=== PATIENT | female | born 1970 | race Caucasian/White ===

== ENCOUNTER → 2023-09-12 | Outpatient (CLI) | payer SELFPAY ==
--- NOTE | 2023-09-12 | BRBX_PTH ---
PATIENT: CASSIDY CAPUTO LOC: [facility] U#:[id number] AGE/SX: 53/F ROOM: RE09/12/[address]: Dr. Griffin Sage MD : 1970 BED: DIS: 09/12/2023 SPEC #: [id number] RECD: 09/12/23 15:57 STATUS: LEANN MEDEIROS #: [id number] VENANCIO: 09/12/23 00:[address]: Griffin Sage DEPT: SURGICAL PATHOLOGY RECD BY: Christin Murguia ENTERED: 09/13/23 07:25 SP TYPE: BREAST BX OTHR DR: Dr. Michael Ernst, DO Tissues: Left breast, NOS Procedures: Surgery Specimen Level IV HEADER OPERATION: Left breast biopsy PRE-OP DIAGNOSIS: Left breast TISSUE SUBMITTED: Left breast tissue Ischemic Time: 1 minute Fixation Time: 7 hours MICROSCOPIC DIAGNOSIS Left breast, core biopsy: Invasive ductal carcinoma. See cancer summary in the comment section. SJ/mr 09/14/2023 COMMENT Immunohistochemistry ([id number]) supports the above diagnosis. INVASIVE BREAST CANCER SUMMARY: Procedure: Needle core biopsy Specimen Laterality: Left Tumor site: Not specified Histologic type: Invasive ductal carcinoma, no special type Provisional histologic grade (Beaumont histologic score): Glandular/Tubule Differentiation Score:3 Nuclear Pleomorphism Score: 3 Mitotic Rate Score: 2 Overall grade: Grade 3 (score of 8) Tumor Size (greatest dimension): 0.6cm in greatest length Ductal Carcinoma Insitu: not present Lymphatic/vascular invasion: Not identified Microcalcifications: Not identified Additional Findings: None Breast Marker Study: [id number] ER: negative (0%) MT: negative (0%) Her2: positive (3+) Ki67: positive, 25% Pel1PebtdWJ: not performed The above summary is in compliance with [employer] of [employer] (CAP) Cancer Protocols Checklist and [place] Joint Committee on Cancer (AJCC), Staging Manual, 8th Ed. MICROSCOPIC DESCRIPTION Slides are reviewed. GROSS DESCRIPTION Received in fixative is one container labeled with the patient's name and designated Left breast tissue. The specimen consists of multiple irregular fragments of kelley-yellow fibroadipose tissue mixed with blood clot that in aggregate measure 2.5 x 1.5 x 0.1 cm. The specimen is totally submitted in one cassette. EMANUEL/ 09/13/2023 TC:0 CPT:15870
--- NOTE | 2023-09-12 | IMM_PTH ---
PATIENT: CASSIDY CAPUTO LOC: [facility] U#:[id number] AGE/SX: 53/F ROOM: RE09/12/[address]: Dr. Griffin Sage MD : 1970 BED: DIS: 09/12/2023 SPEC #: [id number] RECD: 09/14/23 10:21 STATUS: LEANN REQ #: [id number] VENANCIO: 09/12/23 00:[address]: Griffin Sage DEPT: IMMUNOHISTOCHEMISTRY RECD BY: Reg Meyers ENTERED: 09/14/23 10:21 SP TYPE: IMMUNO OTHR DR: Dr. Michael Ernst DO Tissues: Left breast, NOS Procedures: CALPONIN-1 (add) CK5-6 (add) CK8 (add) E-CAD (add) HER2 VALENTE (add) KI-67 (add) P53 (add) ID (add) P40 (add) ER (initial) PHYSICIAN & INSTITUTION [place] [id number] SPECIMEN INFORMATION: Tissue Source: Left breast tissue Clinical Info: Left breast Specimen Number: [id number] CPT code: 73922,51390b3,21218l6 METHODOLOGY: Deparaffinized sections of prefer/formalin-fixed tissue or PAP/DQ stained slides are incubated with monoclonal/polyclonal antibodies/oligonucleotide probes. Localization is made via biotin free immunoperoxidase method. Appropriate controls are performed and reacted as expected. Results on target cell population are indicated in the following table: RESULTS: ANTIBODY / CLONE RESULT E-Cad (ECH-6) positive CK8 (91jhkuI39) positive Calponin-1 (UB489A) negative CK5-6 (D5 & 1684) negative P40 (BC28) negative P53 (DO-7) negative, (null pattern) Ki-67 (30-9) positive, 25% MORPHOMETRIC ANALYSIS ER (clone 6F11) 0% ID (clone 16/1E2) 0% Her-2Neu (clone CB11) 3+ The prognostic test for HER2 is performed on formalin-fixed paraffin embedded tissue. A 3+ (positive) staining pattern is defined as intense, homogeneous, complete, circumferential membranous staining in >10% of contiguous tumor cells. A similar weak (2+) staining pattern is interpreted as equivocal. HARJEET follow-up testing is recommended for all equivocal cases. Positivity/negativity for ER/ID is reported if > or < 1% of the tumor cells are immuno- reactive, respectively. The ASCO/CAP criteria is used for scoring. Reference: Journal of Clinical Oncology, 2013; 31:8728-6484 & 2010; 16:7683-3329. Ischemic time: Less than one hour. Duration of fixation: 7 Hrs; Sample Adequate: Yes. These assays have not been validated on decalcified tissues. Results should be interpreted with caution given the likelihood of false negativity on decalcified specimens or fixation greater than 72 hours. Alternative testing methods (FISH/dualISH for Her2; gene expression for ER) are recommended, if applicable. Please notify the laboratory if additional testing is required. These tests were developed and their performance characteristics determined by [facility]. They may not have been cleared or approved by the U.S. Food and Drug Administration. The FDA has determined that such clearance or approval is not necessary. The above immunohistochemical/dualISH markers are ordered and reviewed by the Pathologist. The test for HER 2 is performed on formalin-fixed paraffin embedded tissue using the CB11 mouse monoclonal antibody ([employer]). A 3+ staining pattern is interpreted as positive and is defined as a strong membranous staining involving the entire cell membrane in over 30% of invasive tumor cells. A similar weak staining pattern (2+) involving 10% of the tumor cells is interpreted as equivocal. HER 2 follow-up testing by FISH is recommended for all equivocal results. Reference: [place] Society of Clinical Oncology and the College of [place] Path[employer] (J. Clin. Oncol. 23: 118-145, 2007). Fixative INTERPRETATION: Left breast, biopsy: Invasive ductal carcinoma, provisional grade 3. Negative for estrogen receptors (unfavorable prognostic indicator). Negative for progesterone receptors (unfavorable prognostic indicator). Positive for overexpression of SZL4kcv. EMANUEL/ 09/17/2023
== END | disposition home or self-care (01) ==
PROVIDERS: PCP Family Medicine; Referring Provider Surgery; Visit Provider Surgery
DX: C50.912 Malignant neoplasm of unspecified site of left female breast (principal)
CPT/HCPCS: 88305; 88341; 88342

== ENCOUNTER → 2023-09-21 | Outpatient (CLI) | payer SELFPAY ==
--- NOTE | 2023-09-21 08:02 | MRI_ITS ---
STUDY: BILATERAL BREAST MR WITHOUT AND WITH CONTRAST REASON FOR EXAM: Female, 53 years old. Suspicious axillary lymph nodes. Left breast cancer with bloody nipple discharge. TECHNIQUE: Multi-sequence multi-echo imaging of both breasts was performed with a dedicated breast coil. T1-weighted and T2-weighted images were performed before the administration of contrast. T1-weighted images were also performed after the intravenous administration of 17 cc of Clariscan contrast. COMPARISON: Left breast ultrasound-guided biopsy images dated September 12, 2023, bilateral diagnostic mammogram dated September 11, 2023 and unilateral left diagnostic mammogram dated September 11, 2019 FINDINGS: RIGHT BREAST: Scattered fibroglandular density with minimal background enhancement. No abnormal enhancing masses or areas of non-mass enhancement in the right breast. LEFT BREAST: Scattered fibroglandular density with minimal background enhancement. Large area of clumped non-mass enhancement in the upper central portion of the left breast measuring approximately 6.5 cm x 5.4 cm x 5.3 cm and extending from the upper inner quadrant to the upper outer quadrant and on the sagittal images slight extension into the inferior aspect of the breast. Area of enhancement corresponds generally to the multiple pleomorphic calcifications noted on the diagnostic mammogram from September 11, 2023 Morphologically normal lymph nodes are noted in both axillary, actually larger on the right side. No abnormality in the visualized regions of the chest or liver. MRI/Breast Bilateral W/O and W IMPRESSION: MRI imaging characteristics of multicentric breast cancer on the left as described. Lymph nodes in both axillary, right actually slightly greater than left, with normal morphology at MR. CATEGORY: BIRADS Category 6: Known Biopsy-Proven Malignancy - Appropriate Action Should Be Taken. A letter regarding these results will be sent to the patient by the facility within 30 days. Electronically Signed: Leighton Kunz MD at 10:37 EDT ,
[2023-09-21 08:36] LABS: CREATININE FINGERSTICK < 1.0 mg/dL (0.55-1.02); EGFR FINGERSTICK > 60.0000 mL/min (>60)
== END | disposition home or self-care (01) ==
PROVIDERS: PCP Family Medicine; Referring Provider Surgery; Visit Provider Surgery
DX: R92.8 Other abnormal and inconclusive findings on diagnostic imaging of breast (principal); I10 Essential (primary) hypertension; N63.20 Unspecified lump in the left breast, unspecified quadrant; R93.89 Abnormal findings on diagnostic imaging of other specified body structures
CPT/HCPCS: 77049; A9575; A4216; C8908

== ENCOUNTER → 2023-10-03 | Outpatient (CLI) | payer SELFPAY ==
--- NOTE | 2023-10-03 | IMM_PTH ---
PATIENT: CASSIDY CAPUTO LOC: [facility]#:[id number] AGE/SX: 53/F ROOM: RE10/03/[address]: Dr. Griffin Sage MD : 1970 BED: DIS: 10/03/2023 SPEC #: [id number] RECD: 10/05/23 11:32 STATUS: LEANN REQ #: [id number] VENANCIO: 10/03/23 00:[address]: Griffin Sage DEPT: IMMUNOHISTOCHEMISTRY RECD BY: Reg Meyers ENTERED: 10/05/23 11:34 SP TYPE: IMMUNO OTHR DR: Dr. Michael Ernst DO Tissues: A - Lymph node, NOS B - Lymph node, NOS Procedures: BCL-2 (add) CD20 (add) CD45 (add) CD5 (add) CD79A (add) CK7 (add) CK8 (add) HER2 VALENTE (add) KI-67 (add) MAMM (add) MA (add) Pankeratin (add) GATA3 (add) ER (initial) CD3 (initial) PHYSICIAN & [address] [address] SPECIMEN INFORMATION: Tissue Source: A- Lymph node #1, B- Lymph node #2 Clinical Info: Left axilla Specimen Number: [id number] A, B CPT code: 77430i1,48811a46,[id number] METHODOLOGY: Deparaffinized sections of prefer/formalin-fixed tissue or PAP/DQ stained slides are incubated with monoclonal/polyclonal antibodies/oligonucleotide probes. Localization is made via biotin free immunoperoxidase method. Appropriate controls are performed and reacted as expected. Results on target cell population are indicated in the following table: RESULTS: ANTIBODY / CLONE RESULT Block A GATA3 (L50-823) positive Mammaglobin (31A5) negative AE1-3 (AE1/AE3/PCK26) positive CK8 (95nigcB64) positive CK7 (OV-TL12/30) positive ER (clone 6F11) negative MA (clone 16/1E2) negative Her-2Neu (clone CB11) positive Block B CD3 (PS1) positive CD5 (SP10) positive CD20 (L26) positive CD79a (11E3) positive CD45 (RP2/18) positive BCL-2 (bcl-2/100/D5) positive Ki-67 (30-9) positive, low The prognostic test for HER2 is performed on formalin-fixed paraffin embedded tissue. A 3+ (positive) staining pattern is defined as intense, homogeneous, complete, circumferential membranous staining in >10% of contiguous tumor cells. A similar weak (2+) staining pattern is interpreted as equivocal. HARJEET follow-up testing is recommended for all equivocal cases. Positivity/negativity for ER/MA is reported if > or < 1% of the tumor cells are immuno- reactive, respectively. The ASCO/CAP criteria is used for scoring. Reference: Journal of Clinical Oncology, 2013; 31:3942-8974 & 2010; 16:3593-7384. Ischemic time: Less than one hour. Duration of fixation: __ Hrs; Sample Adequate: Yes. These assays have not been validated on decalcified tissues. Results should be interpreted with caution given the likelihood of false negativity on decalcified specimens or fixation greater than 72 hours. Alternative testing methods (FISH/dualISH for Her2; gene expression for ER) are recommended, if applicable. Please notify the laboratory if additional testing is required. These tests were developed and their performance characteristics determined by [facility]. They may not have been cleared or approved by the U.S. Food and Drug Administration. The FDA has determined that such clearance or approval is not necessary. The above immunohistochemical/dualISH markers are ordered and reviewed by the Pathologist. The test for HER 2 is performed on formalin-fixed paraffin embedded tissue using the CB11 mouse monoclonal antibody ([employer]). A 3+ staining pattern is interpreted as positive and is defined as a strong membranous staining involving the entire cell membrane in over 30% of invasive tumor cells. A similar weak staining pattern (2+) involving 10% of the tumor cells is interpreted as equivocal. HER 2 follow-up testing by FISH is recommended for all equivocal results. Reference: [place] Society of Clinical Oncology and the College of [place] Path[employer] (J. Clin. Oncol. 23: 118-145, 2007). Fixative Used: Formalin; Duration of Fixation: __ Hrs; Sample Adequate: Yes INTERPRETATION: A. Lymph node #1, biopsy: Consistent with metastatic breast carcinoma. B. Lymph node #2, biopsy: Polytypic lymphoid tissue No evidence of lymphoproliferative disorder. ZENAIDA/ 10/08/2023
--- NOTE | 2023-10-03 | AXNB_PTH ---
PATIENT: CASSIDY CAPUTO LOC: [facility]#:[id number] AGE/SX: 53/F ROOM: RE10/03/[address]: Dr. Griffin Sage MD : 1970 BED: DIS: 10/03/2023 SPEC #: [id number] RECD: 10/03/23 16:25 STATUS: LEANN WALDEMAR #: [id number] VENANCIO: 10/03/23 00:[address]: Griffin Sage DEPT: SURGICAL PATHOLOGY RECD BY: Christin Murguia ENTERED: 10/04/23 07:07 SP TYPE: AX NODE BX OT DR: Dr. Michael Ernst DO Tissues: A - Axillary lymph node, NOS B - Axillary lymph node, NOS Procedures: Surgery Specimen Level IV HEADER OPERATION: Lymph node biopsy left axilla PRE-OP DIAGNOSIS: Left axilla TISSUE SUBMITTED: A- Lymph node #1, B- Lymph node #2 MICROSCOPIC DIAGNOSIS A. Left axillary lymph node #1, core biopsy: Minute focus of metastatic non-small cell carcinoma with tumor necrosis. See comment. B. Left axillary lymph node #2, core biopsy: Benign lymphoid tissue. No evidence of malignancy. See comment. ZENAIDA/ 10/05/2023 COMMENT A Immunohistochemistry ([id number]) supports the above diagnosis and is consistent with a breast primary. Reference is made to the patient's left breast core biopsy ([id number]) in which invasive ductal carcinoma, provisional grade 3 was identified. Case has been reviewed in consultation with Dr. Cook who concurs with the above diagnosis. IDC:SJ MICROSCOPIC DESCRIPTION Slides are reviewed. GROSS DESCRIPTION A. Received in fixative is one container labeled with the patient's name and designated Left axilla #1. The specimen consists of two elongated pieces of kelley light-yellow fibroadipose tissue measuring in aggregate 1.5 x 0.2 x 0.1cm. B. Received in fixative is one container labeled with the patient's name and designated Left axilla #2. The specimen consists of multiple elongated fragments of kelley-yellow adipose tissue measuring in aggregate 1.0 x 0.3 x 0.1cm. EMANUEL/ 10/04/2023 TC:0 CPT:39566h8
--- NOTE | 2023-10-03 13:54 | US_ITS ---
STUDY: ULTRASOUND BREAST - LEFT REASON FOR EXAM: Female, 53 years old. Ultrasound-guided left axillary lymph node. TECHNIQUE: Axial and longitudinal images of the LEFT breast were performed with a high resolution ultrasound transducer. # OF IMAGES: 24 COMPARISON: None. FINDINGS: LEFT Breast: Ultrasound guided biopsy of a left axillary lymph node. US/US Breast Biopsy 1st Lesion IMPRESSION: Ultrasound-guided biopsy of the left axillary lymph node. ASSESSMENT CATEGORY: BIRADS Category 2: Benign. A letter regarding these results will be sent to the patient by the facility within 30 days. Electronically Signed: James Pederson MD at 11:03 EDT ,
--- NOTE | 2023-10-03 16:18 | PCM.OP.PRO ---
Procedure Report Date of Procedure: 10/03/23 Procedure: Core needle biopsy of left axillary lymph node Description: After a detailed review of the biopsy procedure, the patient was positioned supine in the exam chair. Formal, written consents were obtained prior to positioning and ultrasonography had previously identified the lymph nodes of interest. Ultrasound was used to localize these lymph nodes which were in close proximity to 1 another but the morning elongated of the 2 lymph nodes resided medially and inferior to the lymph node with a greater cortical thickness. Locally 1% lidocaine was infiltrated about the mass using ultrasound guidance. Once the area was sufficiently anesthetized, a small stab incision was made in the skin and the Crestock core needle device was introduced percutaneously. Ultrasound was used to guide the tip of the device to the border of the more superior lateral lesion. Then the mass was serially sampled with 2 cores which were placed in solution for pathologic processing. After infiltrating some additional local anesthetic and confirming anesthesia be more inferior medial lesion was sampled with 2 cores of its own. Pressure was applied over the area to facilitate hemostasis. A marking clip was then placed under ultrasound guidance lateral to the superior lateral node. Again, pressure was applied until hemostasis was obtained. The skin was cleaned and Steri-Strips were applied over the stab incision for the biopsy procedure. Patient tolerated the procedure with no complications EBL: 3 mL Procedures Cardiovascular CF Procedures 33xxx-39xxx: [id number] Biopsy Lymph Node/gland/etc
== END | disposition home or self-care (01) ==
PROVIDERS: PCP Family Medicine; Referring Provider Surgery; Visit Provider Surgery
DX: C50.919 Malignant neoplasm of unspecified site of unspecified female breast (principal); C77.9 Secondary and unspecified malignant neoplasm of lymph node, unspecified; N64.1 Fat necrosis of breast
CPT/HCPCS: 19083; 19084; 88305; 88341; 88342

== ENCOUNTER → 2023-10-16 | Outpatient (CLI) | payer SELFPAY ==
--- NOTE | 2023-10-16 14:09 | BI_ITS ---
MAMMOGRAPHY - UNILATERAL DIAGNOSTIC: LEFT BREAST REASON FOR EXAM: Female, 53 years old. Postbiopsy clip placement. PERTINENT HISTORY: Status post right axillary lymph node biopsy. TECHNIQUE: Mediolateral oblique and craniocaudad views of the left breast were obtained. CAD: Full Field Digital Mammography with Computer Added Detection was performed. COMPARISON: Comparison is made with prior MRI dated September 21, 2023 FINDINGS: Breast Composition: The breasts are heterogeneously dense, which may obscure small masses. Microcalcifications are seen in the upper lateral quadrant of the left breast. A tissue clip marker is seen within the fat-containing left axillary lymph node. No other significant abnormalities are identified. BI/DIAG MAMM W/CAD, UNILAT IMPRESSION: Indication: Increasing within the fat-containing left axillary lymph node. ASSESSMENT CATEGORY: Approximately 10% of breast cancers are not detected by mammography. A normal mammogram should not delay biopsy of a clinically suspicious abnormality. Electronically Signed: James Pederson MD at 14:54 EDT ,
== END | disposition home or self-care (01) ==
PROVIDERS: PCP Family Medicine; Referring Provider Surgery; Visit Provider Surgery
DX: N63.20 Unspecified lump in the left breast, unspecified quadrant (principal); C79.81 Secondary malignant neoplasm of breast; R93.89 Abnormal findings on diagnostic imaging of other specified body structures
CPT/HCPCS: 77065

== ENCOUNTER → 2023-10-22 | Outpatient (CLI) | payer SELFPAY ==
--- NOTE | 2023-10-22 09:50 | ECHODONC_ITS ---
Reason For Study: ANTINEOPLASTIC CHEMOTHERAPY Procedure This was a 2D Doppler, Color Flow transthoracic echocardiogram. Myocardial strain analysis was performed in this exam to aid in the assessment of cardiac function. Exam performed in department. Left Ventricle Normal LV size. The global longitudinal strain is mildly abnormal. The global longitudinal strain = -16.6% (abnormal). The estimated ejection fraction is 60 %. No evidence for diastolic dysfunction. No regional wall motion abnormalities noted. Right Ventricle Normal RV size. Normal systolic function. Atria The left and right atria are normal. No doppler evidence for ASD. Mitral Valve There is no mitral valve stenosis. No mitral valve insufficiency. Tricuspid Valve There is no tricuspid stenosis. Trivial tricuspid valve insufficiency. Pulmonary artery systolic pressure is 25 mmHg. Aortic Valve Trisinus/trileaflet aortic valve. There is no aortic stenosis. No aortic valve insufficiency. Pulmonic Valve There is no pulmonic valvular stenosis. No pulmonic valve insufficiency. Great Vessels Normal aortic root. Pericardium/Pleural No pericardial effusion. MMode/2D Measurements & Calculations LVIDd: 4.3 cm IVSd: 1.2 cm LVOT diam: 1.9 cm LVIDs: 2.4 cm LVPWd: 0.75 cm LVOT area: 2.8 cm2 RVDd: 3.3 cm FS: 43.5 % Ao root diam: 3.1 cm LAV(MOD-bp): 42.6 ml LVAd ap4: 19.9 cm2 LAV(MOD-bp) Indexed: 23.2 ml/m2 LVLd ap4: 6.7 cm LAV(MOD-sp2): 55.4 ml EDV(MOD-sp4): 47.5 ml LAV(MOD-sp4): 28.8 ml EDV(sp4-el): 50.3 ml LVAs ap4: 10.4 cm2 LVLs ap4: 5.0 cm ESV(MOD-sp4): 17.7 ml ESV(sp4-el): 18.4 ml EF(MOD-sp4): 62.7 % EF(sp4-el): 63.5 % LVAd ap2: 18.1 cm2 SV(MOD-sp4): 29.8 ml SV(MOD-sp2): 29.1 ml LVLd ap2: 6.4 cm EDV(MOD-sp2): 44.2 ml EDV(sp2-el): 43.9 ml LVAs ap2: 9.5 cm2 LVLs ap2: 5.1 cm ESV(MOD-sp2): 15.2 ml ESV(sp2-el): 14.8 ml EF(MOD-sp2): 65.7 % SV(sp4-el): 31.9 ml LA dimension(2D): 3.6 cm LA A4 area: 12.7 cm2 RA A4 area: 7.8 cm2 TAPSE: 1.8 cm Time Measurements MV dec time: 0.21 sec Doppler Measurements & Calculations MV E max omar: 76.6 cm/sec Lat Peak E' Omar: 12.8 cm/sec Med Peak E' Omar: 8.9 cm/sec MV A max omar: 85.9 cm/sec E/E' lat: 6.0 E/E' med: 8.7 MV E/A: 0.89 Ao V2 max: 124.7 cm/sec LV V1 max: 111.0 cm/sec MV dec slope: 371.6 cm/sec2 Ao max P.2 mmHg LV V1 max P.9 mmHg Ao V2 mean: 86.8 cm/sec LV V1 mean P.6 mmHg Ao mean P.4 mmHg LV V1 mean: 76.0 cm/sec Ao V2 VTI: 28.5 cm LV V1 VTI: 24.7 cm AV (velocity ratio): 0.87 JL(I,D): 2.5 cm2 JL(V,D): 2.5 cm2 SV(LVOT): 70.2 ml PA V2 max: 76.0 cm/sec PI end-d omar: 98.6 cm/sec PA max PG (full): 1.1 mmHg TR max omar: 254.1 cm/sec TR max P.8 mmHg ECHO/ONC Echo Complete Interpretation Summary The estimated ejection fraction is 60 %. No evidence for diastolic dysfunction. Ordering Physician: Jairon Rothman Referring Physician: Jairon Rothman Performed By: Rosa Franco RDCS
== END | disposition home or self-care (01) ==
PROVIDERS: PCP Family Medicine; Referring Provider Internal Medicine Medical Oncology; Visit Provider Internal Medicine Medical Oncology
DX: Z01.818 Encounter for other preprocedural examination (principal); C77.3 Secondary and unspecified malignant neoplasm of axilla and upper limb lymph nodes; C50.919 Malignant neoplasm of unspecified site of unspecified female breast
CPT/HCPCS: 93306; 93356

== ENCOUNTER 2023-10-25 07:59 | Day surgery (SDC) | payer SELFPAY ==
[2023-10-25] VITALS (8 sets, daily range): BP systolic 113–130; BP diastolic 66–85; PULSE 76–87; RESP 16; TEMP 36.3–36.6; O2SAT 98–100; BMI 37.4
--- NOTE | 2023-10-25 08:18 | PCM.PRE.AN2 ---
ASA Classification* ASA Classification ASA Classification: 3 Assessment & Plan Anesthesia* Anesthesia Assessment Anesthesia Assessment: Discussed sedation and/or anesthesia options, risks, benefits, and alternatives with patient/parents/legal guardian/POA. Questions invited. The patient/parents/legal guardian/POA seems to understand and agrees to proceed with anesthesia plan. Reviewed the physical assessment, medical history, allergy history and patient home medications list prior to surgery/procedure/anesthetic and documented any changes. Performed airway and anesthesia risk assessments. Anesthesia Type Anesthesia Type: MAC (see written pre anesthesia record for full assessment) Anesthesia Focused Assessment* Airway Assessment Mouth opens: >3 cm Mallampati Score: II Focused Labs Anesthesia Preop lab: CBC WBC 6.6 K/mm3 (4.4-11.0) 10/18/23 10:05 RBC 4.60 M/mm3 (4.2-5.4) 10/18/23 10:05 Hgb 13.2 g/dL (12.0-15.0) 10/18/23 10:05 Hct 39.3 % (37-47) 10/18/23 10:05 Plt Count 260 K/mm3 (150-450) 10/18/23 10:05 CHEMISTRY Potassium 3.9 mmol/L (3.5-5.1) 10/18/23 10:05 Sodium 143 mmol/L (136-145) 10/18/23 10:05 BUN 14 mg/dL (7-18) 10/18/23 10:05 Creatinine 0.93 mg/dL (0.55-1.02) 10/18/23 10:05 Glucose 100 mg/dL (74-106) 10/18/23 10:05 COAG Pre-Assessment Diagnosis/Proposed Procedure Planned Operative Procedure(s): (R) Right possible left Insertion, Vascular Port Anesthesia History 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 When Was Last Pacemaker Check QUESTION #4 FULL TEXT: You/Your Family Experience fever (hyperthermia) with Anesthesia Last Oral Intake Last Oral intake: Last Oral Intake NPO since Meds taken in AM with sips of water? 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 Female Yes 10/19/23 08:24 HX of Motion Sickness Yes 10/19/23 08:24 HX of N/V After Surgery No 10/19/23 08:24 Non-Smoker Yes 10/19/23 08:24 Duration of Surgery greater No 10/19/23 08:24 than 60 minutes Number of Risk Factors 3 10/19/23 08:24 PONV Score Moderate Risk 10/19/23 08:24 Height & Weight Height & Weight: Anesthesia: Height & Weight Height 5 ft 10/18/23 09:10 Respiratory Assessment Respiratory Assessment - assistant professor of physics: Respiratory Tract Infection Hx - assistant professor of physics Hx Respiratory Tract Infection No 10/19/23 08:24 STOP Sleep Apnea STOP Sleep Apnea - assistant professor of physics: STOP Sleep Apnea - assistant professor of physics Hx Hypertension Yes: controlled with med 10/19/23 08:24 Hx Sleep Apnea No 10/19/23 08:24 CPAP BIPAP Do you snore loudly (louder Yes 10/19/23 08:24 than talking or can be heard Do you often feel tired/ No 10/19/23 08:24 fatigued/ sleepy during daytime? Has anyone observed you stop No 10/19/23 08:24 breathing during sleep? STOP Results Positive 10/19/23 08:24 QUESTION #5 FULL TEXT : Do you snore loudly (louder than talking or can be heard through closed doors)? 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 Specify any problems Hx of Preganancy in last 3 N/A 10/19/23 08:24 Months Nurse Filling Out Transfusion NBUCHER 10/19/23 08:24 & Questions: Date: 10/19/23 10/19/23 08:24 Time: 08:26 10/19/23 08:24 Patient unable to answer at this time (ie. 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: /Reproductive Hx- assistant professor of physics Hx Now No 10/19/23 08:24 Gestational Age (in weeks): EDC: Hx Hx Para Hx Section SAB No 10/19/23 08:24 Active Medications Active Medications: Current Medications Generic Name Dose Route Start Last Admin Trade Name Freq PRN Reason Stop Dose Admin Cefazolin Sodium 2 gm/ Sodium 110 mls @ 150 mls/hr 10/25/23 11:30 Chloride IV 10/25/23 12:13 PREOP ONE Lactated Ringer's 1,000 mls @ 15 mls/hr 10/25/23 08:15 IV .Q48H MAXIMILIAN PFSH Medical History Wears contact lenses Wears glasses Cancer Migraine headache Shortness of breath on exertion Non-smoker Hypertension History of hypertension History of frequent headaches History of seasonal allergies Home Medications ?Medication ?Instructions ?Recorded ?Last Taken ?Type hydrochlorothiazide 12.5 mg capsule 12.5 mg PO DAILY 09/12/23 Unknown History lisinopril 2.5 mg tablet 2.5 mg PO DAILY 09/12/23 Unknown History amlodipine 5 mg tablet 5 mg PO DAILY 10/18/23 Unknown History loratadine 10 mg tablet (Allergy 10 mg PO DAILY 10/18/23 Unknown History Relief (loratadine)) Allergy/AdvReac Type Severity Reaction Status Date / Time No Known Allergies Allergy Verified 10/19/23 08:23 Family History Aunt Breast cancer, Onset Age: 60 Father Cancer Asthma Heart disease Hypertension Diabetes Aunt Lymphoma Surgical History History of delivery History of wisdom tooth extraction Social History Smoking Status: Never smoker alcohol intake: never substance use type: does not use additional social history: pt denies vaping, denies marijuana use denies edibles, uses ibuprofen as needed. used to take aspirin daily has stopped Review of Systems (Anesthesia) ROS Narrative System reviewed and no additional complaints, except as documented.
[2023-10-25 08:26] LABS: Internal QC Validated? YES +Cl - CLEAR BKGD; Pregnancy, Urine Negative Negative
[2023-10-25] MEDS: Lactated Ringers 1,000 ML 15 ML IV (08:32)
--- NOTE | 2023-10-25 09:17 | HP.PCM_ITS ---
History and Physical Date of Admission: 10/25/23 Date of Service: 10/16/23 MR#: [id number] Acct: [id number] Name: CASSIDY HEAD Rep #: [id number] : 1970 Provider: Dr. Griffin Sage MD Age/Sex: 53/F Location: [facility] Status: Signed Intake Vital Signs 09/12/2411:11 10/15/2408:07 Height 5 ft 5 ft BP 132/80 H Blood Pressure Location Rt brachial Position Sitting Respiration 18 Pulse 80 Pulse Source Monitor Temp 97.2 F L Temp Source Temporal Pulse Oximetry (%) 99 Oxygen Delivery Method room air Intake Visit Reasons: PORT CONSULT Chief Complaint: Port consult Accompanied by: Is patient in pain?: No Allergies No Known Allergies Allergy (Verified 10/16/23 10:39) Medications ?Medication ?Instructions ?Recorded ?Confirmed ?Type hydrochlorothiazide 12.5 mg capsule 12.5 mg PO DAILY 09/12/23 10/16/23 History lisinopril 2.5 mg tablet 2.5 mg PO DAILY 09/12/23 10/16/23 History losartan 25 mg tablet 25 mg PO DAILY 09/12/23 10/16/23 History Have you fallen in the past year?: No PFSH Medical History (Updated 10/16/23 @ 16:[address] Griffin Sage MD) History of hypertension History of frequent headaches History of seasonal allergies Surgical History (Updated 10/16/23 @ 10:39 by Little Burrell) History of delivery History of wisdom tooth extraction Family History (Updated 10/16/23 @ 10:44 by Little Burrell) Aunt Breast cancer, Onset Age: 60Father Cancer Asthma Heart disease Hypertension Diabetes Social History (Updated 10/16/23 @ 10:43 by Little Burrell) Smoking Status: Never smoker alcohol intake: never substance use type: does not use additional social history: pt denies vaping, denies marijuana use denies edibles, uses ibuprofen as needed. used to take aspirin daily has stopped HPI HPI HPI: Patient is a 53-year-old female who is known to me for a diagnosis now of left breast cancer. Most recently we completed ultrasound-guided biopsy of 2 axillary lymph nodes on 10/03/2023 and one of the 2 of these lymph nodes showed evidence of metastatic spread. This result was shared with patient as well as discussed with oncology. We have jointly decided that she would make a reasonable candidate for neoadjuvant therapy and thus patient presents today with her for consideration of port placement. Patient has no prior history of central line placement. Patient has no pacemaker or intracardiac defibrillator. Patient has no renal dysfunction and are not on hemodialysis. Mrs. Head is not currently prescribed blood thinners. Below is recapitulated from patient's consultation visit for ease of review: Patient is a 53-year-old female who presents for sonographic finding of the left breast. They are referred from Dr. Ernst. Based on sonographic imaging criteria this was given a BI-RADS 5. The mass was first found after patient describes identifying a small pimple approximately half an inch to the right of her nipple (roughly the 9 o'clock position as she gestures) and then experienced 2 occasions of minimal bloody nipple discharge. She denies any previous history of nipple discharge?including any milky discharge. She confesses that the subsequent mammography and ultrasonography were her first breast imaging studies ever obtained. Thus, patient has no prior history of breast pathology nor has a history of prior breast biopsy. She underwent menarche at the age of 13. She has had 8 pregnancies and 8 live births beginning at age 24. Breast-feeding was used with each of her children for approximately 1 year duration. Patient has no first-degree relatives with breast cancer but recalls that her great aunt on her maternal side was diagnosed with breast cancer later in life. There is no tenderness with the present finding. The patient has no history of hormone replacement therapy. There is no history of trauma/infection to the affected breast. Patient's only significant past medical history is that of hypertension. ROS General General: Yes fatigue; No weight change, appetite, colon cancer, breast cancer or weakness HEENT HEENT: No difficulty swallowing, eye injury, eye surgery, swollen glands or hoarseness Endo Endocrine: No thyroid disease, diabetes mellitus, thyroid cancer, Hair loss, heat intolerance or cold intolerance Skin Skin: No rash or changing moles Breast Breast: Yes abnormal mammogram and abnormal US; No left breast lump, right breast lump, nipple discharge, breast pain or breast enlargement Additional Details: sore on left breast Musc Musculoskeletal: No back problems, arthritis, rheumatoid arthritis, gout or joint pain Cardio Cardiovascular: Yes high blood pressure; No murmur, pacemaker, heart disease, atrial fibrillation, heart attack, heart stent, palpitations, shortness of breat with exertion or chest pain Psych Psychiatric: No depression, anxiety or hearing voices Resp Respiratory: No shortness of breath, No sleep apnea, No cough, No COPD, No asthma, No emphysema and No wheezing Gastro Gastrointestinal: No abdominal pain, No nausea or vomiting, No diarrhea, No constipation, No blood in stool, No acid reflux, No hemorrhoids, No ulcers, No gallbladder problem and No black,tarry stools Efren Hematologic: No blood thinners, No blood disorders, No bleeding, No anemia and No blood clots Neuro Neurologic: No numbness, No tingling and No weakness Exam Const General: cooperative and comfortable Orientation: alert, awake and oriented x3 Chest Other: No scars, rashes, or inflammatory changes consistent with infection Skin Other: Well-healing biopsy sites of both the left breast and left axilla with mild irritation of the epidermis consistent with adhesive reaction Assessment and Plan Assessment and Plan (1) Breast cancer metastasized to axillary lymph node: Status: Acute Comment: Patient is a 53-year-old female with now?known left infiltrating ductal carcinoma who is recently diagnosed with axillary lymph node metastasis via core needle biopsy. Receptor status is ER, [place] negative HER2/sailaja positive. After discussing patient's case with oncology and with patient and her , we have jointly decided to pursue neoadjuvant therapy followed by probable mastectomy and restaging of the axilla?provided that patient has a favorable response to neoadjuvant therapy. I held a lengthy conversation today with patient and her discussing these treatment options?specifically mastectomy with axillary lymph node dissection versus mastectomy with sentinel lymph node biopsy and described the risk of lymphedema associated with axillary lymph node dissection as a risk that we were trying to minimize with pursuing neoadjuvant therapy. Questions were taken at various time points and patient and her expressed not only understanding but agreement with the rec ommendations. I also proceeded with a discussion on the rationale for Port-A-Cath placement and the High Level details of the procedure itself. At the inclusion of today's visit patient was escorted to the oncology unit for a fast pass tour. She was also referred to plastic surgery for consultation related to possible reconstruction. Plan: ? Plan for right, possible left Port-A-Cath placement at first mutually available date ? Referral to oncology ? Referral to plastic surgery Orders: Orders DIAG MAMM W/CAD, UNILAT Today C79.81 - Secondary malignant neoplasm of breast, N63.20 - Unspecified lump in the left breast, unspecified quadrant, R93.89 - Abnormal findings on diagnostic imaging of other specified body structures Referrals Fast Pass: Oncology Referral [facility] C79.81 - Secondary malignant neoplasm of breast Plastic surgery C79.81 - Secondary malignant neoplasm of breast Coding Level of Care Code Off vis,est,level 4 Diagnoses Breast cancer metastasized to axillary lymph node C50.919; C77.3 I have examined the patient and the H&P has been reviewed. There are no clinical changes since date of exam.Patient is still pending a date with oncology but has begun the rest of her staging workup. We reviewed the plans for today as well as precautions to monitor the port for signs of infection. Patient and her confirm understanding. Will now proceed to the operating room for right, possible left Port-A-Cath placement.
[2023-10-25] MEDS: Cefazolin 2 GM in 0.9% Normal Saline (100mL Bag) 100 ML IV (09:24)
[2023-10-25] MEDS: Bupiv/Epi 0.25% 30 ML Vial (10:29)
--- NOTE | 2023-10-25 10:38 | DCINST_ITS ---
Discharge Instructions Diet Discharge Diet: No restrictions Activity Discharge Activity: May Shower Dressing / Incision Call your doctor if your incision/area has: Continuous Slow Oozing, Sudden Increased Bleeding, Increased Pain/ Swelling, Increased Redness, Foul Smelling Discharge and Swelling at the incision site Call your doctor if you observe: Fever of 101 or Higher and Uncontrolled pain Cleanse incision/area with: Soap & Water Follow Up Care Test Results: Test results from this visit will be discussed in further detail at your follow- up appointment, if applicable. Discharge Plan Admission Primary Reason for Your Visit: Right Port-A-Cath placement Attending Provider: Griffin Sage Primary Care Provider: Michael Ernst Instructions Print Language: Anguillan Discharge Orders/Prescriptions Prescriptions: No Action lisinopril 2.5 mg tablet 2.5 mg PO DAILY hydrochlorothiazide 12.5 mg capsule 12.5 mg PO DAILY amlodipine 5 mg tablet 5 mg PO DAILY loratadine [Allergy Relief (loratadine)] 10 mg tablet 10 mg PO DAILY Referrals / Follow Up: Michael Ernst DO [Primary Care Provider] - Disposition Disposition (needs filled in before D/C Order can be placed): Home, Self Care
--- NOTE | 2023-10-25 10:39 | PCM.OPRPT ---
Report of Operation Date of Procedure: 10/25/23 Pre-Operative Diagnosis: Left breast cancer with axillary node metastasis requiring neoadjuvant therapy and thus need for durable venous access Post-Operative Diagnosis: Same Surgery/Procedure Performed:: Ultrasound and fluoroscopic guided placement of tunneled 8 Marshallese Port-A-Cath to right internal jugular vein Description of Surgical Findings:: ? Normal vascular anatomy Surgeon: Griffin Sage program rep: None Type of Anesthesia: MAC/Supplemental Anesthesiologist: Davis Muñoz Specimen's removed: None Estimated Blood Loss (mL): 10 Description of Procedure: After appropriate identification in the preoperative holding area the patient was brought to the operating room. There she was administered preoperative antibiotics and positioned supine on the operating room table. Once sedation was begun, the upper chest and lower cervical region were prepped and draped in usual sterile fashion. A formal timeout was then conducted to confirm both the patient and procedure. Ultrasound was used to localize the right internal jugular vein. Then a wheal of quarter percent with epinephrine was raised superficially in this location and the vein was accessed with 3 attempts (initial 2 attempts show the wire extravasating posteriorly into the soft tissues deep to the vein). Under direct ultrasound guidance, using a Seldinger technique, the kit standard 035 guidewire was placed. The position of the guidewire was confirmed with fluoroscopy. Next the position of the port pocket was determined and again local anesthetic was used to anesthetize the area of both the pocket and the tunneling cephalad. A transverse incision 3 cm in width was made down through the subcutaneous tissue. Selective electrocautery was used to obtain hemostasis. Then with blunt dissection the port pocket was developed. The catheter was connected to the tunneler and was tunneled up to the position of the guidewire. Here the dilator and peel-away sheath were placed over the guidewire and the guidewire was removed. Position was again confirmed with fluoroscopy. The catheter length was estimated based on the external placement of a hemostat to approximate the level of the nilesh and the cavoatrial junction. The catheter was then fed into the sheath and slowly the sheath was peeled away as the catheter was inserted fully into the neck. Back in the chest the excess catheter was trimmed and the port was connected to the catheter. The port was tied into the pocket using 3-0 Vicryl. Function was then tested using sterile saline on a Jain needle. It was locked with 3 mL of heparinized saline (concentration 50U/5mL). The port pocket was closed with a deep dermal stitch using a running 3-0 Vicryl followed by 4-0 Monocryl subcuticular stitch. The 1 cm incision in the neck was closed with a single interrupted subcuticular stitch using 4-0 Monocryl. Dermabond was applied as a dressing. Patient was then aroused from the sedation and taken to PACU for ongoing recovery were a portable chest x-ray was obtained to confirm port positioning and exclude any pneumothorax. Grafts/Implants Used: PowerPort reference [id number], Lot [id number] Complications None Admit VTE Documentation VTE Mechan Device Prophylaxis: SCD's Procedures Cardiovascular CF Procedures [id number]: [id number] Insert tunneled cv cath
--- NOTE | 2023-10-25 10:45 | PCM.POST.ANE ---
Anesthesia: Postop Eval I Current Vital Signs Temperature: 97.8 F Pulse Rate: 84 Blood Pressure: 115/76 Respiratory Rate: 16 Pulse Ox: 100 Oxygen Delivery Method: Room Air Assessment Airway patent: Yes Spontaneous unlabored respirations: Yes Mental status: Awake and Calm nausea: No Vomiting: No Anesthesia Complication: No Fluid Hydration Crystalloid volume administer (ml): 600 Total IV fluid infused: 600 Progress Note Anesthesia document: Postop Eval 1 completed: Yes
--- NOTE | 2023-10-25 10:50 | RAD_ITS ---
STUDY: X-RAY CHEST REASON FOR EXAM: Female, 53 years old. Status post line placement TECHNIQUE: Single AP portable view of the chest. COMPARISON: None. FINDINGS: A right-sided portacatheter has been placed. The tip is at the junction of the superior vena cava and right atrium. The lungs are clear and expanded. There is no demonstrated pleural abnormality. Normal size heart. Normal mediastinum and bridger. Normal visualized pulmonary arteries. Normal visualized aortic arch and descending thoracic aorta. Normal visualized thoracic spine. Normal visualized ribs, clavicles, and shoulders. There is no demonstrated abnormality of the visualized soft tissue structures of the upper abdomen. RAD/CXR for Line Placement IMPRESSION: The tip of the right arnulfo catheter is at the junction of the superior vena cava and right atrium. Electronically Signed: James Pederson MD at 11:00 EDT ,
--- NOTE | 2023-10-25 11:11 | POSTOPAN2_ITS ---
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.[email or web address] Spontaneous unlabored Yes 10/25/23 10:46 LOCK TENDER CHIEF OPERATORMYA respirations Mental status Awake,Calm 10/25/23 10:46 LOCK TENDER CHIEF OPERATOR.JAMIL nausea No 10/25/23 10:46 LOCK TENDER CHIEF OPERATOR.JAMIL Vomiting No 10/25/23 10:46 LOCK TENDER CHIEF OPERATORMYA Anesthesia Postop Eval I: Fluid Summary Crystalloid volume administer 600 10/25/23 10:46 [email or web address].JAMIL (ml) Colloids volume administered ( ml) Blood Product volume administered (ml) Total IV fluid infused 600 10/25/23 10:46 LESTER Anesthesia Postop Eval I: Summary Notes Anesthesia Complication No 10/25/23 10:46 LESTER Anesthesia Complication Comment: Post-operative progress note Anesthesia: Postop Eval II Evaluation Mental status: Awake Pain Level: 0 nausea: No Vomiting: No
--- NOTE | 2023-10-25 11:11 | PCM.POSTANE2 ---
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.[email or web address] Spontaneous unlabored Yes 10/25/23 10:46 TOY PARTS FORMER SUPERVISORMYA respirations Mental status Awake,Calm 10/25/23 10:46 TOY PARTS FORMER SUPERVISOR.JAMIL nausea No 10/25/23 10:46 TOY PARTS FORMER SUPERVISOR.JAMIL Vomiting No 10/25/23 10:46 TOY PARTS FORMER SUPERVISORMYA Anesthesia Postop Eval I: Fluid Summary Crystalloid volume administer 600 10/25/23 10:46 JAIRON.JAMIL (ml) Colloids volume administered ( ml) Blood Product volume administered (ml) Total IV fluid infused 600 10/25/23 10:46 LESTER Anesthesia Postop Eval I: Summary Notes Anesthesia Complication No 10/25/23 10:46 LESTER Anesthesia Complication Comment: Post-operative progress note Anesthesia: Postop Eval II Evaluation Mental status: Awake Pain Level: 0 nausea: No Vomiting: No
== END 2023-10-25 12:09 | disposition home or self-care (01) ==
LOC: SDC 08:03 → AC 08:05
PROVIDERS: Anesthesiology; PCP Family Medicine; Referring Provider Surgery; Visit Provider Surgery
PROC: (CPT 36561; principal; 2023-10-25 09:15)
DX: Z45.2 Encounter for adjustment and management of vascular access device (principal); C77.3 Secondary and unspecified malignant neoplasm of axilla and upper limb lymph nodes; C50.912 Malignant neoplasm of unspecified site of left female breast; I10 Essential (primary) hypertension; Z79.899 Other long term (current) drug therapy
CPT/HCPCS: 36561; 71045; 77001; 81025; C1894; J7120; C1788; J2405

== ENCOUNTER → 2023-10-26 | Outpatient (CLI) | payer SELFPAY ==
--- NOTE | 2023-10-26 09:40 | NM_ITS ---
CLINICAL: Female, 53 years old. STAGING-BREAST CA WHOLE BODY NUCLEAR BONE SCAN TECHNIQUE: Following the IV administration of 26.8 mCi of Tc MDP, whole body bone imaging was performed with a gamma camera following a three hour delay. COMPARISON STUDIES : PET- whole body PET/CT fusion scan 10/23/2023. CR - Not available for review at this time. CT - Not available for review at this time. MR - Not available for review at this time. US - Not available for review at this time. FINDINGS: Mild increased radiotracer uptake in the carpometacarpal articulation of the left thumb when compared to the right and right lateral MTP joint. They are most likely on a degenerative basis. Minimal asymmetric increased radiotracer uptake at the costovertebral articulation of the mid thoracic spine, the right L4-L5 facet joint and right L3-L4 facet joint. They are on a degenerative basis. No abnormal areas of increased radiotracer uptake to suspect bony metastatic disease. NM/Bone Scan Whole Body IMPRESSION: 1. No suspicious bone metastatic disease. 2. Degenerative osteoarthrosis at the carpometacarpal articulation of the left thumb, costovertebral articulation of the mid thoracic spine, the right L5-S1 facet joint, right L3-L4 facet joint and the lateral MTP joint of the right foot. Electronically Signed: Mk Johnson MD at 10:13 EDT ,
== END | disposition home or self-care (01) ==
LOC: NM 09:40
PROVIDERS: PCP Family Medicine; Referring Provider Internal Medicine Medical Oncology; Visit Provider Internal Medicine Medical Oncology
DX: C50.919 Malignant neoplasm of unspecified site of unspecified female breast (principal); C77.3 Secondary and unspecified malignant neoplasm of axilla and upper limb lymph nodes
CPT/HCPCS: 78306; A9503

== ENCOUNTER → 2024-01-29 | Outpatient (CLI) | payer SELFPAY ==
--- NOTE | 2024-01-29 07:53 | ECHOLONC_ITS ---
Reason For Study: CARDIO TOXIC DRUG THERAPY Procedure This was a limited 2D transthoracic echocardiogram. Myocardial strain analysis was performed in this exam to aid in the assessment of cardiac function. Exam performed in department. Left Ventricle Normal LV size. The global longitudinal strain = -16.2% (abnormal). The estimated ejection fraction is 60 %. Normal diastololic function. The prior global longitudinal strain was -16.6 % . No regional wall motion abnormalities noted. Right Ventricle Normal RV size. Normal systolic function. Atria The left and right atria are normal. Mitral Valve The mitral valve is structurally normal. No prolapse or stenosis seen. Tricuspid Valve Normal tricuspid valve. Mild (1+) tricuspid valve insufficiency. Aortic Valve Trisinus/trileaflet aortic valve. Pulmonic Valve Normal pulmonic valve. Great Vessels Normal aortic root. Pericardium/Pleural No pericardial effusion. MMode/2D Measurements & Calculations LVIDd: 4.3 cm IVSd: 1.1 cm LVOT diam: 2.0 cm LVIDs: 2.3 cm LVPWd: 1.00 cm LVOT area: 3.0 cm2 FS: 45.2 % LAV(MOD-bp): 32.2 ml LVAd ap4: 17.6 cm2 LVAd ap2: 16.2 cm2 LAV(MOD-bp) Indexed: 17.6 ml/m2 LVLd ap4: 6.4 cm LVLd ap2: 6.1 cm LAV(MOD-sp2): 36.6 ml EDV(MOD-sp4): 40.5 ml EDV(MOD-sp2): 36.1 ml LAV(MOD-sp4): 26.8 ml EDV(sp4-el): 41.2 ml EDV(sp2-el): 36.6 ml LVAs ap4: 9.1 cm2 LVAs ap2: 7.3 cm2 LVLs ap4: 5.1 cm LVLs ap2: 4.7 cm ESV(MOD-sp4): 13.5 ml ESV(MOD-sp2): 10.1 ml ESV(sp4-el): 13.8 ml ESV(sp2-el): 9.6 ml EF(MOD-sp4): 66.6 % EF(MOD-sp2): 72.0 % EF(sp4-el): 66.4 % SV(MOD-sp4): 27.0 ml SV(MOD-sp2): 26.0 ml SV(sp4-el): 27.3 ml SI(MOD-sp4): 14.8 ml/m2 SI(MOD-sp2): 14.2 ml/m2 Ao sinus diam: 3.[address] Junction: 2.5 cm LA A4 area: 12.3 cm2 LA dimension(2D): 3.3 cm TAPSE: 2.0 cm RA A4 area: 10.0 cm2 Time Measurements MV dec time: 0.19 sec Doppler Measurements & Calculations MV E max omar: 64.1 cm/sec Lat Peak E' Omar: 11.3 cm/sec Med Peak E' Omar: 8.2 cm/sec MV A max omar: 67.4 cm/sec E/E' lat: 5.7 E/E' med: 7.8 MV E/A: 0.95 MV dec slope: 338.7 cm/sec2 TR max omar: 228.8 cm/sec TR max P.9 mmHg ECHO/ONC Echo, Limited Study Interpretation Summary The estimated ejection fraction is 60 %. The global longitudinal strain = -16.2% (abnormal). Structually normal valves. Ordering Physician: Jairon Rothman Referring Physician: Jairon Rothman Performed By: Rosa Franco RDCS
== END | disposition home or self-care (01) ==
LOC: CVS 07:48
PROVIDERS: PCP Family Medicine; Referring Provider Internal Medicine Medical Oncology; Visit Provider Internal Medicine Medical Oncology
DX: C50.912 Malignant neoplasm of unspecified site of left female breast (principal); C77.3 Secondary and unspecified malignant neoplasm of axilla and upper limb lymph nodes; Z79.899 Other long term (current) drug therapy
CPT/HCPCS: 93308; 93356

== ENCOUNTER 2024-03-25 13:04 | Emergency (ER) | payer SELFPAY ==
[2024-03-25 13:05] VITALS: BP 143/79; PULSE 98; RESP 15; TEMP 36.4; O2SAT 100; BMI 38.0
--- NOTE | 2024-03-25 13:23 | EX.ED.DYSGE1 ---
HPI History of Present Illness Chief Complaint: Allergic Reaction Narrative Narrative: 54-year-old female past medical history of left breast carcinoma without metastasis, currently undergoing chemotherapy presents from outpatient MRI with probable allergic reaction to MRI contrast. She states that prior to chemotherapy she had an MRI with contrast and did not have any problems. After her chemotherapy, she was getting another MRI of her left breast, and developed a feeling of flushness mainly in her bilateral upper extremities and face. She denies any throat closing or shortness of breath, no difficulty swallowing. The radiology transporter felt that she had hives, and sent her to the emergency department for evaluation. No exacerbating or alleviating factors. No noted other allergies. [facility] Medical History Neuropathy Anemia Vaginal dryness Encounter for chemotherapy management Diarrhea due to drug Hypokalemia Encounter for education Wears contact lenses Wears glasses Cancer Migraine headache Shortness of breath on exertion Non-smoker Hypertension History of hypertension History of frequent headaches History of seasonal allergies Home Medications ?Medication ?Instructions ?Recorded ?Last Taken ?Type hydrochlorothiazide 12.5 mg capsule 12.5 mg PO DAILY 09/12/23 Unknown History lisinopril 2.5 mg tablet 2.5 mg PO DAILY 09/12/23 10/25/23 07:00 History amlodipine 5 mg tablet 5 mg PO DAILY 10/18/23 10/25/23 07:00 History loratadine 10 mg tablet (Allergy 10 mg PO DAILY 10/18/23 10/25/23 History Relief (loratadine)) lidocaine-prilocaine 2.5 %-2.5 % 1 applic topical ONCE PRN port 11/08/23 Unknown Rx topical cream access 30 days #30 grams ondansetron 8 mg disintegrating 8 mg PO Q8H PRN nausea and 11/08/23 Unknown Rx tablet vomiting #30 tabs prochlorperazine maleate 10 mg 10 mg PO Q6H PRN nausea and 11/08/23 Unknown Rx tablet vomiting #30 tabs potassium chloride 20 mEq 20 meq PO DAILY #3 tabs 03/11/24 Unknown Rx tablet,extended release(part/cryst) Allergy/AdvReac Type Severity Reaction Status Date / Time Iodinated Contrast Media Allergy Mild Hives Verified 03/25/24 13:07 (contrast dye - iodinated) Family History Aunt Breast cancer, Onset Age: 60 Father Cancer Asthma Heart disease Hypertension Diabetes Aunt Lymphoma Surgical History History of delivery History of wisdom tooth extraction Social History Smoking Status: Never smoker alcohol intake: never substance use type: does not use additional social history: pt denies vaping, denies marijuana use denies edibles, uses ibuprofen as needed. used to take aspirin daily has stopped ROS ROS ED ROS Narrative Review of systems positive for feeling flushed versus questionable pruritus of face and bilateral upper extremities. No difficulty swallowing, no difficulty breathing, no sensation of throat closing. No chest pain, no other symptoms. EXAM Physical Exam Narrative Exam Narrative: Afebrile. Vital signs noted. Nontoxic-appearing. There is mild erythema to the face and minimal to the bilateral upper extremities but no discrete hives. Airway patent. No drooling or trismus. Neck soft and supple without stridor. Cardiovascular examination regular rate and rhythm. Lungs clear to auscultation bilaterally. Abdomen soft nontender with positive bowel sounds. Neurological examination nonfocal, nonlateralizing. Const Vital Signs: 03/25/24 13:05 Temperature 97.6 F L Temperature Source Temporal Pulse Rate 98 Respiratory Rate 15 Blood Pressure 143/79 H Blood Pressure Mean 100 Pulse Ox 100 Oxygen Delivery Method Room Air MDM MDM MDM Narrative Medical decision making narrative: Suspicion is high for allergic reaction to contrast of MRI versus anaphylaxis versus anxiety with more feeling of feeling flushed rather than pruritus. I do not feel any laboratory work is indicated. Her pulse ox is 100% on room air without evidence of hypoxia and she is not hypotensive. She was administered Benadryl and also administered Solu-Medrol through her Mediport. She was placed on a night monitor as well. Upon repeat examination, she feels improved, and her is inquiring about discharge. She is motivated for discharge. She was told that she can continue Benadryl [id number] every 4-6 hours as needed. She is less erythematous and flushed. I do not feel that she needs steroids. She was told she may need to be pretreated if she requires MRI with contrast in the future. Return instructions to the emergency department were reviewed. Disposition is discharged home in stable condition. Discharge Plan Triage Chief Complaint: Allergic Reaction ED Provider: Mk Jones Dx/Rx/DC Orders Clinical Impression: Breast cancer, left, Allergic reaction Instructions: ED ADVERSE DRUG REACTION Allergic, ED General Allergic Reactions Prescriptions: No Action lisinopril 2.5 mg tablet 2.5 mg PO DAILY hydrochlorothiazide 12.5 mg capsule 12.5 mg PO DAILY amlodipine 5 mg tablet 5 mg PO DAILY loratadine [Allergy Relief (loratadine)] 10 mg tablet 10 mg PO DAILY lidocaine-prilocaine 2.5-2.5 % cream 1 applic topical ONCE PRN (Reason: port access) 30 Days Qty: 30 2RF ondansetron 8 mg tablet,disintegrating 8 mg PO Q8H PRN (Reason: nausea and vomiting) Qty: 30 2RF prochlorperazine maleate 10 mg tablet 10 mg PO Q6H PRN (Reason: nausea and vomiting) Qty: 30 2RF potassium chloride 20 mEq tablet,ER particles/crystals 20 meq PO DAILY Qty: 3 0RF Primary Care Provider: Michael Ernst Referrals: Michael Ernst DO [Primary Care Provider] - 3-5 Days Activity Restrictions/Additional Instructions: Continue Benadryl 25 to 50 mg orally every 4-6 hours as needed. Return to the emergency department with throat closing, difficulty swallowing, shortness of breath, new or worsening symptoms. Avoid use of MRI dye in the future. You may need to be pretreated for future studies. Print Language: Romansh Disposition Disposition: Home, Self Care
[2024-03-25] MEDS: DiphenhydrAMINE 50 MG/ML Syringe IV (13:49)
[2024-03-25] MEDS: MethylPREDNISolone 125 MG/2 ML Vial IV (13:49)
== END 2024-03-25 16:00 | disposition home or self-care (01) ==
PROVIDERS: Emergency Provider Emergency Medicine; PCP Family Medicine; Visit Provider Emergency Medicine
DX: C50.912 Malignant neoplasm of unspecified site of left female breast (principal); Z95.828 Presence of other vascular implants and grafts; I10 Essential (primary) hypertension; L27.1 Localized skin eruption due to drugs and medicaments taken internally; L50.0 Allergic urticaria; T50.8X5A Adverse effect of diagnostic agents, initial encounter
CPT/HCPCS: 96374; 96375; 99283; A4216

== ENCOUNTER → 2024-03-25 | Outpatient (CLI) | payer SELFPAY ==
--- NOTE | 2024-03-25 10:58 | MRI_ITS ---
STUDY: BILATERAL BREAST MR WITHOUT AND WITH CONTRAST REASON FOR EXAM: Female, 54 years old. Assess response to therapy. TECHNIQUE: Multi-sequence multi-echo imaging of both breasts was performed with a dedicated breast coil. T1-weighted and T2-weighted images were performed before the administration of contrast. T1-weighted images were also performed after the intravenous administration of Clariscan contrast. COMPARISON: Unilateral diagnostic mammogram dated October 16, 2023 and left breast ultrasound dated October 03, 2023 FINDINGS: RIGHT BREAST: Scattered fibroglandular densities with minimal background enhancement. No abnormal enhancing masses or areas of non-mass enhancement in the right breast. LEFT BREAST: Scattered fibroglandular densities with minimal background enhancement. No abnormal enhancing masses or areas of non-mass enhancement in the left breast. Bilateral axillary lymph nodes with fatty bridger. No abnormality in the visualized regions of the chest or liver. MRI/Breast Bilateral W/O and W IMPRESSION: No abnormality on the bilateral breast MRI with contrast. Yearly screening mammogram with BE appropriate. CATEGORY: BIRADS Category 2: Benign. A letter regarding these results will be sent to the patient by the facility within 30 days. Electronically Signed: Leighton Kunz MD at 10:58 EST ,
[2024-03-25 12:50] VITALS: BP 146/73; PULSE 85; RESP 18; O2SAT 94
[2024-03-25] MEDS: 0.9% Saline Lock 10 ML Syringe IV (12:59)
== END | disposition home or self-care (01) ==
PROVIDERS: PCP Family Medicine; Referring Provider Nurse Practitioner Family; Visit Provider Nurse Practitioner Family
DX: C50.812 Malignant neoplasm of overlapping sites of left female breast (principal); C77.3 Secondary and unspecified malignant neoplasm of axilla and upper limb lymph nodes; Z17.1 Estrogen receptor negative status [ER-]
CPT/HCPCS: 77049; A9575; A4216; C8908

== ENCOUNTER → 2024-04-07 | Outpatient (CLI) | payer SELFPAY ==
--- NOTE | 2024-04-07 09:34 | BI_ITS ---
PROCEDURE: DIAG MAMM W/CAD, BILAT REASON FOR EXAM: F, Age 54 y/o, personal history of breast cancer. Follow-up for prior left sided clip placement. TECHNIQUE: Bilateral screening digital breast tomosynthesis with 2D and 3D images. Computer aided detection. COMPARISON: Prior exam(s) dating back to October 16, 2023.. FINDINGS: The breasts are heterogeneously dense which may obscure small masses. Once again, calcifications are seen in the upper-outer quadrant of the left breast. A tissue clip marker is seen within the lymph node in the left axilla. BI/DIAG MAMM W/CAD, BILAT IMPRESSION: A tissue clip marker seen within the fat containing left axillary lymph node. BI-RADS 2: BENIGN. RECOMMEND ANNUAL MAMMOGRAPHIC SCREENING. Follow-up code: Routine Follow-up The patient will be notified of the results by letter. Reading Location: [place] [address]
== END | disposition home or self-care (01) ==
PROVIDERS: PCP Family Medicine; Referring Provider Surgery; Visit Provider Surgery
DX: C50.812 Malignant neoplasm of overlapping sites of left female breast (principal); C77.3 Secondary and unspecified malignant neoplasm of axilla and upper limb lymph nodes; Z17.1 Estrogen receptor negative status [ER-]
CPT/HCPCS: 77062; 77066; G0279

== ENCOUNTER 2024-04-15 07:11 | Day surgery (SDC) | payer SELFPAY ==
[2024-04-07 11:35] LABS: Absolute Lymphocyte Count 1.42 X10^3/uL (0.83-4.51); Basophil# 0.03 X10^3/uL; Basophil% 0.6 % (0-1); Eosinophil# 0.08 X10^3/uL; Eosinophils% 1.6 % (0-5); Hematocrit 34.2 % (37-47); Hemoglobin 10.9 g/dL (12.0-15.0); Lymphocyte # 1.42 X10^3/ul (0.83-4.51); Lymphocyte % 28.7 % (19-41); Mean Corp Hgb Conc 31.9 g/dL (32-36); Mean Corpuscular Hgb 30.8 pg (27.0-32.0); Mean Corpuscular Volume 96.6 fL (81-99); Mean Platelet Vol. 9.7 fl (6.2-12.0); Monocyte# 0.41 X10^3/uL; Monocyte% 8.3 % (0-10); NRBC Flagged by Analyzer 0 % (0-5); Neutrophil # 2.99 X10^3/uL (2.7-7.7); Neutrophil % 60.6 % (47-70); Platelet Count 225 K/mm3 (150-450); RBC Distribution Width CV 13.1 % (11.6-14.6); Red Blood Count 3.54 M/mm3 (4.2-5.4); White Blood Count 4.9 K/mm3 (4.4-11.0)
[2024-04-07 11:41] LABS: Prothrombin Time (Protime)PT. 13.7 SECONDS (11.7-14.9)
[2024-04-07 11:42] LABS: Partial Thromboplast Time 26.9 Seconds (24.1-36.2)
[2024-04-07 12:07] LABS: ALB/GLOB Ratio 1.2 RATIO (0.9-2.4); AST(SGOT) 15 U/L (15-37); Alanine Aminotransfer ALT/SGPT 28 U/L (13-56); Albumin, Serum 3.7 g/dL (3.2-5.0); Alkaline Phosphatase 76 U/L (45-117); Anion Gap 5 (5-15); BUN 13 mg/dL (7-18); BUN/Creat Ratio 19.2 RATIO (10-20); Calcium,Total 9.2 mg/dL (8.5-10.1); Chloride 110 mmol/L (98-107); Creatinine, Serum 0.68 mg/dL (0.55-1.02); EST Glomerular Filtration Rate 96 mL/min (>60); Est Glom Filt Rate - Afr Amer 117 mL/min (>60); Globulin 3.1 g/dL (2.2-4.2); Glucose 103 mg/dL (74-106); Magnesium 1.8 mg/dL (1.6-2.6); Potassium 3.6 mmol/L (3.5-5.1); Protein, Total 6.8 g/dL (6.4-8.2); Sodium Level 143 mmol/L (136-145)
--- NOTE | 2024-04-08 09:33 | EKG12_ITS ---
Test Reason : PRE OP Blood Pressure : */* mmHG Vent. Rate : 87 BPM Atrial Rate : 87 BPM P-R Int : 140 ms QRS Dur : 70 ms QT Int : 358 ms P-R-T Axes : 51 -13 -52 degrees QTcB Int : 430 ms Normal sinus rhythm Low voltage QRS Nonspecific ST and T wave abnormality Abnormal ECG Confirmed by TAMAR DOWNS, JAVI ([id number]), communications editor BELLA REBOLLAR ([id number]) on 04/09/2024 7:38:11 AM Referred By: Griffin Sage Confirmed By: JAVI BOYLE MD
--- NOTE | 2024-04-08 17:28 | PAT.ANESEVAL ---
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 When Was Last Pacemaker Check QUESTION #4 FULL TEXT: You/Your Family Experience fever (hyperthermia) with Anesthesia Last Oral Intake Last Oral intake: Last Oral Intake NPO since Meds taken in AM with sips of water? Meds patient instructed to take am of surgery PONV PONV - round cutter operator: PONV - round cutter operator Female Yes 04/04/24 16:54 HX of Motion Sickness Yes 04/04/24 16:54 HX of N/V After Surgery No 04/04/24 16:54 Non-Smoker Yes 04/04/24 16:54 Duration of Surgery greater Yes 04/04/24 16:54 than 60 minutes Number of Risk Factors 4 04/04/24 16:54 PONV Score Severe Risk 04/04/24 16:54 Height & Weight Height & Weight: Anesthesia: Height & Weight Height 5 ft 03/25/24 13:05 Respiratory Assessment Respiratory Assessment - round cutter operator: Respiratory Tract Infection Hx - round cutter operator Hx Respiratory Tract Infection No 04/04/24 16:54 STOP Sleep Apnea STOP Sleep Apnea - round cutter operator: STOP Sleep Apnea - round cutter operator Hx Hypertension Yes: PER PT, CONTROLLED ON 04/04/24 16:54 MEDS Hx Sleep Apnea No 04/04/24 16:54 CPAP BIPAP Do you snore loudly (louder Yes 04/04/24 16:54 than talking or can be heard Do you often feel tired/ No 04/04/24 16:54 fatigued/ sleepy during daytime? Has anyone observed you stop No 04/04/24 16:54 breathing during sleep? STOP Results Positive 04/04/24 16:54 QUESTION #5 FULL TEXT : Do you snore loudly (louder than talking or can be heard through closed doors)? 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 Specify any problems Hx of Preganancy in last 3 No 04/04/24 16:54 Months Nurse Filling Out Transfusion MGRIFFITH 04/04/24 16:54 & Questions: Date: 04/04/24 04/04/24 16:54 Time: 16:58 04/04/24 16:54 Patient unable to answer at this time (ie. confused, unrespo /Reproduction History /Reproductive History - round cutter operator: /Reproductive Hx- round cutter operator Hx Now Gestational Age (in weeks): EDC: Hx Hx Para Hx Section SAB No 10/19/23 08:24 [facility] Medical History (Updated 04/04/24 @ 17:05 by Apoorva Jones) Asthma History of echocardiogram Neuropathy Anemia Vaginal dryness Encounter for chemotherapy management Diarrhea due to drug Hypokalemia Encounter for education Wears contact lenses Wears glasses Cancer Migraine headache Shortness of breath on exertion Non-smoker Hypertension History of hypertension History of frequent headaches History of seasonal allergies Home Medications ?Medication ?Instructions ?Recorded ?Last Taken ?Type hydrochlorothiazide 12.5 mg capsule 12.5 mg PO DAILY 09/12/23 Unknown History lisinopril 2.5 mg tablet 2.5 mg PO DAILY 09/12/23 10/25/23 07:00 History amlodipine 5 mg tablet 5 mg PO DAILY 10/18/23 10/25/23 07:00 History loratadine 10 mg tablet (Allergy 10 mg PO DAILY 10/18/23 10/25/23 History Relief (loratadine)) lidocaine-prilocaine 2.5 %-2.5 % 1 applic topical ONCE PRN port 11/08/23 Unknown Rx topical cream access 30 days #30 grams ondansetron 8 mg disintegrating 8 mg PO Q8H PRN nausea and 11/08/23 Unknown Rx tablet vomiting #30 tabs prochlorperazine maleate 10 mg 10 mg PO Q6H PRN nausea and 11/08/23 Unknown Rx tablet vomiting #30 tabs Allergy/AdvReac Type Severity Reaction Status Date / Time Gadolinium-MRI Contrast Allergy Intermediate Rash Verified 04/04/24 16:49 Medium Family History Aunt Breast cancer, Onset Age: 60 Father Cancer Asthma Heart disease Hypertension Diabetes Aunt Lymphoma Surgical History (Updated 04/04/24 @ 16:53 by Apoorva Jones) History of surgery History of delivery History of wisdom tooth extraction Social History Smoking Status: Never smoker alcohol intake: never substance use type: does not use additional social history: pt denies vaping, denies marijuana use denies edibles, uses ibuprofen as needed. used to take aspirin daily has stopped Audit: Pertinent Findings Pertinent Findings EKG Perinent findings: April 08, 2024. Normal sinus rhythm. Nonspecific ST and T wave abnormality. Echo (EF%) pertinent findings: January 29, 2024. Ejection fraction is 60%. No aortic stenosis is noted. Recommendation Anesthesia Recommendation Anesthesia recommendation: OPTIMIZED for anesthesia
[2024-04-15] VITALS (11 sets, daily range): BP systolic 124–151; BP diastolic 73–87; PULSE 93–107; RESP 16–18; TEMP 36.3–37; O2SAT 92–98; BMI 37.4
--- NOTE | 2024-04-15 | IMM_PTH ---
PATIENT: CASSIDY CAPUTO LOC: [facility] – [place], [place] U#:[id number] AGE/SX: 54/F ROOM: RE04/15/[address]: Dr. Griffin Sage MD : 1970 BED: DIS: 04/15/2024 SPEC #: [id number] RECD: 04/18/24 13:03 STATUS: LEANN REReji #: [id number] VENANCIO: 04/15/24 00:[address]: Griffin Sage DEPT: IMMUNOHISTOCHEMISTRY RECD BY: Reg Meyers ENTERED: 04/18/24 13:04 SP TYPE: IMMUNO OTHR DR: DO Dr. Jairon Landis MD Dr. Robert Siska, MD Tissues: A - Lymph node, NOS C - Lymph node, NOS D - Lymph node, NOS Procedures: CK7 (add) Pankeratin (initial) Pankeratin (add) CK7 (initial) PHYSICIAN & INSTITUTION [place] [id number] SPECIMEN INFORMATION: Tissue Source: A- Left wire localized sentinel lymph node, C- Left sentinel lymph node #2, D- Left sentinel lymph node #3 Clinical Info: Breast cancer metastasized to axillary lymph node Specimen Number: [id number] A, C, D CPT code: [id number] METHODOLOGY: Deparaffinized sections of prefer/formalin-fixed tissue or PAP/DQ stained slides are incubated with monoclonal/polyclonal antibodies/oligonucleotide probes. Localization is made via biotin free immunoperoxidase method. Appropriate controls are performed and reacted as expected. Results on target cell population are indicated in the following table: RESULTS: ANTIBODY / CLONE RESULT Block A 1 AE1-3 (AE1/AE3/PCK26) positive CK7 (OV-TL12/30) positive Block A 2 AE1-3 (AE1/AE3/PCK26) positive CK7 (OV-TL12/30) positive Block C1 AE1-3 (AE1/AE3/PCK26) negative CK7 (OV-TL12/30) negative Block C2 AE1-3 (AE1/AE3/PCK26) negative CK7 (OV-TL12/30) negative Block C 3 AE1-3 (AE1/AE3/PCK26) negative CK7 (OV-TL12/30) negative Block D 1 AE1-3 (AE1/AE3/PCK26) negative CK7 (OV-TL12/30) negative Block D2 AE1-3 (AE1/AE3/PCK26) negative CK7 (OV-TL12/30) negative These tests were developed and their performance characteristics determined by [facility]. They may not have been cleared or approved by the U.S. Food and Drug Administration. The FDA has determined that such clearance or approval is not necessary. The above immunohistochemical/dualISH markers are ordered and reviewed by the Pathologist. INTERPRETATION: A. Left wire localized sentinel lymph node, biopsy: One lymph node, positive for macrometastatic carcinoma. C- Left sentinel lymph node #2, biopsy: One lymph node, negative for metastatic carcinoma. D- Left sentinel lymph node #3, biopsy: One lymph node, negative for metastatic carcinoma. SJ.mr 04/21/2024
--- NOTE | 2024-04-15 07:04 | NM_ITS ---
EXAM: LYMPH NODE INJECTION ONLY CLINICAL HISTORY: History of left breast cancer. COMPARISON: None. TECHNIQUE: 567 uCi of technetium labeled Lymphoseek was injected in the sub continuous region for sentinel node imaging. FINDINGS: Successful subcutaneous injection of the Lymphoseek. NM/Lymph Node Injection Only IMPRESSION: Successful subcutaneous injection of the Lymphoseek 4 sentinel node imaging. Reading Location: [id number]
--- NOTE | 2024-04-15 07:34 | HP.PCM.SX_ITS ---
HPI - General HPI Narrative Oriana Head is a 53 year-old female with history of hypertension that presents today for breast reconstruction evaluation. She is recently had a consult with Dr. Sage from general surgery across the [place], and the final surgical and oncologic plan has not yet been clarified, however she will likely need neoadjuvant chemotherapy for a left-sided breast cancer, followed by skin sparing mastectomy. She reports that she found a skin lesion on the left upper lateral quadrant of her breast that she thought was just a pimple. She had some bloody drainage from her nipple as well. She went to the doctor and got imaging (MRI) followed by biopsy of a suspicious BI-RADS 5 lesion in the left upper quadrant that was determined to be invasive ductal carcinoma, HER2 positive. One of the lymph nodes from the left axilla was sampled was positive for cancer as well. Side of Diagnosis: Left-sided breast cancer, left upper outer quadrant (seen on MRI and biopsied). It is invasive ductal carcinoma, HER2 positive and ER/MS negative. Side of Reconstruction: Unsure if bilateral or unilateral Prior Breast Surgery: No Prior Abdominal Surgery: Yes, 1 section Hx Radiation Therapy: Possible Hx Chemotherapy: Yes neoadjuvant is being planned to shrink the tumor size before surgery Bra Size: C Desired Bra Size: Same OB HISTORY: Para: 8 : Yes Plan for future pregnancies: No HISTORY OF BREAST DISEASE: No FAMILY HISTORY OF BREAST CANCER: Great aunt with breast cancer Tobacco Use: No USE OF VITAMIN E, HERBS, ASA, NSAIDS: No She is and is a [id number] mom CURRENT ENCOUNTER, 21 Feb 2024: Patient has been on chemotherapy (neoadjuvant) and is finishing this regimen soon. She is getting a bilateral mastectomy soon with Dr. Sage now that she is finishing the chemotherapy. He may or may not need to do a full axillary dissection. She is here to discuss the lymphedema management as this is what she is most concerned about and she is not interested in breast reconstruction. Current Encounter (DATE OF SURGERY H&P UPDATE): I saw and examined the patient this morning in pre-operative holding. We discussed risks and benefits of today's surgery and they would like to proceed. NO CHANGE in health history since last seen and evaluated. Ready to proceed with surgery. [facility] Medical History (Updated 04/04/24 @ 17:05 by Apoorva Jones) Asthma History of echocardiogram Neuropathy Anemia Vaginal dryness Encounter for chemotherapy management Diarrhea due to drug Hypokalemia Encounter for education Wears contact lenses Wears glasses Cancer Migraine headache Shortness of breath on exertion Non-smoker Hypertension History of hypertension History of frequent headaches History of seasonal allergies Home Medications ?Medication ?Instructions ?Recorded ?Last Taken ?Type hydrochlorothiazide 12.5 mg capsule 12.5 mg PO DAILY 0 09/12/23 04/14/24 History lisinopril 2.5 mg tablet 2.5 mg PO DAILY 09/12/2312/27 History amlodipine 5 mg tablet 5 mg PO DAILY 10/18/2304/14 History loratadine 10 mg tablet (Allergy 10 mg PO DAILY 10/25/23 History Relief (loratadine)) lidocaine-prilocaine 2.5 %-2.5 % 1 applic topical ONCE PRN port 11/08/23 Unknown Rx topical cream access 30 days #30 grams ondansetron 8 mg disintegrating 8 mg PO Q8H PRN nausea and 11/08/23 Unknown Rx tablet vomiting #30 tabs prochlorperazine maleate 10 mg 10 mg PO Q6H PRN nausea and 11/08/23 Unknown Rx tablet vomiting #30 tabs Allergy/AdvReac Type Severity Reaction Status Date / Time Gadolinium-MRI Contrast Allergy Intermediate Rash Verified 04/15/24 07:33 Medium Family History Aunt Breast cancer, Onset Age: 60 Father Cancer Asthma Heart disease Hypertension Diabetes Aunt Lymphoma Surgical History (Updated 04/04/24 @ 16:53 by Apoorva Jones) History of surgery History of delivery History of wisdom tooth extraction Social History Smoking Status: Never smoker alcohol intake: never substance use type: does not use additional social history: pt denies vaping, denies marijuana use denies edibles, uses ibuprofen as needed. used to take aspirin daily has stopped Physical Exam Narrative Initial examination from 16 October 2023: EXAM: A&O x3, NAD Female strategic marketing manager was present in the room with me during my exam, as was the patient's . Back Exam: No scar; latissimus dorsi muscle function appears to be intact Abdominal Exam: soft, non-tender, obese, non-distended, scar, the abdomen would be a good potential donor site for deep inferior epigastric enamel finisher flap Gluteal Exam: Deferred Extremity Exam: No lymphedema. Medial thigh was not examined as a potential donor site today. Breast Exam: Asymmetry: Minimal Masses: Left upper quadrant mass on the left side between 1 and 2:00 with overlying skin changes with small (approximately 1 x 1 mm) scab Axillary Lymphadenopathy: Palpable lymph nodes in the left axilla Scars: Just from biopsies Ptosis: R: Grade 2? ? L: Grade 2 Medially displaced nipple: None Note: measurements are in centimeters SN to NIPPLE:? L: 27cm? ?R: 25cm IMF to NIPPLE: ? ? ? L: 8 cm ? ? R: 7cm WIDTH: ? L: 15 cm? ? R: 15 Const General: cooperative Eyes EOM: EOM intact bilaterally Resp Effort & Inspection: normal respiratory effort Cardio Rate: regular rate Psych Appearance: grossly normal Results Lab / Micro Data 04/07/24 10:42 04/07/24 10:42 Assessment & Plan Assessment/Plan (1) Breast cancer metastasized to axillary lymph node: QUALIFIERS: Laterality: left Qualified Code(s): C50.912 - Malignant neoplasm of unspecified site of left female breast; C77.3 - Secondary and unspecified malignant neoplasm of axilla and upper limb lymph nodes PLAN: Plan PLAN FROM 21 FEB 2024: We had an extensive discussion about the risks of developing lymphedema in the months following the lymph node sampling portion of her future surgery.? We discussed the varying rates of lymphedema after sentinel node biopsy and after axillary lymph node dissection, which are about 6-13 % and 13-65%, respectively.? We discussed that studies have shown patients who had immediate lymphatic reconstruction following axillary dissection (known as LYMPHA) have subsequent lymphedema rates as low as 4% (with lymphedema rates around 30% lymphedema in control groups).? We discussed conflicting data about immediate lymphatic reconstruction and how more studies need to be performed; however, I also offered her my opinion that I believe it is oncologically safe and effective.? Immediate lymphatic reconstruction appears to be oncologically safe, with studies demonstrating metastatic disease at 2 years to be similar between reconstructed and non-reconstructed cohorts (about 12% rate of metastatic disease in both). (Kem Contreras 2021 oncologic safety). This was discussed with her and her and she is interested in lymphatic reconstruction. Mrs. Head has considered the options, and would like to defer breast reconstruction, but is interested in immediate lymphatic reconstruction with lymphovenous anastomoses if a full axillary dissection is performed and if this can be accomplished. I told her there is no guarantees that I can technically accomplish this task, there are multiple variables including anatomic variables that could limit the possibility of this procedure being performed. She also understands that there are procedures to do subsequently if she develops lymphedema including lymphovenous anastomoses in the forearm. She understands the risk of increased operative time and the risks of clotting (Caprini score of 6). INTERVAL H&P PLAN, DATE OF SURGERY: We will proceed with surgery today. She was informed about the risks of surgery, including bleeding, infection, damage to surrounding structures, surgical site dehiscence and wound formation, need for wound care, need for repeat operations, failure to obtain the desired result, DVT/PE, and the risks of anesthesia including , including stroke (from low blood pressure/ischemia or clot in the setting of prolonged operative time). The benefits and alternatives of this surgery were also discussed. All of their questions were answered, and they agreed to proceed with surgery. I will plan to be available for lymphovenous anastomoses attempt if an axillary dissection is indicated.
[2024-04-15 07:40] LABS: Internal QC Validated? YES +Cl - CLEAR BKGD; Pregnancy, Urine Negative Negative
--- NOTE | 2024-04-15 07:59 | PRE.ANES_ITS ---
ASA Classification* ASA Classification ASA Classification: 2 Assessment & Plan Anesthesia* Anesthesia Assessment Anesthesia Assessment: Discussed sedation and/or anesthesia options, risks, benefits, and alternatives with patient/parents/legal guardian/POA. Questions invited. The patient/parents/legal guardian/POA seems to understand and agrees to proceed with anesthesia plan. Reviewed the physical assessment, medical history, allergy history and patient home medications list prior to surgery/procedure/anesthetic and documented any changes. Performed airway and anesthesia risk assessments. Anesthesia Type Anesthesia Type: General History Source History Obtained from:: Patient and Chart Anesthesia Focused Assessment* Temperature: 97.6 F Pulse Rate: 94 Blood Pressure: 151/80 Respiratory Rate: 18 Pulse Ox: 98 Oxygen Delivery Method: Room Air Airway Assessment Mouth opens: >3 cm Mallampati Score: IV Teeth Condition: Intact Neck Range of motion (ROM): Full ROM Focused Labs Anesthesia Preop lab: CBC WBC 4.9 K/mm3 (4.4-11.0) 04/07/24 10:04/07/24 RBC 3.54 M/mm3 (4.2-5.4) L 04/07/24 10:04/07/24 Hgb 10.9 g/dL (12.0-15.0) L 04/07/24 10: 5 Hct 34.2 % (37-47) L 04/07/24 10:42 04/07/24 Plt Count 225 K/mm3 (150-450) 04/07/24 10:42 04/07/24 CHEMISTRY Potassium 3.6 mmol/L (3.5-5.1) 04/07/24 10:04/07/24 Sodium 143 mmol/L (136-145) 04/07/24 10:04/07/24 Magnesium 1.8 mg/dL (1.6-2.6) 04/07/24 10:04/07/24 Phosphorus 2.6 mg/dL (2.5-4.9) 01/29/24 08:53 01/29/24 BUN 13 mg/dL (7-18) 04/07/24 10:04/07/24 Creatinine 0.68 mg/dL (0.55-1.02) 04/07/24 10:42 04/07/24 Glucose 103 mg/dL (74-106) 04/07/24 10:42 04/07/24 COAG PT 13.7 SECONDS (11.7-14.9) 04/07/24 10:42 Urine Test Negative Negative 04/15/24 07:30 04/15/24 Pre-Assessment Diagnosis/Proposed Procedure Planned Operative Procedure(s): (L) Stereo wire loc left breast excision, SLN bx w/frozen section, axillary lymph node excisionSiska combo (L) Lymphovenous Anastomosis Anesthesia History Anesthesia History - cardiology physician assistant: Anesthesia History - cardiology physician assistant Hx Hospitalization No 04/04/24 16:54 Any Problems With Anesthesia No 04/04/24 16:54 Cholinesterase deficiency No 04/04/24 16:54 You/Your Family Experience No 04/04/24 16:54 fever (hyperthermia) with Relationship Recent Exposure to Contagious No 04/15/24 07:35 Disease Does patient have nerve No 04/04/24 16:54 stimulator Patient instructed to have device shut off --Does patient have Pacemaker No 04/15/24 07:40 or ICD? When Was Last Pacemaker Check QUESTION #4 FULL TEXT: You/Your Family Experience fever (hyperthermia) with Anesthesia Last Oral Intake Last Oral intake: Last Oral Intake NPO since 02:40 04/15/24 07:40 Meds taken in AM with sips of No 04/15/24 07:40 water? Meds patient instructed to take am of surgery PONV PONV - cardiology physician assistant: PONV - cardiology physician assistant Female Yes 04/04/24 16:54 HX of Motion Sickness Yes 04/04/24 16:54 HX of N/V After Surgery No 04/04/24 16:54 Non-Smoker Yes 04/04/24 16:54 Duration of Surgery greater Yes 04/04/24 16:54 than 60 minutes Number of Risk Factors 4 04/04/24 16:54 PONV Score Severe Risk 04/04/24 16:54 Height & Weight Height & Weight: Anesthesia: Height & Weight Height 5 ft 04/15/24 07:40 Weight: 87 kg 04/15/24 07:40 Body Mass Index (BMI) 37.4 04/15/24 07:40 Respiratory Assessment Respiratory Assessment - cardiology physician assistant: Respiratory Tract Infection Hx - cardiology physician assistant Hx Respiratory Tract Infection No 04/04/24 16:54 STOP Sleep Apnea STOP Sleep Apnea - cardiology physician assistant: STOP Sleep Apnea - cardiology physician assistant Hx Hypertension Yes: PER PT, CONTROLLED ON 04/04/24 16:54 MEDS Hx Sleep Apnea No 04/04/24 16:54 CPAP BIPAP Do you snore loudly (louder Yes 04/04/24 16:54 than talking or can be heard Do you often feel tired/ No 04/04/24 16:54 fatigued/ sleepy during daytime? Has anyone observed you stop No 04/04/24 16:54 breathing during sleep? STOP Results Positive 04/04/24 16:54 QUESTION #5 FULL TEXT : Do you snore loudly (louder than talking or can be heard through closed doors)? Tobacco Use History Tobacco Use History - cardiology physician assistant: Tobacco Use History - cardiology physician assistant Tobacco Use Smoking Status Never smoker 04/04/24 16:54 Hx Tobacco Use No 04/04/24 16:54 Years Smoking Packs Smoked per Day Smoking Cessation Date was within the last 15 years Hx Smoking Cessation Date Hx Smoking Cessation Counseling Hematologic Medial History Hematologic Hx - cardiology physician assistant: Hematologic Medical Hx - applications systems analyst Hx of Blood Transfusion No 04/04/24 16:54 Hx of Transfusion in last 3 No 04/04/24 16:54 Months Date of Last Transfusion (if within last 3 months) Ever experience any problems No 04/04/24 16:54 with transfusion(s)? Specify any problems Hx of Preganancy in last 3 No 04/04/24 16:54 Months Nurse Filling Out Transfusion MGRIFFITH 04/04/24 16:54 & Questions: Date: 04/04/24 04/04/24 16:54 Time: 16:58 04/04/24 16:54 Patient unable to answer at this time (ie. confused, unrespo /Reproduction History /Reproductive History - cardiology physician assistant: /Reproductive Hx- cardiology physician assistant Hx Now Gestational Age (in weeks): EDC: Hx Hx Para Hx Section SAB No 10/19/23 08:24 Active Medications Active Medications: Current Medications Generic Name Dose Route Start Last Admin Trade Name Freq PRN Reason Stop Dose Admin Cefazolin Sodium 2 gm/ N/A 20 mls @ 400 mls/hr 04/15/24 08:30 IV 04/15/24 08:32 PREOP ONE Sodium Chloride 10 - 40 ml 04/15/24 07:47 0.9% Saline Lock 10 Ml Syringe IV UD PRN Port-a-Cath (VAD)/R Port Flush Sodium Chloride 10 - 40 ml 04/15/24 07:47 0.9 % Nacl (Sterile) Posiflush 10 Ml IV UD PRN Port access or dressing change [facility] Medical History Asthma History of echocardiogram Neuropathy Anemia Vaginal dryness Encounter for chemotherapy management Diarrhea due to drug Hypokalemia Encounter for education Wears contact lenses Wears glasses Cancer Migraine headache Shortness of breath on exertion Non-smoker Hypertension History of hypertension History of frequent headaches History of seasonal allergies Home Medications ?Medication ?Instructions ?Recorded ?Last Taken ?Type hydrochlorothiazide 12.5 mg capsule 12.5 mg PO DAILY 0 09/12/23 04/14/24 History lisinopril 2.5 mg tablet 2.5 mg PO DAILY 09/12/2312/27 History amlodipine 5 mg tablet 5 mg PO DAILY 10/18/2304/14 History loratadine 10 mg tablet (Allergy 10 mg PO DAILY 10/25/23 History Relief (loratadine)) lidocaine-prilocaine 2.5 %-2.5 % 1 applic topical ONCE PRN port 11/08/23 Unknown Rx topical cream access 30 days #30 grams ondansetron 8 mg disintegrating 8 mg PO Q8H PRN nausea and 11/08/23 Unknown Rx tablet vomiting #30 tabs prochlorperazine maleate 10 mg 10 mg PO Q6H PRN nausea and 11/08/23 Unknown Rx tablet vomiting #30 tabs Allergy/AdvReac Type Severity Reaction Status Date / Time Gadolinium-MRI Contrast Allergy Intermediate Rash Verified 04/15/24 07:33 Medium Family History Aunt Breast cancer, Onset Age: 60 Father Cancer Asthma Heart disease Hypertension Diabetes Aunt Lymphoma Surgical History History of surgery History of delivery History of wisdom tooth extraction Social History Smoking Status: Never smoker alcohol intake: never substance use type: does not use additional social history: pt denies vaping, denies marijuana use denies edibles, uses ibuprofen as needed. used to take aspirin daily has stopped Review of Systems (Anesthesia) ROS Narrative System reviewed and no additional complaints, except as documented.
--- NOTE | 2024-04-15 08:00 | BI_ITS ---
PROCEDURE: BREAST BIOPSY SPECIMEN REASON FOR EXAM: Breast specimen. FINDINGS: Calcifications and hookwire identified on the surgical specimen image. BI/Breast Biopsy Specimen IMPRESSION: Calcifications are seen within the specimen. Reading Location: [id number]
--- NOTE | 2024-04-15 08:30 | LYMN_PTH ---
PATIENT: CASSIDY CAPUTO [place] [facility] [id number] AGE/SX: 54/F ROOM: RE04/15/[address]: Dr. Griffin Sage MD : 1970 BED: DIS: 04/15/2024 SPEC #: [id number] RECD: 04/15/24 11:54 STATUS: LEANN REQ #: [id number] VENANCIO: 04/15/24 08:[address]: Griffin Sage DEPT: SURGICAL PATHOLOGY RECD BY: Reg Meyers ENTERED: 04/15/24 11:55 SP TYPE: LYMPH NODE OTHR DR: DO Dr. Jairon Landis MD Dr. 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 Left axillary sentinel lymph node, biopsy: One lymph node with at least micrometastatic carcinoma. C. Left sentinel lymph node #2, biopsy: One lymph node, negative for metastatic carcinoma. D. Left sentinel lymph node #3, biopsy: One lymph node, negative for metastatic carcinoma. Case has been reviewed in consultation with Dr. Kuo who concurs with the above diagnosis. IDC:ALETHEA CASTELLANOS. 04/15/2024 MICROSCOPIC DIAGNOSIS A. Left sentinel lymph node with wire localization, excision: One lymph node, positive for macrometastatic carcinoma. See comment. B. Left axillary sentinel lymph node, biopsy: A piece of fibroadipose tissue. No lymph node tissue is identified. Negative for carcinoma. C. Left sentinel lymph node #2, excision: One lymph node, negative for metastatic carcinoma. See comment. D. Left sentinel lymph node #3, excision: One lymph node, negative for metastatic carcinoma. See comment. E. Left breast tissue, lumpectomy with needle localization: Negative for residual invasive carcinoma. Focal ductal carcinoma in situ. See cancer summary in the comment section. F. Left axillary contents: A piece of adipose tissue. Lymph node tissue is not identified. Negative for carcinoma. SJ. 04/18/2024 COMMENT A. Changes consistent with previous biopsy site are also noted. Immunohistochemistry ([id number]) supports the above diagnosis. Metastatic focus measures up to 0.3cm in greatest dimension. Extranodal extension is not seen. C, D. The lymph nodes are negative for metastatic carcinoma on multiple H & E levels and immunohisto-chemical stains for cytokeratins ([id number]). E. BREAST CANCER SUMMARY Procedure - lumpectomy with wire-guided localization Specimen laterality - Left Invasive tumor: Tumor site - Not specified Histologic type - No residual invasive carcinoma Histologic grade (Orly grade): Not applicable Tumor focality - Not applicable Ductal carcinoma in situ - Present Negative for extensive intraductal component (EIC): Size (extent) of DCIS - 0.2 x 0.1cm Number of blocks with DCIS - 1 Number of blocks examined - 12 Architectural pattern - Cribriform Nuclear grade - grade 2 intermediate Necrosis - Not identified Tumor extension: Skin - Not present Nipple - Not applicable Skeletal muscle - Not present Margins: Invasive carcinoma margin - Not applicable Ductal carcinoma in situ margin - 0.2cm away from the closest superior margin. Regional lymph nodes: Number of lymph nodes examined (sentinel and non-sentinel) - 3 Number of sentinel lymph nodes examined - 3 Number of lymph nodes with macrometastases - 1 Focus of macrometastastes measures up to 0.3cm in greatest dimension Extranodal extension - Not seen Distal metastases - Not applicable Treatment effect in the BREAST - No residual invasive carcinoma is present in the breast after presurgical therapy. Treatment effects in the LYMPH NODE- No definite response to the presurgical therapy in metastatic carcinoma. Lymphvascular invasion - Not identified Dermal lymphvascular invasion - Not applicable Additional Pathologic Findings - - Intraductal hyperplasia with focal atypia. - Changes consistent with previous biopsy site. Ancillary Studies: Previously performed on same tumor ([id number] / [id number]) ER: negative (0%) MN: negative (0%) Yrl1zbf: positive (3+) Ki67: 25% Her2 dual HARJEET: Not performed Microcalcifications - Present in non-neoplastic tissue and at the previous biopsy site PATHOLOGIC STAGE: pTis (y) pN1(y) pMx The above summary is in compliance with [employer] [employer] (CAP) Cancer Protocols Checklist and [place] [employer] Committee on Cancer (AJCC), Staging Manual, 8th Ed. Please make reference to previous specimen [id number] left breast, core biopsy with diagnosis of invasive ductal carcinoma and [id number] left axillary lymph node #1, core biopsy with diagnosis of a minute focus of metastatic non-small cell carcinoma with tumor necrosis and left axillary lymph node #2, core biopsy with diagnosis of benign lymphoid tissue, no evidence of malignancy. This case has been reviewed in consultation with Dr. Cason who concurs with the above diagnosis. IDC:PW MICROSCOPIC DESCRIPTION Slides are reviewed. GROSS DESCRIPTION A. Received fresh for frozen section diagnosis labeled with the patient's name is a specimen designated Left sentinel lymph node. The specimen consists of an ovoid piece of kelley nodule measuring 2 x 1.8 x 0.8cm. The specimen is bisected and reveal fatty cut surfaces and submitted entirely for frozen section diagnosis in two cassettes.[email or web address] 04/15/2024 B. Received fresh for frozen section diagnosis labeled with the patient's name is a specimen designated Left axillary sentinel lymph node. The specimen consists of a piece of adipose tissue measuring 1 x 0.5 x 0.2cm. No obvious lymph node tissue is identified. This information conveys to the surgeon intraoperatively. The frozen section is cancelled. The entire specimen is submitted in one cassette. EMANUEL. 04/15/2024 C. Received fresh for frozen section diagnosis labeled with the patient's name is a specimen designated Left sentinel lymph node #2. The specimen consists of an ovoid piece of kelley nodule measuring 3 x 1.5 x 2cm. The specimen is serially sectioned and submitted entirely for frozen section diagnosis in three cassettes. 04/15/2024 D. Received fresh for frozen section diagnosis labeled with the patient's name is a specimen designated Left sentinel lymph node #3. The specimen consists of an ovoid piece of kelley nodule measuring 2 x 2 x 1cm. The specimen is bisected and submitted for frozen section diagnosis in two cassettes. 04/15/2024 E. Received fresh and postfixed in fixative is one container labeled with the patient's name and designated Left breast tissue. The specimen consists of a piece of fibroadipose tissue with needle localization measuring 8 x 5 x 2.5cm. The specimen is oriented as follows: short tag- superior, long tag- lateral. The specimen is partly disrupted in the middle. The specimen is inked as follows: anterior - yellow, posterior - black, superior - blue, inferior - green, medial - red and lateral - orange. Sections do not reveal any mass lesion and reveal kelley, yellow adipose cut surfaces with focal fibrous areas. A metallic clip within fibrous area is noted. [facility] sections are submitted in twelve cassettes as follows: 1-perpendicular medial, lateral, superior, inferior margins, 2- fibrous area with clip with anterior and posterior margins, 3-12- tissue adjacent to and away from the clipped area. 04/16/2024 F. Received in fixative is one container labeled with the patient's name and designated Left axillary contents. The specimen consists of two pieces of yellow adipose tissue measuring 2.5 x 1.5 x 0.3cm and 1.5 x 0.4 x 0.2cm. No obvious lymph node tissue is identified. The entire specimen is submitted in one cassette. 04/16/2024 TC:0 CPT:41011l5, 35073a4,04066a4,94493g8
--- NOTE | 2024-04-15 09:41 | HP.PCM_ITS ---
History and Physical [facility] [address] [place] [address] OFFICE VISIT Date of Service: 04/01/24 MR#: [id number] Acct: [id number] Name: CASSIDY CAPUTO Rep #: [id number] : 1970 Provider: Dr. Griffin Sage MD Age/Sex: 54/F Location: [facility] Status: Signed Intake Vital Signs 02/24/2407:54 03/25/2512:05 Height 5 ft 5 ft Intake Visit Reasons: REVIEW BREAST MRI Chief Complaint: review breast mri Is patient in pain?: No Allergies Gadolinium-MRI Contrast Medium Allergy (Intermediate, Verified 04/01/24 08:48) Rash Medications ?Medication ?Instructions ?Recorded ?Confirmed ?Type hydrochlorothiazide 12.5 mg capsule 12.5 mg PO DAILY 09/12/23 04/01/24 History lisinopril 2.5 mg tablet 2.5 mg PO DAILY 09/12/23 04/01/24 History amlodipine 5 mg tablet 5 mg PO DAILY 10/18/23 04/01/24 History loratadine 10 mg tablet (Allergy 10 mg PO DAILY 10/18/23 04/01/24 History Relief (loratadine)) lidocaine-prilocaine 2.5 %-2.5 % 1 applic topical ONCE PRN port 11/08/23 04/01/24 Rx topical cream access 30 days #30 grams ondansetron 8 mg disintegrating 8 mg PO Q8H PRN nausea and 11/08/23 04/01/24 Rx tablet vomiting #30 tabs prochlorperazine maleate 10 mg 10 mg PO Q6H PRN nausea and 11/08/23 04/01/24 Rx tablet vomiting #30 tabs potassium chloride 20 mEq 20 meq PO DAILY #3 tabs 03/11/24 04/01/24 Rx tablet,extended release(part/cryst) PFSH Medical History Neuropathy Anemia Vaginal dryness Encounter for chemotherapy management Diarrhea due to drug Hypokalemia Encounter for education Wears contact lenses Wears glasses Cancer Migraine headache Shortness of breath on exertion Non-smoker Hypertension History of hypertension History of frequent headaches History of seasonal allergies Surgical History History of delivery History of wisdom tooth extraction Family History Aunt Breast cancer, Onset Age: 60Father Cancer Asthma Heart disease Hypertension DiabetesAunt Lymphoma Social History Smoking Status: Never smoker alcohol intake: never substance use type: does not use additional social history: pt denies vaping, denies marijuana use denies edibles, uses ibuprofen as needed. used to take aspirin daily has stopped HPI HPI HPI: Patient is a 54-year-old female who reestablishes with general surgery after under going neoadjuvant therapy with T CHP with oncology for a HER2 positive (ER/IN negative) left breast cancer and associated positive left axillary lymph node. She began neoadjuvant therapy in November of this year and unsure if she completed her last cycle on 02/25/2024. She confesses that it took longer after each successive cycle to recover her energy level. She notes some associated weakness of her legs, some general shakiness, and fast heartbeat which was attributed to some associated anemia. She presents to today's visit with her after a follow-up MR study of the bilateral breast on 03/25/2024. Below is recapitulated from patient's initial consultation visit in September 2023: Patient is a 53-year-old female who presents for sonographic finding of the left breast. They are referred from Dr. Ernst. Based on sonographic imaging criteria this was given a BI-RADS 5. The mass was first found after patient describes identifying a small pimple approximately half an inch to the right of her nipple (roughly the 9 o'clock position as she gestures) and then experienced 2 occasions of minimal bloody nipple discharge. She denies any previous history of nipple discharge?including any milky discharge. She confesses that the subsequent mammography and ultrasonography were her first breast imaging studies ever obtained. Thus, patient has no prior history of breast pathology nor has a history of prior breast biopsy. She underwent menarche at the age of 13. She has had 8 pregnancies and 8 live births beginning at age 24. Breast-feeding was used with each of her children for approximately 1 year duration. Patient has no first-degree relatives with breast cancer but recalls that her great aunt on her maternal side was diagnosed with breast cancer later in life. There is no tenderness with the present finding. The patient has no history of hormone replacement therapy. There is no history of trauma/infection to the affected breast. Patient's only significant past medical history is that of hypertension. ROS General General: Yes fatigue; No weight change, appetite, colon cancer, breast cancer or weakness HEENT HEENT: No difficulty swallowing, eye injury, eye surgery, swollen glands or hoarseness Endo Endocrine: No thyroid disease, diabetes mellitus, thyroid cancer, Hair loss, heat intolerance or cold intolerance Skin Skin: No rash or changing moles Breast Breast: Yes abnormal mammogram and abnormal US; No left breast lump, right breast lump, nipple discharge, breast pain or breast enlargement Additional Details: sore on left breast Musc Musculoskeletal: No back problems, arthritis, rheumatoid arthritis, gout or joint pain Cardio Cardiovascular: Yes high blood pressure; No murmur, pacemaker, heart disease, atrial fibrillation, heart attack, heart stent, palpitations, shortness of breat with exertion or chest pain Psych Psychiatric: No depression, anxiety or hearing voices Resp Respiratory: No shortness of breath, No sleep apnea, No cough, No COPD, No asthma, No emphysema and No wheezing Gastro Gastrointestinal: No abdominal pain, No nausea or vomiting, No diarrhea, No constipation, No blood in stool, No acid reflux, No hemorrhoids, No ulcers, No gallbladder problem and No black,tarry stools Efren Hematologic: No blood thinners, No blood disorders, No bleeding, No anemia and No blood clots Neuro Neurologic: No numbness, No tingling and No weakness Exam Const General: cooperative Other: Patient appears mildly fatigued Chest Other: Slight scar in upper outer quadrant of left breast otherwise no discrete masses. I scan the breast with ultrasound to try to identify our biopsy clip but there is some hyperdense stromal tissue at the same depth where the biopsy clip had been noted and I did not see it definitively. Assessment and Plan Assessment and Plan (1) Breast cancer metastasized to axillary lymph node: Status: Acute Qualifiers: Laterality: left Qualified Code(s): C50.912 - Malignant neoplasm of unspecified site of left female breast; C77.3 - Secondary and unspecified malignant neoplasm of axilla and upper limb lymph nodes Comment: Left breast cancer with metastasis to left axillary lymph node, upper inner and outer quadrant with axillary node positive disease, ER negative, IN negative, HER2 3+. treatment with neoadjuvant chemotherapy and monoclonal antibody against HER2 followed by surgery Patient with apparent complete clinical response to neoadjuvant therapy as per MRI completed 03/25/2024. Additionally, I do not identify any areas of concern with clinical breast exam. With this excellent response I shared with patient and her that I would like to plan to proceed with breast conserving therapy via lumpectomy and sentinel lymph node biopsy. I discussed the use of wire localization and mammography to identify the previously placed biopsy clips in the breast lesion and axillary lymph node, respectively. Will plan to confirm this treatment plan with oncology and patient was advised that there may be need to pivot to a larger resection with formal mastectomy and/or axillary lymph node dissection depending on the results. However, if we are able to confirm with lumpectomy and sentinel lymph node biopsy the patient has indeed experienced a complete pathologic response and I find no cause to expose her to the added morbidity of the more extensive operative interventions. Further, patient's case was discussed briefly with Dr. Loredo of plastic surgery as patient is interested in the lympha procedure if we need to go through with the axillary lymph node dissection. Thus, he will have to be on a standby availability the day of surgery if frozen section shows significant lymph node involvement. Plan: Plan for outpatient wire localized lumpectomy and axillary lymph node excision as well as sentinel lymph node biopsy with frozen section. I have examined the patient the following changes are noted: Patient reports feeling much better than at her last clinic visit. The procedure was reviewed with her and her and their few questions were answered. Consents were confirmed. Patient was just now taken to the mammography suite where we perform stereotactic wire localization of both biopsy clips. Will now plan to proceed with wire localized lumpectomy and wire localized lymphadenectomy alongside of sentinel lymph node biopsy. Patient has been consented for possible axillary lymph node dissection if frozen section shows her axillary lymph nodes to remain positive after neoadjuvant therapy. Additionally, plastic surgery is on standby for possible lympha procedure if we proceed with axillary lymph node dissection.
[2024-04-15] MEDS: Cefazolin 2 GM in Syringe IV (09:55)
[2024-04-15] MEDS: 0.9% Normal Saline (Pres. free 10 ML Vial (10:00)
[2024-04-15] MEDS: Isosulfan Blue 1% 5 ML Vial (10:00)
--- NOTE | 2024-04-15 10:03 | BI_ITS ---
EXAM: BREAST BIOPSY SPECIMEN CLINICAL HISTORY: Surgical excision. COMPARISON: none TECHNIQUE: History of tissue clip marker the patient presented for wire localized surgical excisional biopsy. FINDINGS: Specimen radiograph confirms the target mass and clip. The wire is fully- visualized in the specimen. The findings were called to the operating room. BI/Breast Biopsy Specimen IMPRESSION: Target lesion on specimen radiograph. Reading Location: [id number]
--- NOTE | 2024-04-15 14:27 | PCM.OPRPT ---
Operative Report (Standard) Operative Information Date of Procedure: 04/15/24 Pre-Operative Diagnosis: Possible need for lymphovenous anastamosis (LVA) Post-Operative Diagnosis: No need for LVA Surgery/Procedure Performed: No reconstructive surgery required Physician on standby for possible LVA from (11:30 am to 2:15 pm, CPT 55177 x 5 Units (Five 30 minute increments)) sterile process tech: No Type of Anesthesia: General RN Documented Start/Stop Times: Operation Date: 04/15/24 08:30 Case Time Into Pre-Op 04/15/24 07:19 Out of Pre-Op 04/15/24 09:44 Anesthesia Start 04/15/24 09:48 Into Room 04/15/24 09:48 Procedure Start 04/15/24 10:27 Procedure Start Time: 11:30 Procedure Stop Time: 14:15 Select all DRAINS/GRAFTS/IMPLANTS that apply: None Estimated Blood Loss: none Specimen collected: No Description of surgery: I was on standby from 11:30 am to 2:15 pm for possible lymphovenous bypass to reconstruct the left axillary lymphatics. Nodes on the frozen section were examined, no indication for axillary dissection, therefore I did not preform my portion of the surgery. I was not doing any direct patient care during 11:30 am to 2:15 pm in anticipation for potentially needing to do this bypass (was on standby). Surgical Findings: No axillary dissection required Complications Complications: No
[2024-04-15] MEDS: Bupiv/Epi 0.25% 30 ML Vial (14:40)
--- NOTE | 2024-04-15 14:48 | OP.PCM_ITS ---
Operative Report (Standard) Operative Information Date of Procedure: 04/15/24 Pre-Operative Diagnosis: Left breast cancer with lymph node metastasis status post neoadjuvant therapy Post-Operative Diagnosis: Same Surgery/Procedure Performed: 1. Wire localized left breast lumpectomy 2. Wire localized excision of axillary lymph node 3. [place] lymph node biopsy with dual tracer technique gunite mixer: Yes Merchandise Processor: Marce Winslow Tasks completed by neurology physician assistant: Opening & closing and Retracting Additional employment assistant?: Yes Additional Speech/Language Therapist #2: Nikolay Banegas Tasks completed by employment assistant #2: Removing tissue and Retracting Type of Anesthesia: MAC/Supplemental RN Documented Start/Stop Times: Operation Date: 04/15/24 08:30 Case Time Into Pre-Op 04/15/24 07:19 Out of Pre-Op 04/15/24 09:44 Anesthesia Start 04/15/24 09:48 Into Room 04/15/24 09:48 Procedure Start 04/15/24 10:27 Procedure End 04/15/24 14:46 Anesthesia End 04/15/24 14:50 Out of Room 04/15/24 14:50 Into Recovery 04/15/24 14:53 Into Phase II Recovery 04/15/24 15:47 Out of Recovery 04/15/24 15:47 Out of Phase II 04/15/24 17:37 Procedure Start Time: 10:27 Procedure Stop Time: 14:46 Select all DRAINS/GRAFTS/IMPLANTS that apply: None Estimated Blood Loss: 25 Specimen collected: Yes Description of specimen(s) removed: 1. Wire localized left axillary lymph node
--- NOTE | 2024-04-15 14:48 | PCM.OPRPT ---
Operative Report (Standard) Operative Information Date of Procedure: 04/15/24 Pre-Operative Diagnosis: Left breast cancer with lymph node metastasis status post neoadjuvant therapy Post-Operative Diagnosis: Same Surgery/Procedure Performed: 1. Wire localized left breast lumpectomy 2. Wire localized excision of axillary lymph node 3. Roseau lymph node biopsy with dual tracer technique brand activation manager: Yes It Instructor: Marce Winslow Tasks completed by press operator assistant: Opening & closing and Retracting Additional assistant superintendent?: Yes Additional Development Trainer #2: Nikolay Banegas Tasks completed by assistant superintendent #2: Removing tissue and Retracting Type of Anesthesia: MAC/Supplemental RN Documented Start/Stop Times: Operation Date: 04/15/24 08:30 Case Time Into Pre-Op 04/15/24 07:19 Out of Pre-Op 04/15/24 09:44 Anesthesia Start 04/15/24 09:48 Into Room 04/15/24 09:48 Procedure Start 04/15/24 10:27 Procedure End 04/15/24 14:46 Anesthesia End 04/15/24 14:50 Out of Room 04/15/24 14:50 Into Recovery 04/15/24 14:53 Into Phase II Recovery 04/15/24 15:47 Out of Recovery 04/15/24 15:47 Out of Phase II 04/15/24 17:37 Procedure Start Time: 10:27 Procedure Stop Time: 14:46 Select all DRAINS/GRAFTS/IMPLANTS that apply: None Estimated Blood Loss: 25 Specimen collected: Yes Description of specimen(s) removed: 1. Wire localized left axillary lymph node 2. Roseau lymph node #1 3. [place] lymph node #2 4. Left breast tissue (lumpectomy specimen) Description of surgery: Element Response Options Operation performed with curative intent. Yes Tracer(s) used to identify sentinel nodes in the upfront surgery (non-neoadjuvant) setting (select all that apply).N/A Tracer(s) used to identify sentinel nodes in the neoadjuvant setting (select all that apply). Lymphoseek and isosulfan blue 1% All nodes (colored or non-colored) present at the end of a dye-filled lymphatic channel were removed. Yes All significantly radioactive nodes were removed. Yes All palpably suspicious nodes were removed. Yes Biopsy-proven positive nodes marked with clips prior to chemotherapy were identified and removed. Yes After appropriate identification the patient was positioned on the mammography table and the biopsy clip in the left breast was targeted. Stereo images were then obtained of the clip and the wire was placed just lateral and inferior to the biopsy clip. Post procedure x-rays and mammography were obtained to confirm this position. Wire was then clipped and the patient was positioned supine on the mammography table while ultrasound was brought in the room. Extensive ultrasound inspection of the patient's left axilla followed, however, we were unable to definitively localize the biopsy clip designating the previously?biopsied axillary lymph node. Therefore, we reverted back to a stereotactic approach and patient was again positioned prone on the mammography table. Once again stereo images were obtained once the clip was localized. A second Kopans wire was placed adjacent this clip and the patient was returned to a neutral position. Completion mammography films were taken for incision planning. Patient was then brought to the operating room where her preoperative antibiotics were completed. She was positioned supine on the operating room table with her arms out and underwent induction with anesthesia. An LMA airway was placed. A Mock catheter was placed as there was some variability to the operative time based on pathology responses to the submitted specimens. Patient's left breast was exposed and the isosulfan blue was injected in the 4 quadrants of the areola with 1.5 mL in the upper outer quadrant and 1 mL in the remaining 3 quadrants. These aliquots of isosulfan blue were followed by subcutaneous injection of sterile saline with 2 mL volumes in each quadrant. The areolar complex was then massaged for a period of 5 minutes. The patient's right breast and axilla were then prepped and draped in usual sterile fashion. Formal timeout was conducted to confirm both patient and procedure. Local anesthetic was instilled in the appointed location for the wire localization of the axillary lymph node and conveniently in the same area for our sentinel lymph node biopsyn (along the inferior border of the axilla in the hairbearing area of skin) and an approximately 5 cm transverse incision was made sharply. Our wire was followed closely within a narrow margin of tissue given that I was only targeting the lymph node at its terminus. Upon reaching the end of the wire I did identify an enlarged lymph node with some radioactivity. This was circumferentially dissected free and lymphatics were clipped for later identification/to mitigate risk for lymphatic leak. The neoprobe device was used to obtain an ex vivo count of 384 and the whole specimen was first submitted to mammography and then forwarded onto frozen section. Mammography called to confirm that the biopsy clip was included within the specimen. Later pathology called to share that they had identified micrometastasis within the lymph node but no solid tumor deposits. Thus returned to the axilla and completed the sentinel lymph node biopsy. The neoprobe device was used to guide the trajectory of further blunt dissection. Initially I identified a blue lymphatic channel was identified, however, on trying to follow this lymphatic deeply I did not find a lymph node and despite having some radioactivity when the removed tissue was submitted to pathology for frozen section no lymph node was identified under microscopy. It was at this point I requested the help of my partner, Dr. Banegas for assistance in dealing with the seeming inconsistencies with the neoprobe device. Through his help we were able to identify a large soft-textured lymph node that was radial actively hot and once it was circumferentially dissected and its lymphatics clipped the 10-second neoprobe ex vivo counts registered 1389. I then reexamined the axilla with the neoprobe and there was additional radioactivity appreciated. Initially all I saw was a engorged axillary vein but in palpating the area I became convinced for an enlarged lymph node that was wrapped anteriorly by this vein. Very carefully the vein was displaced from the top of the lymph node and preserved. The lymphatic channel leading to the lymph node was clipped. Ex vivo 10-second count on this lymph node was 4909. The neoprobe was then reinserted once more into the axilla, but no further radioactivity was detected. I also did not palpate any additional suspicious lymphadenopathy, nor see any additional blue lymphatic tissue. The lymph nodes were sent to pathology for frozen section and the biopsy cavity was irrigated with sterile water and inspected for hemostasis. Frozen section results eventually returned that both lymph nodes were negative for any signs of metastasis. A roughly 4 cm transverse incision was made in the upper outer quadrant of the left breast to encompass the location of the patient's wire localized biopsy clip. This was deepened through the dermal layer with electrocautery around the patient's localization wire. Identifying the wire, the tissue within which the wire was embedded was grasped with an Allis clamp and elevated. The wire was then followed to its anchored position in the breast tissue taking care to obtain margins. Once I had achieved the appropriate circumferential excision and confirmed our depth the breast tissue was amputated from the cavity. It was oriented such that the short stitch marked the superior margin and the long stitch murcia the lateral margin. It was then passed off the field for mammography and pathology. Mammography confirmed that the images were in our PACS system and I identified both the biopsy clip in the entirety of the wire within the specimen. I had previously discussed with pathology that given patient's negative MRI results we were unlikely to see much in the way of margins with frozen sections so we resolved to await the results of patient's final pathology. I returned to the axillary incision which was closed in layers using 3-0 Vicryl and 4-0 Monocryl. The same followed for patient's breast incision except I also closed some of the deeper space with a running 2-0 Vicryl. With these incisions close Steri-Strips and dressings were applied. Patient's Mock catheter was removed and case was turned over to anesthesia before patient was taken to PACU for ongoing recovery. Surgical Findings: ? Large lymph node at the terminal end of our axillary wire - Solid tracing of isosulfan blue to axilla with numerous blue lymphatic channels visualized ? Rose[place] lymph node #1 large but soft lymph node with 10-second ex vivo neoprobe count 1389 ? [place] lymph node #2 slightly smaller but soft lymph node with 10-second ex vivo neoprobe count 4909 Complications Complications: No Admit VTE Documentation VTE Mechan Device Prophylaxis: SCD's
--- NOTE | 2024-04-15 14:48 | EX.PCM.DISCH ---
Discharge Instructions Diet Discharge Diet: No restrictions Activity Discharge Activity: May Drive (No driving while using narcotic pain medication) May shower in (days): 2 Lifting Restrictions: Limit lifting with left upper extremity to no more than 5 pounds Dressing / Incision Call your doctor if your incision/area has: Continuous Slow Oozing, Sudden Increased Bleeding, Increased Pain/ Swelling, Increased Redness, Foul Smelling Discharge and Swelling at the incision site Call your doctor if you observe: Fever of 101 or Higher Suture Line Care: Avoid Pulling/Pushing Remove Dressing in: 2 days Cleanse incision/area with: Soap & Water Additional Dressing/Incision Instructions:: Please leave Steri-Strips intact until they fall off spontaneously or are taken off at your follow-up visit Follow Up Care Please Follow Up With: Griffin Sage MD When: 10-14 days postop Test Results: Test results from this visit will be discussed in further detail at your follow-up appointment, if applicable. Discharge Plan Admission Primary Reason for Your Visit: Left breast cancer Attending Provider: Griffin Sage Primary Care Provider: Michael Ernst Consulting Providers: Jairon Rothman; Alexys Loredo Instructions Print Language: Mongolian Discharge Orders/Prescriptions Prescriptions: New oxycodone 5 mg tablet 5 mg PO Q6H PRN (Reason: pain) 3 Days Qty: 14 0RF Continued lisinopril 2.5 mg tablet 2.5 mg PO DAILY hydrochlorothiazide 12.5 mg capsule 12.5 mg PO DAILY amlodipine 5 mg tablet 5 mg PO DAILY loratadine [Allergy Relief (loratadine)] 10 mg tablet 10 mg PO DAILY lidocaine-prilocaine 2.5-2.5 % cream 1 applic topical ONCE PRN (Reason: port access) 30 Days Qty: 30 2RF ondansetron 8 mg tablet,disintegrating 8 mg PO Q8H PRN (Reason: nausea and vomiting) Qty: 30 2RF prochlorperazine maleate 10 mg tablet 10 mg PO Q6H PRN (Reason: nausea and vomiting) Qty: 30 2RF Other Ambulatory Orders: 12 Lead EKG (Routine) Timeframe: [id number] Location: None Selected Ordered By: Dr. Hakan Goodman Referrals / Follow Up: Michael Ernst DO [Primary Care Provider] - Disposition Disposition (needs filled in before D/C Order can be placed): Home, Self Care
--- NOTE | 2024-04-15 14:57 | PCM.POST.ANE ---
Anesthesia: Postop Eval I Current Vital Signs Temperature: 97.7 F Pulse Rate: 94 Blood Pressure: 128/76 Respiratory Rate: 18 Pulse Ox: 96 Oxygen Delivery Method: Room Air Assessment Airway patent: Yes Spontaneous unlabored respirations: Yes Mental status: Asleep nausea: No Vomiting: No Anesthesia Complication: No Fluid Hydration Crystalloid volume administer (ml): 1,500 Total IV fluid infused: 1,500 Progress Note Anesthesia document: Postop Eval 1 completed: Yes
[2024-04-15] MEDS: 0.9 % NaCl (Sterile) Posiflush 10 mL IV (17:24)
--- NOTE | 2024-04-15 17:37 | SUR.PHASEII ---
ok to d/c per dr hernandez
--- NOTE | 2024-04-15 18:51 | POSTOPAN2_ITS ---
Anesthesia Postop Eval I Sum Postop Eval Completion status Anesthesia document: Postop Eval 1 completed: Yes Anesthesia Postop Eval I Summary Anesthesia Postop Eval I Summary: Anesthesia Postop Eval I: Assessment Summary Airway patent Yes 04/15/24 14:57 [email or web address] [email or web address] Spontaneous unlabored Yes 04/15/24 14:57 [email or web address] [email or web address] respirations Mental status Asleep 04/15/24 14:57 [email or web address] nausea No 04/15/24 14:57 [email or web address] [email or web address] Vomiting No 04/15/24 14:57 [email or web address] Anesthesia Postop Eval I: Fluid Summary Crystalloid volume administer 1,500 04/15/24 14:57 [email or web address] [email or web address] (ml) Colloids volume administered ( ml) Blood Product volume administered (ml) Total IV fluid infused 1,500 04/15/24 14:57 [email or web address] Anesthesia Postop Eval I: Summary Notes Anesthesia Complication No 04/15/24 14:57 [email or web address] Anesthesia Complication Comment: Post-operative progress note Anesthesia: Postop Eval II Evaluation Mental status: Awake and Calm Pain Level: 1 nausea: No Vomiting: No Complications Anesthesia Complication: No
--- NOTE | 2024-04-15 18:51 | PCM.POSTANE2 ---
Anesthesia Postop Eval I Sum Postop Eval Completion status Anesthesia document: Postop Eval 1 completed: Yes Anesthesia Postop Eval I Summary Anesthesia Postop Eval I Summary: Anesthesia Postop Eval I: Assessment Summary Airway patent Yes 04/15/24 14:57 [email or web address] Spontaneous unlabored Yes 04/15/24 14:57 [email or web address] respirations Mental status Asleep 04/15/24 14:57 [email or web address] nausea No 04/15/24 14:57 [email or web address] Vomiting No 04/15/24 14:57 [email or web address] Anesthesia Postop Eval I: Fluid Summary Crystalloid volume administer 1,500 04/15/24 14:57 [email or web address] (ml) Colloids volume administered ( ml) Blood Product volume administered (ml) Total IV fluid infused 1,500 04/15/24 14:57 [email or web address] Anesthesia Postop Eval I: Summary Notes Anesthesia Complication No 04/15/24 14:57 [email or web address] Anesthesia Complication Comment: Post-operative progress note Anesthesia: Postop Eval II Evaluation Mental status: Awake and Calm Pain Level: 1 nausea: No Vomiting: No Complications Anesthesia Complication: No
== END 2024-04-15 17:37 | disposition home or self-care (01) ==
LOC: SDC 07:15 → AC 07:17
PROVIDERS: Anesthesiology; Nurse Practitioner Family; PCP Family Medicine; Referring Provider Surgery; Visit Provider Surgery
PROC: (CPT 19301; principal; 2024-04-15 08:00)
DX: C50.412 Malignant neoplasm of upper-outer quadrant of left female breast (principal); C77.3 Secondary and unspecified malignant neoplasm of axilla and upper limb lymph nodes; D64.9 Anemia, unspecified; I10 Essential (primary) hypertension; Z79.899 Other long term (current) drug therapy; Z17.31 Human epidermal growth factor receptor 2 positive status; N60.92 Unspecified benign mammary dysplasia of left breast
CPT/HCPCS: 19302; 19283; 10035; 00400; 19281; 19282; 36415; 38792; 76098; 80053; 81025; 83735; 85025; 85610; 85730; 88305; 88307; 88331; 88332; 88341; 88342; 93005; A4648; A9520; A4216; J2405; Q9968

== ENCOUNTER → 2024-05-12 | Outpatient (CLI) | payer SELFPAY ==
--- NOTE | 2024-05-12 08:51 | ECHOLONC_ITS ---
Reason For Study Reason For Study: High risk meds Procedure This was a limited 2D transthoracic echocardiogram. Myocardial strain analysis was performed in this exam to aid in the assessment of cardiac function. Exam performed in department. Left Ventricle Normal LV size. The global longitudinal strain = -18.7 % (normal). The prior global longitudinal strain was -16.2 % . The estimated ejection fraction is 65-70 %. Unable to assess diastolic dysfunction. No regional wall motion abnormalities noted. Atria The left and right atria are normal. Mitral Valve There is no mitral valve stenosis. Tricuspid Valve There is no tricuspid stenosis. Aortic Valve Trisinus/trileaflet aortic valve. There is no aortic stenosis. Pericardium/Pleural No pericardial effusion. MMode/2D Measurements & Calculations LVIDd: 4.8 cm IVSd: 0.97 cm Ao root diam: 2.9 cm LVIDs: 2.3 cm LVPWd: 0.85 cm RVDd: 3.2 cm FS: 53.0 % LAV(MOD-bp): 42.5 ml LVAd ap4: 24.3 cm2 LVAd ap2: 19.5 cm2 LAV(MOD-bp) Indexed: 23.3 ml/m2 LVLd ap4: 7.4 cm LVLd ap2: 7.1 cm LAV(MOD-sp2): 40.2 ml EDV(MOD-sp4): 69.0 ml EDV(MOD-sp2): 48.5 ml LAV(MOD-sp4): 43.3 ml EDV(sp4-el): 68.2 ml EDV(sp2-el): 45.6 ml LVAs ap4: 13.7 cm2 LVAs ap2: 10.4 cm2 LVLs ap4: 6.1 cm LVLs ap2: 6.1 cm ESV(MOD-sp4): 27.2 ml ESV(MOD-sp2): 15.9 ml ESV(sp4-el): 26.1 ml ESV(sp2-el): 14.8 ml EF(MOD-sp4): 60.5 % EF(MOD-sp2): 67.3 % EF(sp4-el): 61.7 % SV(MOD-sp4): 41.7 ml SV(MOD-sp2): 32.6 ml SV(sp4-el): 42.1 ml SI(MOD-sp4): 22.9 ml/m2 SI(MOD-sp2): 17.9 ml/m2 LA dimension(2D): 3.9 cm LA A4 area: 16.4 cm2 RA A4 area: 9.6 cm2 ECHO/ONC Echo, Limited Study Interpretation Summary The estimated ejection fraction is 65-70 %. Ordering Physician: Jairon Rothman Referring Physician: Jairon Rothman Performed By: Eileen Russell RDCS
== END | disposition home or self-care (01) ==
PROVIDERS: PCP Family Medicine; Referring Provider Internal Medicine Medical Oncology; Visit Provider Internal Medicine Medical Oncology
DX: Z79.899 Other long term (current) drug therapy (principal)
CPT/HCPCS: 93308; 93356

== ENCOUNTER 2024-05-22 11:02 | Outpatient (RCR) | payer SELFPAY ==
--- NOTE | 2024-05-22 14:16 | HP.OTEVAL_ITS ---
Patient's Visit Information Visit Information Visit Information: CASSIDY CAPUTO is a 54 year old F, referred to Occupational Therapy by RUSS Valenzuela, with a diagnosis of Breast Cancer. Date of Evaluation: 05/22/24 Occupational Therapist: REGIS Nagel/Gian, CHT Subjective Subjective: This 54 year-old female was seen for OT eval with dx with breast cancer. Dx taken from oncology note: clinical stage IIIA (cT3 cN1a M0, ypTis ypN1a (sn)) status post left breast core biopsy (09/12/2023), bilateral breast MRI (09/21/2023), left axillary biopsy (10/03/2023), PET scan (10/23/2023), bone scan (10/26/2023), completion of 6 cycles TCHP (11/13/2023 ? 02/25/2024), bilateral breast MRI (03/25/2024) and completion of left breast lumpectomy and sentinel lymph node biopsy (04/15/2024). pt states she will start her radiation June 02. and have 30 rounds of radiation. pt is hear for information on signs and symptoms of lymphedema and ed. on mtg. pt states she is self pay and at this time would like information and handouts and information. Lymphedema (Circumferential Measure) MCP: right 19cm left 19cm Wrist: right 17cm left 17cm Lower forearm: right 21cm left 20.5cm Largest forearm: right 26cm left 25cm Elbow: right 26cm left 26cm Largest humerus: right 31cm left 31.5cm Axcillary: right 34cm left 34cm Quick DASH-Disab of Arm,Shoulder& Hand Quick DASH Score: 2.5000 Goals Goal: Patient will demonstrate adequate knowledge of self-massage by the end of the second week.: Yes Goal: Patient will demonstrate adequate knowledge of skin care and precautions by the end of the first week.: Yes Goal: Patient will demonstrate adequate knowledge of therapeutic exercises by discharge.: Yes Goal: Patient will select an appropriate compression garment and demonstrate adequate knowledge of correct donning technique, care and wearing schedule by discharge.: Yes Goal: Patient will voice understanding of need to replace compression garment every four to six months by discharge.: Yes Rehabilitation General Assessment: pt demo with full ROM and is here for ed.on signs symptoms and mtg of lymphedema. Todays therapist ed. pt on life long mtg of lymphedema, compression sleeve and glove. pt was given information on compression with flying 20-30mmHg for precautions- Pt demo understanding and agree to POC. Rehabilitation Potential: Excellent Anticipated Interventions Anticipated Interventions: Education re assistive Equipment, Education re Diagnosis, Education re Life-long lymphedema Management, Education re Skin Care and Precautions, Education re Self Massage Techniques, Education re Correct Donning Tech,Care&Wearing Sched Comp Garments and Home Program Visit Plan TEXT: Thank you for the opportunity to evaluate your patient. For Medicare and Medicare HMO plans, please review the plan of care and approve it. It will need to be FAXED BACK to us at [phone] for Medicare purposes. Please let me know if there are questions or concerns regarding this plan of care. Physician Signature: Date:
--- NOTE | 2024-10-01 15:00 | HP.OT.NRP ---
Patient Information Patient Information: CASSIDY CAPUTO was seen in my office for initial evaluation on 05/22/24. The following Plan of Care was established for this patient: Anticipated Interventions Anticipated Interventions: Education re assistive Equipment, Education re Diagnosis, Education re Life-long lymphedema Management, Education re Skin Care and Precautions, Education re Self Massage Techniques, Education re Correct Donning Tech,Care&Wearing Sched Comp Garments and Home Program Last Seen Last Seen: This patient was last seen in our office 05/22/24. Pertinent comments regarding their Occupational therapy will appear below: no further apts have been scheduled and due to time lapse in services pt is d/c. At this point I will be discontinuing this patient from occupational therapy. I would be happy to see this patient again in the future if found appropriate by the physician. Thank you! Eliza Noel, OTR/L, CHT
== END 2024-05-22 19:00 | disposition home or self-care (01) ==
LOC: OT 11:02
PROVIDERS: PCP Family Medicine; Referring Provider Nurse Practitioner Family; Visit Provider Nurse Practitioner Family
DX: C50.812 Malignant neoplasm of overlapping sites of left female breast (principal); Z17.1 Estrogen receptor negative status [ER-]; Z98.890 Other specified postprocedural states
CPT/HCPCS: 97166; 97530

== ENCOUNTER → 2024-06-25 | Outpatient (CLI) | payer SELFPAY ==
--- NOTE | 2024-06-25 14:10 | RAD_ITS ---
PROCEDURE: SHOULDER MIN 2 VIEWS 06/25/2024 REASON FOR EXAM: S/P FALL/PAIN TECHNIQUE: Five views of the left shoulder. COMPARISON: No comparison FINDINGS: Bones: No fracture or dislocation. Joints: No fracture or dislocation. Soft tissues: Left calcific tendinitis. Other: Right-sided port a catheter is seen. RAD/Shoulder min 2 Views IMPRESSION: Left shoulder calcific tendinitis. Reading Location: [place] [id number]
== END | disposition home or self-care (01) ==
PROVIDERS: PCP Family Medicine; Referring Provider Family Medicine; Visit Provider Family Medicine
DX: M25.512 Pain in left shoulder (principal); R29.6 Repeated falls; Z91.81 History of falling
CPT/HCPCS: 73030

== ENCOUNTER → 2024-08-21 | Outpatient (CLI) | payer SELFPAY ==
--- NOTE | 2024-08-21 10:52 | ECHODONC_ITS ---
Reason For Study Reason For Study: OTHER S[employer] Procedure This was a 2D Doppler, Color Flow transthoracic echocardiogram. Exam performed in department. Left Ventricle Normal LV size. Left ventricular systolic function is normal. The left ventricular ejection fraction is 60 %. No regional wall motion abnormalities noted. Right Ventricle Normal RV size. Normal systolic function. Atria Normal left atrium. Normal right atrium. probable right atrial catheter. Mitral Valve Normal mitral valve. Tricuspid Valve Normal tricuspid valve. Mild (1+) tricuspid valve insufficiency. Pulmonary artery systolic pressure is 30 mmHg. Aortic Valve Trisinus/trileaflet aortic valve. Pulmonic Valve Normal pulmonic valve. Great Vessels Normal aortic root. The pulmonary artery is normal size. Inferior vena cava collapse with respiration. Pericardium/Pleural No pericardial effusion. MMode/2D Measurements & Calculations LVIDd: 3.7 cm IVSd: 1.1 cm LVOT diam: 2.0 cm LVIDs: 2.3 cm LVPWd: 1.2 cm LVOT area: 3.1 cm2 RVDd: 2.3 cm FS: 38.3 % Ao root diam: 3.3 cm LAV(MOD-bp): 48.1 ml LVAd ap4: 23.7 cm2 LAV(MOD-bp) Indexed: 26.6 ml/m2 LVLd ap4: 7.3 cm LAV(MOD-sp2): 52.1 ml EDV(MOD-sp4): 65.2 ml LAV(MOD-sp4): 40.8 ml EDV(sp4-el): 65.6 ml LVAs ap4: 13.4 cm2 LVLs ap4: 5.8 cm ESV(MOD-sp4): 26.8 ml ESV(sp4-el): 26.3 ml EF(MOD-sp4): 58.9 % EF(sp4-el): 59.9 % SV(MOD-sp4): 38.4 ml SV(sp4-el): 39.3 ml LA A4 area: 16.4 cm2 SI(MOD-sp4): 21.3 ml/m2 LA dimension(2D): 3.2 cm RA A4 area: 12.2 cm2 Time Measurements MV dec time: 0.18 sec Doppler Measurements & Calculations MV E max omar: 75.2 cm/sec Med Peak E' Omar: 8.4 cm/sec MV V2 max: 96.7 cm/sec MV A max omar: 64.0 cm/sec E/E' med: 9.0 MV max P.7 mmHg MV E/A: 1.2 MV V2 mean: 52.9 cm/sec MV mean P.3 mmHg MV V2 VTI: 27.0 cm MVA(VTI): 2.8 cm2 MV dec slope: 429.3 cm/sec2 Ao V2 max: 103.5 cm/sec LV V1 max: 88.2 cm/sec Ao max P.3 mmHg LV V1 max P.9 mmHg Ao V2 mean: 75.6 cm/sec LV V1 mean P.0 mmHg Ao mean P.6 mmHg LV V1 mean: 81.5 cm/sec Ao V2 VTI: 24.7 cm LV V1 VTI: 24.3 cm AV (velocity ratio): 0.98 JL(I,D): 3.1 cm2 JL(V,D): 2.7 cm2 SV(LVOT): 76.0 ml TR max omar: 255.5 cm/sec TR max P.1 mmHg ECHO/ONC Echo Complete Interpretation Summary Normal LV size. Left ventricular systolic function is normal. The left ventricular ejection fraction is 60 %. probable right atrial catheter Ordering Physician: Winifred Woodall Referring Physician: Winifred Woodall Performed By: Guera Sandoval RCS
== END | disposition home or self-care (01) ==
LOC: CVS 10:51
PROVIDERS: PCP Family Medicine; Referring Provider Nurse Practitioner Family; Visit Provider Nurse Practitioner Family
DX: C50.812 Malignant neoplasm of overlapping sites of left female breast (principal); Z17.1 Estrogen receptor negative status [ER-]; Z51.81 Encounter for therapeutic drug level monitoring; Z79.899 Other long term (current) drug therapy
CPT/HCPCS: 93306; 93356

== ENCOUNTER 2024-11-25 12:43 | Outpatient (RCR) | payer SELFPAY ==
--- NOTE | 2024-11-25 13:31 | HP.PTEVAL_ITS ---
Patient's Visit Information Visit Information Visit Information: CASSIDY CAPUTO is a 54 year old F referred to Physical Therapy by RUSS Valenzuela with a diagnosis of s/p l lumpectomy , stiffness in shoulder. Date of Evaluation: 11/25/24 Physical Therapist: Daivs Johnston, DPT, OCS, CSCS Visit Plan Frequency: 1-2x /Week Duration: 4-6 Weeks Plan: up to 2x/week as needed for 2-4 weeks for... IE HEP: supine stick flexion and er 15x 3x/day to end range. f/u two weeks to progress to chest stretch adn diagonal ROM and strength if desired. if not improving then consider increasee frequency for DTR, STM, manual therapy. Subjective Subjective: L breast Ca and lumpectomy. Now feels tight lifting up and hurts wheen reaching up. Saw leatha in past for L hand OA and compression. [place] and immunotherapy and one more left. That was Feebruary of this year. Sitting is comfortable, only to stretch tissue anterior L shoulder. 5/10 with reaching adn gone immediately. Sleep is OK as far as L shoulder goes. 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 Activities mostly nomral but reaching into [facility] cupboard or hanging was can hurt temporarily. Reading is hobbyz, typing and can do these. No ex for shoulder Pain L shouldeer: Pain Intensity (Out of 10): 0 Pain Intensity Range: 0 and 5 Objective Objective: Walks and trasnfers easily adn without pain. Posture is slight Fw head and protracted scap but not bad, painfree at rest. AROM L shoulder flexion 125 adn R 150, abd same, tightness en L eleevation, er tight anteriory at end range, funcitonal. Otherwise scapula, elbow, wrist and hand AROM WFL and without pain. PROM is 134 flexion l and 80 er with discomfort. sensation UE WNL to gross light touch B. strength is 4-/5 rotations and flexion B shoulders without pain in L shoulder. elbow and wrist are 4+/5 B without pain. Tender slightly in pec tissue anterior to R shoulder and hurts to stretech this. Balance/Special Test Scores Quick DASH Score: 29.5450 Goals Goal 1:: 150 AROM L shoulder flexion and full symmetircal er without pain L. Goal Time Frame: 4-6 Weeks Goal 2:: Pt feel 95% back to normal L shoulder Goal Time Frame: 4-6 Weeks Goal 3:: reach into top cupboard without pain Goal Time Frame: 4-6 Weeks Rehabilitation Potential Physical Therapy Diagnosis: stiff L shoulder effefcting comfortable function Rehabilitation Potential: Good Anticipated Interventions Patient/Client Instruction: Educate patient on: Condition For the Purpose of:: To decrease pain, To increase ROM, To improve nutrient delivery to tissue, To improve muscle performance and motor function and To increase tolerance to activity/condition/position Therapeutic Exercise to Include: Strength training, Flexibilty training, Passive ROM and Active ROM For the Purpose of:: To decrease pain, To increase ROM and To improve nutrient delivery to tissue Manual Therapy Techniques to Include: Mobilization, Passive ROM and Soft tissue mobilization For the Purpose of:: To increase ROM Text: Thank you for the opportunity to evaluate your patient. For Medicare and Medicare HMO plans, please review the plan of care and approve it. It will need to be FAXED BACK to us at [phone] for Medicare purposes. For Medicare only, by signing this I certify the plan of care. Please let me know if there are questions or concerns regarding this plan of care. Physician Signature: Date:
--- NOTE | 2025-01-09 12:35 | HP.PT.NRP ---
Patient Information Patient Information: CASSIDY CAPUTO was seen in my office for initial evaluation on 11/25/24. The following Plan of Care was established for this patient: POC Established Initial Frequency: 1-2x /Week Initial Duration: 4-6 Weeks Anticipated Interventions Patient/Client Instruction: Educate patient on: Condition For the Purpose of:: To decrease pain, To increase ROM, To improve nutrient delivery to tissue, To improve muscle performance and motor function and To increase tolerance to activity/condition/position Therapeutic Exercise to Include: Strength training, Flexibilty training, Passive ROM and Active ROM For the Purpose of:: To decrease pain, To increase ROM and To improve nutrient delivery to tissue Manual Therapy Techniques to Include: Mobilization, Passive ROM and Soft tissue mobilization For the Purpose of:: To increase ROM Last Seen Last Seen: This patient was last seen in our office 11/25/24. Pertinent comments regarding their Physical therapy will appear below: Pt seen one visit of IE an POC established. Pt did not return for any further visits and i will disocntinue her from my care at this time. At this point I will be discontinuing this patient from physical therapy. I would be happy to see this patient again in the future if found appropriate by the physician. Thank you! Davis Johnston, DPT, OCS, CSCS Balance/Gait/Functional tests Balance/Special Test Scores Quick DASH Score: 29.5484
== END 2024-11-25 19:00 | disposition home or self-care (01) ==
LOC: PT 12:43
PROVIDERS: PCP Family Medicine; Referring Provider Nurse Practitioner Family; Visit Provider Nurse Practitioner Family
DX: M25.60 Stiffness of unspecified joint, not elsewhere classified (principal); Z98.890 Other specified postprocedural states
CPT/HCPCS: 97161

== ENCOUNTER → 2024-11-25 | Outpatient (CLI) | payer SELFPAY ==
--- NOTE | 2024-11-25 07:10 | ECHODONC_ITS ---
Reason For Study Reason For Study: OTHER [facility] DRUG USE Procedure This was a 2D Doppler, Color Flow transthoracic echocardiogram. Myocardial strain analysis was performed in this exam to aid in the assessment of cardiac function. Exam performed in department. Left Ventricle Normal LV size. Left ventricular systolic function is normal. The left ventricular ejection fraction is 65 %. No regional wall motion abnormalities noted. Right Ventricle Normal RV size. Normal systolic function. Atria Normal left atrium. Normal right atrium. Mitral Valve Normal mitral valve. Tricuspid Valve The tricuspid valve is not well visualized. Mild (1+) tricuspid valve insufficiency. Pulmonary artery systolic pressure is 26 mmHg. Aortic Valve Normal aortic valve. Pulmonic Valve Normal pulmonic valve. Great Vessels Normal aortic root. The pulmonary artery is normal size. Inferior vena cava collapse with respiration. Pericardium/Pleural No pericardial effusion. MMode/2D Measurements & Calculations LVIDd: 4.3 cm IVSd: 1.1 cm LAV(MOD- bp): 49.7 ml LVIDs: 2.9 cm LVPWd: 0.88 cm LAV(MOD- bp) Indexed: 27.5 ml/m2 RVDd: 3.0 cm FS: 33.3 % LAV(MOD- sp2): 48.4 ml LAV(MOD- sp4): 48.5 ml SV(MOD- sp4): 44.5 ml LVAd ap4: 24.7 cm2 LVAd ap2: 20.5 cm2 LVLd ap4: 6.8 cm LVLd ap2: 7.3 cm SI(MOD- sp4): 24.6 ml/m2 EDV(MOD-sp4): 74.2 ml EDV(MOD-sp2): 52.6 ml EDV(sp4-el): 76.5 ml EDV(sp2-el): 48.9 ml LVAs ap4: 14.0 cm2 LVAs ap2: 10.7 cm2 LVLs ap4: 5.7 cm LVLs ap2: 5.9 cm ESV(MOD-sp4): 29.7 ml ESV(MOD-sp2): 17.9 ml ESV(sp4-el): 29.3 ml ESV(sp2-el): 16.6 ml EF(MOD-sp4): 60.0 % EF(MOD-sp2): 66.0 % EF(sp4-el): 61.7 % SV(MOD-sp2): 34.7 ml SV(sp4-el): 47.2 ml LA A4 area: 17.2 cm2 SI(MOD-sp2): 19.2 ml/m2 LA dimension(2D): 4.0 cm TAPSE: 2.1 cm RA A4 area: 13.8 cm2 Time Measurements MV dec time: 0.17 sec Doppler Measurements & Calculations MV E max omar: 85.4 cm/sec Lat Peak E' Omar: 13.3 cm/sec Med Peak E' Omar: 8.9 cm/sec MV A max omar: 75.7 cm/sec E/E' lat: 6.4 E/E' med: 9.6 MV E/A: 1.1 MV V2 max: 97.3 cm/sec MV P1/2t max omar: 91.3 cm/sec Ao V2 max: 134.4 cm/sec MV max P.8 mmHg MV P1/2t: 51.7 msec Ao max P.2 mmHg MV V2 mean: 60.7 cm/sec MV dec slope: 517.2 cm/sec2 Ao V2 mean: 96.9 cm/sec MV mean P.7 mmHg Ao mean P.1 mmHg MV V2 VTI: 23.4 cm MVA(P1/2t): 4.3 cm2 Ao V2 VTI: 26.6 cm AV (velocity ratio): 0.83 LV V1 max: 119.2 cm/sec PA V2 max: 96.5 cm/sec TR max omar: 239.0 cm/sec LV V1 max P.7 mmHg TR max P.0 mmHg LV V1 mean P.6 mmHg LV V1 mean: 75.7 cm/sec LV V1 VTI: 22.0 cm ECHO/ONC Echo Complete Interpretation Summary Normal LV size. Left ventricular systolic function is normal. The left ventricular ejection fraction is 65 %. Pulmonary artery systolic pressure is 26 mmHg. The global longitudinal strain is normal. The global longitudinal strain = -18. 5 % (normal). Ordering Physician: Winifred Woodall Referring Physician: Michael Ernst Performed By: Monie Garcia, NATHAN, RVT
--- OUTSIDE RECORDS SUMMARY | 2024-11-25 07:13 | XMS RPT_ITS | CCD ---
Author Organization [facility] Care Team Providers Care Propeller Mechanic Name Role Phone MICHAEL ERNST MD Attending Unavailable MICHAEL ERNST MD Primary Care Unavailable MICHAEL ERNST MD Admitting Unavailable Dr. Michael Ernst DO Primary Care Provider Dr. Jairon Rothman MD Attending Provider Dr. Jairon Rothman MD Referring Provider Dr. Kendall Bob MD Attending Provider Dr. Michael Ernst DO Referring Provider Jose C DIRECTOR OF NEUROLOGY-C, Winifred Attending Provider Dr. Alexys Loredo MD Attending Provider Jose C DIRECTOR OF NEUROLOGY-C, Winifred Referring Provider Mk Jones MD Attending Provider Mk Jones MD Emergency Provider Dr. Griffin Sage MD Attending Provider Dr. Griffin Sage MD Referring Provider Dr. Erik Orr MD Attending Provider Dr. Jairon Rothman MD Other Provider Dr. Alexys Loredo MD Other Provider Dr. Griffin Sage MD Other Provider Дмитрий DOWNS, Dr. Ross Attending Provider Dr. Polo Morgan DO Attending Provider Dr. Michael Ernst DO Primary Care Provider Jose C DIRECTOR OF NEUROLOGY-C, Winifred Attending Provider Sujata ALDRICH, Dr. Rodriguez Referring Provider Gerrtude DOWNS, Dr. Reardon Attending Provider Lorna DOWNS, Dr. De La O Attending Provider Lorna DOWNS, Dr. De La O Referring Provider Cathy ALDRICH, Dr. Cuellar Referring Provider Sujata ALDRICH, Dr. Rodriguez Attending Provider Sujata DO, Dr. Rodriguez Primary Care Provider Chu DOWNS, Dr. Moya Attending Provider Sujata ALDRICH, Dr. Rodriguez Referring Provider Jose C DIRECTOR OF NEUROLOGY-C, Winifred Attending Provider Jose C DIRECTOR OF NEUROLOGY-C, Winifred Referring Provider Sujata ALDRICH, Dr. Rodriguez Primary Care Provider Chu DOWNS, Dr. Moya Attending Provider Dominga DOWNS, Dr. Valencia Attending Provider Sujata ALDRICH, Dr. Rodriguez Primary Care Provider Sujata ALDRICH, Dr. Rodriguez Referring Provider Sujata DO, Dr. Rodriguez Primary Care Provider Cathy ALDRICH, Dr. Cuellar Attending Provider Jose C DIRECTOR OF NEUROLOGY-C, Winifred Attending Provider Sujata ALDRICH, Dr. Rodriguez Referring Provider Lorna DOWNS, Dr. De La O Attending Provider Lorna DOWNS, Dr. De La O Referring Provider Sujata ALDRICH, Dr. Rodriguez Primary Care Provider Cathy ALDRICH, Dr. Cuellar Attending Provider Cathy ALDRICH, Dr. Cuellar Referring Provider Sujata ALDRICH, Dr. Rodriguez Referring Provider Lorna DOWNS, Dr. De La O Attending Provider Jose C DIRECTOR OF NEUROLOGY-C, Winifred Attending Provider Jose C DIRECTOR OF NEUROLOGY-C, Winifred Referring Provider Lorna DOWNS, Dr. De La O Referring Provider Sujata ALDRICH, Dr. Rodriguez Primary Care Provider Cathy ALDRICH, Dr. Cuellar Attending Provider Cathy ALDRICH, Dr. Cuellar Referring Provider Sujata ALDRICH, Dr. Rodriguez Referring Provider Lorna DOWNS, Dr. De La O Attending Provider Lorna DOWNS, Dr. De La O Referring Provider Sujata ALDRICH, Dr. Rodriguez Primary Care Provider Sujata ALDRICH, Dr. Rodriguez Referring Provider Jose C DIRECTOR OF NEUROLOGY-C, Winifred Attending Provider Cathy ALDRICH, Dr. Cuellar Attending Provider Lorna DOWNS, Dr. De La O Referring Provider Sujata, Michael Primary Care Unavailable Griffin Sage Attending Unavailable Griffin Sage Referring Unavailable Jairon Rothman Consulting Unavailable Siska, Alexys Consulting Unavailable Sujata, Michael Referring Unavailable oPlo Morgan Attending Unavailable Sujata, Michael Primary Care Unavailable Sujata, Michael Referring Unavailable Jose C DIRECTOR OF NEUROLOGY, Winifred Attending Unavailable Sujata, Michael Primary Care Unavailable Sujata, Michael Primary Care Unavailable Griffin Sage Referring Unavailable Erik Orr Attending Unavailable Polo Morgan Referring Unavailable Polo Morgan Attending Unavailable Sujata, Michael Primary Care Unavailable Sujata, Michael Primary Care Unavailable Sujata, Michael Referring Unavailable Jose C DIRECTOR OF NEUROLOGY, Winifred Attending Unavailable Jose C DIRECTOR OF NEUROLOGY, Winifred Referring Unavailable Sujata, Michael Primary Care Unavailable Jose C DIRECTOR OF NEUROLOGY, Winifred Attending Unavailable Sujata, Michael Primary Care Unavailable Jose C DIRECTOR OF NEUROLOGY, Winifred Attending Unavailable Sujata, Michael Primary Care Unavailable Sujata, Michael Referring Unavailable Jose C DIRECTOR OF NEUROLOGY, Winifred Attending Unavailable Sujata, Michael Primary Care Unavailable Kendall Bob Attending Unavailable Sujata, Michael Primary Care Unavailable Jose C DIRECTOR OF NEUROLOGY, Winifred Attending Unavailable Sujata, Michael Referring Unavailable Sujata, Michael Primary Care Unavailable Jairon Rothman Attending Unavailable Sujata, Michael Referring Unavailable Sujata, Michael Primary Care Unavailable Sujata, Michael Referring Unavailable PraJairon anderson Attending Unavailable Sujata, Michael Primary Care Unavailable Jose C DIRECTOR OF NEUROLOGY, Winifred Attending Unavailable Sujata, Michael Referring Unavailable Sujata, Michael Primary Care Unavailable Griffin Sage Attending Unavailable Griffin Sage Referring Unavailable Sujata, Michael Primary Care Unavailable Jairon Rothman Attending Unavailable Jairon Rothman Referring Unavailable Sujata, Michael Primary Care Unavailable Sujata, Michael Referring Unavailable Jairon Rothman Attending Unavailable Sujata, Michael Primary Care Unavailable Jairon Rothamn Attending Unavailable Sujata, Michael Referring Unavailable Sujata, Michael Primary Care Unavailable Jose C DIRECTOR OF NEUROLOGY, Winifred Attending Unavailable Jose C DIRECTOR OF NEUROLOGY, Winifred Referring Unavailable Sujata, Michael Primary Care Unavailable Mk Jones Attending Unavailable Polo Morgan Attending Unavailable Sujata, Michael Primary Care Unavailable Sujata, Michael Referring Unavailable Polo Morgan Referring Unavailable Polo Morgan Attending Unavailable Sujata, Michael Primary Care Unavailable Sujata, Michael Referring Unavailable Jairon Rothman Attending Unavailable Sujata, Michael Primary Care Unavailable Sujata, Michael Referring Unavailable Polo Morgan Attending Unavailable Sujata, Michael Primary Care Unavailable Polo Morgan Referring Unavailable Polo Morgan Attending Unavailable Sujata, Michael Primary Care Unavailable Sujata, Michael Referring Unavailable Sujata, Michael Primary Care Unavailable Jairon Rothman Attending Unavailable Polo Morgan Referring Unavailable Polo Morgan Attending Unavailable Sujata, Michael Primary Care Unavailable Sujata, Michael Primary Care Unavailable Sujata, Michael Referring Unavailable Griffin Sage Attending Unavailable Sujata, Michael Primary Care Unavailable PraJairon anderson Attending Unavailable Sujata, Michael Referring Unavailable Sujata, Michael Primary Care Unavailable Jairon Rothman Attending Unavailable Sujata, Michael Referring Unavailable Sujata, Michael Primary Care Unavailable PraJairon anderson Attending Unavailable Sujata, Michael Referring Unavailable Sujata, Michael Primary Care Unavailable PraJairon anderson Attending Unavailable Sujata, Michael Referring Unavailable Sujata, Michael Primary Care Unavailable Sujata, Michael Referring Unavailable Jose C DIRECTOR OF NEUROLOGY, Winifred Attending Unavailable Polo Morgan Referring Unavailable Polo Morgan Attending Unavailable Sujata, Michael Primary Care Unavailable Sujata, Michael Referring Unavailable Sujata, Michael Primary Care Unavailable Griffin Sage Attending Unavailable Sujata, Michael Primary Care Unavailable Jose C DIRECTOR OF NEUROLOGY, Winifred Attending Unavailable Sujata, Michael Referring Unavailable Polo Morgan Referring Unavailable Polo Morgan Attending Unavailable Sujata, Michael Primary Care Unavailable Sujata, Michael Primary Care Unavailable Vandana Choe Attending Unavailabl e Sujata, Michael Primary Care Unavailable Griffin Sage Attending Unavailable Griffin Sage Referring Unavailable Jairon Rothman Consulting Unavailable Alexys Loredo Consulting Unavailable Griffin Sage Consulting Unavailable Sujata, Michael Primary Care Unavailable Alexys Loredo Attending Unavailable Griffin Sage Referring Unavailable Jairon Rothman Consulting Unavailable Alexys Loredo Consulting Unavailable Griffin Sage Consulting Unavailable Sujata, Michael Primary Care Unavailable Sujata, Michael Referring Unavailable Jairon Rothman Attending Unavailable Polo Morgan Attending Unavailable Sujata, Michael Primary Care Unavailable Sujata, Michael Primary Care Unavailable Erik Orr Attending Unavailable Polo Morgan Referring Unavailable Polo Morgan Attending Unavailable Sujata, Michael Primary Care Unavailable Polo Morgan Referring Unavailable Polo Morgan Attending Unavailable Sujata, Michael Primary Care Unavailable Polo Morgan Referring Unavailable Polo Morgan Attending Unavailable Sujata, Michael Primary Care Unavailable Sujata, Michael Primary Care Unavailable Jose C DIRECTOR OF NEUROLOGY, Winifred Attending Unavailable Sujata, Michael Referring Unavailable Sujata, Michael Primary Care Unavailable Sujata, Michael Referring Unavailable Jose C DIRECTOR OF NEUROLOGY, Winifred Attending Unavailable Sujata, Michael Primary Care Unavailable Sujata, Michael Referring Unavailable Jose C DIRECTOR OF NEUROLOGY, Winifred Attending Unavailable Sujata, Michael Primary Care Unavailable Sujata, Michael Referring Unavailable Jose C DIRECTOR OF NEUROLOGY, Winifred Attending Unavailable Sujata, Michael Primary Care Unavailable Sujata, Michael Referring Unavailable Alexys Loredo Attending Unavailable Polo Morgan Referring Unavailable Sujata, Michael Primary Care Unavailable Polo Morgan Attending Unavailable Sujata, Michael Attending Unavailable Sujata, Michael Primary Care Unavailable Sujata, Michael Referring Unavailable Jose C DIRECTOR OF NEUROLOGY, Winifred Referring Unavailable Jose C DIRECTOR OF NEUROLOGY, Winiferd Attending Unavailable Sujata, Michael Primary Care Unavailable Sujata, Michael Primary Care Unavailable Jairon Rothman Referring Unavailable Jairon Rothman Attending Unavailable Sujata, Michael Primary Care Unavailable Griffin Sage Attending Unavailable Griffin Sage Referring Unavailable Sujata, Michael Primary Care Unavailable Jairon Rtohman Referring Unavailable Jairon Rothman Attending Unavailable Allergies Allergy Classification Reported Allergen(s) Allergy Type Date of Onset Reaction(s) Facility (11 sources) Gadolinium-MRI Contrast Medium Allergy to substance 05-15-2024 Rash [facility] Comment on above: red rash to chest, n yumiko (1 source) Gadolinium-MRI Contrast Medium Drug allergy (disorder) 11-18-2024 [facility] Repository Medications Current Medications Medication Drug Class(es) Dates Sig (Normalized) Sig (Original) amLODIPine 5 mg oral tablet (11 sources) Dihydropyridine Calcium Channel Tanner Start: 10-18-19 24 take 1 tablet by mouth once daily Amlodipine 5 mg tablet Active 5 mg PO DAILY October 18, 2023 12:00am hydroCHLOROthiazide 12.5 mg oral capsule (11 sources) Thiazide Diuretic Start: 09-12-19 24 take 1 capsule by mouth once daily Hydrochlorothiazide 12.5 mg capsule Active 12.5 mg PO DAILY September 12, 2023 12:00am lidocaine 25 mg/ml / prilocaine 25 mg/ml topical cream (11 sources) Antiarrhythmic, Amide Local Anesthetic Start: 11-08-19 24 Lidocaine-Prilocaine 2.5-2.5 % cream Active 1 NMA TOPICAL ONCE as needed for port access 30 November 08, 2023 12:00am Malignant neoplasm of left breast 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 Malignant neoplasm of overlapping sites of left female breast Estrogen receptor negative status [ER-] Malignant neoplasm of unspecified site of left female breast lisinopril 2.5 mg oral tablet (11 sources) Angiotensin Converting Enzyme Inhibitor Start: 09-12-19 24 take 1 tablet by mouth once daily Lisinopril 2.5 mg tablet Active 2.5 mg PO DAILY September 12, 2023 12:00am loratadine 10 mg oral tablet (11 sources) Start: 10-18-19 take 1 tablet by mouth once daily Loratadine (Allergy Relief (Loratadine)) 10 mg tablet Active 10 mg PO DAILY October 18, 2023 12:00am ondansetron 8 mg disintegrating oral tablet (11 sources) Serotonin-3 Receptor Antagonist Start: 11-08-19 take 1 tablet by mouth every eight hours as needed for nausea and vomiting Ondansetron 8 mg tablet,disintegrating Active 8 mg PO Q8H as needed for nausea and vomiting 30 November 08, 2023 12:00am Malignant neoplasm of left breast 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 Malignant neoplasm of overlapping sites of left female breast Estrogen receptor negative status [ER-] Malignant neoplasm of unspecified site of left female breast prochlorperazine 10 mg oral tablet (11 sources) Phenothiazine Start: 11-08-19 take 1 tablet by mouth every six hours as needed for nausea and vomiting Prochlorperazine Maleate 10 mg tablet Active 10 mg PO EVERY 6 HOURS as needed for nausea and vomiting November 08, 2023 12:00am Chemotherapy-induced nausea and vomiting Nausea with vomiting, unspecified Adverse effect of antineoplastic and immunosuppressive drugs, initial encounter silver sulfADIAZINE 10 mg/ml topical cream (10 sources) Sulfonamide Antibacterial Start: 07-11-19 Silver Sulfadiazine (Silvadene) 1 % cream Active 1 NMA TOPICAL TWICE A DAY 85 July 10, 2024 12:00am Acute radiodermatitis Acute radiodermatitis apply a 1.5 mm thickness Completed/Discontinued Medications Medication Drug Class(es) Dates Sig (Normalized) Sig (Original) dexamethasone 4 mg oral tablet (11 sources) Corticosteroid Start: 11-08-2023 End: 03-11-2024 take 2 tablets by mouth twice daily Dexamethasone 4 mg tablet Discontinued 8 mg PO .COMPLEX 12 November 08, 2023 12:00am March 11, 2024 10:57am 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 Malignant neoplasm of left breast Malignant neoplasm of unspecified site of left female breast Malignant neoplasm of overlapping sites of left female breast Estrogen receptor negative status [ER-] 8 mg orally; twice daily only the day before, the day of and the day after chemotherapy losartan potassium 25 mg oral tablet (11 sources) Angiotensin 2 Receptor Tanner Start: 09-12-2023 End: 10-18-2023 take 1 tablet by mouth once daily Losartan 25 mg tablet Discontinued 25 mg PO DAILY September 12, 2023 12:00am October 18, 2023 9:13am oxyCODONE hydrochloride 5 mg oral tablet (11 sources) Opioid Agonist Start: 04-15-2024 End: 04-29-2024 take 1 tablet by mouth every six hours as needed for pain Oxycodone 5 mg tablet Discontinued 5 mg PO EVERY 6 HOURS as needed for pain 14 3 April 15, 2024 April 29, 2024 4:03pm Malignant neoplasm of left breast Malignant neoplasm of overlapping sites of left female breast Estrogen receptor negative status [ER-] microencapsulated potassium chloride 20 meq extended release oral tablet (20 sources) Start: 03-11-2024 End: 04-04-2024 take 1 tablet by mouth once daily Potassium Chloride 20 mEq tablet,ER particles/crystal s Discontinued 20 meq PO DAILY 3 0 March 11, 2024 11:36am April 04, 2024 5:50pm Hypokalemia Hypokalemia Start: 02-19-2024 End: 03-11-2024 take 2 tablets by mouth once daily Potassium Chloride 20 mEq tablet,ER particles/crystals Discontinued 40 meq PO DAILY 6 0 February 19, 2024 11:48am March 11, 2024 11:36am Hypokalemia Hypokalemia Start: 11-27-2023 End: 02-19-2024 take 1 tablet by mouth once daily Potassium Chloride 20 mEq tablet,ER particles/crystals Discontinued 20 meq PO DAILY 7 0 January 29, 2024 1:43pm February 19, 2024 11:49am Hypokalemia Hypokalemia Problems Active Problems Problem Classification Problem Date Documented Da te Episodic/Chronic Administrative/social admission (11 sources) Patient encounter status; Translations: [Counseling, unspecified] 11-08-2023 Episodic Cancer of breast (20 sources) Malignant tumor of breast ; Translations: [Malignant neoplasm of unspecified site of left female breast] Onset: 05-19-2024 05-15-2024 Chronic Comment on above: Left breast cancer w ith metastasis to left axillary lymph node, upper inner and outer quadrant with axillary node positive disease, ER negative, CT negative, HER2 3+.Started treatment with neoadjuvant chemotherapy and monoclonal antibody against HER2 began 11/13/23. Finished 6 cycles on 02/25/2024.Had surgery-left lumpectomy and axillary dissection on 04/15/2024. Pathology showed ypT0 ypN1. Left breast cancer w ith metastasis to left axillary lymph node, upper inner and outer quadrant with axillary node positive disease, ER negative, CT negative, HER2 3+.Status post treatment with neoadjuvant chemotherapy carboplatin and Taxotere and monoclonal antibody against HER2-Perjeta and Herceptin analogue x 6.Status post left breast lumpectomy and left axillary sentinel node biopsy. Pathology showed no residual left breast lesion, plus macrometastasis in 1 lymph node. Pathologic stage ypT0 ypN1.Disease status, adjuvant therapy with monoclonal antibodies against HER2 for additional 6 months. Also discussed adjuvant radiation therapy, patient agrees to proceed. Left breast cancer w ith metastasis to left axillary lymph node, upper inner and outer quadrant with axillary node positive disease, ER negative, CT negative, HER2 3+.Started treatment with neoadjuvant chemotherapy and monoclonal antibody against HER2 began 11/13/23. Finished 6 cycles on 02/25/2024.Had surgery-left lumpectomy and axillary dissection on 04/15/2024. Pathology showed ypT0 ypN1.Started adjuvant Perjeta and Herceptin analogue on 05/15/2024. Left breast cancer w ith metastasis to left axillary lymph node, upper inner and outer quadrant with axillary node positive disease, ER negative, CT negative, HER2 3+.Status post treatment with neoadjuvant chemotherapy carboplatin and Taxotere and monoclonal antibody against HER2-Perjeta and Herceptin analogue x 6.Status post left breast lumpectomy and left axillary sentinel node biopsy. Pathology showed no residual left breast lesion, plus macrometastasis in 1 lymph node. Pathologic stage ypT0 ypN1.On adjuvant therapy with monoclonal antibodies against HER2 for additional 6 months. Left breast cancer w ith metastasis to left axillary lymph node, upper inner and outer quadrant with axillary node positive disease, ER negative, CT negative, HER2 3+.Started treatment with neoadjuvant chemotherapy and monoclonal antibody against HER2 began 11/13/23. Finished 6 cycles on 02/25/2024.Had surgery-left lumpectomy and axillary dissection on 04/15/2024. Pathology showed ypT0 ypN1.Started adjuvant Perjeta and Herceptin analogue on 05/15/2024.Comes for C12. Echocardiogram on 08/21/2024 reviewed EF60%.Counts and chemistry reviewed, oK for therapy. Left breast cancer w ith metastasis to left axillary lymph node, upper inner and outer quadrant with axillary node positive disease, ER negative, CT negative, HER2 3+.Started treatment with neoadjuvant chemotherapy and monoclonal antibody against HER2 began 11/13/23. Finished 6 cycles on 02/25/2024.Had surgery-left lumpectomy and axillary dissection on 04/15/2024. Pathology showed ypT0 ypN1.Started adjuvant Perjeta and Herceptin analogue on 05/15/2024.Comes for C13. Echocardiogram on 08/21/2024 reviewed EF60%.Counts and chemistry reviewed, oK for therapy. Left breast cancer w ith metastasis to left axillary lymph node, upper inner and outer quadrant with axillary node positive disease, ER negative, CT negative, HER2 3+.Started treatment with neoadjuvant chemotherapy and monoclonal antibody against HER2 began 11/13/23. Finished 6 cycles on 02/25/2024.Had surgery-left lumpectomy and axillary dissection on 04/15/2024. Pathology showed ypT0 ypN1.Started adjuvant Perjeta and Herceptin analogue on 05/15/2024. Echocardiogram on 08/21/2024 reviewed EF60%.Comes for C14.Counts reviewed, oK for therapy. Left breast cancer w ith metastasis to left axillary lymph node, upper inner and outer quadrant with axillary node positive disease, ER negative, CT negative, HER2 3+.Started treatment with neoadjuvant chemotherapy and monoclonal antibody against HER2 began 11/13/23. Finished 6 cycles on 02/25/2024.Had surgery-left lumpectomy and axillary dissection on 04/15/2024. Pathology showed ypT0 ypN1.Started adjuvant Perjeta and Herceptin analogue on 05/15/2024. Echocardiogram on 08/21/2024 reviewed EF60%.Comes for C15.Counts reviewed, oK for therapy. Deficiency and other anemia (13 sources) Anemia; Translations: [Anemia, unspecified] 01-08-2024 Episodic Deficiency and other anemia (2 sources) Anemia, unspecified; Translations: [Anemia, unspecified] Onset: 03-11-2024 Episodic Maintenance chemotherapy; radiotherapy (20 sources) H/O: malignant neoplasm; Translations: [Encounter for antineoplastic immunotherapy] Onset: 02-25-2024 01-15-2024 Chronic Comment on above: Counts and chemistry reviewed, OK for therapy. Nonmalignant breast conditions (12 sources) Breast lump; Translations: [Unspecified lump in the left breast, unspecified quadrant] 10-16-2023 Episodic Other aftercare (12 sources) Follow-up status; Translations: [Encounter for follow-up examination after completed treatment for conditions other than malignant neoplasm] 01-29-2024 Episodic Comment on above: Khari counts are OK for next cycle. Other aftercare (1 source) Other mcc (current) drug therapy; Translations: [Other mcc (current) drug therapy] Onset: 09-16-2024 Episodic Other female genital disorders (11 sources) Vaginal dryness; Translations: [Other specified noninflammatory disorders of vagina] 12-04-2023 Episodic Other gastrointestinal disorders (11 sources) Abdominal bloating; Translations: [Abdominal distension (gaseous)] 12-25-2023 Episodic Other gastrointestinal disorders (14 sources) Diarrhea due to drug; Translations: [Toxic gastroenteritis and colitis] 11-27-2023 Episodic Other nervous system disorders (14 sources) Neuropathy; Translations: [Polyneuropathy, unspecified] 02-19-2024 Chronic Other nervous system disorders (1 source) Polyneuropathy, unspecified; Translations: [Polyneuropathy, unspecified] Onset: 03-11-2024 Chronic Other non-traumatic joint disorders (1 source) Limitation of joint movement; Translations: [Stiffness of unspecified joint, not elsewhere classified] 11-18-2024 Episodic Other non-traumatic joint disorders (2 sources) Stiffness of unspecified joint, not elsewhere classified; Translations: [Stiffness of unspecified joint, not elsewhere classified] Onset: 11-18-2024 Episodic Other screening for suspected conditions (not mental disorders or infectious disease) (12 sources) Ultrasound scan abnormal; Translations: [Abnormal findings on diagnostic imaging of other specified body structures] 10-16-2023 Chronic Residual codes; unclassified (20 sources) Other specified postprocedural states; Translations: [History of lumpectomy of left breast] Onset: 11-18-2024 05-15-2024 Episodic Residual codes; unclassified (2 sources) Estrogen receptor negative status [ER-]; Translations: [Estrogen receptor negative status [ER-]] Onset: 11-18-2024 Episodic Secondary malignancies (14 sources) Secondary malignant neoplasm of breast; Translations: [Carcinoma metastatic to breast] Onset: 03-11-2024 10-16-2023 Chronic Secondary malignancies (2 sources) Secondary and unspecified malignant neoplasm of axilla and upper limb lymph nodes; Translations: [Secondary and unspecified malignant neoplasm of axilla and upper limb lymph nodes] Onset: 10-28-2024 Chronic Unclassified (6 sources) C50.912 - Malignant neoplasm of unspecified site of left female breast,C77.3 - Secondary and unspecified malignant neoplasm of axilla and upper limb lymph nodes Unclassified (6 sources) C50.812 - Malignant neoplasm of overlapping sites of left female breast,Z17.1 - Estrogen receptor negative status [ER-],C50.912 - Malignant neoplasm of unspecified site of left female breast,C77.3 - Secondary and unspecified malignant neoplasm of axilla and upper limb lymph nodes Unclassified (6 sources) Z98.890 - Other specified postprocedural states,C50.812 - Malignant neoplasm of overlapping sites of left female breast,Z17.1 - Estrogen receptor negative status [ER-] Unclassified (1 source) History of lumpectomy of left breast Unclassified (3 sources) Malignant neoplasm of left breast Unclassified (1 source) 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 Unclassified (1 source) Limited joint range of motion Unclassified (1 source) Status post left breast lumpectomy Unclassified (1 source) C50.812 - Malignant neoplasm of overlapping sites of left female breast,Z17.1 - Estrogen receptor negative status [ER-] Unclassified (1 source) M25.60 - Stiffness of unspecified joint, not elsewhere classified,Z98.890 - Other specified postprocedural states Past or Other Problems Problem Classification Problem Date Documented Da te Episodic/Chronic Allergic reactions (20 sources) Allergic reaction; Translations: [Allergy, unspecified, initial encounter] Onset: 04-14-2024 04-02-2024 Episodic Fluid and electrolyte disorders (15 sources) Hypokalemia; Translations: [Hypokalemia] Onset: 03-11-2024 4 Episodic Lymphadenitis (13 sources) Lymphadenopathy; Translations: [Enlarged lymph nodes, unspecified] Onset: 05-19-2024 10-01-2023 Episodic Other female genital disorders (1 source) Other specified noninflammatory disorders of vagina; Translations: [Other specified noninflammatory disorders of vagina] Onset: 12-04-2023 Episodic Other gastrointestinal disorders (1 source) Toxic gastroenteritis and colitis; Translations: [Toxic gastroenteritis and colitis] Onset: 03-11-2024 Episodic Other gastrointestinal disorders (1 source) Abdominal distension (gaseous); Translations: [Abdominal distension (gaseous)] Onset: 12-25-2023 Episodic Other non-traumatic joint disorders (1 source) Pain in left shoulder; Translations: [Pain in left shoulder] Onset: 07-02-2024 Episodic Other screening for suspected conditions (not mental disorders or infectious disease) (13 sources) Mammography abnormal; Translations: [Other abnormal and inconclusive findings on diagnostic imaging of breast] Onset: 05-19-2024 09-12-2023 Episodic Results Test Name Value Interpretation Reference Range Facility CA 15-3on 11-19-2024 CA 15-3 11.6 U/mL Normal 0.0-25.0 [facility] Comment on above: Result Comment: [employer] Electrochemiluminescence Immunoassay(ECLIA)Values obtained with different assay methods or kits cannotbe used interchangeably. Results cannot be interpreted asabsolute evidence of the presence or absence of malignantdisease.Performed at: [place] [id number] Director: Aleks Morel PhD, Phone: [phone] Performed By: #### L 100.0100, L3100.2300, L500.4050, L3100.5030, L3100.5000, L3100.5040, L504.2610 ####[facility] [address] [place], [address] CA 27.29on 11-19-2024 CA 27.29 14.5 U/mL Normal 0.0-38.6 [facility] Comment on above: Result Comment: [facility] [employer] Immunochemiluminometric Methodology (ICMA)Values obtained with different assay methods or kits cannotbe used interchangeably. Results cannot be interpreted asabsolute evidence of the presence or absence of malignantdisease. Performed By: #### L 100.0100, L3100.2300, L500.4050, L3100.5030, L3100.5000, L3100.5040, L504.2610 ####[facility] [address] [place], [address] Cancer Antigen 125on 025 CA 125 9.6 U/mL Normal 0.0-38.1 [facility] Comment on above: Result Comment: [employer] Electrochemiluminescence Immunoassay(ECLIA)Values obtained with different assay methods or kits cannotbe used interchangeably. Results cannot be interpreted asabsolute evidence of the presence or absence of malignantdisease. Performed By: #### L 100.0100, L3100.2300, L500.4050, L3100.5030, L3100.5000, L3100.5040, L504.2610 ####[facility] [address] [place], [address] Carcinoembryonic Antigenon 0 11-19-2024 CEA 1.6 ng/mL Normal 0.0-4.7 [facility] Comment on above: Result Comment: Nons mokers <3.9 Smokers <5.6[employer] Electrochemiluminescence Immunoassay(ECLIA)Values obtained with different assay methods or kitscannot be used interchangeably. Results cannot beinterpreted as absolute evidence of the presence orabsence of malignant disease. Performed By: #### L 100.0100, L3100.2300, L500.4050, L3100.5030, L3100.5000, L3100.5040, L504.2610 ####[facility] [address] [place], [address] Absolute lymphocyte countOrd ered By: Jairon Rothman on 11-18-2024 Lymphocytes Auto (Unsp spec) [#/Vol] 1.07 10*3/uL 0.83-4.51 [facility] Absolute neutrophil countOrd ered By: Jairon Rothman on 11-18-2024 Neutrophils (Bld) [#/Vol] 2.7 10*3/uL 2.0-7.7 [facility] Anion gap in Serum or Plasma Ordered By: Jairon Childsmonica on 11-18-2024 Anion gap [Moles/Vol] 9 mmol/L 5-15 [facility] Automated lymphocyte count a s percentage of total leukocytesOrdered By: Jairon Childsmonica on 11-18-2024 Lymphocytes/100 WBC Auto (Unsp spec) 24.7 % - [facility] BUN/creatinine ratioOrdered By: [facility] on 11-18-2024 Urea nitrogen/Creatinine [Mass ratio] 18.0 mg/mg 10- [facility] Basophil percentageOrdered B y: Jairon Childsmonica on 11-18-2024 Basophils/100 WBC (Bld) 0.5 % 0-1 [facility] Bilirubin, totalOrdered By: Jairon Childsmonica on 11-18-2024 Bilirubin [Mass/Vol] 0.38 mg/dL 0.00-1.30 [facility] CBC W/Diff, Automatedon 11-03 Absolute Lymph 1.07 X10 3/uL Normal 0.83-4.51 [facility] Comment on above: Performed By: #### L 100.0100, L3100.2300, L500.4050, L3100.5030, L3100.5000, L3100.5040, L504.2610 ####[facility] [address] [place], [address] Absolute Neut 2.7 X10 3/uL Normal 2.0-7.7 [facility] Comment on above: Performed By: #### L 100.0100, L3100.2300, L500.4050, L3100.5030, L3100.5000, L3100.5040, L504.2610 ####[facility] [address] [place], [address] Basophils/100 WBC (Bld) 0.5 % Normal 0-1 [facility] Comment on above: Performed By: #### L 100.0100, L3100.2300, L500.4050, L3100.5030, L3100.5000, L3100.5040, L504.2610 ####[facility] [address] [place], [address] Eosinophils/100 WBC (Bld) 3.5 % Normal 0-5 [facility] Comment on above: Performed By: #### L 100.0100, L3100.2300, L500.4050, L3100.5030, L3100.5000, L3100.5040, L504.2610 ####[facility] [address] [place], [address] Erythrocyte distribution width (RBC) [Ratio] 12.1 % Normal 11.6-14.6 [facility] Comment on above: Performed By: #### L 100.0100, L3100.2300, L500.4050, L3100.5030, L3100.5000, L3100.5040, L504.2610 ####[facility] [address] [place], [address] Hematocrit (Bld) [Volume fraction] 33.8 % Low 37-47 [facility] Comment on above: Performed By: #### L 100.0100, L3100.2300, L500.4050, L3100.5030, L3100.5000, L3100.5040, L504.2610 ####[facility] [address] [place], [address] Hemoglobin (Bld) [Mass/Vol] 11.9 g/dL Low 12.0-15.0 [facility] Comment on above: Performed By: #### L 100.0100, L3100.2300, L500.4050, L3100.5030, L3100.5000, L3100.5040, L504.2610 ####[facility] [address] [place], [address] IG% 0.500 Normal 0.0-0.9 [facility] Comment on above: Result Comment: IG% - Immature Granulocytes (promyelocytes, myelocytes andmetamyelocytes) > 1% indicates that a LEFT SHIFT is Present. Performed By: #### L 100.0100, L3100.2300, L500.4050, L3100.5030, L3100.5000, L3100.5040, L504.2610 ####[facility] [address] [place], [address] Lymphocytes/100 WBC (Bld) 24.7 % Normal 19-41 [facility] Comment on above: Performed By: #### L 100.0100, L3100.2300, L500.4050, L3100.5030, L3100.5000, L3100.5040, L504.2610 ####[facility] [address] [place], [address] MCH (RBC) [Entitic mass] 29.8 pg Normal 27.0-32.0 [facility] Comment on above: Performed By: #### L 100.0100, L3100.2300, L500.4050, L3100.5030, L3100.5000, L3100.5040, L504.2610 ####[facility] [address] [place], [address] MCHC (RBC) [Mass/Vol] 35.2 g/dL Normal 32-36 [facility] Comment on above: Performed By: #### L 100.0100, L3100.2300, L500.4050, L3100.5030, L3100.5000, L3100.5040, L504.2610 ####[facility] [address] [place], [address] MCV (RBC) [Entitic vol] 84.7 fL Normal 81-99 [facility] Comment on above: Performed By: #### L 100.0100, L3100.2300, L500.4050, L3100.5030, L3100.5000, L3100.5040, L504.2610 ####[facility] [address] [place], [address] Monocytes/100 WBC (Bld) 7.6 % Normal 0-10 [facility] Comment on above: Performed By: #### L 100.0100, L3100.2300, L500.4050, L3100.5030, L3100.5000, L3100.5040, L504.2610 ####[facility] [address] [place], [address] Neutrophils/100 WBC (Bld) 63.2 % Normal 47-70 [facility] Comment on above: Performed By: #### L 100.0100, L3100.2300, L500.4050, L3100.5030, L3100.5000, L3100.5040, L504.2610 ####[facility] [address] [place], [address] Nucleated RBC (Bld) [#/Vol] 0 10*3/uL Normal 0-5 [facility] Comment on above: Performed By: #### L 100.0100, L3100.2300, L500.4050, L3100.5030, L3100.5000, L3100.5040, L504.2610 ####[facility] [address] [place], [address] Platelet mean volume (Bld) [Entitic vol] 9.8 fL Normal 6.2-12.0 [facility] Comment on above: Performed By: #### L 100.0100, L3100.2300, L500.4050, L3100.5030, L3100.5000, L3100.5040, L504.2610 ####[facility] [address] [place], [address] Platelets (Bld) [#/Vol] 202 10*3/uL Normal 150-450 [facility] Comment on above: Performed By: #### L 100.0100, L3100.2300, L500.4050, L3100.5030, L3100.5000, L3100.5040, L504.2610 ####[facility] [address] [place], [address] RBC (Bld) [#/Vol] 3.99 10*6/uL Low 4.2-5.4 [facility] Comment on above: Performed By: #### L 100.0100, L3100.2300, L500.4050, L3100.5030, L3100.5000, L3100.5040, L504.2610 ####[facility] [address] [place], [address] RDW SD 37.1 fl Normal 35.1-43.9 [facility] Comment on above: Performed By: #### L 100.0100, L3100.2300, L500.4050, L3100.5030, L3100.5000, L3100.5040, L504.2610 ####[facility] [address] [place], [address] WBC (Bld) [#/Vol] 4.3 10*3/uL Low 4.4-11.0 [facility] Comment on above: Performed By: #### L 100.0100, L3100.2300, L500.4050, L3100.5030, L3100.5000, L3100.5040, L504.2610 ####[facility] [address] [place], [address] Carbon dioxide, total [Moles /volume] in Central venous bloodOrdered By: Jairon Rothman on 11-18-2024 CO2 [Moles/Vol] 25.4 mmol/L 21.0-32.0 [facility] Chloride assayOrdered By: Janee Rothman on 11-18-2024 Chloride [Moles/Vol] 107 mmol/L 98-108 [facility] Comprehensive Metabolic Prof ilon 11-18-2024 Albumin [Mass/Vol] 4.2 g/dL Normal 3.5-5.0 [facility] Comment on above: Performed By: #### L 100.0100, L3100.2300, L500.4050, L3100.5030, L3100.5000, L3100.5040, L504.2610 ####[facility] [address] [place], [address] Albumin/Globulin [Mass ratio] 1.7 {ratio} Normal 0.9-2.4 [facility] Comment on above: Performed By: #### L 100.0100, L3100.2300, L500.4050, L3100.5030, L3100.5000, L3100.5040, L504.2610 ####[facility] [address] [place], [address] ALK PHOS 87 U/L Normal 35-104 [facility] Comment on above: Performed By: #### L 100.0100, L3100.2300, L500.4050, L3100.5030, L3100.5000, L3100.5040, L504.2610 ####[facility] [address] [place], [address] ALT [Catalytic activity/Vol] 15 U/L Normal <=34 [facility] Comment on above: Performed By: #### L 100.0100, L3100.2300, L500.4050, L3100.5030, L3100.5000, L3100.5040, L504.2610 ####[facility] [address] [place], [address] AST [Catalytic activity/Vol] 17 U/L Normal <=31 [facility] Comment on above: Performed By: #### L 100.0100, L3100.2300, L500.4050, L3100.5030, L3100.5000, L3100.5040, L504.2610 ####[facility] [address] [place], [address] Bilirubin [Mass/Vol] 0.38 mg/dL Normal 0.00-1.30 [facility] Comment on above: Performed By: #### L 100.0100, L3100.2300, L500.4050, L3100.5030, L3100.5000, L3100.5040, L504.2610 ####[facility] [address] [place], [address] BUN/CRE 18.0 RATIO Normal 10-20 [facility] Comment on above: Performed By: #### L 100.0100, L3100.2300, L500.4050, L3100.5030, L3100.5000, L3100.5040, L504.2610 ####[facility] [address] [place], [address] Calcium [Mass/Vol] 9.5 mg/dL Normal 7.6-11.0 [facility] Comment on above: Performed By: #### L 100.0100, L3100.2300, L500.4050, L3100.5030, L3100.5000, L3100.5040, L504.2610 ####[facility] [address] [place], [address] Chloride [Moles/Vol] 107 mmol/L Normal 98-108 [facility] Comment on above: Performed By: #### L 100.0100, L3100.2300, L500.4050, L3100.5030, L3100.5000, L3100.5040, L504.2610 ####[facility] [address] [place], [address] CO2 [Moles/Vol] 25.4 mmol/L Normal 21.0-32.0 [facility] Comment on above: Performed By: #### L 100.0100, L3100.2300, L500.4050, L3100.5030, L3100.5000, L3100.5040, L504.2610 ####[facility] [address] [place], [address] Creatinine [Mass/Vol] 0.75 mg/dL Normal 0.70-1.20 [facility] Comment on above: Performed By: #### L 100.0100, L3100.2300, L500.4050, L3100.5030, L3100.5000, L3100.5040, L504.2610 ####[facility] [address] [place], [address] ECRCL 82.68 ml/min Normal 50-250 [facility] Comment on above: Performed By: #### L 100.0100, L3100.2300, L500.4050, L3100.5030, L3100.5000, L3100.5040, L504.2610 ####[facility] [address] [place], [place], [phone]([phone] GAP 9 Normal 5-15 [facility] Comment on above: Performed By: #### L 100.0100, L3100.2300, L500.4050, L3100.5030, L3100.5000, L3100.5040, L504.2610 ####[facility] [address] [place], [address] GFR/1.73 sq M.predicted among non-blacks MDRD (S/P/Bld) [Vol rate/Area] 95 mL/min/{1.73_m2} Normal >60 [facility] Comment on above: Result Comment: mL/m in/1.73m2 CKD-EPI Creatinine Equation (2020) Performed By: #### L 100.0100, L3100.2300, L500.4050, L3100.5030, L3100.5000, L3100.5040, L504.2610 ####[facility] [address] [place], [address] Globulin (S) [Mass/Vol] 2.5 g/dL Normal 2.2-4.2 [facility] Comment on above: Performed By: #### L 100.0100, L3100.2300, L500.4050, L3100.5030, L3100.5000, L3100.5040, L504.2610 ####[facility] [address] [place], [address] Glucose [Mass/Vol] 96 mg/dL Normal 70-99 [facility] Comment on above: Performed By: #### L 100.0100, L3100.2300, L500.4050, L3100.5030, L3100.5000, L3100.5040, L504.2610 ####[facility] [address] [place], [address] Potassium [Moles/Vol] 3.5 mmol/L Normal 3.3-5.1 [facility] Comment on above: Performed By: #### L 100.0100, L3100.2300, L500.4050, L3100.5030, L3100.5000, L3100.5040, L504.2610 ####[facility] [address] [place], [address] Sodium [Moles/Vol] 142 mmol/L Normal 133-145 [facility] Comment on above: Performed By: #### L 100.0100, L3100.2300, L500.4050, L3100.5030, L3100.5000, L3100.5040, L504.2610 ####[facility] [address] [place], [address] T PROT 6.7 g/dL Normal 5.9-8.4 [facility] Comment on above: Performed By: #### L 100.0100, L3100.2300, L500.4050, L3100.5030, L3100.5000, L3100.5040, L504.2610 ####[facility] [address] [place], [address] Urea nitrogen [Mass/Vol] 14 mg/dL Normal 4-19 [facility] Comment on above: Performed By: #### L 100.0100, L3100.2300, L500.4050, L3100.5030, L3100.5000, L3100.5040, L504.2610 ####[facility] [address] [place], [address] Eosinophil percentageOrdered By: Jairon Lorna on 11-18-2024 Eosinophils/100 WBC (Bld) 3.5 % 0-5 [facility] Erythrocyte distribution wid th ratioOrdered By: [facility] on 11-18-2024 Erythrocyte distribution width (RBC) [Ratio] 12.1 % 11.6-14.6 [facility] Erythrocyte distribution wid th standard deviationOrdered By: [facility] on 11-18-2024 Erythrocyte distribution width (RBC) [Ratio] 37.1 fl 35.1-43.9 [facility] Glomerular filtration rate ( GFR) estimation/1.73 sq m using serum, plasma, or whole bOrdered By: [facility] GFR/1.73 sq M.predicted among non-blacks MDRD (S/P/Bld) [Vol rate/Area] 95 mL/min/{1.73_m2} >60 [facility] Comment on above: mL/min/1.73m2 CKD-EP I Creatinine Equation (2020) Hematocrit Auto (Bld) [Volum e fraction]Ordered By: [facility] on 11-18-2024 Hematocrit (Bld) [Volume fraction] 33.8 % Low 37-47 [facility] Hemoglobin measurementOrdere d By: Jairon Rothman on 11-18-2024 Hemoglobin (Bld) [Mass/Vol] 11.9 g/dL Low 12.0-15.0 [facility] Immature granulocytes/100 WB C Auto (Bld)Ordered By: Jairon Childs on 11-18-2024 Immature granulocytes/100 WBC (Bld) 0.500 % 0.0-0.9 [facility] Comment on above: IG% - Immature Granu locytes (promyelocytes, myelocytes and metamyelocytes) > 1% indicates that a LEFT SHIFT is Present. LDHon 11-18-2024 LDH 150 U/L Normal 84-246 [facility] Comment on above: Order Comment: 1 Performed By: #### L 100.0100, L3100.2300, L500.4050, L3100.5030, L3100.5000, L3100.5040, L504.2610 ####[facility] [address] [place], [address] Laboratory - Chemistry and C hemistry - challengeOrdered By: Jairon Rothman on 11-18-2024 AST [Catalytic activity/Vol] 17 U/L <32 [facility] Lactate dehydrogenase (LDH) measurementOrdered By: [facility] on 11-18-2024 LDH [Catalytic activity/Vol] 150 U/L 84-246 [facility] MCV (mean corpuscular volume ) determinationOrdered By: [facility] on 11-18-2024 MCV (RBC) [Entitic vol] 84.7 fL 81-99 [facility] Mean corpuscular hemoglobin (MCH) determinationOrdered By: [facility] on 11-18-2024 MCH (RBC) [Entitic mass] 29.8 pg 27.0-32.0 [facility] Mean corpuscular hemoglobin concentration (MCHC) determinationOrdered By: [facility] on 11-18-2024 MCHC (RBC) [Mass/Vol] 35.2 g/dL 32-36 [facility] Mean platelet volume determi nationOrdered By: [facility] on 11-18-2024 Platelet mean volume (Bld) [Entitic vol] 9.8 fL 6.2-12.0 [facility] Monocyte percentageOrdered B y: [facility] on 11-18-2024 Monocytes/100 WBC (Bld) 7.6 % 0-10 [facility] NATERAon 11-18-2024 NATURA SEE SCANNED REPORT Normal [facility] Comment on above: Performed By: #### L 900.0098 ####[facility] [address] [place], [place], [id number] Neutrophil percentageOrdered By: Jairon Lorna on 11-18-2024 Neutrophils/100 WBC (Bld) 63.2 % 47-70 [facility] Nucleated red blood cell per centageOrdered By: Jairon Rothman on 11-18-2024 Nucleated RBC/100 WBC (Bld) [Ratio] 0 % 0-5 [facility] Platelet countOrdered By: Janee Rothman on 11-18-2024 Platelets (Bld) [#/Vol] 202 10*3/uL 150-450 [facility] Potassium measurement (mass/ volume)Ordered By: Jairon Rothman on 11-18-2024 Potassium (Unsp spec) [Mass/Vol] 3.5 mmol/L 3.3-5.1 [facility] RBC Auto (Bld) [#/Vol]Ordere d By: Jairon Rothman on 11-18-2024 RBC (Bld) [#/Vol] 3.99 10*6/uL Low 4.2-5.4 [facility] Serum creatinine measurement (mass/volume)Ordered By: Jairon Rothman on 11-18-2024 Creatinine [Mass/Vol] 0.75 mg/dL 0.70-1.20 [facility] Serum globulin measurementOr dered By: Jairon Rothman on 11-18-2024 Globulin (S) [Mass/Vol] 2.5 g/dL 2.2-4.2 [facility] Serum glucose measurement (m ass/volume)Ordered By: Jairon Rothman on 11-18-2024 Glucose [Mass/Vol] 96 mg/dL 70-99 [facility] Serum or plasma alanine hudson otransferase (ALT) measurementOrdered By: Jairon Rothman on 11-18-2024 ALT [Catalytic activity/Vol] 15 U/L <35 [facility] Serum or plasma albumin phil urement (mass/volume)Ordered By: Jairon Rothman on 11-18-2024 Albumin [Mass/Vol] 4.2 g/dL 3.5-5.0 [facility] Serum or plasma albumin/glob ulin mass ratioOrdered By: Jairon Rothman on 11-18-2024 Albumin/Globulin [Mass ratio] 1.7 {ratio} 0.9-2.4 [facility] Serum or plasma alkaline mayra sphatase measurementOrdered By: Jairon Rothman on 11-18-2024 ALP [Catalytic activity/Vol] 87 U/L 35-104 [facility] Serum or plasma calcium phil urement (mass/volume)Ordered By: Jairon Rothman on 11-18-2024 Calcium [Mass/Vol] 9.5 mg/dL 7.6-11.0 [facility] Serum or plasma urea nitroge n measurement (mass/volume)Ordered By: Jairon Rothman on 11-18-2024 Urea nitrogen [Mass/Vol] 14 mg/dL 4-19 [facility] Sodium levelOrdered By: Stefan Rothman on 11-18-2024 Sodium [Moles/Vol] 142 mmol/L 133-145 [facility] Total proteinOrdered By: Joey Rothman on 11-18-2024 Protein [Mass/Vol] 6.7 g/dL 5.9-8.4 [facility] White blood cell (WBC) count Ordered By: Jairon Rothman on 11-18-2024 WBC (Bld) [#/Vol] 4.3 10*3/uL Low 4.4-11.0 [facility] Absolute lymphocyte countOrd ered By: Jairon Rothman on 10-28-2024 Lymphocytes Auto (Unsp spec) [#/Vol] 0.94 10*3/uL 0.83-4.51 [facility] Absolute neutrophil countOrd ered By: Jairon Rothman on 10-28-2024 Neutrophils (Bld) [#/Vol] 2.3 10*3/uL 2.0-7.7 [facility] Anion gap in Serum or Plasma Ordered By: Jairon Rothman on 10-28-2024 Anion gap [Moles/Vol] 9 mmol/L 5-15 [facility] Automated lymphocyte count a s percentage of total leukocytesOrdered By: Jairon Rothman on 10-28-2024 Lymphocytes/100 WBC Auto (Unsp spec) 24.7 % 19-41 [facility] BUN/creatinine ratioOrdered By: Jairon Rothman on 10-28-2024 Urea nitrogen/Creatinine [Mass ratio] 20.7 mg/mg High 10-20 [facility] Basophil percentageOrdered B y: Jairon Rothman on 10-28-2024 Basophils/100 WBC (Bld) 0.8 % 0-1 [facility] Bilirubin, totalOrdered By: Jairon Rothman on 10-28-2024 Bilirubin [Mass/Vol] 0.42 mg/dL 0.00-1.30 [facility] CBC W/Diff, Automatedon 08 Absolute Lymph 0.94 X10 3/uL Normal 0.83-4.51 [facility] Comment on above: Performed By: #### L 504.2610, L500.4050, L100.0100 ####[facility] [address] [place], [address] Absolute Neut 2.3 X10 3/uL Normal 2.0-7.7 [facility] Comment on above: Performed By: #### L 504.2610, L500.4050, L100.0100 ####[facility] [address] [place], [address] Basophils/100 WBC (Bld) 0.8 % Normal 0-1 [facility] Comment on above: Performed By: #### L 504.2610, L500.4050, L100.0100 ####[facility] [address] [place], [address] Eosinophils/100 WBC (Bld) 3.7 % Normal 0-5 [facility] Comment on above: Performed By: #### L 504.2610, L500.4050, L100.0100 ####[facility] [address] [place], [address] Erythrocyte distribution width (RBC) [Ratio] 12.1 % Normal 11.6-14.6 [facility] Comment on above: Performed By: #### L 504.2610, L500.4050, L100.0100 ####[facility] [address] [place], [address] Hematocrit (Bld) [Volume fraction] 33.8 % Low 37-47 [facility] Comment on above: Performed By: #### L 504.2610, L500.4050, L100.0100 ####[facility] [address] [place], [address] Hemoglobin (Bld) [Mass/Vol] 11.9 g/dL Low 12.0-15.0 [facility] Comment on above: Performed By: #### L 504.2610, L500.4050, L100.0100 ####[facility] [address] [place], [address] IG% 0.300 Normal 0.0-0.9 [facility] Comment on above: Result Comment: IG% - Immature Granulocytes (promyelocytes, myelocytes andmetamyelocytes) > 1% indicates that a LEFT SHIFT is Present. Performed By: #### L 504.2610, L500.4050, L100.0100 ####[facility] [address] [place], [address] Lymphocytes/100 WBC (Bld) 24.7 % Normal 19-41 [facility] Comment on above: Performed By: #### L 504.2610, L500.4050, L100.0100 ####[facility] [address] [place], [address] MCH (RBC) [Entitic mass] 29.7 pg Normal 27.0-32.0 [facility] Comment on above: Performed By: #### L 504.2610, L500.4050, L100.0100 ####[facility] [address] [place], [address] MCHC (RBC) [Mass/Vol] 35.2 g/dL Normal 32-36 [facility] Comment on above: Performed By: #### L 504.2610, L500.4050, L100.0100 ####[facility] [address] [place], [address] MCV (RBC) [Entitic vol] 84.3 fL Normal 81-99 [facility] Comment on above: Performed By: #### L 504.2610, L500.4050, L100.0100 ####[facility] [address] [place], [address] Monocytes/100 WBC (Bld) 8.9 % Normal 0-10 [facility] Comment on above: Performed By: #### L 504.2610, L500.4050, L100.0100 ####[facility] [address] [place], [address] Neutrophils/100 WBC (Bld) 61.6 % Normal 47-70 [facility] Comment on above: Performed By: #### L 504.2610, L500.4050, L100.0100 ####[facility] [address] [place], [address] Nucleated RBC (Bld) [#/Vol] 0 10*3/uL Normal 0-5 [facility] Comment on above: Performed By: #### L 504.2610, L500.4050, L100.0100 ####[facility] [address] [place], [address] Platelet mean volume (Bld) [Entitic vol] 9.6 fL Normal 6.2-12.0 [facility] Comment on above: Performed By: #### L 504.2610, L500.4050, L100.0100 ####[facility] [address] [place], [address] Platelets (Bld) [#/Vol] 180 10*3/uL Normal 150-450 [facility] Comment on above: Performed By: #### L 504.2610, L500.4050, L100.0100 ####[facility] [address] [place], [address] RBC (Bld) [#/Vol] 4.01 10*6/uL Low 4.2-5.4 [facility] Comment on above: Performed By: #### L 504.2610, L500.4050, L100.0100 ####[facility] [address] [place], [address] RDW SD 37.2 fl Normal 35.1-43.9 [facility] Comment on above: Performed By: #### L 504.2610, L500.4050, L100.0100 ####[facility] [address] [place], [address] WBC (Bld) [#/Vol] 3.8 10*3/uL Low 4.4-11.0 [facility] Comment on above: Performed By: #### L 504.2610, L500.4050, L100.0100 ####[facility] [address] [place], [address] Carbon dioxide, total [Moles /volume] in Central venous bloodOrdered By: Jairon Rothman on 10-28-2024 CO2 [Moles/Vol] 24.5 mmol/L 21.0-32.0 [facility] Chloride assayOrdered By: Janee Rothman on 10-28-2024 Chloride [Moles/Vol] 108 mmol/L 98-108 [facility] Comprehensive Metabolic Prof ilon 10-28-2024 Albumin [Mass/Vol] 4.2 g/dL Normal 3.5-5.0 [facility] Comment on above: Performed By: #### L 504.2610, L500.4050, L100.0100 ####[facility] [address] [place], [address] Albumin/Globulin [Mass ratio] 2.0 {ratio} Normal 0.9-2.4 [facility] Comment on above: Performed By: #### L 504.2610, L500.4050, L100.0100 ####[facility] [address] [place], [address] ALK PHOS 85 U/L Normal 35-104 [facility] Comment on above: Performed By: #### L 504.2610, L500.4050, L100.0100 ####[facility] [address] [place], [address] ALT [Catalytic activity/Vol] 18 U/L Normal <=34 [facility] Comment on above: Performed By: #### L 504.2610, L500.4050, L100.0100 ####[facility] [address] [place], [address] AST [Catalytic activity/Vol] 19 U/L Normal <=31 [facility] Comment on above: Performed By: #### L 504.2610, L500.4050, L100.0100 ####[facility] [address] [place], [address] Bilirubin [Mass/Vol] 0.42 mg/dL Normal 0.00-1.30 [facility] Comment on above: Performed By: #### L 504.2610, L500.4050, L100.0100 ####[facility] [address] [place], [address] BUN/CRE 20.7 RATIO High 10-20 [facility] Comment on above: Performed By: #### L 504.2610, L500.4050, L100.0100 ####[facility] [address] [place], [address] Calcium [Mass/Vol] 9.5 mg/dL Normal 7.6-11.0 [facility] Comment on above: Performed By: #### L 504.2610, L500.4050, L100.0100 ####[facility] [address] [place], [address] Chloride [Moles/Vol] 108 mmol/L Normal 98-108 [facility] Comment on above: Performed By: #### L 504.2610, L500.4050, L100.0100 ####[facility] [address] [place], [address] CO2 [Moles/Vol] 24.5 mmol/L Normal 21.0-32.0 [facility] Comment on above: Performed By: #### L 504.2610, L500.4050, L100.0100 ####[facility] [address] [place], [address] Creatinine [Mass/Vol] 0.77 mg/dL Normal 0.70-1.20 [facility] Comment on above: Performed By: #### L 504.2610, L500.4050, L100.0100 ####[facility] [address] [place], [address] ECRCL 81.94 ml/min Normal 50-250 [facility] Comment on above: Performed By: #### L 504.2610, L500.4050, L100.0100 ####[facility] [address] [place], [address] GAP 9 Normal 5-15 [facility] Comment on above: Performed By: #### L 504.2610, L500.4050, L100.0100 ####[facility] [address] [place], [address] GFR/1.73 sq M.predicted among non-blacks MDRD (S/P/Bld) [Vol rate/Area] 93 mL/min/{1.73_m2} Normal >60 [facility] Comment on above: Result Comment: mL/m in/1.73m2 CKD-EPI Creatinine Equation (2020) Performed By: #### L 504.2610, L500.4050, L100.0100 ####[facility] [address] [place], [address] Globulin (S) [Mass/Vol] 2.2 g/dL Normal 2.2-4.2 [facility] Comment on above: Performed By: #### L 504.2610, L500.4050, L100.0100 ####[facility] [address] [place], [address] Glucose [Mass/Vol] 89 mg/dL Normal 70-99 [facility] Comment on above: Performed By: #### L 504.2610, L500.4050, L100.0100 ####[facility] [address] [place], [address] Potassium [Moles/Vol] 3.9 mmol/L Normal 3.3-5.1 [facility] Comment on above: Performed By: #### L 504.2610, L500.4050, L100.0100 ####[facility] [address] [place], [address] Sodium [Moles/Vol] 142 mmol/L Normal 133-145 [facility] Comment on above: Performed By: #### L 504.2610, L500.4050, L100.0100 ####[facility] [address] [place], [address] T PROT 6.4 g/dL Normal 5.9-8.4 [facility] Comment on above: Performed By: #### L 504.2610, L500.4050, L100.0100 ####[facility] [address] [place], [address] Urea nitrogen [Mass/Vol] 16 mg/dL Normal 4-19 [facility] Comment on above: Performed By: #### L 504.2610, L500.4050, L100.0100 ####[facility] [address] [place], [address] Eosinophil percentageOrdered By: Jairon Rothman on 10-28-2024 Eosinophils/100 WBC (Bld) 3.7 % 0-5 [facility] Erythrocyte distribution wid th ratioOrdered By: Jairon Rothman on 10-28-2024 Erythrocyte distribution width (RBC) [Ratio] 12.1 % 11.6-14.6 [facility] Erythrocyte distribution wid th standard deviationOrdered By: Jairon Rothman on 10-28-2024 Erythrocyte distribution width (RBC) [Ratio] 37.2 fl 35.1-43.9 [facility] Glomerular filtration rate ( GFR) estimation/1.73 sq m using serum, plasma, or whole bOrdered By: Jairon Rothman on 10-28-2024 GFR/1.73 sq M.predicted among non-blacks MDRD (S/P/Bld) [Vol rate/Area] 93 mL/min/{1.73_m2} >60 [facility] Comment on above: mL/min/1.73m2 CKD-EP I Creatinine Equation (2020) Hematocrit Auto (Bld) [Volum e fraction]Ordered By: Jairon Rothman on 10-28-2024 Hematocrit (Bld) [Volume fraction] 33.8 % Low 37-47 [facility] Hemoglobin measurementOrdere d By: Jairon Rothman on 10-28-2024 Hemoglobin (Bld) [Mass/Vol] 11.9 g/dL Low 12.0-15.0 [facility] Immature granulocytes/100 WB C Auto (Bld)Ordered By: Jairon Rothman on 10-28-2024 Immature granulocytes/100 WBC (Bld) 0.300 % 0.0-0.9 [facility] Comment on above: IG% - Immature Granu locytes (promyelocytes, myelocytes and metamyelocytes) > 1% indicates that a LEFT SHIFT is Present. LDHon 10-28-2024 LDH 150 U/L Normal 84-246 [facility] Comment on above: Order Comment: 1 Performed By: #### L 504.2610, L500.4050, L100.0100 ####[facility] [address] [place], [place], [id number] Laboratory - Chemistry and C hemistry - challengeOrdered By: Jairon Rothman on 10-28-2024 AST [Catalytic activity/Vol] 19 U/L <32 [facility] Lactate dehydrogenase (LDH) measurementOrdered By: Jairon Rothman on 10-28-2024 LDH [Catalytic activity/Vol] 150 U/L 84-246 [facility] MCV (mean corpuscular volume ) determinationOrdered By: Jairon Rothman on 10-28-2024 MCV (RBC) [Entitic vol] 84.3 fL 81-99 [facility] Mean corpuscular hemoglobin (MCH) determinationOrdered By: Jairon Rothman on 10-28-2024 MCH (RBC) [Entitic mass] 29.7 pg 27.0-32.0 [facility] Mean corpuscular hemoglobin concentration (MCHC) determinationOrdered By: Jairon Rothman on 10-28-2024 MCHC (RBC) [Mass/Vol] 35.2 g/dL 32-36 [facility] Mean platelet volume determi nationOrdered By: Jairon Rothman on 10-28-2024 Platelet mean volume (Bld) [Entitic vol] 9.6 fL 6.2-12.0 [facility] Monocyte percentageOrdered B y: Jairon Rothman on 10-28-2024 Monocytes/100 WBC (Bld) 8.9 % 0-10 [facility] Neutrophil percentageOrdered By: Jairon Rothman on 10-28-2024 Neutrophils/100 WBC (Bld) 61.6 % 47-70 [facility] Nucleated red blood cell per centageOrdered By: Jairon Rothman on 10-28-2024 Nucleated RBC/100 WBC (Bld) [Ratio] 0 % 0-5 [facility] Oncology Visit Reporton 10-04 Oncology Visit Report Normal [facility] Platelet countOrdered By: Janee Rothman on 10-28-2024 Platelets (Bld) [#/Vol] 180 10*3/uL 150-450 [facility] Potassium measurement (mass/ volume)Ordered By: Jairon Rothman on 10-28-2024 Potassium (Unsp spec) [Mass/Vol] 3.9 mmol/L 3.3-5.1 [facility] RBC Auto (Bld) [#/Vol]Ordere d By: Jairon Rothman on 10-28-2024 RBC (Bld) [#/Vol] 4.01 10*6/uL Low 4.2-5.4 [facility] Serum creatinine measurement (mass/volume)Ordered By: Jairon Rothman on 10-28-2024 Creatinine [Mass/Vol] 0.77 mg/dL 0.70-1.20 [facility] Serum globulin measurementOr dered By: Jairon Rothman on 10-28-2024 Globulin (S) [Mass/Vol] 2.2 g/dL 2.2-4.2 [facility] Serum glucose measurement (m ass/volume)Ordered By: Jairon Rothman on 10-28-2024 Glucose [Mass/Vol] 89 mg/dL 70-99 [facility] Serum or plasma alanine hudson otransferase (ALT) measurementOrdered By: Jairon Rothman on 10-28-2024 ALT [Catalytic activity/Vol] 18 U/L <35 [facility] Serum or plasma albumin phil urement (mass/volume)Ordered By: Jairon Rothman on 10-28-2024 Albumin [Mass/Vol] 4.2 g/dL 3.5-5.0 [facility] Serum or plasma albumin/glob ulin mass ratioOrdered By: Jairon Rothman on 10-28-2024 Albumin/Globulin [Mass ratio] 2.0 {ratio} 0.9-2.4 [facility] Serum or plasma alkaline mayra sphatase measurementOrdered By: Jairon Rothman on 10-28-2024 ALP [Catalytic activity/Vol] 85 U/L 35-104 [facility] Serum or plasma calcium phil urement (mass/volume)Ordered By: Jairon Rothman on 10-28-2024 Calcium [Mass/Vol] 9.5 mg/dL 7.6-11.0 [facility] Serum or plasma urea nitroge n measurement (mass/volume)Ordered By: Jairon Rothman on 10-28-2024 Urea nitrogen [Mass/Vol] 16 mg/dL 4-19 [facility] Sodium levelOrdered By: Stefan Rothman on 10-28-2024 Sodium [Moles/Vol] 142 mmol/L 133-145 [facility] Total proteinOrdered By: Joey Rothman on 10-28-2024 Protein [Mass/Vol] 6.4 g/dL 5.9-8.4 [facility] White blood cell (WBC) count Ordered By: Jairon Rothman on 10-28-2024 WBC (Bld) [#/Vol] 3.8 10*3/uL Low 4.4-11.0 [facility] CA 15-3on 10-08-2024 CA 15-3 11.9 U/mL Normal 0.0-25.0 [facility] Comment on above: Result Comment: [employer] Electrochemiluminescence Immunoassay(ECLIA)Values obtained with different assay methods or kits cannotbe used interchangeably. Results cannot be interpreted asabsolute evidence of the presence or absence of malignantdisease.Performed at: [address] [id number] Director: Aleks Morel PhD, Phone: [phone] Performed By: #### L 100.0100, L504.2610, L3100.2300, L500.4050, L3100.5040, L3100.5000, L3100.5030 ####[facility] [address] [place], [place], [id number] CA 27.29on 10-08-2024 CA 27.29 17.5 U/mL Normal 0.0-38.6 [facility] Comment on above: Result Comment: [employer] Immunochemiluminometric Methodology (ICMA)Values obtained with different assay methods or kits cannotbe used interchangeably. Results cannot be interpreted asabsolute evidence of the presence or absence of malignantdisease. Performed By: #### L 100.0100, L504.2610, L3100.2300, L500.4050, L3100.5040, L3100.5000, L3100.5030 ####[facility] [address] [place], [place], [id number] Cancer Antigen 125on 025 CA 125 9.2 U/mL Normal 0.0-38.1 [facility] Comment on above: Result Comment: [employer] Electrochemiluminescence Immunoassay(ECLIA)Values obtained with different assay methods or kits cannotbe used interchangeably. Results cannot be interpreted asabsolute evidence of the presence or absence of malignantdisease. Performed By: #### L 100.0100, L504.2610, L3100.2300, L500.4050, L3100.5040, L3100.5000, L3100.5030 ####[facility] [address] [place], [place], [id number] Carcinoembryonic Antigenon 0 - CEA 1.7 ng/mL Normal 0.0-4.7 [facility] Comment on above: Result Comment: Nons mokers <3.9 Smokers <5.6[employer] Electrochemiluminescence Immunoassay(ECLIA)Values obtained with different assay methods or kitscannot be used interchangeably. Results cannot beinterpreted as absolute evidence of the presence orabsence of malignant disease. Performed By: #### L 100.0100, L504.2610, L3100.2300, L500.4050, L3100.5040, L3100.5000, L3100.5030 ####[facility] [address] [place], [address] Absolute lymphocyte countOrd ered By: Jairon Rothman on 10-07-2024 Lymphocytes Auto (Unsp spec) [#/Vol] 0.92 10*3/uL 0.83-4.51 [facility] Absolute neutrophil countOrd ered By: Jairon Rothman on 10-07-2024 Neutrophils (Bld) [#/Vol] 2.7 10*3/uL 2.0-7.7 [facility] Anion gap in Serum or Plasma Ordered By: Jairon Rothman on 10-07-2024 Anion gap [Moles/Vol] 12 mmol/L 5-15 [facility] Automated lymphocyte count a s percentage of total leukocytesOrdered By: Jairon Rothman on 10-07-2024 Lymphocytes/100 WBC Auto (Unsp spec) 22.7 % 19-41 [facility] BUN/creatinine ratioOrdered By: Jairon Rothman on 10-07-2024 Urea nitrogen/Creatinine [Mass ratio] 21.3 mg/mg High 10-20 [facility] Basophil percentageOrdered B y: Jairon Rothman on 10-07-2024 Basophils/100 WBC (Bld) 0.7 % 0-1 [facility] Bilirubin, totalOrdered By: Jairon Rothman on 10-07-2024 Bilirubin [Mass/Vol] 0.31 mg/dL 0.00-1.30 [facility] CA 15-3Ordered By: Jairon chew on 10-07-2024 CA 15-3 11.9 U/mL 0.0-25.0 [facility] Comment on above: [employer] El ectrochemiluminescence Immunoassay(ECLIA)Values obtained with different assay methods or kits cannotbe used interchangeably. Results cannot be interpreted asabsolute evidence of the presence or absence of malignantdisease.Performed at: [facility] [id number] Director: Aleks Morel PhD, Phone: [phone] CA 27.29Ordered By: Jairon roy on 10-07-2024 CA 27.29 17.5 U/mL 0.0-38.6 [facility] Comment on above: [employer] Immu nochemiluminometric Methodology (ICMA)Values obtained with different assay methods or kits cannotbe used interchangeably. Results cannot be interpreted asabsolute evidence of the presence or absence of malignantdisease. CBC W/Diff, Automatedon Absolute Lymph 0.92 X10 3/uL Normal 0.83-4.51 [facility] Comment on above: Performed By: #### L 100.0100, L504.2610, L3100.2300, L500.4050, L3100.5040, L3100.5000, L3100.5030 ####[facility] [address] [place], [address] Absolute Neut 2.7 X10 3/uL Normal 2.0-7.7 [facility] Comment on above: Performed By: #### L 100.0100, L504.2610, L3100.2300, L500.4050, L3100.5040, L3100.5000, L3100.5030 ####[facility] [address] [place], [address] Basophils/100 WBC (Bld) 0.7 % Normal 0-1 [facility] Comment on above: Performed By: #### L 100.0100, L504.2610, L3100.2300, L500.4050, L3100.5040, L3100.5000, L3100.5030 ####[facility] [address] [place], [address] Eosinophils/100 WBC (Bld) 3.7 % Normal 0-5 [facility] Comment on above: Performed By: #### L 100.0100, L504.2610, L3100.2300, L500.4050, L3100.5040, L3100.5000, L3100.5030 ####[facility] [address] [place], [address] Erythrocyte distribution width (RBC) [Ratio] 12.3 % Normal 11.6-14.6 [facility] Comment on above: Performed By: #### L 100.0100, L504.2610, L3100.2300, L500.4050, L3100.5040, L3100.5000, L3100.5030 ####[facility] [address] [place], [address] Hematocrit (Bld) [Volume fraction] 33.7 % Low 37-47 [facility] Comment on above: Performed By: #### L 100.0100, L504.2610, L3100.2300, L500.4050, L3100.5040, L3100.5000, L3100.5030 ####[facility] [address] [place], [address] Hemoglobin (Bld) [Mass/Vol] 11.7 g/dL Low 12.0-15.0 [facility] Comment on above: Performed By: #### L 100.0100, L504.2610, L3100.2300, L500.4050, L3100.5040, L3100.5000, L3100.5030 ####[facility] [address] [place], [address] IG% 0.200 Normal 0.0-0.9 [facility] Comment on above: Result Comment: IG% - Immature Granulocytes (promyelocytes, myelocytes andmetamyelocytes) > 1% indicates that a LEFT SHIFT is Present. Performed By: #### L 100.0100, L504.2610, L3100.2300, L500.4050, L3100.5040, L3100.5000, L3100.5030 ####[facility] [address] [place], [address] Lymphocytes/100 WBC (Bld) 22.7 % Normal 19-41 [facility] Comment on above: Performed By: #### L 100.0100, L504.2610, L3100.2300, L500.4050, L3100.5040, L3100.5000, L3100.5030 ####[facility] [address] [place], [address] MCH (RBC) [Entitic mass] 29.8 pg Normal 27.0-32.0 [facility] Comment on above: Performed By: #### L 100.0100, L504.2610, L3100.2300, L500.4050, L3100.5040, L3100.5000, L3100.5030 ####[facility] [address] [place], [address] MCHC (RBC) [Mass/Vol] 34.7 g/dL Normal 32-36 [facility] Comment on above: Performed By: #### L 100.0100, L504.2610, L3100.2300, L500.4050, L3100.5040, L3100.5000, L3100.5030 ####[facility] [address] [place], [address] MCV (RBC) [Entitic vol] 85.8 fL Normal 81-99 [facility] Comment on above: Performed By: #### L 100.0100, L504.2610, L3100.2300, L500.4050, L3100.5040, L3100.5000, L3100.5030 ####[facility] [address] [place], [address] Monocytes/100 WBC (Bld) 7.1 % Normal 0-10 [facility] Comment on above: Performed By: #### L 100.0100, L504.2610, L3100.2300, L500.4050, L3100.5040, L3100.5000, L3100.5030 ####[facility] [address] [place], [address] Neutrophils/100 WBC (Bld) 65.6 % Normal 47-70 [facility] Comment on above: Performed By: #### L 100.0100, L504.2610, L3100.2300, L500.4050, L3100.5040, L3100.5000, L3100.5030 ####[facility] [address] [place], [address] Nucleated RBC (Bld) [#/Vol] 0 10*3/uL Normal 0-5 [facility] Comment on above: Performed By: #### L 100.0100, L504.2610, L3100.2300, L500.4050, L3100.5040, L3100.5000, L3100.5030 ####[facility] [address] [place], [address] Platelet mean volume (Bld) [Entitic vol] 9.9 fL Normal 6.2-12.0 [facility] Comment on above: Performed By: #### L 100.0100, L504.2610, L3100.2300, L500.4050, L3100.5040, L3100.5000, L3100.5030 ####[facility] [address] [place], [address] Platelets (Bld) [#/Vol] 187 10*3/uL Normal 150-450 [facility] Comment on above: Performed By: #### L 100.0100, L504.2610, L3100.2300, L500.4050, L3100.5040, L3100.5000, L3100.5030 ####[facility] [address] [place], [address] RBC (Bld) [#/Vol] 3.93 10*6/uL Low 4.2-5.4 [facility] Comment on above: Performed By: #### L 100.0100, L504.2610, L3100.2300, L500.4050, L3100.5040, L3100.5000, L3100.5030 ####[facility] [address] [place], [address] RDW SD 38.1 fl Normal 35.1-43.9 [facility] Comment on above: Performed By: #### L 100.0100, L504.2610, L3100.2300, L500.4050, L3100.5040, L3100.5000, L3100.5030 ####[facility] [address] [place], [address] WBC (Bld) [#/Vol] 4.1 10*3/uL Low 4.4-11.0 [facility] Comment on above: Performed By: #### L 100.0100, L504.2610, L3100.2300, L500.4050, L3100.5040, L3100.5000, L3100.5030 ####[facility] [address] [place], [address] Cancer antigen 125 (CA-125) measurementOrdered By: Jairon Rothman on 10-07-2024 Cancer antigen 125 (CA-125) measurement 9.2 U/mL 0.0-38.1 [facility] Comment on above: [employer] El ectrochemiluminescence Immunoassay(ECLIA)Values obtained with different assay methods or kits cannotbe used interchangeably. Results cannot be interpreted asabsolute evidence of the presence or absence of malignantdisease. Carbon dioxide, total [Moles /volume] in Central venous bloodOrdered By: Jairon Rothman on 10-07-2024 CO2 [Moles/Vol] 23.0 mmol/L 21.0-32.0 [facility] Chloride assayOrdered By: Janee Rothman on 10-07-2024 Chloride [Moles/Vol] 107 mmol/L 98-108 [facility] Comprehensive Metabolic Prof ilon 10-07-2024 Albumin [Mass/Vol] 4.1 g/dL Normal 3.5-5.0 [facility] Comment on above: Performed By: #### L 100.0100, L504.2610, L3100.2300, L500.4050, L3100.5040, L3100.5000, L3100.5030 ####[facility] [address] [place], [place], [phone] Albumin/Globulin [Mass ratio] 1.9 {ratio} Normal 0.9-2.4 [facility] Comment on above: Performed By: #### L 100.0100, L504.2610, L3100.2300, L500.4050, L3100.5040, L3100.5000, L3100.5030 ####[facility] [address] [place], [place], [id number] ALK PHOS 88 U/L Normal 35-104 [facility] Comment on above: Performed By: #### L 100.0100, L504.2610, L3100.2300, L500.4050, L3100.5040, L3100.5000, L3100.5030 ####[facility] [address] [place], [place], [phone] ALT [Catalytic activity/Vol] 16 U/L Normal <=34 [facility] Comment on above: Performed By: #### L 100.0100, L504.2610, L3100.2300, L500.4050, L3100.5040, L3100.5000, L3100.5030 ####[facility] [address] [place], [place], [phone] AST [Catalytic activity/Vol] 19 U/L Normal <=31 [facility] Comment on above: Performed By: #### L 100.0100, L504.2610, L3100.2300, L500.4050, L3100.5040, L3100.5000, L3100.5030 ####[facility] [address] [place], [address] Bilirubin [Mass/Vol] 0.31 mg/dL Normal 0.00-1.30 [facility] Comment on above: Performed By: #### L 100.0100, L504.2610, L3100.2300, L500.4050, L3100.5040, L3100.5000, L3100.5030 ####[facility] [address] [place], [address] BUN/CRE 21.3 RATIO High 10-20 [facility] Comment on above: Performed By: #### L 100.0100, L504.2610, L3100.2300, L500.4050, L3100.5040, L3100.5000, L3100.5030 ####[facility] [address] [place], [address] Calcium [Mass/Vol] 9.3 mg/dL Normal 7.6-11.0 [facility] Comment on above: Performed By: #### L 100.0100, L504.2610, L3100.2300, L500.4050, L3100.5040, L3100.5000, L3100.5030 ####[facility] [address] [place], [address] Chloride [Moles/Vol] 107 mmol/L Normal 98-108 [facility] Comment on above: Performed By: #### L 100.0100, L504.2610, L3100.2300, L500.4050, L3100.5040, L3100.5000, L3100.5030 ####[facility] [address] [place], [address] CO2 [Moles/Vol] 23.0 mmol/L Normal 21.0-32.0 [facility] Comment on above: Performed By: #### L 100.0100, L504.2610, L3100.2300, L500.4050, L3100.5040, L3100.5000, L3100.5030 ####[facility] [address] [place], [address] Creatinine [Mass/Vol] 0.82 mg/dL Normal 0.70-1.20 [facility] Comment on above: Performed By: #### L 100.0100, L504.2610, L3100.2300, L500.4050, L3100.5040, L3100.5000, L3100.5030 ####[facility] [address] [place], [address] ECRCL 76.95 ml/min Normal 50-250 [facility] Comment on above: Performed By: #### L 100.0100, L504.2610, L3100.2300, L500.4050, L3100.5040, L3100.5000, L3100.5030 ####[facility] [address] [place], [address] GAP 12 Normal 5-15 [facility] Comment on above: Performed By: #### L 100.0100, L504.2610, L3100.2300, L500.4050, L3100.5040, L3100.5000, L3100.5030 ####[facility] [address] [place], [address] GFR/1.73 sq M.predicted among non-blacks MDRD (S/P/Bld) [Vol rate/Area] 85 mL/min/{1.73_m2} Normal >60 [facility] Comment on above: Result Comment: mL/m in/1.73m2 CKD-EPI Creatinine Equation (2020) Performed By: #### L 100.0100, L504.2610, L3100.2300, L500.4050, L3100.5040, L3100.5000, L3100.5030 ####[facility] [address] [place], [address] Globulin (S) [Mass/Vol] 2.2 g/dL Normal 2.2-4.2 [facility] Comment on above: Performed By: #### L 100.0100, L504.2610, L3100.2300, L500.4050, L3100.5040, L3100.5000, L3100.5030 ####[facility] [address] [place], [address] Glucose [Mass/Vol] 117 mg/dL High 70-99 [facility] Comment on above: Performed By: #### L 100.0100, L504.2610, L3100.2300, L500.4050, L3100.5040, L3100.5000, L3100.5030 ####[facility] [address] [place], [address] Potassium [Moles/Vol] 3.6 mmol/L Normal 3.3-5.1 [facility] Comment on above: Performed By: #### L 100.0100, L504.2610, L3100.2300, L500.4050, L3100.5040, L3100.5000, L3100.5030 ####[facility] [address] [place], [address] Sodium [Moles/Vol] 142 mmol/L Normal 133-145 [facility] Comment on above: Performed By: #### L 100.0100, L504.2610, L3100.2300, L500.4050, L3100.5040, L3100.5000, L3100.5030 ####[facility] [address] [place], [address] T PROT 6.3 g/dL Normal 5.9-8.4 [facility] Comment on above: Performed By: #### L 100.0100, L504.2610, L3100.2300, L500.4050, L3100.5040, L3100.5000, L3100.5030 ####[facility] [address] [place], [place], [id number] Urea nitrogen [Mass/Vol] 18 mg/dL Normal 4-19 [facility] Comment on above: Performed By: #### L 100.0100, L504.2610, L3100.2300, L500.4050, L3100.5040, L3100.5000, L3100.5030 ####[facility] [address] [place], [place], [id number] Eosinophil percentageOrdered By: Jairon Rothman on 10-07-2024 Eosinophils/100 WBC (Bld) 3.7 % 0-5 [facility] Erythrocyte distribution wid th ratioOrdered By: Jairon Rothman on 10-07-2024 Erythrocyte distribution width (RBC) [Ratio] 12.3 % 11.6-14.6 [facility] Erythrocyte distribution wid th standard deviationOrdered By: Jairon Rothman on 10-07-2024 Erythrocyte distribution width (RBC) [Ratio] 38.1 fl 35.1-43.9 [facility] Glomerular filtration rate ( GFR) estimation/1.73 sq m using serum, plasma, or whole bOrdered By: Jairon Rothman on 10-07-2024 GFR/1.73 sq M.predicted among non-blacks MDRD (S/P/Bld) [Vol rate/Area] 85 mL/min/{1.73_m2} >60 [facility] Comment on above: mL/min/1.73m2 CKD-EP I Creatinine Equation (2020) Hematocrit Auto (Bld) [Volum e fraction]Ordered By: Jairon Rothman on 10-07-2024 Hematocrit (Bld) [Volume fraction] 33.7 % Low 37-47 [facility] Hemoglobin measurementOrdere d By: Jairon Rothman on 10-07-2024 Hemoglobin (Bld) [Mass/Vol] 11.7 g/dL Low 12.0-15.0 [facility] Immature granulocytes/100 WB C Auto (Bld)Ordered By: Jairon Rothman on 10-07-2024 Immature granulocytes/100 WBC (Bld) 0.200 % 0.0-0.9 [facility] Comment on above: IG% - Immature Granu locytes (promyelocytes, myelocytes and metamyelocytes) > 1% indicates that a LEFT SHIFT is Present. LDHon 10-07-2024 LDH 155 U/L Normal 84-246 [facility] Comment on above: Order Comment: 1 Performed By: #### L 100.0100, L504.2610, L3100.2300, L500.4050, L3100.5040, L3100.5000, L3100.5030 ####[facility] [address] [place], [address] Laboratory - Chemistry and C hemistry - challengeOrdered By: Jairon Rothman on 10-07-2024 AST [Catalytic activity/Vol] 19 U/L <32 [facility] Lactate dehydrogenase (LDH) measurementOrdered By: Jairon Rothman on 10-07-2024 LDH [Catalytic activity/Vol] 155 U/L 84-246 [facility] MCV (mean corpuscular volume ) determinationOrdered By: Jairon Rothman on 10-07-2024 MCV (RBC) [Entitic vol] 85.8 fL 81-99 [facility] Mean corpuscular hemoglobin (MCH) determinationOrdered By: Jairon Rothman on 10-07-2024 MCH (RBC) [Entitic mass] 29.8 pg 27.0-32.0 [facility] Mean corpuscular hemoglobin concentration (MCHC) determinationOrdered By: Jairon Rothman on 10-07-2024 MCHC (RBC) [Mass/Vol] 34.7 g/dL 32-36 [facility] Mean platelet volume determi nationOrdered By: Jairon Rothman on 10-07-2024 Platelet mean volume (Bld) [Entitic vol] 9.9 fL 6.2-12.0 [facility] Monocyte percentageOrdered B y: Jairon Rothman on 10-07-2024 Monocytes/100 WBC (Bld) 7.1 % 0-10 [facility] Neutrophil percentageOrdered By: Jairon Rothman on 10-07-2024 Neutrophils/100 WBC (Bld) 65.6 % 47-70 [facility] Nucleated red blood cell per centageOrdered By: Jairon Rothman on 10-07-2024 Nucleated RBC/100 WBC (Bld) [Ratio] 0 % 0-5 [facility] Oncology Visit Reporton 08-0 Oncology Visit Report Normal [facility] Platelet countOrdered By: Janee Rothman on 10-07-2024 Platelets (Bld) [#/Vol] 187 10*3/uL 150-450 [facility] Potassium measurement (mass/ volume)Ordered By: Jairon Rothman on 10-07-2024 Potassium (Unsp spec) [Mass/Vol] 3.6 mmol/L 3.3-5.1 [facility] RBC Auto (Bld) [#/Vol]Ordere d By: Jairon Rothman on 10-07-2024 RBC (Bld) [#/Vol] 3.93 10*6/uL Low 4.2-5.4 [facility] Serum creatinine measurement (mass/volume)Ordered By: Jairon Rothman on 10-07-2024 Creatinine [Mass/Vol] 0.82 mg/dL 0.70-1.20 [facility] Serum globulin measurementOr dered By: Jairon Rothman on 10-07-2024 Globulin (S) [Mass/Vol] 2.2 g/dL 2.2-4.2 [facility] Serum glucose measurement (m ass/volume)Ordered By: Jairon Rothman on 10-07-2024 Glucose [Mass/Vol] 117 mg/dL High 70-99 [facility] Serum or plasma alanine hudson otransferase (ALT) measurementOrdered By: Jairon Rothman on 10-07-2024 ALT [Catalytic activity/Vol] 16 U/L <35 [facility] Serum or plasma albumin phil urement (mass/volume)Ordered By: Jairon Rothman on 10-07-2024 Albumin [Mass/Vol] 4.1 g/dL 3.5-5.0 [facility] Serum or plasma albumin/glob ulin mass ratioOrdered By: Jairon Rothman on 10-07-2024 Albumin/Globulin [Mass ratio] 1.9 {ratio} 0.9-2.4 [facility] Serum or plasma alkaline mayra sphatase measurementOrdered By: Jairon Rothman on 10-07-2024 ALP [Catalytic activity/Vol] 88 U/L 35-104 [facility] Serum or plasma calcium phil urement (mass/volume)Ordered By: Jairon Rothman on 10-07-2024 Calcium [Mass/Vol] 9.3 mg/dL 7.6-11.0 [facility] Serum or plasma carcinoembry onic antigen measurement (mass/volume)Ordered By: Jairon Rothman on 10-07-2024 Carcinoembryonic Ag [Mass/Vol] 1.7 ng/mL 0.0-4.7 [facility] Comment on above: Nonsmokers <3.9 Smok ers <5.6[employer] Electrochemiluminescence Immunoassay(ECLIA)Values obtained with different assay methods or kitscannot be used interchangeably. Results cannot beinterpreted as absolute evidence of the presence orabsence of malignant disease. Serum or plasma urea nitroge n measurement (mass/volume)Ordered By: Jairon Rothman on 10-07-2024 Urea nitrogen [Mass/Vol] 18 mg/dL 4-19 [facility] Sodium levelOrdered By: Stefan Rothman on 10-07-2024 Sodium [Moles/Vol] 142 mmol/L 133-145 [facility] Total proteinOrdered By: Joey Rothman on 10-07-2024 Protein [Mass/Vol] 6.3 g/dL 5.9-8.4 [facility] White blood cell (WBC) count Ordered By: Jairon Rothman on 10-07-2024 WBC (Bld) [#/Vol] 4.1 10*3/uL Low 4.4-11.0 [facility] OT D/C of Non Returning Pton 10-01-2024 OT D/C of Non Returning Pt Normal [facility] Absolute lymphocyte countOrd ered By: Jairon Rothman on 09-16-2024 Lymphocytes Auto (Unsp spec) [#/Vol] 1.01 10*3/uL 0.83-4.51 [facility] Absolute neutrophil countOrd ered By: Jairon Rothman on 09-16-2024 Neutrophils (Bld) [#/Vol] 2.5 10*3/uL 2.0-7.7 [facility] Anion gap in Serum or Plasma Ordered By: Jairon Childsmonica on 09-16-2024 Anion gap [Moles/Vol] 11 mmol/L 07-17 [facility] Automated lymphocyte count a s percentage of total leukocytesOrdered By: Jairon Childsmonica on 09-16-2024 Lymphocytes/100 WBC Auto (Unsp spec) 24.4 % - [facility] BUN/creatinine ratioOrdered By: Jairon Amadeo on 09-16-2024 Urea nitrogen/Creatinine [Mass ratio] 23.5 mg/mg High 10- [facility] Basophil percentageOrdered B y: Jairon Childs on 09-16-2024 Basophils/100 WBC (Bld) 0.5 % 0- [facility] Bilirubin, totalOrdered By: Jairon Childsmonica on 09-16-2024 Bilirubin [Mass/Vol] 0.37 mg/dL 0.00-1.30 [facility] CBC W/Diff, Automatedon 09-02 Absolute Lymph 1.01 X10 3/uL Normal 0.83-4.51 [facility] Comment on above: Performed By: #### L 504.2610, L500.4050, L100.0100 ####[facility] [address] [place], [address] Absolute Neut 2.5 X10 3/uL Normal 2.0-7.7 [facility] Comment on above: Performed By: #### L 504.2610, L500.4050, L100.0100 ####[facility] [address] [place], [address] Basophils/100 WBC (Bld) 0.5 % Normal 0-1 [facility] Comment on above: Performed By: #### L 504.2610, L500.4050, L100.0100 ####[facility] [address] [place], [address] Eosinophils/100 WBC (Bld) 5.1 % High 0-5 [facility] Comment on above: Performed By: #### L 504.2610, L500.4050, L100.0100 ####[facility] [address] [place], [address] Erythrocyte distribution width (RBC) [Ratio] 12.8 % Normal 11.6-14.6 [facility] Comment on above: Performed By: #### L 504.2610, L500.4050, L100.0100 ####[facility] [address] [place], [address] Hematocrit (Bld) [Volume fraction] 33.7 % Low 37-47 [facility] Comment on above: Performed By: #### L 504.2610, L500.4050, L100.0100 ####[facility] [address] [place], [address] Hemoglobin (Bld) [Mass/Vol] 11.6 g/dL Low 12.0-15.0 [facility] Comment on above: Performed By: #### L 504.2610, L500.4050, L100.0100 ####[facility] [address] [place], [address] IG% 0.200 Normal 0.0-0.9 [facility] Comment on above: Result Comment: IG% - Immature Granulocytes (promyelocytes, myelocytes andmetamyelocytes) > 1% indicates that a LEFT SHIFT is Present. Performed By: #### L 504.2610, L500.4050, L100.0100 ####[facility] [address] [place], [address] Lymphocytes/100 WBC (Bld) 24.4 % Normal 19-41 [facility] Comment on above: Performed By: #### L 504.2610, L500.4050, L100.0100 ####[facility] [address] [place], [address] MCH (RBC) [Entitic mass] 29.4 pg Normal 27.0-32.0 [facility] Comment on above: Performed By: #### L 504.2610, L500.4050, L100.0100 ####[facility] [address] [place], [address] MCHC (RBC) [Mass/Vol] 34.4 g/dL Normal 32-36 [facility] Comment on above: Performed By: #### L 504.2610, L500.4050, L100.0100 ####[facility] [address] [place], [address] MCV (RBC) [Entitic vol] 85.3 fL Normal 81-99 [facility] Comment on above: Performed By: #### L 504.2610, L500.4050, L100.0100 ####[facility] [address] [place], [address] Monocytes/100 WBC (Bld) 9.2 % Normal 0-10 [facility] Comment on above: Performed By: #### L 504.2610, L500.4050, L100.0100 ####[facility] [address] [place], [address] Neutrophils/100 WBC (Bld) 60.6 % Normal 47-70 [facility] Comment on above: Performed By: #### L 504.2610, L500.4050, L100.0100 ####[facility] [address] [place], [address] Nucleated RBC (Bld) [#/Vol] 0 10*3/uL Normal 0-5 [facility] Comment on above: Performed By: #### L 504.2610, L500.4050, L100.0100 ####[facility] [address] [place], [address] Platelet mean volume (Bld) [Entitic vol] 9.7 fL Normal 6.2-12.0 [facility] Comment on above: Performed By: #### L 504.2610, L500.4050, L100.0100 ####[facility] [address] [place], [address] Platelets (Bld) [#/Vol] 190 10*3/uL Normal 150-450 [facility] Comment on above: Performed By: #### L 504.2610, L500.4050, L100.0100 ####[facility] [address] [place], [address] RBC (Bld) [#/Vol] 3.95 10*6/uL Low 4.2-5.4 [facility] Comment on above: Performed By: #### L 504.2610, L500.4050, L100.0100 ####[facility] [address] [place], [address] RDW SD 39.3 fl Normal 35.1-43.9 [facility] Comment on above: Performed By: #### L 504.2610, L500.4050, L100.0100 ####[facility] [address] [place], [address] WBC (Bld) [#/Vol] 4.1 10*3/uL Low 4.4-11.0 [facility] Comment on above: Performed By: #### L 504.2610, L500.4050, L100.0100 ####[facility] [address] [place], [address] Carbon dioxide, total [Moles /volume] in Central venous bloodOrdered By: Jairon Rothman on 09-16-2024 CO2 [Moles/Vol] 22.8 mmol/L 21.0-32.0 [facility] Chloride assayOrdered By: Janee Rothman on 09-16-2024 Chloride [Moles/Vol] 108 mmol/L 98-108 [facility] Comprehensive Metabolic Prof ilon 09-16-2024 Albumin [Mass/Vol] 4.1 g/dL Normal 3.5-5.0 [facility] Comment on above: Performed By: #### L 504.2610, L500.4050, L100.0100 ####[facility] [address] [place], [address] Albumin/Globulin [Mass ratio] 1.7 {ratio} Normal 0.9-2.4 [facility] Comment on above: Performed By: #### L 504.2610, L500.4050, L100.0100 ####[facility] [address] [place], [address] ALK PHOS 101 U/L Normal 35-104 [facility] Comment on above: Performed By: #### L 504.2610, L500.4050, L100.0100 ####[facility] [address] [place], [address] ALT [Catalytic activity/Vol] 18 U/L Normal <=34 [facility] Comment on above: Performed By: #### L 504.2610, L500.4050, L100.0100 ####[facility] [address] [place], [address] AST [Catalytic activity/Vol] 20 U/L Normal <=31 [facility] Comment on above: Performed By: #### L 504.2610, L500.4050, L100.0100 ####[facility] [address] [place], [address] Bilirubin [Mass/Vol] 0.37 mg/dL Normal 0.00-1.30 [facility] Comment on above: Performed By: #### L 504.2610, L500.4050, L100.0100 ####[facility] [address] [place], [address] BUN/CRE 23.5 RATIO High 10-20 [facility] Comment on above: Performed By: #### L 504.2610, L500.4050, L100.0100 ####[facility] [address] [place], [address] Calcium [Mass/Vol] 9.4 mg/dL Normal 7.6-11.0 [facility] Comment on above: Performed By: #### L 504.2610, L500.4050, L100.0100 ####[facility] [address] [place], [address] Chloride [Moles/Vol] 108 mmol/L Normal 98-108 [facility] Comment on above: Performed By: #### L 504.2610, L500.4050, L100.0100 ####[facility] [address] [place], [address] CO2 [Moles/Vol] 22.8 mmol/L Normal 21.0-32.0 [facility] Comment on above: Performed By: #### L 504.2610, L500.4050, L100.0100 ####[facility] [address] [place], [address] Creatinine [Mass/Vol] 0.80 mg/dL Normal 0.70-1.20 [facility] Comment on above: Performed By: #### L 504.2610, L500.4050, L100.0100 ####[facility] [address] [place], [address] ECRCL 78.91 ml/min Normal 50-250 [facility] Comment on above: Performed By: #### L 504.2610, L500.4050, L100.0100 ####[facility] [address] [place], [address] GAP 11 Normal 5-15 [facility] Comment on above: Performed By: #### L 504.2610, L500.4050, L100.0100 ####[facility] [address] [place], [address] GFR/1.73 sq M.predicted among non-blacks MDRD (S/P/Bld) [Vol rate/Area] 88 mL/min/{1.73_m2} Normal >60 [facility] Comment on above: Result Comment: mL/m in/1.73m2 CKD-EPI Creatinine Equation (2020) Performed By: #### L 504.2610, L500.4050, L100.0100 ####[facility] [address] [place], [address] Globulin (S) [Mass/Vol] 2.4 g/dL Normal 2.2-4.2 [facility] Comment on above: Performed By: #### L 504.2610, L500.4050, L100.0100 ####[facility] [address] [place], [address] Glucose [Mass/Vol] 98 mg/dL Normal 70-99 [facility] Comment on above: Performed By: #### L 504.2610, L500.4050, L100.0100 ####[facility] [address] [place], [address] Potassium [Moles/Vol] 3.6 mmol/L Normal 3.3-5.1 [facility] Comment on above: Performed By: #### L 504.2610, L500.4050, L100.0100 ####[facility] [address] [place], [address] Sodium [Moles/Vol] 142 mmol/L Normal 133-145 [facility] Comment on above: Performed By: #### L 504.2610, L500.4050, L100.0100 ####[facility] [address] [place], [address] T PROT 6.5 g/dL Normal 5.9-8.4 [facility] Comment on above: Performed By: #### L 504.2610, L500.4050, L100.0100 ####[facility] [address] [place], [address] Urea nitrogen [Mass/Vol] 19 mg/dL Normal 4-19 [facility] Comment on above: Performed By: #### L 504.2610, L500.4050, L100.0100 ####[facility] [address] [place], [address] Eosinophil percentageOrdered By: Jairon Rothman on 09-16-2024 Eosinophils/100 WBC (Bld) 5.1 % High 0-5 [facility] Erythrocyte distribution wid th ratioOrdered By: Jairon Rothman on 09-16-2024 Erythrocyte distribution width (RBC) [Ratio] 12.8 % 11.6-14.6 [facility] Erythrocyte distribution wid th standard deviationOrdered By: Jairon Rothman on 09-16-2024 Erythrocyte distribution width (RBC) [Ratio] 39.3 fl 35.1-43.9 [facility] Glomerular filtration rate ( GFR) estimation/1.73 sq m using serum, plasma, or whole bOrdered By: Jairon Rothman on 09-16-2024 GFR/1.73 sq M.predicted among non-blacks MDRD (S/P/Bld) [Vol rate/Area] 88 mL/min/{1.73_m2} >60 [facility] Comment on above: mL/min/1.73m2 CKD-EP I Creatinine Equation (2020) Hematocrit Auto (Bld) [Volum e fraction]Ordered By: Jairon Rothman on 09-16-2024 Hematocrit (Bld) [Volume fraction] 33.7 % Low 37-47 [facility] Hemoglobin measurementOrdere d By: Jairon Rothman on 09-16-2024 Hemoglobin (Bld) [Mass/Vol] 11.6 g/dL Low 12.0-15.0 [facility] Immature granulocytes/100 WB C Auto (Bld)Ordered By: Jairon Rothman on 09-16-2024 Immature granulocytes/100 WBC (Bld) 0.200 % 0.0-0.9 [facility] Comment on above: IG% - Immature Granu locytes (promyelocytes, myelocytes and metamyelocytes) > 1% indicates that a LEFT SHIFT is Present. LDHon 09-16-2024 LDH 158 U/L Normal 84-246 [facility] Comment on above: Order Comment: 1 Performed By: #### L 504.2610, L500.4050, L100.0100 ####[facility] [address] [place], [address] Laboratory - Chemistry and C hemistry - challengeOrdered By: Columbia Lorna on 09-16-2024 AST [Catalytic activity/Vol] 20 U/L <32 [facility] Lactate dehydrogenase (LDH) measurementOrdered By: Columbia Lorna on 09-16-2024 LDH [Catalytic activity/Vol] 158 U/L 84-246 [facility] MCV (mean corpuscular volume ) determinationOrdered By: Jairon Rothman on 09-16-2024 MCV (RBC) [Entitic vol] 85.3 fL 81-99 [facility] Mean corpuscular hemoglobin (MCH) determinationOrdered By: [facility] on 09-16-2024 MCH (RBC) [Entitic mass] 29.4 pg 27.0-32.0 [facility] Mean corpuscular hemoglobin concentration (MCHC) determinationOrdered By: Jairon Rothman on 09-16-2024 MCHC (RBC) [Mass/Vol] 34.4 g/dL 32-36 [facility] Mean platelet volume determi nationOrdered By: Jairon Rothman on 09-16-2024 Platelet mean volume (Bld) [Entitic vol] 9.7 fL 6.2-12.0 [facility] Monocyte percentageOrdered B y: Jairon Rothman on 09-16-2024 Monocytes/100 WBC (Bld) 9.2 % 0-10 [facility] Neutrophil percentageOrdered By: [facility] Neutrophils/100 WBC (Bld) 60.6 % 47-70 [facility] Nucleated red blood cell per centageOrdered By: Jairon Rothman on 09-16-2024 Nucleated RBC/100 WBC (Bld) [Ratio] 0 % 0-5 [facility] Oncology Visit Reporton 09-02 Oncology Visit Report Normal [facility] Platelet countOrdered By: Janee Rothman on 09-16-2024 Platelets (Bld) [#/Vol] 190 10*3/uL 150-450 [facility] Potassium measurement (mass/ volume)Ordered By: Jairon Rothman on 09-16-2024 Potassium (Unsp spec) [Mass/Vol] 3.6 mmol/L 3.3-5.1 [facility] RBC Auto (Bld) [#/Vol]Ordere d By: Jairon Rothman on 09-16-2024 RBC (Bld) [#/Vol] 3.95 10*6/uL Low 4.2-5.4 [facility] Serum creatinine measurement (mass/volume)Ordered By: Jairon Rothman on 09-16-2024 Creatinine [Mass/Vol] 0.80 mg/dL 0.70-1.20 [facility] Serum globulin measurementOr dered By: Jairon Rothman on 09-16-2024 Globulin (S) [Mass/Vol] 2.4 g/dL 2.2-4.2 [facility] Serum glucose measurement (m ass/volume)Ordered By: Jairon Rothman on 09-16-2024 Glucose [Mass/Vol] 98 mg/dL 70-99 [facility] Serum or plasma alanine hudson otransferase (ALT) measurementOrdered By: Jairon Rothman on 09-16-2024 ALT [Catalytic activity/Vol] 18 U/L <35 [facility] Serum or plasma albumin phil urement (mass/volume)Ordered By: Jairon Rothman on 09-16-2024 Albumin [Mass/Vol] 4.1 g/dL 3.5-5.0 [facility] Serum or plasma albumin/glob ulin mass ratioOrdered By: Jairon Rothman on 09-16-2024 Albumin/Globulin [Mass ratio] 1.7 {ratio} 0.9-2.4 [facility] Serum or plasma alkaline mayra sphatase measurementOrdered By: Jairon Rothman on 09-16-2024 ALP [Catalytic activity/Vol] 101 U/L 35-104 [facility] Serum or plasma calcium phil urement (mass/volume)Ordered By: Jairon Rothman on 09-16-2024 Calcium [Mass/Vol] 9.4 mg/dL 7.6-11.0 [facility] Serum or plasma urea nitroge n measurement (mass/volume)Ordered By: Jairon Rothman on 09-16-2024 Urea nitrogen [Mass/Vol] 19 mg/dL 4-19 [facility] Sodium levelOrdered By: Stefan Rothman on 09-16-2024 Sodium [Moles/Vol] 142 mmol/L 133-145 [facility] Total proteinOrdered By: Joey Rothman on 09-16-2024 Protein [Mass/Vol] 6.5 g/dL 5.9-8.4 [facility] White blood cell (WBC) count Ordered By: Jairon Rothman on 09-16-2024 WBC (Bld) [#/Vol] 4.1 10*3/uL Low 4.4-11.0 [facility] Absolute lymphocyte countOrd ered By: Winifred Woodall on 08-26-2024 Lymphocytes Auto (Unsp spec) [#/Vol] 0.76 10*3/uL Low 0.83-4.51 [facility] Absolute neutrophil countOrd ered By: Winifred Woodall on 08-26-2024 Neutrophils (Bld) [#/Vol] 2.5 10*3/uL 2.0-7.7 [facility] Anion gap in Serum or Plasma Ordered By: Winifred Woodall on 08-26-2024 Anion gap [Moles/Vol] 12 mmol/L 5-15 [facility] Automated lymphocyte count a s percentage of total leukocytesOrdered By: Winifred Woodall on 08-26-2024 Lymphocytes/100 WBC Auto (Unsp spec) 20.3 % 19-41 [facility] BUN/creatinine ratioOrdered By: Winifred JonJose C on 08-26-2024 Urea nitrogen/Creatinine [Mass ratio] 15.5 mg/mg 10-20 [facility] Basophil percentageOrdered B y: Winifred Woodall on 08-26-2024 Basophils/100 WBC (Bld) 0.3 % 0-1 [facility] Bilirubin, totalOrdered By: Winifred Woodall on 08-26-2024 Bilirubin [Mass/Vol] 0.43 mg/dL 0.00-1.30 [facility] CBC W/Diff, Automatedon 06-2 -2024 Absolute Lymph 0.76 X10 3/uL Low 0.83-4.51 [facility] Comment on above: Performed By: #### L 500.4050, L100.0100 ####[facility] [address] [place], [address] Absolute Neut 2.5 X10 3/uL Normal 2.0-7.7 [facility] Comment on above: Performed By: #### L 500.4050, L100.0100 ####[facility] [address] [place], [address] Basophils/100 WBC (Bld) 0.3 % Normal 0-1 [facility] Comment on above: Performed By: #### L 500.4050, L100.0100 ####[facility] [address] [place], [address] Eosinophils/100 WBC (Bld) 3.2 % Normal 0-5 [facility] Comment on above: Performed By: #### L 500.4050, L100.0100 ####[facility] [address] [place], [address] Erythrocyte distribution width (RBC) [Ratio] 13.2 % Normal 11.6-14.6 [facility] Comment on above: Performed By: #### L 500.4050, L100.0100 ####[facility] [address] [place], [address] Hematocrit (Bld) [Volume fraction] 32.5 % Low 37-47 [facility] Comment on above: Performed By: #### L 500.4050, L100.0100 ####[facility] [address] [place], [address] Hemoglobin (Bld) [Mass/Vol] 11.4 g/dL Low 12.0-15.0 [facility] Comment on above: Performed By: #### L 500.4050, L100.0100 ####[facility] [address] [place], [address] IG% 0.300 Normal 0.0-0.9 [facility] Comment on above: Result Comment: IG% - Immature Granulocytes (promyelocytes, myelocytes andmetamyelocytes) > 1% indicates that a LEFT SHIFT is Present. Performed By: #### L 500.4050, L100.0100 ####[facility] [address] [place], [address] Lymphocytes/100 WBC (Bld) 20.3 % Normal 19-41 [facility] Comment on above: Performed By: #### L 500.4050, L100.0100 ####[facility] [address] [place], [address] MCH (RBC) [Entitic mass] 29.8 pg Normal 27.0-32.0 [facility] Comment on above: Performed By: #### L 500.4050, L100.0100 ####[facility] [address] [place], [address] MCHC (RBC) [Mass/Vol] 35.1 g/dL Normal 32-36 [facility] Comment on above: Performed By: #### L 500.4050, L100.0100 ####[facility] [address] [place], [address] MCV (RBC) [Entitic vol] 84.9 fL Normal 81-99 [facility] Comment on above: Performed By: #### L 500.4050, L100.0100 ####[facility] [address] [place], [address] Monocytes/100 WBC (Bld) 8.3 % Normal 0-10 [facility] Comment on above: Performed By: #### L 500.4050, L100.0100 ####[facility] [address] [place], [address] Neutrophils/100 WBC (Bld) 67.6 % Normal 47-70 [facility] Comment on above: Performed By: #### L 500.4050, L100.0100 ####[facility] [address] [place], [address] Nucleated RBC (Bld) [#/Vol] 0 10*3/uL Normal 0-5 [facility] Comment on above: Performed By: #### L 500.4050, L100.0100 ####[facility] [address] [place], [address] Platelet mean volume (Bld) [Entitic vol] 9.7 fL Normal 6.2-12.0 [facility] Comment on above: Performed By: #### L 500.4050, L100.0100 ####[facility] [address] [place], [address] Platelets (Bld) [#/Vol] 200 10*3/uL Normal 150-450 [facility] Comment on above: Performed By: #### L 500.4050, L100.0100 ####[facility] [address] [place], [address] RBC (Bld) [#/Vol] 3.83 10*6/uL Low 4.2-5.4 [facility] Comment on above: Performed By: #### L 500.4050, L100.0100 ####[facility] [address] [place], [address] RDW SD 40.7 fl Normal 35.1-43.9 [facility] Comment on above: Performed By: #### L 500.4050, L100.0100 ####[facility] [address] [place], [address] WBC (Bld) [#/Vol] 3.7 10*3/uL Low 4.4-11.0 [facility] Comment on above: Performed By: #### L 500.4050, L100.0100 ####[facility] [address] [place], [address] Carbon dioxide, total [Moles /volume] in Central venous bloodOrdered By: Winifred Jose C on 08-26-2024 CO2 [Moles/Vol] 23.8 mmol/L 21.0-32.0 [facility] Chloride assayOrdered By: Ty ra Woodall on 08-26-2024 Chloride [Moles/Vol] 107 mmol/L 98-108 [facility] Comprehensive Metabolic Prof ilon 08-26-2024 Albumin [Mass/Vol] 4.1 g/dL Normal 3.5-5.0 [facility] Comment on above: Performed By: #### L 500.4050, L100.0100 ####[facility] [address] [place], [address] Albumin/Globulin [Mass ratio] 1.6 {ratio} Normal 0.9-2.4 [facility] Comment on above: Performed By: #### L 500.4050, L100.0100 ####[facility] [address] [place], [address] ALK PHOS 98 U/L Normal 35-104 [facility] Comment on above: Performed By: #### L 500.4050, L100.0100 ####[facility] [address] [place], [address] ALT [Catalytic activity/Vol] 18 U/L Normal <=34 [facility] Comment on above: Performed By: #### L 500.4050, L100.0100 ####[facility] [address] [place], [address] AST [Catalytic activity/Vol] 19 U/L Normal <=31 [facility] Comment on above: Performed By: #### L 500.4050, L100.0100 ####[facility] [address] [place], [address] Bilirubin [Mass/Vol] 0.43 mg/dL Normal 0.00-1.30 [facility] Comment on above: Performed By: #### L 500.4050, L100.0100 ####[facility] [address] [place], [address] BUN/CRE 15.5 RATIO Normal 10-20 [facility] Comment on above: Performed By: #### L 500.4050, L100.0100 ####[facility] [address] [place], [address] Calcium [Mass/Vol] 9.5 mg/dL Normal 7.6-11.0 [facility] Comment on above: Performed By: #### L 500.4050, L100.0100 ####[facility] [address] [place], [address] Chloride [Moles/Vol] 107 mmol/L Normal 98-108 [facility] Comment on above: Performed By: #### L 500.4050, L100.0100 ####[facility] [address] [place], [address] CO2 [Moles/Vol] 23.8 mmol/L Normal 21.0-32.0 [facility] Comment on above: Performed By: #### L 500.4050, L100.0100 ####[facility] [address] [place], [address] Creatinine [Mass/Vol] 0.88 mg/dL Normal 0.70-1.20 [facility] Comment on above: Performed By: #### L 500.4050, L100.0100 ####[facility] [address] [place], [address] ECRCL 71.52 ml/min Normal 50-250 [facility] Comment on above: Performed By: #### L 500.4050, L100.0100 ####[facility] [address] [place], [address] GAP 12 Normal 5-15 [facility] Comment on above: Performed By: #### L 500.4050, L100.0100 ####[facility] [address] [place], [address] GFR/1.73 sq M.predicted among non-blacks MDRD (S/P/Bld) [Vol rate/Area] 79 mL/min/{1.73_m2} Normal >60 [facility] Comment on above: Result Comment: mL/m in/1.73m2 CKD-EPI Creatinine Equation (2020) Performed By: #### L 500.4050, L100.0100 ####[facility] [address] [place], [address] Globulin (S) [Mass/Vol] 2.5 g/dL Normal 2.2-4.2 [facility] Comment on above: Performed By: #### L 500.4050, L100.0100 ####[facility] [address] [place], [address] Glucose [Mass/Vol] 106 mg/dL High 70-99 [facility] Comment on above: Performed By: #### L 500.4050, L100.0100 ####[facility] [address] [place], [address] Potassium [Moles/Vol] 3.7 mmol/L Normal 3.3-5.1 [facility] Comment on above: Performed By: #### L 500.4050, L100.0100 ####[facility] [address] [place], [address] Sodium [Moles/Vol] 142 mmol/L Normal 133-145 [facility] Comment on above: Performed By: #### L 500.4050, L100.0100 ####[facility] [address] [place], [place], [id number] T PROT 6.6 g/dL Normal 5.9-8.4 [facility] Comment on above: Performed By: #### L 500.4050, L100.0100 ####[facility] [address] [place], [address] Urea nitrogen [Mass/Vol] 14 mg/dL Normal 4-19 [facility] Comment on above: Performed By: #### L 500.4050, L100.0100 ####[facility] [address] [place], [address] Eosinophil percentageOrdered By: Winifred Woodall on 08-26-2024 Eosinophils/100 WBC (Bld) 3.2 % 0-5 [facility] Erythrocyte distribution wid th ratioOrdered By: Winifredcasandra Woodall on 08-26-2024 Erythrocyte distribution width (RBC) [Ratio] 13.2 % 11.6-14.6 [facility] Erythrocyte distribution wid th standard deviationOrdered By: Winifred Woodall on 08-26-2024 Erythrocyte distribution width (RBC) [Ratio] 40.7 fl 35.1-43.9 [facility] Glomerular filtration rate ( GFR) estimation/1.73 sq m using serum, plasma, or whole bOrdered By: Winifred Woodall on 08-26-2024 GFR/1.73 sq M.predicted among non-blacks MDRD (S/P/Bld) [Vol rate/Area] 79 mL/min/{1.73_m2} >60 [facility] Comment on above: mL/min/1.73m2 CKD-EP I Creatinine Equation (2020) Hematocrit Auto (Bld) [Volum e fraction]Ordered By: Winifred Woodall on 08-26-2024 Hematocrit (Bld) [Volume fraction] 32.5 % Low 37-47 [facility] Hemoglobin measurementOrdere d By: Winifred Woodall on 08-26-2024 Hemoglobin (Bld) [Mass/Vol] 11.4 g/dL Low 12.0-15.0 [facility] Immature granulocytes/100 WB C Auto (Bld)Ordered By: Winifred Woodall on 08-26-2024 Immature granulocytes/100 WBC (Bld) 0.300 % 0.0-0.9 [facility] Comment on above: IG% - Immature Granu locytes (promyelocytes, myelocytes and metamyelocytes) > 1% indicates that a LEFT SHIFT is Present. Laboratory - Chemistry and C hemistry - challengeOrdered By: Winifred Woodall on 08-26-2024 AST [Catalytic activity/Vol] 19 U/L <32 [facility] MCV (mean corpuscular volume ) determinationOrdered By: Winifred Woodall on 08-26-2024 MCV (RBC) [Entitic vol] 84.9 fL 81-99 [facility] Mean corpuscular hemoglobin (MCH) determinationOrdered By: Winifred Woodall on 08-26-2024 MCH (RBC) [Entitic mass] 29.8 pg 27.0-32.0 [facility] Mean corpuscular hemoglobin concentration (MCHC) determinationOrdered By: Winifred Woodall on 08-26-2024 MCHC (RBC) [Mass/Vol] 35.1 g/dL 32-36 [facility] Mean platelet volume determi nationOrdered By: Winifred Woodall on 08-26-2024 Platelet mean volume (Bld) [Entitic vol] 9.7 fL 6.2-12.0 [facility] Monocyte percentageOrdered B y: Winifred Woodall on 08-26-2024 Monocytes/100 WBC (Bld) 8.3 % 0-10 [facility] Neutrophil percentageOrdered By: Winifred Woodall on 08-26-2024 Neutrophils/100 WBC (Bld) 67.6 % 47-70 [facility] Nucleated red blood cell per centageOrdered By: Winifred Woodall on 08-26-2024 Nucleated RBC/100 WBC (Bld) [Ratio] 0 % 0-5 [facility] Oncology Visit Reporton 08-04 Oncology Visit Report Normal [facility] Platelet countOrdered By: Frank Woodall on 08-26-2024 Platelets (Bld) [#/Vol] 200 10*3/uL 150-450 [facility] Potassium measurement (mass/ volume)Ordered By: Winifred Woodall on 08-26-2024 Potassium (Unsp spec) [Mass/Vol] 3.7 mmol/L 3.3-5.1 [facility] RBC Auto (Bld) [#/Vol]Ordere d By: Winifred Woodall on 08-26-2024 RBC (Bld) [#/Vol] 3.83 10*6/uL Low 4.2-5.4 [facility] Serum creatinine measurement (mass/volume)Ordered By: Winifred Woodall on 08-26-2024 Creatinine [Mass/Vol] 0.88 mg/dL 0.70-1.20 [facility] Serum globulin measurementOr dered By: Winifred Woodall on 08-26-2024 Globulin (S) [Mass/Vol] 2.5 g/dL 2.2-4.2 [facility] Serum glucose measurement (m ass/volume)Ordered By: Winifred Woodall on 08-26-2024 Glucose [Mass/Vol] 106 mg/dL High 70-99 [facility] Serum or plasma alanine hudson otransferase (ALT) measurementOrdered By: Winifred Woodall on 08-26-2024 ALT [Catalytic activity/Vol] 18 U/L <35 [facility] Serum or plasma albumin phil urement (mass/volume)Ordered By: Winifred Woodall on 08-26-2024 Albumin [Mass/Vol] 4.1 g/dL 3.5-5.0 [facility] Serum or plasma albumin/glob ulin mass ratioOrdered By: Winifred Woodall on 08-26-2024 Albumin/Globulin [Mass ratio] 1.6 {ratio} 0.9-2.4 [facility] Serum or plasma alkaline mayra sphatase measurementOrdered By: Winifred Woodall on 08-26-2024 ALP [Catalytic activity/Vol] 98 U/L 35-104 [facility] Serum or plasma calcium phil urement (mass/volume)Ordered By: Winifred Woodall on 08-26-2024 Calcium [Mass/Vol] 9.5 mg/dL 7.6-11.0 [facility] Serum or plasma urea nitroge n measurement (mass/volume)Ordered By: Winifred Woodall on 08-26-2024 Urea nitrogen [Mass/Vol] 14 mg/dL 4-19 [facility] Sodium levelOrdered By: Winifred Woodall on 08-26-2024 Sodium [Moles/Vol] 142 mmol/L 133-145 [facility] Total proteinOrdered By: Alex Woodall on 08-26-2024 Protein [Mass/Vol] 6.6 g/dL 5.9-8.4 [facility] White blood cell (WBC) count Ordered By: Winifred Woodall on 08-26-2024 WBC (Bld) [#/Vol] 3.7 10*3/uL Low 4.4-11.0 [facility] Echocardiogram study reportO rdered By: Erik Orr on 08-21-2024 Study report [facility] [address] [place] [address] ONC Echo Complete 08/21/24 1108 MR#: [id number] Acct: [id number] Name: CASSIDY CAPUTO Rep #:[id number] : 1970 54 From: Erik Reilly Attending Dr: RUSS Valenzuela Status: REG CLI Ordering Dr: Winifred Woodall NP DIRECTOR OF NEUROLOGY-C Da te: 08/21/24 Location: [facility] Sex: F C Admitted: Reason For Study Reason For Study: OTHER [employer] Procedure This was a 2D Doppler, Color Flow transthoracic echocardiogram. Exam performed in department. Left Ventricle Normal LV size. Left ventricular systolic function is normal. The left ventricular ejection fraction is 60 %. No regional wall motion abnormalities noted. Right Ventricle Normal RV size. Normal systolic function. Atria Normal left atrium. Normal right atrium. probable right atrial catheter. Mitral Valve Normal mitral valve. Tricuspid Valve Normal tricuspid valve. Mild (1+) tricuspid valve insufficiency. Pulmonary artery systolic pressure is 30 mmHg. Aortic Valve Trisinus/trileaflet aortic valve. Pulmonic Valve Normal pulmonic valve. Great Vessels Normal aortic root. The pulmonary artery is normal size. Inferior vena cava collapse with respiration. Pericardium/Pleural No pericardial effusion. MMode/2D Measurements & Calculations LVIDd: 3.7 cm IVSd: 1.1 cm LVOT diam: 2.0 cm LVIDs: 2.3 cm LVPWd: 1.2 cm LVOT area: 3.1 cm2 RVDd: 2.3 cm FS: 38.3 % Ao root diam: 3.3 cm LAV(MOD-bp): 48.1 ml LVAd ap4: 23.7 cm2 LAV(MOD-bp) Indexed: 26.6 ml/m2 LVLd ap4: 7.3 cm LAV(MOD-sp2): 52.1 ml EDV(MOD-sp4): 65.2 ml LAV(MOD-sp4): 40.8 ml EDV(sp4-el): 65.6 ml LVAs ap4: 13.4 cm2 LVLs ap4: 5.8 cm ESV(MOD-sp4): 26.8 ml ESV(sp4-el): 26.3 ml EF(MOD-sp4): 58.9 % EF(sp4-el): 59.9 % __ SV(MOD-sp4): 38.4 ml SV(sp4-el): 39.3 ml LA A4 area: 16.4 cm2 SI(MOD-sp4): 21.3 ml/m2 LA dimension(2D): 3.2 cm RA A4 area: 12.2 cm2 Time Measurements MV dec time: 0.18 sec Doppler Measurements & Calculations MV E max earl: 75.2 cm/sec Med Peak E' Earl: 8.4 cm/sec MV V2 max: 96.7 cm/sec MV A max earl: 64.0 cm/sec E/E' med: 9.0 MV max P.7 mmHg MV E/A: 1.2 MV V2 mean: 52.9 cm/sec MV mean P.3 mmHg MV V2 VTI: 27.0 cm MVA(VTI): 2.8 cm2 __ MV dec slope: 429.3 cm/sec2 Ao V2 max: 103.5 cm/sec LV V1 max: 88.2 cm/sec Ao max P.3 mmHg LV V1 max P.9 mmHg Ao V2 mean: 75.6 cm/sec LV V1 mean P.0 mmHg Ao mean P.6 mmHg LV V1 mean: 81.5 cm/sec Ao V2 VTI: 24.7 cm LV V1 VTI: 24.3 cm AV (velocity ratio): 0.98 JL(I,D): 3.1 cm2 JL(V,D): 2.7 cm2 __ SV(LVOT): 76.0 ml TR max earl: 255.5 cm/sec TR max P.1 mmHg ECHO/ONC Echo Complete Interpretation Summary Normal LV size. Left ventricular systolic function is normal. The left ventricular ejection fraction is 60 %. probable right atrial catheter Ordering Physician: Winifred Woodall Referring Physician: Winifred Woodall Performed By: Guera Sandoval RCS 08/21/24 1336 Date _ Erik Orr MD CC: DIRECTOR OF NEUROLOGY-C Winifred Woodall; Dr. Michael Ernst MD ~ Date Dictated: 08/21/24 1108 Date Transcribed: 08/21/24 1336 Director Of Assessment: Signed [facility] Work Phone: ONC Echo Completeon 08-22-19 ONC Echo Complete Normal [facility] Absolute lymphocyte countOrd ered By: Jairon Rothman on 08-05-2024 Lymphocytes Auto (Unsp spec) [#/Vol] 0.75 10*3/uL Low 0.83-4.51 [facility] Absolute neutrophil countOrd ered By: Jairon Rothman on 08-05-2024 Neutrophils (Bld) [#/Vol] 2.8 10*3/uL 2.0-7.7 [facility] Anion gap in Serum or Plasma Ordered By: Jairon Rothman on 08-05-2024 Anion gap [Moles/Vol] 11 mmol/L 5-15 [facility] Automated lymphocyte count a s percentage of total leukocytesOrdered By: Jairon Rothman on 08-05-2024 Lymphocytes/100 WBC Auto (Unsp spec) 18.3 % Low 19-41 [facility] BUN/creatinine ratioOrdered By: Jairon Rothman on 08-05-2024 Urea nitrogen/Creatinine [Mass ratio] 15.6 mg/mg 10- [facility] Basic Metabolic Profile (BMP )on 08-05-2024 BUN/CRE 15.6 RATIO Normal - [facility] Comment on above: Performed By: #### L 500.2500, L100.0100 ####[facility] [address] [place], [address] Calcium [Mass/Vol] 9.4 mg/dL Normal 7.6-11.0 [facility] Comment on above: Performed By: #### L 500.2500, L100.0100 ####[facility] [address] [place], [address] Chloride [Moles/Vol] 106 mmol/L Normal 98-108 [facility] Comment on above: Performed By: #### L 500.2500, L100.0100 ####[facility] [address] [place], [address] CO2 [Moles/Vol] 25.0 mmol/L Normal 21.0-32.0 [facility] Comment on above: Performed By: #### L 500.2500, L100.0100 ####[facility] [address] [place], [address] Creatinine [Mass/Vol] 0.81 mg/dL Normal 0.70-1.20 [facility] Comment on above: Performed By: #### L 500.2500, L100.0100 ####[facility] [address] [place], [address] ECRCL 78.10 ml/min Normal 50-250 [facility] Comment on above: Performed By: #### L 500.2500, L100.0100 ####[facility] [address] [place], [address] GAP 11 Normal 5-15 [facility] Comment on above: Performed By: #### L 500.2500, L100.0100 ####[facility] [address] [place], [address] GFR/1.73 sq M.predicted among non-blacks MDRD (S/P/Bld) [Vol rate/Area] 87 mL/min/{1.73_m2} Normal >60 [facility] Comment on above: Result Comment: mL/m in/1.73m2 CKD-EPI Creatinine Equation (2020) Performed By: #### L 500.2500, L100.0100 ####[facility] [address] [place], [address] Glucose [Mass/Vol] 90 mg/dL Normal 70-99 [facility] Comment on above: Performed By: #### L 500.2500, L100.0100 ####[facility] [address] [place], [address] Potassium [Moles/Vol] 3.9 mmol/L Normal 3.3-5.1 [facility] Comment on above: Performed By: #### L 500.2500, L100.0100 ####[facility] [address] [place], [address] Sodium [Moles/Vol] 142 mmol/L Normal 133-145 [facility] Comment on above: Performed By: #### L 500.2500, L100.0100 ####[facility] [address] [place], [address] Urea nitrogen [Mass/Vol] 13 mg/dL Normal 4-19 [facility] Comment on above: Performed By: #### L 500.2500, L100.0100 ####[facility] [address] [place], [address] Basophil percentageOrdered B y: Jairon Rothman on 08-05-2024 Basophils/100 WBC (Bld) 0.5 % 0-1 [facility] CBC W/Diff, Automatedon Absolute Lymph 0.75 X10 3/uL Low 0.83-4.51 [facility] Comment on above: Performed By: #### L 500.2500, L100.0100 ####[facility] [address] [place], [address] Absolute Neut 2.8 X10 3/uL Normal 2.0-7.7 [facility] Comment on above: Performed By: #### L 500.2500, L100.0100 ####[facility] [address] [place], [address] Basophils/100 WBC (Bld) 0.5 % Normal 0-1 [facility] Comment on above: Performed By: #### L 500.2500, L100.0100 ####[facility] [address] [place], [address] Eosinophils/100 WBC (Bld) 2.7 % Normal 0-5 [facility] Comment on above: Performed By: #### L 500.2500, L100.0100 ####[facility] [address] [place], [address] Erythrocyte distribution width (RBC) [Ratio] 13.3 % Normal 11.6-14.6 [facility] Comment on above: Performed By: #### L 500.2500, L100.0100 ####[facility] [address] [place], [address] Hematocrit (Bld) [Volume fraction] 33.0 % Low 37-47 [facility] Comment on above: Performed By: #### L 500.2500, L100.0100 ####[facility] [address] [place], [address] Hemoglobin (Bld) [Mass/Vol] 11.5 g/dL Low 12.0-15.0 [facility] Comment on above: Performed By: #### L 500.2500, L100.0100 ####[facility] [address] [place], [address] IG% 0.500 Normal 0.0-0.9 [facility] Comment on above: Result Comment: IG% - Immature Granulocytes (promyelocytes, myelocytes andmetamyelocytes) > 1% indicates that a LEFT SHIFT is Present. Performed By: #### L 500.2500, L100.0100 ####[facility] [address] [place], [address] Lymphocytes/100 WBC (Bld) 18.3 % Low 19-41 [facility] Comment on above: Performed By: #### L 500.2500, L100.0100 ####[facility] [address] [place], [address] MCH (RBC) [Entitic mass] 29.0 pg Normal 27.0-32.0 [facility] Comment on above: Performed By: #### L 500.2500, L100.0100 ####[facility] [address] [place], [address] MCHC (RBC) [Mass/Vol] 34.8 g/dL Normal 32-36 [facility] Comment on above: Performed By: #### L 500.2500, L100.0100 ####[facility] [address] [place], [address] MCV (RBC) [Entitic vol] 83.1 fL Normal 81-99 [facility] Comment on above: Performed By: #### L 500.2500, L100.0100 ####[facility] [address] [place], [address] Monocytes/100 WBC (Bld) 8.8 % Normal 0-10 [facility] Comment on above: Performed By: #### L 500.2500, L100.0100 ####[facility] [address] [place], [address] Neutrophils/100 WBC (Bld) 69.2 % Normal 47-70 [facility] Comment on above: Performed By: #### L 500.2500, L100.0100 ####[facility] [address] [place], [address] Nucleated RBC (Bld) [#/Vol] 0 10*3/uL Normal 0-5 [facility] Comment on above: Performed By: #### L 500.2500, L100.0100 ####[facility] [address] [place], [address] Platelet mean volume (Bld) [Entitic vol] 9.2 fL Normal 6.2-12.0 [facility] Comment on above: Performed By: #### L 500.2500, L100.0100 ####[facility] [address] [place], [address] Platelets (Bld) [#/Vol] 206 10*3/uL Normal 150-450 [facility] Comment on above: Performed By: #### L 500.2500, L100.0100 ####[facility] [address] [place], [address] RBC (Bld) [#/Vol] 3.97 10*6/uL Low 4.2-5.4 [facility] Comment on above: Performed By: #### L 500.2500, L100.0100 ####[facility] [address] [place], [address] RDW SD 40.2 fl Normal 35.1-43.9 [facility] Comment on above: Performed By: #### L 500.2500, L100.0100 ####[facility] [address] [place], [address] WBC (Bld) [#/Vol] 4.1 10*3/uL Low 4.4-11.0 [facility] Comment on above: Performed By: #### L 500.2500, L100.0100 ####[facility] [address] [place], [address] Carbon dioxide, total [Moles /volume] in Central venous bloodOrdered By: Jairon Rothman on 08-05-2024 CO2 [Moles/Vol] 25.0 mmol/L 21.0-32.0 [facility] Chloride assayOrdered By: Janee Rothman on 08-05-2024 Chloride [Moles/Vol] 106 mmol/L 98-108 [facility] Eosinophil percentageOrdered By: Jairon Rothman on 08-05-2024 Eosinophils/100 WBC (Bld) 2.7 % 0-5 [facility] Erythrocyte distribution wid th ratioOrdered By: Jairon Rothman on 08-05-2024 Erythrocyte distribution width (RBC) [Ratio] 13.3 % 11.6-14.6 [facility] Erythrocyte distribution wid th standard deviationOrdered By: Jairon Rothman on 08-05-2024 Erythrocyte distribution width (RBC) [Ratio] 40.2 fl 35.1-43.9 [facility] Glomerular filtration rate ( GFR) estimation/1.73 sq m using serum, plasma, or whole bOrdered By: Jairon Rothman on 08-05-2024 GFR/1.73 sq M.predicted among non-blacks MDRD (S/P/Bld) [Vol rate/Area] 87 mL/min/{1.73_m2} >60 [facility] Comment on above: mL/min/1.73m2 CKD-EP I Creatinine Equation (2020) Hematocrit Auto (Bld) [Volum e fraction]Ordered By: Jairon Rothman on 08-05-2024 Hematocrit (Bld) [Volume fraction] 33.0 % Low 37-47 [facility] Hemoglobin measurementOrdere d By: Jairon Rothman on 08-05-2024 Hemoglobin (Bld) [Mass/Vol] 11.5 g/dL Low 12.0-15.0 [facility] Immature granulocytes/100 WB C Auto (Bld)Ordered By: Jairon Rothman on 08-05-2024 Immature granulocytes/100 WBC (Bld) 0.500 % 0.0-0.9 [facility] Comment on above: IG% - Immature Granu locytes (promyelocytes, myelocytes and metamyelocytes) > 1% indicates that a LEFT SHIFT is Present. MCV (mean corpuscular volume ) determinationOrdered By: Jairon Rothman on 08-05-2024 MCV (RBC) [Entitic vol] 83.1 fL 81-99 [facility] Mean corpuscular hemoglobin (MCH) determinationOrdered By: Jairon Rothman on 08-05-2024 MCH (RBC) [Entitic mass] 29.0 pg 27.0-32.0 [facility] Mean corpuscular hemoglobin concentration (MCHC) determinationOrdered By: Jairon Rothman on 08-05-2024 MCHC (RBC) [Mass/Vol] 34.8 g/dL 32-36 [facility] Mean platelet volume determi nationOrdered By: Jairon Rothman on 08-05-2024 Platelet mean volume (Bld) [Entitic vol] 9.2 fL 6.2-12.0 [facility] Monocyte percentageOrdered B y: Jairon Rothman on 08-05-2024 Monocytes/100 WBC (Bld) 8.8 % 0-10 [facility] Neutrophil percentageOrdered By: Jairon Rothman on 08-05-2024 Neutrophils/100 WBC (Bld) 69.2 % 47-70 [facility] Nucleated red blood cell per centageOrdered By: Jairon Rothman on 08-05-2024 Nucleated RBC/100 WBC (Bld) [Ratio] 0 % 0-5 [facility] Oncology Visit Reporton Oncology Visit Report Normal [facility] Platelet countOrdered By: Janee Rothman on 08-05-2024 Platelets (Bld) [#/Vol] 206 10*3/uL 150-450 [facility] Potassium measurement (mass/ volume)Ordered By: Jairon Rothman on 08-05-2024 Potassium (Unsp spec) [Mass/Vol] 3.9 mmol/L 3.3-5.1 [facility] RBC Auto (Bld) [#/Vol]Ordere d By: Jairon Rothman on 08-05-2024 RBC (Bld) [#/Vol] 3.97 10*6/uL Low 4.2-5.4 [facility] Radiation Oncology Visiton 0 08-05-2024 Radiation Oncology Visit Normal [facility] Serum creatinine measurement (mass/volume)Ordered By: Jairon Rothman on 08-05-2024 Creatinine [Mass/Vol] 0.81 mg/dL 0.70-1.20 [facility] Serum glucose measurement (m ass/volume)Ordered By: Jairon Rothman on 08-05-2024 Glucose [Mass/Vol] 90 mg/dL 70-99 [facility] Serum or plasma calcium phil urement (mass/volume)Ordered By: Jairon Rothman on 08-05-2024 Calcium [Mass/Vol] 9.4 mg/dL 7.6-11.0 [facility] Serum or plasma urea nitroge n measurement (mass/volume)Ordered By: Jairon Rothman on 08-05-2024 Urea nitrogen [Mass/Vol] 13 mg/dL 4-19 [facility] Sodium levelOrdered By: Stefan Rothman on 08-05-2024 Sodium [Moles/Vol] 142 mmol/L 133-145 [facility] White blood cell (WBC) count Ordered By: Jairon Rothman on 08-05-2024 WBC (Bld) [#/Vol] 4.1 10*3/uL Low 4.4-11.0 [facility] Absolute lymphocyte countOrd ered By: Winifred Woodall on 07-15-2024 Lymphocytes Auto (Unsp spec) [#/Vol] 0.63 10*3/uL Low 0.83-4.51 [facility] Absolute neutrophil countOrd ered By: Winifred Woodall on 07-15-2024 Neutrophils (Bld) [#/Vol] 2.3 10*3/uL 2.0-7.7 [facility] Anion gap in Serum or Plasma Ordered By: Winifred Woodall on 07-15-2024 Anion gap [Moles/Vol] 10 mmol/L 5-15 [facility] Automated lymphocyte count a s percentage of total leukocytesOrdered By: Winifred JonJose C on 07-15-2024 Lymphocytes/100 WBC Auto (Unsp spec) 18.2 % Low 19-41 [facility] BUN/creatinine ratioOrdered By: Winifred Jose C on 07-15-2024 Urea nitrogen/Creatinine [Mass ratio] 23.4 mg/mg High 10-20 [facility] Basophil percentageOrdered B y: Winifred Jose C on 07-15-2024 Basophils/100 WBC (Bld) 0.6 % 0-1 [facility] Bilirubin, totalOrdered By: Winifred JonJose C on 07-15-2024 Bilirubin [Mass/Vol] 0.39 mg/dL 0.00-1.30 [facility] CBC W/Diff, Automatedon 07-03 Absolute Lymph 0.63 X10 3/uL Low 0.83-4.51 [facility] Comment on above: Performed By: #### L 500.4050, L100.0100 ####[facility] [address] [place], [address] Absolute Neut 2.3 X10 3/uL Normal 2.0-7.7 [facility] Comment on above: Performed By: #### L 500.4050, L100.0100 ####[facility] [address] [place], [address] Basophils/100 WBC (Bld) 0.6 % Normal 0-1 [facility] Comment on above: Performed By: #### L 500.4050, L100.0100 ####[facility] [address] [place], [address] Eosinophils/100 WBC (Bld) 3.8 % Normal 0-5 [facility] Comment on above: Performed By: #### L 500.4050, L100.0100 ####[facility] [address] [place], [address] Erythrocyte distribution width (RBC) [Ratio] 13.2 % Normal 11.6-14.6 [facility] Comment on above: Performed By: #### L 500.4050, L100.0100 ####[facility] [address] [place], [address] Hematocrit (Bld) [Volume fraction] 33.0 % Low 37-47 [facility] Comment on above: Performed By: #### L 500.4050, L100.0100 ####[facility] [address] [place], [address] Hemoglobin (Bld) [Mass/Vol] 11.6 g/dL Low 12.0-15.0 [facility] Comment on above: Performed By: #### L 500.4050, L100.0100 ####[facility] [address] [place], [address] IG% 0.600 Normal 0.0-0.9 [facility] Comment on above: Result Comment: IG% - Immature Granulocytes (promyelocytes, myelocytes andmetamyelocytes) > 1% indicates that a LEFT SHIFT is Present. Performed By: #### L 500.4050, L100.0100 ####[facility] [address] [place], [address] Lymphocytes/100 WBC (Bld) 18.2 % Low 19-41 [facility] Comment on above: Performed By: #### L 500.4050, L100.0100 ####[facility] [address] [place], [address] MCH (RBC) [Entitic mass] 29.1 pg Normal 27.0-32.0 [facility] Comment on above: Performed By: #### L 500.4050, L100.0100 ####[facility] [address] [place], [address] MCHC (RBC) [Mass/Vol] 35.2 g/dL Normal 32-36 [facility] Comment on above: Performed By: #### L 500.4050, L100.0100 ####[facility] [address] [place], [address] MCV (RBC) [Entitic vol] 82.7 fL Normal 81-99 [facility] Comment on above: Performed By: #### L 500.4050, L100.0100 ####[facility] [address] [place], [address] Monocytes/100 WBC (Bld) 10.1 % High 0-10 [facility] Comment on above: Performed By: #### L 500.4050, L100.0100 ####[facility] [address] [place], [address] Neutrophils/100 WBC (Bld) 66.7 % Normal 47-70 [facility] Comment on above: Performed By: #### L 500.4050, L100.0100 ####[facility] [address] [place], [address] Nucleated RBC (Bld) [#/Vol] 0 10*3/uL Normal 0-5 [facility] Comment on above: Performed By: #### L 500.4050, L100.0100 ####[facility] [address] [place], [address] Platelet mean volume (Bld) [Entitic vol] 9.5 fL Normal 6.2-12.0 [facility] Comment on above: Performed By: #### L 500.4050, L100.0100 ####[facility] [address] [place], [address] Platelets (Bld) [#/Vol] 188 10*3/uL Normal 150-450 [facility] Comment on above: Performed By: #### L 500.4050, L100.0100 ####[facility] [address] [place], [address] RBC (Bld) [#/Vol] 3.99 10*6/uL Low 4.2-5.4 [facility] Comment on above: Performed By: #### L 500.4050, L100.0100 ####[facility] [address] [place], [address] RDW SD 39.6 fl Normal 35.1-43.9 [facility] Comment on above: Performed By: #### L 500.4050, L100.0100 ####[facility] [address] [place], [address] WBC (Bld) [#/Vol] 3.5 10*3/uL Low 4.4-11.0 [facility] Comment on above: Performed By: #### L 500.4050, L100.0100 ####[facility] [address] [place], [address] Carbon dioxide, total [Moles /volume] in Central venous bloodOrdered By: Winifred Woodall on 07-15-2024 CO2 [Moles/Vol] 23.6 mmol/L 21.0-32.0 [facility] Chloride assayOrdered By: Frank Woodall on 07-15-2024 Chloride [Moles/Vol] 107 mmol/L 98-108 [facility] Comprehensive Metabolic Prof ilon 07-15-2024 Albumin [Mass/Vol] 3.8 g/dL Normal 3.5-5.0 [facility] Comment on above: Performed By: #### L 500.4050, L100.0100 ####[facility] [address] [place], [address] Albumin/Globulin [Mass ratio] 1.4 {ratio} Normal 0.9-2.4 [facility] Comment on above: Performed By: #### L 500.4050, L100.0100 ####[facility] [address] [place], [address] ALK PHOS 93 U/L Normal 35-104 [facility] Comment on above: Performed By: #### L 500.4050, L100.0100 ####[facility] [address] [place], [address] ALT [Catalytic activity/Vol] 14 U/L Normal <=34 [facility] Comment on above: Performed By: #### L 500.4050, L100.0100 ####[facility] [address] [place], [address] AST [Catalytic activity/Vol] 18 U/L Normal <=31 [facility] Comment on above: Performed By: #### L 500.4050, L100.0100 ####[facility] [address] [place], [address] Bilirubin [Mass/Vol] 0.39 mg/dL Normal 0.00-1.30 [facility] Comment on above: Performed By: #### L 500.4050, L100.0100 ####[facility] [address] [place], [address] BUN/CRE 23.4 RATIO High 10-20 [facility] Comment on above: Performed By: #### L 500.4050, L100.0100 ####[facility] [address] [place], [address] Calcium [Mass/Vol] 9.3 mg/dL Normal 7.6-11.0 [facility] Comment on above: Performed By: #### L 500.4050, L100.0100 ####[facility] [address] [place], [address] Chloride [Moles/Vol] 107 mmol/L Normal 98-108 [facility] Comment on above: Performed By: #### L 500.4050, L100.0100 ####[facility] [address] [place], [address] CO2 [Moles/Vol] 23.6 mmol/L Normal 21.0-32.0 [facility] Comment on above: Performed By: #### L 500.4050, L100.0100 ####[facility] [address] [place], [address] Creatinine [Mass/Vol] 0.79 mg/dL Normal 0.70-1.20 [facility] Comment on above: Performed By: #### L 500.4050, L100.0100 ####[facility] [address] [place], [address] ECRCL 80.15 ml/min Normal 50-250 [facility] Comment on above: Performed By: #### L 500.4050, L100.0100 ####[facility] [address] [place], [address] GAP 10 Normal 5-15 [facility] Comment on above: Performed By: #### L 500.4050, L100.0100 ####[facility] [address] [place], [address] GFR/1.73 sq M.predicted among non-blacks MDRD (S/P/Bld) [Vol rate/Area] 89 mL/min/{1.73_m2} Normal >60 [facility] Comment on above: Result Comment: mL/m in/1.73m2 CKD-EPI Creatinine Equation (2020) Performed By: #### L 500.4050, L100.0100 ####[facility] [address] [place], [address] Globulin (S) [Mass/Vol] 2.7 g/dL Normal 2.2-4.2 [facility] Comment on above: Performed By: #### L 500.4050, L100.0100 ####[facility] [address] [place], [address] Glucose [Mass/Vol] 121 mg/dL High 70-99 [facility] Comment on above: Performed By: #### L 500.4050, L100.0100 ####[facility] [address] [place], [address] Potassium [Moles/Vol] 3.8 mmol/L Normal 3.3-5.1 [facility] Comment on above: Performed By: #### L 500.4050, L100.0100 ####[facility] [address] [place], [address] Sodium [Moles/Vol] 141 mmol/L Normal 133-145 [facility] Comment on above: Performed By: #### L 500.4050, L100.0100 ####[facility] [address] [place], [address] T PROT 6.5 g/dL Normal 5.9-8.4 [facility] Comment on above: Performed By: #### L 500.4050, L100.0100 ####[facility] [address] [place], [address] Urea nitrogen [Mass/Vol] 19 mg/dL Normal 4-19 [facility] Comment on above: Performed By: #### L 500.4050, L100.0100 ####[facility] [address] [place], [address] Eosinophil percentageOrdered By: Winifred Woodall on 07-15-2024 Eosinophils/100 WBC (Bld) 3.8 % 0-5 [facility] Erythrocyte distribution wid th ratioOrdered By: Winifred JonJose C on 07-15-2024 Erythrocyte distribution width (RBC) [Ratio] 13.2 % 11.6-14.6 [facility] Erythrocyte distribution wid th standard deviationOrdered By: Winifred JonJose C on 07-15-2024 Erythrocyte distribution width (RBC) [Ratio] 39.6 fl 35.1-43.9 [facility] Glomerular filtration rate ( GFR) estimation/1.73 sq m using serum, plasma, or whole bOrdered By: Winifred Woodall on 07-15-2024 GFR/1.73 sq M.predicted among non-blacks MDRD (S/P/Bld) [Vol rate/Area] 89 mL/min/{1.73_m2} >60 [facility] Comment on above: mL/min/1.73m2 CKD-EP I Creatinine Equation (2020) Hematocrit Auto (Bld) [Volum e fraction]Ordered By: Winifred Woodall on 07-15-2024 Hematocrit (Bld) [Volume fraction] 33.0 % Low 37-47 [facility] Hemoglobin measurementOrdere d By: Winifred Woodall on 07-15-2024 Hemoglobin (Bld) [Mass/Vol] 11.6 g/dL Low 12.0-15.0 [facility] Immature granulocytes/100 WB C Auto (Bld)Ordered By: Winifred Woodall on 07-15-2024 Immature granulocytes/100 WBC (Bld) 0.600 % 0.0-0.9 [facility] Comment on above: IG% - Immature Granu locytes (promyelocytes, myelocytes and metamyelocytes) > 1% indicates that a LEFT SHIFT is Present. Laboratory - Chemistry and C hemistry - challengeOrdered By: Winifred Woodall on 07-15-2024 AST [Catalytic activity/Vol] 18 U/L <32 [facility] MCV (mean corpuscular volume ) determinationOrdered By: Winifred Woodall on 07-15-2024 MCV (RBC) [Entitic vol] 82.7 fL 81-99 [facility] Mean corpuscular hemoglobin (MCH) determinationOrdered By: Winifred Woodall on 07-15-2024 MCH (RBC) [Entitic mass] 29.1 pg 27.0-32.0 [facility] Mean corpuscular hemoglobin concentration (MCHC) determinationOrdered By: Winifred Woodall on 07-15-2024 MCHC (RBC) [Mass/Vol] 35.2 g/dL 32-36 [facility] Mean platelet volume determi nationOrdered By: Winifred Woodall on 07-15-2024 Platelet mean volume (Bld) [Entitic vol] 9.5 fL 6.2-12.0 [facility] Monocyte percentageOrdered B y: Winifred Woodall on 07-15-2024 Monocytes/100 WBC (Bld) 10.1 % High 0-10 [facility] Neutrophil percentageOrdered By: Winifred Woodall on 07-15-2024 Neutrophils/100 WBC (Bld) 66.7 % 47-70 [facility] Nucleated red blood cell per centageOrdered By: Winifred Woodall on 07-15-2024 Nucleated RBC/100 WBC (Bld) [Ratio] 0 % 0-5 [facility] Oncology Visit Reporton 07-03 Oncology Visit Report Normal [facility] Platelet countOrdered By: Frank Woodall on 07-15-2024 Platelets (Bld) [#/Vol] 188 10*3/uL 150-450 [facility] Potassium measurement (mass/ volume)Ordered By: Winifred Woodall on 07-15-2024 Potassium (Unsp spec) [Mass/Vol] 3.8 mmol/L 3.3-5.1 [facility] RBC Auto (Bld) [#/Vol]Ordere d By: Winifred Woodall on 07-15-2024 RBC (Bld) [#/Vol] 3.99 10*6/uL Low 4.2-5.4 [facility] Serum creatinine measurement (mass/volume)Ordered By: Winifred Woodall on 07-15-2024 Creatinine [Mass/Vol] 0.79 mg/dL 0.70-1.20 [facility] Serum globulin measurementOr dered By: Winifred Woodall on 07-15-2024 Globulin (S) [Mass/Vol] 2.7 g/dL 2.2-4.2 [facility] Serum glucose measurement (m ass/volume)Ordered By: Winifred Woodall on 07-15-2024 Glucose [Mass/Vol] 121 mg/dL High 70-99 [facility] Serum or plasma alanine hudson otransferase (ALT) measurementOrdered By: Winifred Woodall on 07-15-2024 ALT [Catalytic activity/Vol] 14 U/L <35 [facility] Serum or plasma albumin phil urement (mass/volume)Ordered By: Winifred Woodall on 07-15-2024 Albumin [Mass/Vol] 3.8 g/dL 3.5-5.0 [facility] Serum or plasma albumin/glob ulin mass ratioOrdered By: Winifred Woodall on 07-15-2024 Albumin/Globulin [Mass ratio] 1.4 {ratio} 0.9-2.4 [facility] Serum or plasma alkaline mayra sphatase measurementOrdered By: Winifred Woodall on 07-15-2024 ALP [Catalytic activity/Vol] 93 U/L 35-104 [facility] Serum or plasma calcium phil urement (mass/volume)Ordered By: Winifred Woodall on 07-15-2024 Calcium [Mass/Vol] 9.3 mg/dL 7.6-11.0 [facility] Serum or plasma urea nitroge n measurement (mass/volume)Ordered By: Winifred Woodall on 07-15-2024 Urea nitrogen [Mass/Vol] 19 mg/dL 4-19 [facility] Sodium levelOrdered By: Winifred Woodall on 07-15-2024 Sodium [Moles/Vol] 141 mmol/L 133-145 [facility] Total proteinOrdered By: lAex Woodall on 07-15-2024 Protein [Mass/Vol] 6.5 g/dL 5.9-8.4 [facility] White blood cell (WBC) count Ordered By: Winifred Woodall on 07-15-2024 WBC (Bld) [#/Vol] 3.5 10*3/uL Low 4.4-11.0 [facility] Radiation Oncology Visiton 0 07-04-2024 Radiation Oncology Visit Normal [facility] Radiation Oncology Visiton 0 07-02-2024 Radiation Oncology Visit Normal [facility] Radiation Oncology Visiton 0 06-26-2024 Radiation Oncology Visit Normal [facility] Shoulder min 2 Viewson 06-25 Shoulder min 2 Views Normal [facility] CBC W/Diff, Automatedon 06-04 Absolute Lymph 0.68 X10 3/uL Low 0.83-4.51 [facility] Comment on above: Performed By: #### L 504.2610, L500.4050, L100.0100 ####[facility] [address] [place], [address] Absolute Neut 2.5 X10 3/uL Normal 2.0-7.7 [facility] Comment on above: Performed By: #### L 504.2610, L500.4050, L100.0100 ####[facility] [address] [place], [address] Basophils/100 WBC (Bld) 0.5 % Normal 0-1 [facility] Comment on above: Performed By: #### L 504.2610, L500.4050, L100.0100 ####[facility] [address] [place], [address] Eosinophils/100 WBC (Bld) 3.0 % Normal 0-5 [facility] Comment on above: Performed By: #### L 504.2610, L500.4050, L100.0100 ####[facility] [address] [place], [address] Erythrocyte distribution width (RBC) [Ratio] 12.7 % Normal 11.6-14.6 [facility] Comment on above: Performed By: #### L 504.2610, L500.4050, L100.0100 ####[facility] [address] [place], [address] Hematocrit (Bld) [Volume fraction] 33.7 % Low 37-47 [facility] Comment on above: Performed By: #### L 504.2610, L500.4050, L100.0100 ####[facility] [address] [place], [address] Hemoglobin (Bld) [Mass/Vol] 11.9 g/dL Low 12.0-15.0 [facility] Comment on above: Performed By: #### L 504.2610, L500.4050, L100.0100 ####[facility] [address] [place], [address] IG% 0.300 Normal 0.0-0.9 [facility] Comment on above: Result Comment: IG% - Immature Granulocytes (promyelocytes, myelocytes andmetamyelocytes) > 1% indicates that a LEFT SHIFT is Present. Performed By: #### L 504.2610, L500.4050, L100.0100 ####[facility] [address] [place], [address] Lymphocytes/100 WBC (Bld) 18.6 % Low 19-41 [facility] Comment on above: Performed By: #### L 504.2610, L500.4050, L100.0100 ####[facility] [address] [place], [address] MCH (RBC) [Entitic mass] 28.5 pg Normal 27.0-32.0 [facility] Comment on above: Performed By: #### L 504.2610, L500.4050, L100.0100 ####[facility] [address] [place], [address] MCHC (RBC) [Mass/Vol] 35.3 g/dL Normal 32-36 [facility] Comment on above: Performed By: #### L 504.2610, L500.4050, L100.0100 ####[facility] [address] [place], [address] MCV (RBC) [Entitic vol] 80.6 fL Low 81-99 [facility] Comment on above: Performed By: #### L 504.2610, L500.4050, L100.0100 ####[facility] [address] [place], [address] Monocytes/100 WBC (Bld) 8.8 % Normal 0-10 [facility] Comment on above: Performed By: #### L 504.2610, L500.4050, L100.0100 ####[facility] [address] [place], [address] Neutrophils/100 WBC (Bld) 68.8 % Normal 47-70 [facility] Comment on above: Performed By: #### L 504.2610, L500.4050, L100.0100 ####[facility] [address] [place], [address] Nucleated RBC (Bld) [#/Vol] 0 10*3/uL Normal 0-5 [facility] Comment on above: Performed By: #### L 504.2610, L500.4050, L100.0100 ####[facility] [address] [place], [address] Platelet mean volume (Bld) [Entitic vol] 9.5 fL Normal 6.2-12.0 [facility] Comment on above: Performed By: #### L 504.2610, L500.4050, L100.0100 ####[facility] [address] [place], [address] Platelets (Bld) [#/Vol] 177 10*3/uL Normal 150-450 [facility] Comment on above: Performed By: #### L 504.2610, L500.4050, L100.0100 ####[facility] [address] [place], [address] RBC (Bld) [#/Vol] 4.18 10*6/uL Low 4.2-5.4 [facility] Comment on above: Performed By: #### L 504.2610, L500.4050, L100.0100 ####[facility] [address] [place], [address] RDW SD 36.8 fl Normal 35.1-43.9 [facility] Comment on above: Performed By: #### L 504.2610, L500.4050, L100.0100 ####[facility] [address] [place], [address] WBC (Bld) [#/Vol] 3.7 10*3/uL Low 4.4-11.0 [facility] Comment on above: Performed By: #### L 504.2610, L500.4050, L100.0100 ####[facility] [address] [place], [address] Comprehensive Metabolic Prof ilon 06-24-2024 Albumin [Mass/Vol] 4.2 g/dL Normal 3.5-5.0 [facility] Comment on above: Performed By: #### L 504.2610, L500.4050, L100.0100 ####[facility] [address] [place], [address] Albumin/Globulin [Mass ratio] 1.7 {ratio} Normal 0.9-2.4 [facility] Comment on above: Performed By: #### L 504.2610, L500.4050, L100.0100 ####[facility] [address] [place], [address] ALK PHOS 95 U/L Normal 35-104 [facility] Comment on above: Performed By: #### L 504.2610, L500.4050, L100.0100 ####[facility] [address] [place], [address] ALT [Catalytic activity/Vol] 17 U/L Normal <=34 [facility] Comment on above: Performed By: #### L 504.2610, L500.4050, L100.0100 ####[facility] [address] [place], [address] AST [Catalytic activity/Vol] 19 U/L Normal <=31 [facility] Comment on above: Performed By: #### L 504.2610, L500.4050, L100.0100 ####[facility] [address] [place], [address] Bilirubin [Mass/Vol] 0.38 mg/dL Normal 0.00-1.30 [facility] Comment on above: Performed By: #### L 504.2610, L500.4050, L100.0100 ####[facility] [address] [place], [address] BUN/CRE 19.4 RATIO Normal 10-20 [facility] Comment on above: Performed By: #### L 504.2610, L500.4050, L100.0100 ####[facility] [address] [place], [address] Calcium [Mass/Vol] 9.4 mg/dL Normal 7.6-11.0 [facility] Comment on above: Performed By: #### L 504.2610, L500.4050, L100.0100 ####[facility] [address] [place], [address] Chloride [Moles/Vol] 107 mmol/L Normal 98-108 [facility] Comment on above: Performed By: #### L 504.2610, L500.4050, L100.0100 ####[facility] [address] [place], [address] CO2 [Moles/Vol] 23.8 mmol/L Normal 21.0-32.0 [facility] Comment on above: Performed By: #### L 504.2610, L500.4050, L100.0100 ####[facility] [address] [place], [address] Creatinine [Mass/Vol] 0.76 mg/dL Normal 0.70-1.20 [facility] Comment on above: Performed By: #### L 504.2610, L500.4050, L100.0100 ####[facility] [address] [place], [address] ECRCL 83.11 ml/min Normal 50-250 [facility] Comment on above: Performed By: #### L 504.2610, L500.4050, L100.0100 ####[facility] [address] [place], [address] GAP 11 Normal 5-15 [facility] Comment on above: Performed By: #### L 504.2610, L500.4050, L100.0100 ####[facility] [address] [place], [address] GFR/1.73 sq M.predicted among non-blacks MDRD (S/P/Bld) [Vol rate/Area] 93 mL/min/{1.73_m2} Normal >60 [facility] Comment on above: Result Comment: mL/m in/1.73m2 CKD-EPI Creatinine Equation (2020) Performed By: #### L 504.2610, L500.4050, L100.0100 ####[facility] [address] [place], [address] Globulin (S) [Mass/Vol] 2.5 g/dL Normal 2.2-4.2 [facility] Comment on above: Performed By: #### L 504.2610, L500.4050, L100.0100 ####[facility] [address] [place], [address] Glucose [Mass/Vol] 130 mg/dL High 70-99 [facility] Comment on above: Performed By: #### L 504.2610, L500.4050, L100.0100 ####[facility] [address] [place], [address] Potassium [Moles/Vol] 3.5 mmol/L Normal 3.3-5.1 [facility] Comment on above: Performed By: #### L 504.2610, L500.4050, L100.0100 ####[facility] [address] [place], [address] Sodium [Moles/Vol] 142 mmol/L Normal 133-145 [facility] Comment on above: Performed By: #### L 504.2610, L500.4050, L100.0100 ####[facility] [address] [place], [address] T PROT 6.7 g/dL Normal 5.9-8.4 [facility] Comment on above: Performed By: #### L 504.2610, L500.4050, L100.0100 ####[facility] [address] [place], [address] Urea nitrogen [Mass/Vol] 15 mg/dL Normal 4-19 [facility] Comment on above: Performed By: #### L 504.2610, L500.4050, L100.0100 ####[facility] [address] [place], [address] LDHon 06-24-2024 LDH 156 U/L Normal 84-246 [facility] Comment on above: Order Comment: 1 Performed By: #### L 504.2610, L500.4050, L100.0100 ####[facility] [address] [place], [address] Lactate dehydrogenase (LDH) measurementOrdered By: Jairon Rothman on 06-24-2024 LDH [Catalytic activity/Vol] 156 U/L 84-246 [facility] Oncology Visit Reporton 06-04 Oncology Visit Report Normal [facility] Radiation Oncology Visiton 0 - Radiation Oncology Visit Normal [facility] Radiation Oncology Visiton 0 - Radiation Oncology Visit Normal [facility] CBC W/Diff, Automatedon 04-0 Absolute Lymph 1.62 X10 3/uL Normal 0.83-4.51 [facility] Comment on above: Performed By: #### L 500.4050, L100.0100 ####[facility] [address] [place], [address] Absolute Neut 2.3 X10 3/uL Normal 2.0-7.7 [facility] Comment on above: Performed By: #### L 500.4050, L100.0100 ####[facility] [address] [place], [address] Basophils/100 WBC (Bld) 0.7 % Normal 0-1 [facility] Comment on above: Performed By: #### L 500.4050, L100.0100 ####[facility] [address] [place], [address] Eosinophils/100 WBC (Bld) 3.2 % Normal 0-5 [facility] Comment on above: Performed By: #### L 500.4050, L100.0100 ####[facility] [address] [place], [address] Erythrocyte distribution width (RBC) [Ratio] 12.5 % Normal 11.6-14.6 [facility] Comment on above: Performed By: #### L 500.4050, L100.0100 ####[facility] [address] [place], [address] Hematocrit (Bld) [Volume fraction] 35.8 % Low 37-47 [facility] Comment on above: Performed By: #### L 500.4050, L100.0100 ####[facility] [address] [place], [address] Hemoglobin (Bld) [Mass/Vol] 12.5 g/dL Normal 12.0-15.0 [facility] Comment on above: Performed By: #### L 500.4050, L100.0100 ####[facility] [address] [place], [address] IG% 0.200 Normal 0.0-0.9 [facility] Comment on above: Result Comment: IG% - Immature Granulocytes (promyelocytes, myelocytes andmetamyelocytes) > 1% indicates that a LEFT SHIFT is Present. Performed By: #### L 500.4050, L100.0100 ####[facility] [address] [place], [address] Lymphocytes/100 WBC (Bld) 36.8 % Normal 19-41 [facility] Comment on above: Performed By: #### L 500.4050, L100.0100 ####[facility] [address] [place], [address] MCH (RBC) [Entitic mass] 29.0 pg Normal 27.0-32.0 [facility] Comment on above: Performed By: #### L 500.4050, L100.0100 ####[facility] [address] [place], [address] MCHC (RBC) [Mass/Vol] 34.9 g/dL Normal 32-36 [facility] Comment on above: Performed By: #### L 500.4050, L100.0100 ####[facility] [address] [place], [address] MCV (RBC) [Entitic vol] 83.1 fL Normal 81-99 [facility] Comment on above: Performed By: #### L 500.4050, L100.0100 ####[facility] [address] [place], [address] Monocytes/100 WBC (Bld) 7.3 % Normal 0-10 [facility] Comment on above: Performed By: #### L 500.4050, L100.0100 ####[facility] [address] [place], [address] Neutrophils/100 WBC (Bld) 51.8 % Normal 47-70 [facility] Comment on above: Performed By: #### L 500.4050, L100.0100 ####[facility] [address] [place], [address] Nucleated RBC (Bld) [#/Vol] 0 10*3/uL Normal 0-5 [facility] Comment on above: Performed By: #### L 500.4050, L100.0100 ####[facility] [address] [place], [address] Platelet mean volume (Bld) [Entitic vol] 9.7 fL Normal 6.2-12.0 [facility] Comment on above: Performed By: #### L 500.4050, L100.0100 ####[facility] [address] [place], [address] Platelets (Bld) [#/Vol] 224 10*3/uL Normal 150-450 [facility] Comment on above: Performed By: #### L 500.4050, L100.0100 ####[facility] [address] [place], [address] RBC (Bld) [#/Vol] 4.31 10*6/uL Normal 4.2-5.4 [facility] Comment on above: Performed By: #### L 500.4050, L100.0100 ####[facility] [address] [place], [address] RDW SD 38.0 fl Normal 35.1-43.9 [facility] Comment on above: Performed By: #### L 500.4050, L100.0100 ####[facility] [address] [place], [address] WBC (Bld) [#/Vol] 4.4 10*3/uL Normal 4.4-11.0 [facility] Comment on above: Performed By: #### L 500.4050, L100.0100 ####[facility] [address] [place], [address] Comprehensive Metabolic Prof ilon 06-04-2024 Albumin [Mass/Vol] 4.3 g/dL Normal 3.5-5.0 [facility] Comment on above: Performed By: #### L 500.4050, L100.0100 ####[facility] [address] [place], [address] Albumin/Globulin [Mass ratio] 1.7 {ratio} Normal 0.9-2.4 [facility] Comment on above: Performed By: #### L 500.4050, L100.0100 ####[facility] [address] [place], [address] ALK PHOS 94 U/L Normal 35-104 [facility] Comment on above: Performed By: #### L 500.4050, L100.0100 ####[facility] [address] [place], [address] ALT [Catalytic activity/Vol] 17 U/L Normal <=34 [facility] Comment on above: Performed By: #### L 500.4050, L100.0100 ####[facility] [address] [place], [address] AST [Catalytic activity/Vol] 21 U/L Normal <=31 [facility] Comment on above: Performed By: #### L 500.4050, L100.0100 ####[facility] [address] [place], [address] Bilirubin [Mass/Vol] 0.34 mg/dL Normal 0.00-1.30 [facility] Comment on above: Performed By: #### L 500.4050, L100.0100 ####[facility] [address] [place], [address] BUN/CRE 18.3 RATIO Normal 10-20 [facility] Comment on above: Performed By: #### L 500.4050, L100.0100 ####[facility] [address] [place], [address] Calcium [Mass/Vol] 9.8 mg/dL Normal 7.6-11.0 [facility] Comment on above: Performed By: #### L 500.4050, L100.0100 ####[facility] [address] [place], [address] Chloride [Moles/Vol] 106 mmol/L Normal 98-108 [facility] Comment on above: Performed By: #### L 500.4050, L100.0100 ####[facility] [address] [place], [address] CO2 [Moles/Vol] 24.7 mmol/L Normal 21.0-32.0 [facility] Comment on above: Performed By: #### L 500.4050, L100.0100 ####[facility] [address] [place], [address] Creatinine [Mass/Vol] 0.78 mg/dL Normal 0.70-1.20 [facility] Comment on above: Performed By: #### L 500.4050, L100.0100 ####[facility] [address] [place], [address] ECRCL 81.36 ml/min Normal 50-250 [facility] Comment on above: Performed By: #### L 500.4050, L100.0100 ####[facility] [address] [place], [address] GAP 11 Normal 5-15 [facility] Comment on above: Performed By: #### L 500.4050, L100.0100 ####[facility] [address] [place], [address] GFR/1.73 sq M.predicted among non-blacks MDRD (S/P/Bld) [Vol rate/Area] 90 mL/min/{1.73_m2} Normal >60 [facility] Comment on above: Result Comment: mL/m in/1.73m2 CKD-EPI Creatinine Equation (2020) Performed By: #### L 500.4050, L100.0100 ####[facility] [address] [place], [address] Globulin (S) [Mass/Vol] 2.6 g/dL Normal 2.2-4.2 [facility] Comment on above: Performed By: #### L 500.4050, L100.0100 ####[facility] [address] [place], [address] Glucose [Mass/Vol] 98 mg/dL Normal 70-99 [facility] Comment on above: Performed By: #### L 500.4050, L100.0100 ####[facility] [address] [place], [address] Potassium [Moles/Vol] 3.9 mmol/L Normal 3.3-5.1 [facility] Comment on above: Performed By: #### L 500.4050, L100.0100 ####[facility] [address] [place], [address] Sodium [Moles/Vol] 142 mmol/L Normal 133-145 [facility] Comment on above: Performed By: #### L 500.4050, L100.0100 ####[facility] [address] [place], [address] T PROT 6.9 g/dL Normal 5.9-8.4 [facility] Comment on above: Performed By: #### L 500.4050, L100.0100 ####[facility] [address] [place], [address] Urea nitrogen [Mass/Vol] 14 mg/dL Normal 4- [facility] Comment on above: Performed By: #### L 500.4050, L100.0100 ####[facility] [address] [place], [address] Oncology Visit Reporton 0 Oncology Visit Report Normal [facility] Radiation Oncology Visiton 0 06-03-2024 Radiation Oncology Visit Normal [facility] OT General Evaluationon 05-04 OT General Evaluation Normal [facility] Miscellaneous procedureOrder ed By: Jairon Rothman on 05-15-2024 Miscellaneous Test Comment SEE SCANNED REPORT [facility] NATERAon 05-15-2024 NATURA SEE SCANNED REPORT Normal [facility] Comment on above: Performed By: #### L 900.0098 ####[facility] [address] [place], [address] Oncology Visit Reporton 05-03 Oncology Visit Report Normal [facility] Radiation Oncology Visiton 0 05-15-2024 Radiation Oncology Visit Normal [facility] Limited echocardiogram repor tOrdered By: Vandana Choe on 05-12-2024 Study report [facility] [address] [place] [address] ONC Echo, Limited Study 05/12/24 0903 MR#: [id number] Acct: [id number] Name: CASSIDY CAPUTO Rep #:[id number] : 1970 54 From: Vandana shields MD Attending Dr: Dr. Jairon Rothman MD S tatus: REG CLI Ordering Dr: Jairon Rothman MD Date: 12/27 Location: [facility] Sex: F C Admitted: Reason For Study Reason For Study: High risk meds Procedure This was a limited 2D transthoracic echocardiogram. Myocardial strain analysis was performed in this exam to aid in the assessment of cardiac function. Exam performed in department. Left Ventricle Normal LV size. The global longitudinal strain = -18.7 % (normal). The prior global longitudinal strain was -16.2 % . The estimated ejection fraction is 65-70 %. Unable to assess diastolic dysfunction. No regional wall motion abnormalities noted. Atria The left and right atria are normal. Mitral Valve There is no mitral valve stenosis. Tricuspid Valve There is no tricuspid stenosis. Aortic Valve Trisinus/trileaflet aortic valve. There is no aortic stenosis. Pericardium/Pleural No pericardial effusion. MMode/2D Measurements & Calculations LVIDd: 4.8 cm IVSd: 0.97 cm Ao root diam: 2.9 cm LVIDs: 2.3 cm LVPWd: 0.85 cm RVDd: 3.2 cm FS: 53.0 % LAV(MOD-bp): 42.5 ml LVAd ap4: 24.3 cm2 LVAd ap2: 19.5 cm2 LAV(MOD-bp) Indexed: 23.3 ml/m2 LVLd ap4: 7.4 cm LVLd ap2: 7.1 cm LAV(MOD-sp2): 40.2 ml EDV(MOD-sp4): 69.0 ml EDV(MOD-sp2): 48.5 ml LAV(MOD-sp4): 43.3 ml EDV(sp4-el): 68.2 ml EDV(sp2-el): 45.6 ml LVAs ap4: 13.7 cm2 LVAs ap2: 10.4 cm2 LVLs ap4: 6.1 cm LVLs ap2: 6.1 cm ESV(MOD-sp4): 27.2 ml ESV(MOD-sp2): 15.9 ml ESV(sp4-el): 26.1 ml ESV(sp2-el): 14.8 ml EF(MOD-sp4): 60.5 % EF(MOD-sp2): 67.3 % EF(sp4-el): 61.7 % SV(MOD-sp4): 41.7 ml SV(MOD-sp2): 32.6 ml SV(sp4-el): 42.1 ml SI(MOD-sp4): 22.9 ml/m2 SI(MOD-sp2): 17.9 ml/m2 __ LA dimension(2D): 3.9 cm LA A4 area: 16.4 cm2 RA A4 area: 9.6 cm2 ECHO/ONC Echo, Limited Study Interpretation Summary The estimated ejection fraction is 65-70 %. Ordering Physician: Jairon Rothman Referring Physician: Jairon Rothman Performed By: Eileen Russell RDCS 05/12/24 1344 Date _ Vandana Choe MD CC: Dr. Michael Ernst MD; Dr. Jairon Rothman MD ~ Date Dictated: 05/12/24902 Date Transcribed: 05/12/24 1344 Director Of Assessment: Signed [facility] Work Phone: ONC Echo, Limited Studyon ONC Echo, Limited Study Normal [facility] Absolute neutrophil countOrd ered By: Jairon Rothman on 05-08-2024 Neutrophils (Bld) [#/Vol] 2.9 10*3/uL 2.0-7.7 [facility] Anion gap in Serum or Plasma Ordered By: Jairon Rothman on 05-08-2024 Anion gap [Moles/Vol] 13 mmol/L 5-15 [facility] Automated blood erythrocyte countOrdered By: Jairon Rothman on 05-08-2024 RBC (Bld) [#/Vol] 3.94 10*6/uL Low 4.2-5.4 [facility] Comment on above: Performed By: #### L 100.0100, L501.5200, L500.4050 ####[facility] [address] [place], [address] Automated blood hematocrit ( percentage)Ordered By: Jairon Rothamn on 05-08-2024 Hematocrit (Bld) [Volume fraction] 34.4 % Low 37-47 [facility] Comment on above: Performed By: #### L 100.0100, L501.5200, L500.4050 ####[facility] [address] [place], [address] Automated lymphocyte count a s percentage of total leukocytesOrdered By: Jairon Rothman on 05-08-2024 Lymphocytes/100 WBC (Bld) 34.5 % Normal 19-41 [facility] Comment on above: Performed By: #### L 100.0100, L501.5200, L500.4050 ####[facility] [address] [place], [address] BUN/creatinine ratioOrdered By: Jairon Rothman on 05-08-2024 Urea nitrogen/Creatinine [Mass ratio] 17.9 mg/mg 10-20 [facility] Basophil percentageOrdered B y: Jairon Rothman on 05-08-2024 Basophils/100 WBC (Bld) 0.4 % Normal 0-1 [facility] Comment on above: Performed By: #### L 100.0100, L501.5200, L500.4050 ####[facility] [address] [place], [address] Bilirubin, totalOrdered By: Jairon Rothman on 05-08-2024 Bilirubin [Mass/Vol] 0.28 mg/dL Normal 0.00-1.30 [facility] Comment on above: Performed By: #### L 100.0100, L501.5200, L500.4050 ####[facility] [address] [place], [address] CBC W/Diff, Automatedon 03 Absolute Lymph 1.73 X10 3/uL Normal 0.83-4.51 [facility] Comment on above: Performed By: #### L 100.0100, L501.5200, L500.4050 ####[facility] [address] [place], [address] Absolute Neut 2.9 X10 3/uL Normal 2.0-7.7 [facility] Comment on above: Performed By: #### L 100.0100, L501.5200, L500.4050 ####[facility] [address] [place], [address] IG% 0.200 Normal 0.0-0.9 [facility] Comment on above: Result Comment: IG% - Immature Granulocytes (promyelocytes, myelocytes andmetamyelocytes) > 1% indicates that a LEFT SHIFT is Present. Performed By: #### L 100.0100, L501.5200, L500.4050 ####[facility] [address] [place], [address] Nucleated RBC (Bld) [#/Vol] 0 10*3/uL Normal 0-5 [facility] Comment on above: Performed By: #### L 100.0100, L501.5200, L500.4050 ####[facility] [address] [place], [address] RDW SD 40.2 fl Normal 35.1-43.9 [facility] Comment on above: Performed By: #### L 100.0100, L501.5200, L500.4050 ####[facility] [address] [place], [address] Carbon dioxide, total [Moles /volume] in Central venous bloodOrdered By: Jairon Rothman on 05-08-2024 CO2 [Moles/Vol] 22.8 mmol/L Normal 21.0-32.0 [facility] Comment on above: Performed By: #### L 100.0100, L501.5200, L500.4050 ####[facility] [address] [place], [address] Chloride assayOrdered By: Janee Rothman on 05-08-2024 Chloride [Moles/Vol] 107 mmol/L Normal 98-108 [facility] Comment on above: Performed By: #### L 100.0100, L501.5200, L500.4050 ####[facility] [address] [place], [address] Comprehensive Metabolic Prof ilon 05-08-2024 ALK PHOS 95 U/L Normal 35-104 [facility] Comment on above: Performed By: #### L 100.0100, L501.5200, L500.4050 ####[facility] [address] [place], [address] BUN/CRE 17.9 RATIO Normal 10-20 [facility] Comment on above: Performed By: #### L 100.0100, L501.5200, L500.4050 ####[facility] [address] [place], [address] ECRCL 80.30 ml/min Normal 50-250 [facility] Comment on above: Performed By: #### L 100.0100, L501.5200, L500.4050 ####[facility] [address] [place], [address] GAP 13 Normal 5-15 [facility] Comment on above: Performed By: #### L 100.0100, L501.5200, L500.4050 ####[facility] [address] [place], [address] GFR/1.73 sq M.predicted among non-blacks MDRD (S/P/Bld) [Vol rate/Area] 88 mL/min/{1.73_m2} Normal >60 [facility] Comment on above: Result Comment: mL/m in/1.73m2 CKD-EPI Creatinine Equation (2020) Performed By: #### L 100.0100, L501.5200, L500.4050 ####[facility] [address] [place], [address] T PROT 6.8 g/dL Normal 5.9-8.4 [facility] Comment on above: Performed By: #### L 100.0100, L501.5200, L500.4050 ####[facility] [address] [place], [address] Comprehensive Metabolic Prof ilOrdered By: Jairon Rothman on 05-08-2024 AST [Catalytic activity/Vol] 25 U/L Normal <=31 [facility] Comment on above: Performed By: #### L 100.0100, L501.5200, L500.4050 ####[facility] [address] [place], [address] Eosinophil percentageOrdered By: Jairon Rothman on 05-08-2024 Eosinophils/100 WBC (Bld) 2.4 % Normal 0-5 [facility] Comment on above: Performed By: #### L 100.0100, L501.5200, L500.4050 ####[facility] [address] [place], [address] Erythrocyte distribution wid th ratioOrdered By: Jairon Rothman on 05-08-2024 Erythrocyte distribution width (RBC) [Ratio] 12.5 % Normal 11.6-14.6 [facility] Comment on above: Performed By: #### L 100.0100, L501.5200, L500.4050 ####[facility] [address] [place], [address] Erythrocyte distribution wid th standard deviationOrdered By: Jairon Rothman on 05-08-2024 Erythrocyte distribution width (RBC) [Entitic vol] 40.2 fL 35.1-43.9 [facility] Estimation of creatinine jaret aranceOrdered By: Jairon Rothman on 05-08-2024 Estimated Creatinine Clearance Calc 80.30 ml/min 50-250 [facility] GFR/1.73 sq M.predicted sarah g non-blacks MDRD (S/P/Bld) [Vol rate/Area]Ordered By: Jairon Rothman on 05-08-2024 Estimated GFR (MDRD) Non-Af Amer 88 >60 [facility] Comment on above: mL/min/1.73m2 CKD-EP I Creatinine Equation (2020) Hemoglobin measurementOrdere d By: Jairon Rothman on 05-08-2024 Hemoglobin (Bld) [Mass/Vol] 11.6 g/dL Low 12.0-15.0 [facility] Comment on above: Performed By: #### L 100.0100, L501.5200, L500.4050 ####[facility] [address] [place], [address] Immature granulocytes/100 WB C Auto (Bld)Ordered By: Jairon Rothman on 05-08-2024 Immature granulocytes/100 WBC (Bld) 0.200 % 0.0-0.9 [facility] Comment on above: IG% - Immature Granu locytes (promyelocytes, myelocytes and metamyelocytes) > 1% indicates that a LEFT SHIFT is Present. Lymphocytes Auto (Unsp spec) [#/Vol]Ordered By: Jairon Rothman on 05-08-2024 Lymphocytes (Bld) [#/Vol] 1.73 10*3/uL 0.83-4.51 [facility] MCV (mean corpuscular volume ) determinationOrdered By: Jairon Rothman on 05-08-2024 MCV (RBC) [Entitic vol] 87.3 fL Normal 81-99 [facility] Comment on above: Performed By: #### L 100.0100, L501.5200, L500.4050 ####[facility] [address] [place], [address] Magnesium measurement (mass/ volume)Ordered By: Jairon Rothman on 05-08-2024 Magnesium [Mass/Vol] 1.7 mg/dL Normal 1.5-2.2 [facility] Comment on above: Performed By: #### L 100.0100, L501.5200, L500.4050 ####[facility] [address] [place], [address] Magnesium (Unsp spec) [Mass/Vol] 1.7 mg/dL 1.5-2.2 [facility] Mean corpuscular hemoglobin (MCH) determinationOrdered By: Jairon Rothman on 05-08-2024 MCH (RBC) [Entitic mass] 29.4 pg Normal 27.0-32.0 [facility] Comment on above: Performed By: #### L 100.0100, L501.5200, L500.4050 ####[facility] [address] [place], [address] Mean corpuscular hemoglobin concentration (MCHC) determinationOrdered By: Jairon Rothman on 05-08-2024 MCHC (RBC) [Mass/Vol] 33.7 g/dL Normal 32-36 [facility] Comment on above: Performed By: #### L 100.0100, L501.5200, L500.4050 ####[facility] [address] [place], [address] Mean platelet volume determi nationOrdered By: Jairon Rothman on 05-08-2024 Platelet mean volume (Bld) [Entitic vol] 9.8 fL Normal 6.2-12.0 [facility] Comment on above: Performed By: #### L 100.0100, L501.5200, L500.4050 ####[facility] [address] [place], [address] Monocyte percentageOrdered B y: Jairon Rothman on 05-08-2024 Monocytes/100 WBC (Bld) 5.8 % Normal 0-10 [facility] Comment on above: Performed By: #### L 100.0100, L501.5200, L500.4050 ####[facility] [address] [place], [address] Neutrophil percentageOrdered By: Jairon Rothman on 05-08-2024 Neutrophils/100 WBC (Bld) 56.7 % Normal 47-70 [facility] Comment on above: Performed By: #### L 100.0100, L501.5200, L500.4050 ####[facility] [address] [place], [address] Nucleated red blood cell per centageOrdered By: Jairon Rothman on 05-08-2024 Nucleated RBC/100 WBC (Bld) [Ratio] 0 % 0-5 [facility] Oncology Visit Reporton 03-0 Oncology Visit Report Normal [facility] Platelet countOrdered By: Janee Rothman on 05-08-2024 Platelets (Bld) [#/Vol] 209 10*3/uL Normal 150-450 [facility] Comment on above: Performed By: #### L 100.0100, L501.5200, L500.4050 ####[facility] [address] [place], [address] Potassium measurement (mass/ volume)Ordered By: Jairon Rothman on 03-06-2025 Potassium [Moles/Vol] 3.7 mmol/L Normal 3.3-5.1 [facility] Comment on above: Performed By: #### L 100.0100, L501.5200, L500.4050 ####[facility] [address] [place], [address] Serum creatinine measurement (mass/volume)Ordered By: Jairon Rothman on 05-08-2024 Creatinine [Mass/Vol] 0.80 mg/dL Normal 0.70-1.20 [facility] Comment on above: Performed By: #### L 100.0100, L501.5200, L500.4050 ####[facility] [address] [place], [address] Serum globulin measurementOr dered By: Jairon Rothman on 05-08-2024 Globulin (S) [Mass/Vol] 2.6 g/dL Normal 2.2-4.2 [facility] Comment on above: Performed By: #### L 100.0100, L501.5200, L500.4050 ####[facility] [address] [place], [address] Serum glucose measurement (m ass/volume)Ordered By: Jairon Rothman on 05-08-2024 Glucose [Mass/Vol] 154 mg/dL High 70-99 [facility] Comment on above: Performed By: #### L 100.0100, L501.5200, L500.4050 ####[facility] [address] [place], [address] Serum or plasma alanine hudson otransferase (ALT) measurementOrdered By: Jairon Rothman on 05-08-2024 ALT [Catalytic activity/Vol] 21 U/L Normal <=34 [facility] Comment on above: Performed By: #### L 100.0100, L501.5200, L500.4050 ####[facility] [address] [place], [address] Serum or plasma albumin phil urement (mass/volume)Ordered By: Jairon Rothman on 05-08-2024 Albumin [Mass/Vol] 4.2 g/dL Normal 3.5-5.0 [facility] Comment on above: Performed By: #### L 100.0100, L501.5200, L500.4050 ####[facility] [address] [place], [address] Serum or plasma albumin/glob ulin mass ratioOrdered By: Jairon Rothman on 05-08-2024 Albumin/Globulin [Mass ratio] 1.6 {ratio} Normal 0.9-2.4 [facility] Comment on above: Performed By: #### L 100.0100, L501.5200, L500.4050 ####[facility] [address] [place], [address] Serum or plasma alkaline mayra sphatase measurementOrdered By: Jairon Rothman on 05-08-2024 ALP [Catalytic activity/Vol] 95 U/L 35-104 [facility] Serum or plasma calcium phil urement (mass/volume)Ordered By: Jairon Rothman on 05-08-2024 Calcium [Mass/Vol] 9.5 mg/dL Normal 7.6-11.0 [facility] Comment on above: Performed By: #### L 100.0100, L501.5200, L500.4050 ####[facility] [address] [place], [address] Serum or plasma urea nitroge n measurement (mass/volume)Ordered By: Jairon Rothman on 05-08-2024 Urea nitrogen [Mass/Vol] 14 mg/dL Normal 4-19 [facility] Comment on above: Performed By: #### L 100.0100, L501.5200, L500.4050 ####[facility] [address] [place], [address] Sodium levelOrdered By: Stefan Rothman on 05-08-2024 Sodium [Moles/Vol] 142 mmol/L Normal 133-145 [facility] Comment on above: Performed By: #### L 100.0100, L501.5200, L500.4050 ####[facility] [address] [place], [address] Total proteinOrdered By: Joey Rothman on 05-08-2024 Protein [Mass/Vol] 6.8 g/dL 5.9-8.4 [facility] White blood cell (WBC) count Ordered By: Jairon Rothman on 05-08-2024 WBC (Bld) [#/Vol] 5.0 10*3/uL Normal 4.4-11.0 [facility] Comment on above: Performed By: #### L 100.0100, L501.5200, L500.4050 ####[facility] [address] [place], [address] Surgery Visit Reporton 04-29 Surgery Visit Report Normal [facility] Breast Biopsy Specimenon Breast Biopsy Specimen Normal [facility] CK7 (initial)on 04-15-2024 CK7 (initial) Normal [facility] Comment on above: Performed By: #### P CK7 ####[facility] [address] [place], [address] Discharge Instructionon 04-05 Discharge Instruction Normal [facility] Frozen Section (charge)on Frozen Section (charge) Normal [facility] Comment on above: Performed By: #### P FSC ####[facility] [address] [place], [address] H AND P Exam - Surgicalon H&P Exam - Surgical Normal [facility] Lymph Node Injection Onlyon 04-15-2024 Lymph Node Injection Only Normal [facility] MR/POSTOP.ANEon 04-15-2024 MR/POSTOP.ANE Normal [facility] MR/VJJYWNVM0gr 04-15-2024 MR/POSTOPAN2 Normal [facility] Operative Reporton Operative Report Normal [facility] Operative Report Normal [facility] ,Urineon 04-15-2024 Beta HCG ( test) Ql (U) Negative Normal [facility] Comment on above: Result Comment: Very dilute urine specimens, as indicated by a low specificgravity, may not contain accounts payable representative levels of hCG.If is still suspected, a first morning urinespecimen should be collected 48 hours later and tested. Performed By: #### L 400.7600 ####[facility] [address] [place], [address] Urine testOrdered By: Hakan Goodman on 04-15-2024 HCG ( test) Ql (U) Negative [facility] Comment on above: Very dilute urine sp ecimens, as indicated by a low specificgravity, may not contain accounts payable representative levels of hCG. If is still suspected, a first morning urinespecimen should be collected 48 hours later and tested. 12 Lead EKGon 04-08-2024 12 Lead EKG Normal [facility] MR/PAT.ANEon 04-08-2024 MR/PAT.ANE Normal [facility] Absolute lymphocyte countOrd ered By: Winifred Woodall on 04-07-2024 Lymphocytes Auto (Unsp spec) [#/Vol] 1.42 10*3/uL 0.83-4.51 [facility] Absolute neutrophil countOrd ered By: Winifred Woodall on 04-07-2024 Neutrophils (Bld) [#/Vol] 3.0 10*3/uL 2.0-7.7 [facility] Activated partial thrombopla stin time (aPTT) in platelet poor plasma by coagulation aOrdered By: Hakan Goodman on 04-07-2024 aPTT Coag (PPP) [Time] 26.9 s 24.1-36.2 [facility] Albumin to globulin ratioOrd ered By: Winifred Woodall on 04-07-2024 Albumin/Globulin [Mass ratio] 1.2 {ratio} 0.9-2.4 [facility] Automated lymphocyte count a s percentage of total leukocytesOrdered By: Winifred Woodall on 04-07-2024 Lymphocytes/100 WBC Auto (Unsp spec) 28.7 % 19-41 [facility] Basophil percentageOrdered B y: Winifred Woodall on 04-07-2024 Basophils/100 WBC (Bld) 0.6 % 0-1 [facility] Bilirubin, totalOrdered By: Winifred Woodall on 04-07-2024 Bilirubin [Mass/Vol] 0.30 mg/dL 0.20-1.00 [facility] Comment on above: For patients on eltr ombopag therapy, use of Dimension [place] TBIL is not recommended. Blood urea nitrogen (BUN)/cr eatinine ratioOrdered By: Winifred Woodall on 04-07-2024 Urea nitrogen/Creatinine [Mass ratio] 19.2 mg/mg 10-20 [facility] CBC W/Diff, Automatedon Absolute Lymph 1.42 X10 3/uL Normal 0.83-4.51 [facility] Comment on above: Performed By: #### L 501.5200, L500.4050, L100.0100 ####[facility] [address] [place], [address] Absolute Neut 3.0 X10 3/uL Normal 2.0-7.7 [facility] Comment on above: Performed By: #### L 501.5200, L500.4050, L100.0100 ####[facility] [address] [place], [address] Basophils/100 WBC (Bld) 0.6 % Normal 0-1 [facility] Comment on above: Performed By: #### L 501.5200, L500.4050, L100.0100 ####[facility] [address] [place], [address] Eosinophils/100 WBC (Bld) 1.6 % Normal 0-5 [facility] Comment on above: Performed By: #### L 501.5200, L500.4050, L100.0100 ####[facility] [address] [place], [address] Erythrocyte distribution width (RBC) [Ratio] 13.1 % Normal 11.6-14.6 [facility] Comment on above: Performed By: #### L 501.5200, L500.4050, L100.0100 ####[facility] [address] [place], [address] Hematocrit (Bld) [Volume fraction] 34.2 % Low 37-47 [facility] Comment on above: Performed By: #### L 501.5200, L500.4050, L100.0100 ####[facility] [address] [place], [address] Hemoglobin (Bld) [Mass/Vol] 10.9 g/dL Low 12.0-15.0 [facility] Comment on above: Performed By: #### L 501.5200, L500.4050, L100.0100 ####[facility] [address] [place], [address] IG% 0.200 Normal 0.0-0.9 [facility] Comment on above: Result Comment: IG% - Immature Granulocytes (promyelocytes, myelocytes andmetamyelocytes) > 1% indicates that a LEFT SHIFT is Present. Performed By: #### L 501.5200, L500.4050, L100.0100 ####[facility] [address] [place], [address] Lymphocytes/100 WBC (Bld) 28.7 % Normal 19-41 [facility] Comment on above: Performed By: #### L 501.5200, L500.4050, L100.0100 ####[facility] [address] [place], [address] MCH (RBC) [Entitic mass] 30.8 pg Normal 27.0-32.0 [facility] Comment on above: Performed By: #### L 501.5200, L500.4050, L100.0100 ####[facility] [address] [place], [address] MCHC (RBC) [Mass/Vol] 31.9 g/dL Low 32-36 [facility] Comment on above: Performed By: #### L 501.5200, L500.4050, L100.0100 ####[facility] [address] [place], [address] MCV (RBC) [Entitic vol] 96.6 fL Normal 81-99 [facility] Comment on above: Performed By: #### L 501.5200, L500.4050, L100.0100 ####[facility] [address] [place], [address] Monocytes/100 WBC (Bld) 8.3 % Normal 0-10 [facility] Comment on above: Performed By: #### L 501.5200, L500.4050, L100.0100 ####[facility] [address] [place], [address] Neutrophils/100 WBC (Bld) 60.6 % Normal 47-70 [facility] Comment on above: Performed By: #### L 501.5200, L500.4050, L100.0100 ####[facility] [address] [place], [address] Nucleated RBC (Bld) [#/Vol] 0 10*3/uL Normal 0-5 [facility] Comment on above: Performed By: #### L 501.5200, L500.4050, L100.0100 ####[facility] [address] [place], [address] Platelet mean volume (Bld) [Entitic vol] 9.7 fL Normal 6.2-12.0 [facility] Comment on above: Performed By: #### L 501.5200, L500.4050, L100.0100 ####[facility] [address] [place], [address] Platelets (Bld) [#/Vol] 225 10*3/uL Normal 150-450 [facility] Comment on above: Performed By: #### L 501.5200, L500.4050, L100.0100 ####[facility] [address] [place], [address] RBC (Bld) [#/Vol] 3.54 10*6/uL Low 4.2-5.4 [facility] Comment on above: Performed By: #### L 501.5200, L500.4050, L100.0100 ####[facility] [address] [place], [address] RDW SD 47.0 fl High 35.1-43.9 [facility] Comment on above: Performed By: #### L 501.5200, L500.4050, L100.0100 ####[facility] [address] [place], [address] WBC (Bld) [#/Vol] 4.9 10*3/uL Normal 4.4-11.0 [facility] Comment on above: Performed By: #### L 501.5200, L500.4050, L100.0100 ####[facility] [address] [place], [address] Carbon dioxide measurementOr dered By: Winifred Woodall on 04-07-2024 CO2 [Moles/Vol] 28.0 mmol/L 21.0-32.0 [facility] Chloride measurementOrdered By: Winifred Woodall on 04-07-2024 Chloride [Moles/Vol] 110 mmol/L High 98-107 [facility] Comprehensive Metabolic Prof ilon 04-07-2024 Albumin [Mass/Vol] 3.7 g/dL Normal 3.2-5.0 [facility] Comment on above: Performed By: #### L 501.5200, L500.4050, L100.0100 ####[facility] [address] [place], [address] Albumin/Globulin [Mass ratio] 1.2 {ratio} Normal 0.9-2.4 [facility] Comment on above: Performed By: #### L 501.5200, L500.4050, L100.0100 ####[facility] [address] [place], [address] ALK P 76 U/L Normal 45-117 [facility] Comment on above: Performed By: #### L 501.5200, L500.4050, L100.0100 ####[facility] [address] [place], [address] ALT [Catalytic activity/Vol] 28 U/L Normal 13-56 [facility] Comment on above: Performed By: #### L 501.5200, L500.4050, L100.0100 ####[facility] [address] [place], [address] AST [Catalytic activity/Vol] 15 U/L Normal 15-37 [facility] Comment on above: Performed By: #### L 501.5200, L500.4050, L100.0100 ####[facility] [address] [place], [address] Bilirubin [Mass/Vol] 0.30 mg/dL Normal 0.20-1.00 [facility] Comment on above: Result Comment: For patients on eltrombopag therapy, use of Dimension [place] TBIL is not recommended. Performed By: #### L 501.5200, L500.4050, L100.0100 ####[facility] [address] [place], [address] BUN/CRE 19.2 RATIO Normal 10-20 [facility] Comment on above: Performed By: #### L 501.5200, L500.4050, L100.0100 ####[facility] [address] [place], [address] CA,Total 9.2 mg/dL Normal 8.5-10.1 [facility] Comment on above: Performed By: #### L 501.5200, L500.4050, L100.0100 ####[facility] [address] [place], [address] Chloride [Moles/Vol] 110 mmol/L High 98-107 [facility] Comment on above: Performed By: #### L 501.5200, L500.4050, L100.0100 ####[facility] [address] [place], [address] CO2 [Moles/Vol] 28.0 mmol/L Normal 21.0-32.0 [facility] Comment on above: Performed By: #### L 501.5200, L500.4050, L100.0100 ####[facility] [address] [place], [address] Creatinine [Mass/Vol] 0.68 mg/dL Normal 0.55-1.02 [facility] Comment on above: Result Comment: The validity of the calculated GFR GFRAA in patients over70 years has not been determined. Clinical correlation isessential. Performed By: #### L 501.5200, L500.4050, L100.0100 ####[facility] [address] [place], [address] EST GFR - AA 117 mL/min Normal >60 [facility] Comment on above: Result Comment: Afri can Palauan GFR Calc Performed By: #### L 501.5200, L500.4050, L100.0100 ####[facility] [address] [place], [address] GAP 5 Normal 5-15 [facility] Comment on above: Performed By: #### L 501.5200, L500.4050, L100.0100 ####[facility] [address] [place], [address] GFR/1.73 sq M.predicted among non-blacks MDRD (S/P/Bld) [Vol rate/Area] 96 mL/min/{1.73_m2} Normal >60 [facility] Comment on above: Result Comment: Non- GFR Calc Performed By: #### L 501.5200, L500.4050, L100.0100 ####[facility] [address] [place], [address] Globulin (S) [Mass/Vol] 3.1 g/dL Normal 2.2-4.2 [facility] Comment on above: Performed By: #### L 501.5200, L500.4050, L100.0100 ####[facility] [address] [place], [address] Glucose [Mass/Vol] 103 mg/dL Normal 74-106 [facility] Comment on above: Result Comment: Fast ing Glucose result from 100 to 125 mg/dLsuggests IMPAIRED HOMEOSTASIS per A.D.A. criteria. Performed By: #### L 501.5200, L500.4050, L100.0100 ####[facility] [address] [place], [address] Potassium [Moles/Vol] 3.6 mmol/L Normal 3.5-5.1 [facility] Comment on above: Performed By: #### L 501.5200, L500.4050, L100.0100 ####[facility] [address] [place], [address] Sodium [Moles/Vol] 143 mmol/L Normal 136-145 [facility] Comment on above: Performed By: #### L 501.5200, L500.4050, L100.0100 ####[facility] [address] [place], [address] T PROT 6.8 g/dL Normal 6.4-8.2 [facility] Comment on above: Performed By: #### L 501.5200, L500.4050, L100.0100 ####[facility] [address] [place], [address] Urea nitrogen [Mass/Vol] 13 mg/dL Normal 7-18 [facility] Comment on above: Performed By: #### L 501.5200, L500.4050, L100.0100 ####[facility] [address] [place], [address] DIAG MAMM W/CAD, BILATon DIAG MAMM W/CAD, BILAT Normal [facility] Eosinophil percentageOrdered By: Winifred Woodall on 04-07-2024 Eosinophils/100 WBC (Bld) 1.6 % 0-5 [facility] Erythrocyte distribution wid th ratioOrdered By: Winifred Woodall on 04-07-2024 Erythrocyte distribution width (RBC) [Ratio] 13.1 % 11.6-14.6 [facility] Erythrocyte distribution wid th standard deviationOrdered By: Winifred Woodall on 04-07-2024 Erythrocyte distribution width (RBC) [Entitic vol] 47.0 fL High 35.1-43.9 [facility] Erythrocyte distribution width (RBC) [Ratio] 47.0 fl High 35.1-43.9 [facility] Estimated glomerular filtrat ion rate (GFR) AmericanOrdered By: Winifred Woodall on 04-07-2024 Estimated GFR (MDRD) Amer 117 mL/min >60 [facility] Comment on above: GFR Calc Glomerular filtration rate ( GFR) estimationOrdered By: Winifred Woodall on 04-07-2024 Estimated GFR (MDRD) Non-Af Amer 96 mL/min >60 [facility] Comment on above: Non- GFR Calc GFR/1.73 sq M.predicted among non-blacks MDRD (S/P/Bld) [Vol rate/Area] 96 mL/min/{1.73_m2} >60 [facility] Comment on above: Non- GFR Calc Glucose measurementOrdered B y: Winifred Woodall on 04-07-2024 Glucose [Mass/Vol] 103 mg/dL 74-106 [facility] Comment on above: Fasting Glucose resu lt from 100 to 125 mg/dL suggests IMPAIRED HOMEOSTASIS per A.D.A. criteria. Hematocrit Auto (Bld) [Volum e fraction]Ordered By: Winifred Woodall on 04-07-2024 Hematocrit (Bld) [Volume fraction] 34.2 % Low 37-47 [facility] Hemoglobin measurementOrdere d By: Winifred Woodall on 04-07-2024 Hemoglobin (Bld) [Mass/Vol] 10.9 g/dL Low 12.0-15.0 [facility] Immature granulocytes/100 WB C Auto (Bld)Ordered By: Winifred Woodall on 04-07-2024 Immature granulocytes/100 WBC (Bld) 0.200 % 0.0-0.9 [facility] Comment on above: IG% - Immature Granu locytes (promyelocytes, myelocytes and metamyelocytes) > 1% indicates that a LEFT SHIFT is Present. International normalized rat io (INR) calculationOrdered By: Hakan Goodman on 04-07-2024 INR Coag (Bld) [Relative time] 1.0 {INR} [facility] Laboratory - Chemistry and C hemistry - challengeOrdered By: Winifred Woodall on 04-07-2024 AST [Catalytic activity/Vol] 15 U/L 15-37 [facility] Lymphocytes Auto (Unsp spec) [#/Vol]Ordered By: Winifred Woodall on 04-07-2024 Lymphocytes (Bld) [#/Vol] 1.42 10*3/uL 0.83-4.51 [facility] Lymphocytes/100 WBC Auto (Un sp spec)Ordered By: Winifred Woodall on 04-07-2024 Lymphocytes/100 WBC (Bld) 28.7 % 19-41 [facility] MCV (mean corpuscular volume ) determinationOrdered By: Winifred Woodall on 04-07-2024 MCV (RBC) [Entitic vol] 96.6 fL 81-99 [facility] Magnesiumon 04-07-2024 Magnesium [Mass/Vol] 1.8 mg/dL Normal 1.6-2.6 [facility] Comment on above: Performed By: #### L 501.5200, L500.4050, L100.0100 ####[facility] [address] [place], [place], [id number] Magnesium measurementOrdered By: Winifred JonJose C on 04-07-2024 Magnesium [Mass/Vol] 1.8 mg/dL 1.6-2.6 [facility] Mean corpuscular hemoglobin (MCH) determinationOrdered By: Winifred Jose C on 04-07-2024 MCH (RBC) [Entitic mass] 30.8 pg 27.0-32.0 [facility] Mean corpuscular hemoglobin concentration (MCHC) determinationOrdered By: Winifred Jose C on 04-07-2024 MCHC (RBC) [Mass/Vol] 31.9 g/dL Low 32-36 [facility] Mean platelet volume determi nationOrdered By: Winifredcasandra JonJose C on 04-07-2024 Platelet mean volume (Bld) [Entitic vol] 9.7 fL 6.2-12.0 [facility] Monocyte percentageOrdered B y: Winifred JonJose C on 04-07-2024 Monocytes/100 WBC (Bld) 8.3 % 0-10 [facility] Neutrophil percentageOrdered By: Winifred Jose C on 04-07-2024 Neutrophils/100 WBC (Bld) 60.6 % 47-70 [facility] Nucleated red blood cell per centageOrdered By: Winifred Jose C on 04-07-2024 Nucleated RBC/100 WBC (Bld) [Ratio] 0 % 0-5 [facility] Partial Thromboplast Timeon 04-07-2024 aPTT Coag (Bld) [Time] 26.9 s Normal 24.1-36.2 [facility] Comment on above: Performed By: #### L 300.3900, L300.4310 ####[facility] [address] [place], [address] Platelet countOrdered By: Frank Woodall on 04-07-2024 Platelets (Bld) [#/Vol] 225 10*3/uL 150-450 [facility] Potassium measurementOrdered By: Winifred Woodall on 04-07-2024 Potassium [Moles/Vol] 3.6 mmol/L 3.5-5.1 [facility] Prothrombin Time w/INRon INR Coag (PPP) [Relative time] 1.0 {INR} Normal [facility] Comment on above: Performed By: #### L 300.3900, L300.4310 ####[facility] [address] [place], [address] PT Coag (PPP) [Time] 13.7 s Normal 11.7-14.9 [facility] Comment on above: Performed By: #### L 300.3900, L300.4310 ####[facility] [address] [place], [address] Prothrombin timeOrdered By: Hakan Goodman on 04-07-2024 PT Coag (PPP) [Time] 13.7 s 11.7-14.9 [facility] RBC Auto (Bld) [#/Vol]Ordere d By: Winifred Woodall on 04-07-2024 RBC (Bld) [#/Vol] 3.54 10*6/uL Low 4.2-5.4 [facility] Serum anion gap measurementO rdered By: Winifred Woodall on 04-07-2024 Anion gap [Moles/Vol] 5 mmol/L 5-15 [facility] Serum globulin measurementOr dered By: Winifred Woodall on 04-07-2024 Globulin (S) [Mass/Vol] 3.1 g/dL 2.2-4.2 [facility] Serum or plasma alanine hudson otransferase (ALT) measurementOrdered By: Winifred Woodall on 04-07-2024 ALT [Catalytic activity/Vol] 28 U/L 13-56 [facility] Serum or plasma albumin phil urement (mass/volume)Ordered By: Winifred Woodall on 04-07-2024 Albumin [Mass/Vol] 3.7 g/dL 3.2-5.0 [facility] Serum or plasma alkaline mayra sphatase measurementOrdered By: Winifred Woodall on 04-07-2024 ALP [Catalytic activity/Vol] 76 U/L 45-117 [facility] Serum or plasma calcium phil urement (mass/volume)Ordered By: Winifred Woodall on 04-07-2024 Calcium [Mass/Vol] 9.2 mg/dL 8.5-10.1 [facility] Serum or plasma creatinine m easurement (mass/volume)Ordered By: Winifred Woodall on 04-07-2024 Creatinine [Mass/Vol] 0.68 mg/dL 0.55-1.02 [facility] Comment on above: The validity of the calculated GFR & GFRAA in patients over 70 years has not been determined. Clinical correlation is essential. Serum or plasma urea nitroge n measurement (mass/volume)Ordered By: Winifred Woodall on 04-07-2024 Urea nitrogen [Mass/Vol] 13 mg/dL 7-18 [facility] Sodium levelOrdered By: Winifred Woodall on 04-07-2024 Sodium [Moles/Vol] 143 mmol/L 136-145 [facility] Total proteinOrdered By: Alex Woodall on 04-07-2024 Protein [Mass/Vol] 6.8 g/dL 6.4-8.2 [facility] White blood cell (WBC) count Ordered By: Winifred Woodall on 04-07-2024 WBC (Bld) [#/Vol] 4.9 10*3/uL 4.4-11.0 [facility] aPTT Coag (PPP) [Time]Ordere d By: Hakan Goodman on 04-07-2024 aPTT Coag (Bld) [Time] 26.9 s 24.1-36.2 [facility] Surgery Visit Reporton 04-01 Surgery Visit Report Normal [facility] Breast Bilateral W/O and Won 03-25-2024 Breast Bilateral W/O and W Normal [facility] Emergency Department Summary on 03-25-2024 Emergency Department Summary Normal [facility] Basic Metabolic Profile (BMP )on 03-11-2024 BUN/CRE 10.7 RATIO Normal 10-20 [facility] Comment on above: Performed By: #### L 100.0100, L501.5200, L500.2500 ####[facility] [address] [place], [address] CA,Total 8.8 mg/dL Normal 8.5-10.1 [facility] Comment on above: Performed By: #### L 100.0100, L501.5200, L500.2500 ####[facility] [address] [place], [address] Chloride [Moles/Vol] 110 mmol/L High 98-107 [facility] Comment on above: Performed By: #### L 100.0100, L501.5200, L500.2500 ####[facility] [address] [place], [address] CO2 [Moles/Vol] 27.0 mmol/L Normal 21.0-32.0 [facility] Comment on above: Performed By: #### L 100.0100, L501.5200, L500.2500 ####[facility] [address] [place], [address] Creatinine [Mass/Vol] 0.84 mg/dL Normal 0.55-1.02 [facility] Comment on above: Result Comment: The validity of the calculated GFR GFRAA in patients over70 years has not been determined. Clinical correlation isessential. Performed By: #### L 100.0100, L501.5200, L500.2500 ####[facility] [address] [place], [address] ECRCL 76.47 ml/min Normal [facility] Comment on above: Performed By: #### L 100.0100, L501.5200, L500.2500 ####[facility] [address] [place], [address] EST GFR - AA 91 mL/min Normal >60 [facility] Comment on above: Result Comment: Afri can [place] GFR Calc Performed By: #### L 100.0100, L501.5200, L500.2500 ####[facility] [address] [place], [address] GAP 5 Normal 5-15 [facility] Comment on above: Performed By: #### L 100.0100, L501.5200, L500.2500 ####[facility] [address] [place], [address] GFR/1.73 sq M.predicted among non-blacks MDRD (S/P/Bld) [Vol rate/Area] 75 mL/min/{1.73_m2} Normal >60 [facility] Comment on above: Result Comment: Non- GFR Calc Performed By: #### L 100.0100, L501.5200, L500.2500 ####[facility] [address] [place], [address] Glucose [Mass/Vol] 132 mg/dL High 74-106 [facility] Comment on above: Result Comment: Fast ing Glucose result greater than or equal to 126 mg/dLsuggests DIABETES MELLITUS per A.D.A. criteria. Performed By: #### L 100.0100, L501.5200, L500.2500 ####[facility] [address] [place], [address] Potassium [Moles/Vol] 3.3 mmol/L Low 3.5-5.1 [facility] Comment on above: Performed By: #### L 100.0100, L501.5200, L500.2500 ####[facility] [address] [place], [address] Sodium [Moles/Vol] 142 mmol/L Normal 136-145 [facility] Comment on above: Performed By: #### L 100.0100, L501.5200, L500.2500 ####[facility] [address] [place], [address] Urea nitrogen [Mass/Vol] 9 mg/dL Normal 7-18 [facility] Comment on above: Performed By: #### L 100.0100, L501.5200, L500.2500 ####[facility] [address] [place], [address] CBC W/Diff, Automatedon 01-0 7-2024 Absolute Lymph 1.80 X10 3/uL Normal 0.83-4.51 [facility] Comment on above: Performed By: #### L 100.0100, L501.5200, L500.2500 ####[facility] [address] [place], [address] Absolute Neut 5.4 X10 3/uL Normal 2.0-7.7 [facility] Comment on above: Performed By: #### L 100.0100, L501.5200, L500.2500 ####[facility] [address] [place], [address] Basophils/100 WBC (Bld) 0.4 % Normal 0-1 [facility] Comment on above: Performed By: #### L 100.0100, L501.5200, L500.2500 ####[facility] [address] [place], [address] Eosinophils/100 WBC (Bld) 0.1 % Normal 0-5 [facility] Comment on above: Performed By: #### L 100.0100, L501.5200, L500.2500 ####[facility] [address] [place], [address] Erythrocyte distribution width (RBC) [Ratio] 16.3 % High 11.6-14.6 [facility] Comment on above: Performed By: #### L 100.0100, L501.5200, L500.2500 ####[facility] [address] [place], [address] Hematocrit (Bld) [Volume fraction] 29.0 % Low 37-47 [facility] Comment on above: Performed By: #### L 100.0100, L501.5200, L500.2500 ####[facility] [address] [place], [address] Hemoglobin (Bld) [Mass/Vol] 9.4 g/dL Low 12.0-15.0 [facility] Comment on above: Performed By: #### L 100.0100, L501.5200, L500.2500 ####[facility] [address] [place], [address] IG% 3.300 High 0.0-0.9 [facility] Comment on above: Result Comment: IG% - Immature Granulocytes (promyelocytes, myelocytes andmetamyelocytes) > 1% indicates that a LEFT SHIFT is Present. Performed By: #### L 100.0100, L501.5200, L500.2500 ####[facility] [address] [place], [address] Lymphocytes/100 WBC (Bld) 22.5 % Normal 19-41 [facility] Comment on above: Performed By: #### L 100.0100, L501.5200, L500.2500 ####[facility] [address] [place], [address] MCH (RBC) [Entitic mass] 33.7 pg High 27.0-32.0 [facility] Comment on above: Performed By: #### L 100.0100, L501.5200, L500.2500 ####[facility] [address] [place], [address] MCHC (RBC) [Mass/Vol] 32.4 g/dL Normal 32-36 [facility] Comment on above: Performed By: #### L 100.0100, L501.5200, L500.2500 ####[facility] [address] [place], [address] MCV (RBC) [Entitic vol] 103.9 fL High 81-99 [facility] Comment on above: Performed By: #### L 100.0100, L501.5200, L500.2500 ####[facility] [address] [place], [address] Monocytes/100 WBC (Bld) 6.0 % Normal 0-10 [facility] Comment on above: Performed By: #### L 100.0100, L501.5200, L500.2500 ####[facility] [address] [place], [address] Neutrophils/100 WBC (Bld) 67.7 % Normal 47-70 [facility] Comment on above: Performed By: #### L 100.0100, L501.5200, L500.2500 ####[facility] [address] [place], [address] Nucleated RBC (Bld) [#/Vol] 0 10*3/uL Normal 0-5 [facility] Comment on above: Performed By: #### L 100.0100, L501.5200, L500.2500 ####[facility] [address] [place], [address] Platelet mean volume (Bld) [Entitic vol] 9.7 fL Normal 6.2-12.0 [facility] Comment on above: Performed By: #### L 100.0100, L501.5200, L500.2500 ####[facility] [address] [place], [address] Platelets (Bld) [#/Vol] 146 10*3/uL Low 150-450 [facility] Comment on above: Performed By: #### L 100.0100, L501.5200, L500.2500 ####[facility] [address] [place], [address] RBC (Bld) [#/Vol] 2.79 10*6/uL Low 4.2-5.4 [facility] Comment on above: Performed By: #### L 100.0100, L501.5200, L500.2500 ####[facility] [address] [place], [address] RDW SD 61.8 fl High 35.1-43.9 [facility] Comment on above: Performed By: #### L 100.0100, L501.5200, L500.2500 ####[facility] [address] [place], [address] WBC (Bld) [#/Vol] 8.0 10*3/uL Normal 4.4-11.0 [facility] Comment on above: Performed By: #### L 100.0100, L501.5200, L500.2500 ####[facility] [address] [place], [address] Estimated glomerular filtrat ion rate (GFR) AmericanOrdered By: Winifred Woodall on 03-11-2024 Estimated GFR (MDRD) Amer 91 mL/min >60 [facility] Comment on above: GFR Calc Magnesiumon 03-11-2024 Magnesium [Mass/Vol] 1.6 mg/dL Normal 1.6-2.6 [facility] Comment on above: Performed By: #### L 100.0100, L501.5200, L500.2500 ####[facility] [address] [place], [address] Oncology Visit Reporton 0 Oncology Visit Report Normal [facility] CBC W/Diff, Automatedon 12-2 Absolute Lymph 1.50 X10 3/uL Normal 0.83-4.51 [facility] Comment on above: Performed By: #### L 500.4050, L100.0100, L501.5200 ####[facility] [address] [place], [address] Absolute Neut 9.2 X10 3/uL High 2.0-7.7 [facility] Comment on above: Performed By: #### L 500.4050, L100.0100, L501.5200 ####[facility] [address] [place], [address] Basophils/100 WBC (Bld) 0.2 % Normal 0-1 [facility] Comment on above: Performed By: #### L 500.4050, L100.0100, L501.5200 ####[facility] [address] [place], [address] Eosinophils/100 WBC (Bld) 0.0 % Normal 0-5 [facility] Comment on above: Performed By: #### L 500.4050, L100.0100, L501.5200 ####[facility] [address] [place], [address] Erythrocyte distribution width (RBC) [Ratio] 17.7 % High 11.6-14.6 [facility] Comment on above: Performed By: #### L 500.4050, L100.0100, L501.5200 ####[facility] [address] [place], [address] Hematocrit (Bld) [Volume fraction] 28.0 % Low 37-47 [facility] Comment on above: Performed By: #### L 500.4050, L100.0100, L501.5200 ####[facility] [address] [place], [address] Hemoglobin (Bld) [Mass/Vol] 9.1 g/dL Low 12.0-15.0 [facility] Comment on above: Performed By: #### L 500.4050, L100.0100, L501.5200 ####[facility] [address] [place], [address] IG% 2.900 High 0.0-0.9 [facility] Comment on above: Result Comment: IG% - Immature Granulocytes (promyelocytes, myelocytes andmetamyelocytes) > 1% indicates that a LEFT SHIFT is Present. Performed By: #### L 500.4050, L100.0100, L501.5200 ####[facility] [address] [place], [address] Lymphocytes/100 WBC (Bld) 12.8 % Low 19-41 [facility] Comment on above: Performed By: #### L 500.4050, L100.0100, L501.5200 ####[facility] [address] [place], [address] MCH (RBC) [Entitic mass] 33.0 pg High 27.0-32.0 [facility] Comment on above: Performed By: #### L 500.4050, L100.0100, L501.5200 ####[facility] [address] [place], [address] MCHC (RBC) [Mass/Vol] 32.5 g/dL Normal 32-36 [facility] Comment on above: Performed By: #### L 500.4050, L100.0100, L501.5200 ####[facility] [address] [place], [address] MCV (RBC) [Entitic vol] 101.4 fL High 81-99 [facility] Comment on above: Performed By: #### L 500.4050, L100.0100, L501.5200 ####[facility] [address] [place], [address] Monocytes/100 WBC (Bld) 5.2 % Normal 0-10 [facility] Comment on above: Performed By: #### L 500.4050, L100.0100, L501.5200 ####[facility] [address] [place], [address] Neutrophils/100 WBC (Bld) 78.9 % High 47-70 [facility] Comment on above: Performed By: #### L 500.4050, L100.0100, L501.5200 ####[facility] [address] [place], [address] Nucleated RBC (Bld) [#/Vol] 0 10*3/uL Normal 0-5 [facility] Comment on above: Performed By: #### L 500.4050, L100.0100, L501.5200 ####[facility] [address] [place], [address] Platelet mean volume (Bld) [Entitic vol] 9.0 fL Normal 6.2-12.0 [facility] Comment on above: Performed By: #### L 500.4050, L100.0100, L501.5200 ####[facility] [address] [place], [address] Platelets (Bld) [#/Vol] 191 10*3/uL Normal 150-450 [facility] Comment on above: Performed By: #### L 500.4050, L100.0100, L501.5200 ####[facility] [address] [place], [address] RBC (Bld) [#/Vol] 2.76 10*6/uL Low 4.2-5.4 [facility] Comment on above: Performed By: #### L 500.4050, L100.0100, L501.5200 ####[facility] [address] [place], [address] RDW SD 63.9 fl High 35.1-43.9 [facility] Comment on above: Performed By: #### L 500.4050, L100.0100, L501.5200 ####[facility] [address] [place], [address] WBC (Bld) [#/Vol] 11.7 10*3/uL High 4.4-11.0 [facility] Comment on above: Performed By: #### L 500.4050, L100.0100, L501.5200 ####[facility] [address] [place], [address] Comprehensive Metabolic Prof ilon 02-25-2024 Albumin [Mass/Vol] 3.5 g/dL Normal 3.2-5.0 [facility] Comment on above: Performed By: #### L 500.4050, L100.0100, L501.5200 ####[facility] [address] [place], [address] Albumin/Globulin [Mass ratio] 1.2 {ratio} Normal 0.9-2.4 [facility] Comment on above: Performed By: #### L 500.4050, L100.0100, L501.5200 ####[facility] [address] [place], [address] ALK P 58 U/L Normal 45-117 [facility] Comment on above: Performed By: #### L 500.4050, L100.0100, L501.5200 ####[facility] [address] [place], [address] ALT [Catalytic activity/Vol] 27 U/L Normal 13-56 [facility] Comment on above: Performed By: #### L 500.4050, L100.0100, L501.5200 ####[facility] [address] [place], [address] AST [Catalytic activity/Vol] 16 U/L Normal 15-37 [facility] Comment on above: Performed By: #### L 500.4050, L100.0100, L501.5200 ####[facility] [address] [place], [address] Bilirubin [Mass/Vol] 0.40 mg/dL Normal 0.20-1.00 [facility] Comment on above: Result Comment: For patients on eltrombopag therapy, use of Dimension [place] TBIL is not recommended. Performed By: #### L 500.4050, L100.0100, L501.5200 ####[facility] [address] [place], [address] BUN/CRE 12.6 RATIO Normal 10-20 [facility] Comment on above: Performed By: #### L 500.4050, L100.0100, L501.5200 ####[facility] [address] [place], [address] CA,Total 9.0 mg/dL Normal 8.5-10.1 [facility] Comment on above: Performed By: #### L 500.4050, L100.0100, L501.5200 ####[facility] [address] [place], [address] Chloride [Moles/Vol] 108 mmol/L High 98-107 [facility] Comment on above: Performed By: #### L 500.4050, L100.0100, L501.5200 ####[facility] [address] [place], [address] CO2 [Moles/Vol] 22.0 mmol/L Normal 21.0-32.0 [facility] Comment on above: Performed By: #### L 500.4050, L100.0100, L501.5200 ####[facility] [address] [place], [address] Creatinine [Mass/Vol] 0.95 mg/dL Normal 0.55-1.02 [facility] Comment on above: Result Comment: The validity of the calculated GFR GFRAA in patients over70 years has not been determined. Clinical correlation isessential. Performed By: #### L 500.4050, L100.0100, L501.5200 ####[facility] [address] [place], [address] ECRCL 68.38 ml/min Normal [facility] Comment on above: Performed By: #### L 500.4050, L100.0100, L501.5200 ####[facility] [address] [place], [address] EST GFR - AA 79 mL/min Normal >60 [facility] Comment on above: Result Comment: Afri can [place] GFR Calc Performed By: #### L 500.4050, L100.0100, L501.5200 ####[facility] [address] [place], [address] GAP 10 Normal 5-15 [facility] Comment on above: Performed By: #### L 500.4050, L100.0100, L501.5200 ####[facility] [address] [place], [address] GFR/1.73 sq M.predicted among non-blacks MDRD (S/P/Bld) [Vol rate/Area] 66 mL/min/{1.73_m2} Normal >60 [facility] Comment on above: Result Comment: Non- GFR Calc Performed By: #### L 500.4050, L100.0100, L501.5200 ####[facility] [address] [place], [address] Globulin (S) [Mass/Vol] 2.9 g/dL Normal 2.2-4.2 [facility] Comment on above: Performed By: #### L 500.4050, L100.0100, L501.5200 ####[facility] [address] [place], [address] Glucose [Mass/Vol] 163 mg/dL High 74-106 [facility] Comment on above: Result Comment: Fast ing Glucose result greater than or equal to 126 mg/dLsuggests DIABETES MELLITUS per A.D.A. criteria. Performed By: #### L 500.4050, L100.0100, L501.5200 ####[facility] [address] [place], [address] Potassium [Moles/Vol] 3.6 mmol/L Normal 3.5-5.1 [facility] Comment on above: Performed By: #### L 500.4050, L100.0100, L501.5200 ####[facility] [address] [place], [address] Sodium [Moles/Vol] 140 mmol/L Normal 136-145 [facility] Comment on above: Performed By: #### L 500.4050, L100.0100, L501.5200 ####[facility] [address] [place], [address] T PROT 6.4 g/dL Normal 6.4-8.2 [facility] Comment on above: Performed By: #### L 500.4050, L100.0100, L501.5200 ####[facility] [address] [place], [address] Urea nitrogen [Mass/Vol] 12 mg/dL Normal 7-18 [facility] Comment on above: Performed By: #### L 500.4050, L100.0100, L501.5200 ####[facility] [address] [place], [address] Ferritinon 02-25-2024 Ferritin [Mass/Vol] 91 ng/mL Normal 8-252 [facility] Comment on above: Order Comment: ADD T O BLOOD IN LAB. THANK YOU!!UNKNOWNN Performed By: #### L 503.0105, L503.6550, L506.0250, L503.6030 ####[facility] [address] [place], [place], [id number] Ferritin measurementOrdered By: Winifred JonJose C on 02-25-2024 Ferritin [Mass/Vol] 91 ng/mL 8-252 [facility] Folates, (Folic Acid)on 02-03 FOLATES 18.90 ng/mL Normal 3.1-55.4 [facility] Comment on above: Order Comment: ADD T O BLOOD IN LAB. THANK YOU!!UNKNOWNN Performed By: #### L 503.0105, L503.6550, L506.0250, L503.6030 ####[facility] [address] [place], [place], [id number] Folic acid measurementOrdere d By: Winifred JonJose C on 02-25-2024 Folate 18.90 ng/mL 3.1-55.4 [facility] Iron (Unsp spec) [Mass/Mass] Ordered By: Winifred JonJose C on 02-25-2024 Iron [Mass/Vol] 69 ug/dL 50-170 [facility] Iron measurement (mass/mass) Ordered By: Winifred JonJose C on 02-25-2024 Iron (Unsp spec) [Mass/Mass] 69 ug/dL 50-170 [facility] Iron saturation [Mass fracti on]Ordered By: Winifred JonJose C on 02-25-2024 Iron Saturation 22.1 % 15.0-55.0 [facility] Iron+Iron Binding Capacityon 02-25-2024 Iron [Mass/Vol] 69 ug/dL Normal 50-170 [facility] Comment on above: Order Comment: ADD T O BLOOD IN LAB. THANK YOU!!UNKNOWNN Performed By: #### L 503.0105, L503.6550, L506.0250, L503.6030 ####[facility] [address] [place], [place], [id number] IRON SATURATION 22.1 Normal 15.0-55.0 [facility] Comment on above: Order Comment: ADD T O BLOOD IN LAB. THANK YOU!!UNKNOWNN Performed By: #### L 503.0105, L503.6550, L506.0250, L503.6030 ####[facility] [address] [place], [address] TIBC 312 ug/dL Normal 250-450 [facility] Comment on above: Order Comment: ADD T O BLOOD IN LAB. THANK YOU!!UNKNOWNN Performed By: #### L 503.0105, L503.6550, L506.0250, L503.6030 ####[facility] [address] [place], [address] Magnesiumon 02-25-2024 Magnesium [Mass/Vol] 1.6 mg/dL Normal 1.6-2.6 [facility] Comment on above: Performed By: #### L 500.4050, L100.0100, L501.5200 ####[facility] [address] [place], [address] Oncology Visit Reporton 02-03 Oncology Visit Report Normal [facility] Serum or plasma iron saturat ion measurement (mass fraction)Ordered By: Winifred Woodall on 02-25-2024 Iron saturation [Mass fraction] 22.1 % 15.0-55.0 [facility] TIBCOrdered By: Winifred Dudley on 02-25-2024 Total Iron Binding Capacity 312 ug/dL 250-450 [facility] Vitamin B12on 02-25-2024 Cobalamin (Vitamin B12) [Mass/Vol] pg/mL High 211-911 [facility] Comment on above: Order Comment: ADD T O BLOOD IN LAB. THANK YOU!! Performed By: #### L 503.0105, L503.6550, L506.0250, L503.6030 ####[facility] [address] [place], [address] Vitamin B12 measurementOrder ed By: Winifred Woodall on 02-25-2024 Vitamin B12 Level > 2000 pg/mL High 211-911 [facility] Plastic Surgery Visit Report on 02-21-2024 Plastic Surgery Visit Report Normal [facility] Blood manual differential co mment interpretation (narrative result)Ordered By: Jairon Rothman on 02-19-2024 Manual differential comment Sammy (Bld) [Interp] SCANNED [facility] Blood polychromasia detectio n by light microscopyOrdered By: Jairon Rothman on 02-19-2024 Polychromasia LM Ql (Bld) RARE [facility] CBC W/Diff, Automatedon 02-02 Anisocytosis Ql (Bld) 2+ Normal [facility] Comment on above: Performed By: #### L 100.0100, L504.2610, L500.4050 ####[facility] [address] [place], [address] POLYCHROMASIA RARE Normal [facility] Comment on above: Performed By: #### L 100.0100, L504.2610, L500.4050 ####[facility] [address] [place], [address] SMEAR COMMENT SCANNED Normal [facility] Comment on above: Performed By: #### L 100.0100, L504.2610, L500.4050 ####[facility] [address] [place], [address] Comprehensive Metabolic Prof ilon 02-19-2024 Albumin [Mass/Vol] 3.3 g/dL Normal 3.2-5.0 [facility] Comment on above: Order Comment: 1 Performed By: #### L 100.0100, L504.2610, L500.4050 ####[facility] [address] [place], [address] Albumin/Globulin [Mass ratio] 1.2 {ratio} Normal 0.9-2.4 [facility] Comment on above: Order Comment: 1 Performed By: #### L 100.0100, L504.2610, L500.4050 ####[facility] [address] [place], [address] ALK P 72 U/L Normal 45-117 [facility] Comment on above: Order Comment: 1 Performed By: #### L 100.0100, L504.2610, L500.4050 ####[facility] [address] [place], [address] ALT [Catalytic activity/Vol] 24 U/L Normal 13-56 [facility] Comment on above: Order Comment: 1 Performed By: #### L 100.0100, L504.2610, L500.4050 ####[facility] [address] [place], [address] AST [Catalytic activity/Vol] 13 U/L Low 15-37 [facility] Comment on above: Order Comment: 1 Performed By: #### L 100.0100, L504.2610, L500.4050 ####[facility] [address] [place], [address] Bilirubin [Mass/Vol] 0.30 mg/dL Normal 0.20-1.00 [facility] Comment on above: Order Comment: 1 Result Comment: For patients on eltrombopag therapy, use of Dimension [place] TBIL is not recommended. Performed By: #### L 100.0100, L504.2610, L500.4050 ####[facility] [address] [place], [address] BUN/CRE 16.6 RATIO Normal 10-20 [facility] Comment on above: Order Comment: 1 Performed By: #### L 100.0100, L504.2610, L500.4050 ####[facility] [address] [place], [address] CA,Total 9.0 mg/dL Normal 8.5-10.1 [facility] Comment on above: Order Comment: 1 Performed By: #### L 100.0100, L504.2610, L500.4050 ####[facility] [address] [place], [address] Chloride [Moles/Vol] 108 mmol/L High 98-107 [facility] Comment on above: Order Comment: 1 Performed By: #### L 100.0100, L504.2610, L500.4050 ####[facility] [address] [place], [address] CO2 [Moles/Vol] 28.0 mmol/L Normal 21.0-32.0 [facility] Comment on above: Order Comment: 1 Performed By: #### L 100.0100, L504.2610, L500.4050 ####[facility] [address] [place], [address] Creatinine [Mass/Vol] 0.84 mg/dL Normal 0.55-1.02 [facility] Comment on above: Order Comment: 1 Result Comment: The validity of the calculated GFR GFRAA in patients over70 years has not been determined. Clinical correlation isessential. Performed By: #### L 100.0100, L504.2610, L500.4050 ####[facility] [address] [place], [address] ECRCL 76.64 ml/min Normal [facility] Comment on above: Order Comment: 1 Performed By: #### L 100.0100, L504.2610, L500.4050 ####[facility] [address] [place], [address] EST GFR - AA 91 mL/min Normal >60 [facility] Comment on above: Order Comment: 1 Result Comment: Afri can Palauan GFR Calc Performed By: #### L 100.0100, L504.2610, L500.4050 ####[facility] [address] [place], [address] GAP 6 Normal 5-15 [facility] Comment on above: Order Comment: 1 Performed By: #### L 100.0100, L504.2610, L500.4050 ####[facility] [address] [place], [address] GFR/1.73 sq M.predicted among non-blacks MDRD (S/P/Bld) [Vol rate/Area] 75 mL/min/{1.73_m2} Normal >60 [facility] Comment on above: Order Comment: 1 Result Comment: Non- GFR Calc Performed By: #### L 100.0100, L504.2610, L500.4050 ####[facility] [address] [place], [address] Globulin (S) [Mass/Vol] 2.8 g/dL Normal 2.2-4.2 [facility] Comment on above: Order Comment: 1 Performed By: #### L 100.0100, L504.2610, L500.4050 ####[facility] [address] [place], [address] Glucose [Mass/Vol] 115 mg/dL High 74-106 [facility] Comment on above: Order Comment: 1 Result Comment: Fast ing Glucose result from 100 to 125 mg/dLsuggests IMPAIRED HOMEOSTASIS per A.D.A. criteria. Performed By: #### L 100.0100, L504.2610, L500.4050 ####[facility] [address] [place], [address] Potassium [Moles/Vol] 2.8 mmol/L Low 3.5-5.1 [facility] Comment on above: Order Comment: 1 Performed By: #### L 100.0100, L504.2610, L500.4050 ####[facility] [address] [place], [address] Sodium [Moles/Vol] 142 mmol/L Normal 136-145 [facility] Comment on above: Order Comment: 1 Performed By: #### L 100.0100, L504.2610, L500.4050 ####[facility] [address] [place], [address] T PROT 6.1 g/dL Low 6.4-8.2 [facility] Comment on above: Order Comment: 1 Performed By: #### L 100.0100, L504.2610, L500.4050 ####[facility] [address] [place], [address] Urea nitrogen [Mass/Vol] 14 mg/dL Normal 7-18 [facility] Comment on above: Order Comment: 1 Performed By: #### L 100.0100, L504.2610, L500.4050 ####[facility] [address] [place], [address] LDHon 02-19-2024 LDH 240 U/L Normal 84-246 [facility] Comment on above: Order Comment: 1 Performed By: #### L 100.0100, L504.2610, L500.4050 ####[facility] [address] [place], [address] Laboratory - Hematology and Cell countsOrdered By: Jairon Rothman on 02-19-2024 Anisocytosis Ql (Bld) 2+ [facility] Lactate dehydrogenase (LDH) measurementOrdered By: Jairon Rothman on 02-19-2024 LDH [Catalytic activity/Vol] 240 U/L 84-246 [facility] Magnesiumon 02-19-2024 Magnesium [Mass/Vol] 1.5 mg/dL Low 1.6-2.6 [facility] Comment on above: Order Comment: PLEAS E ADD TO BLOOD IN LAB. THANK YOU!! Performed By: #### L 501.5200 ####[facility] [address] [place], [address] Manual differential comment Sammy (Bld) [Interp]Ordered By: Jairon Rothman on 02-19-2024 Differential Comment SCANNED [facility] Oncology Visit Reporton 02-02 Oncology Visit Report Normal [facility] Polychromasia LM Ql (Bld)Ord ered By: Jairon Rothman on 02-19-2024 Polychromasia RARE [facility] CBC W/Diff, Automatedon Anisocytosis Ql (Bld) 1+ Normal [facility] Comment on above: Performed By: #### L 500.4050, L100.0100, L501.5200 ####[facility] [address] [place], [address] Comprehensive Metabolic Prof ilon 02-05-2024 Albumin [Mass/Vol] 3.6 g/dL Normal 3.2-5.0 [facility] Comment on above: Performed By: #### L 500.4050, L100.0100, L501.5200 ####[facility] [address] [place], [address] Albumin/Globulin [Mass ratio] 1.4 {ratio} Normal 0.9-2.4 [facility] Comment on above: Performed By: #### L 500.4050, L100.0100, L501.5200 ####[facility] [address] [place], [address] ALK P 56 U/L Normal 45-117 [facility] Comment on above: Performed By: #### L 500.4050, L100.0100, L501.5200 ####[facility] [address] [place], [address] ALT [Catalytic activity/Vol] 33 U/L Normal 13-56 [facility] Comment on above: Performed By: #### L 500.4050, L100.0100, L501.5200 ####[facility] [address] [place], [address] AST [Catalytic activity/Vol] 16 U/L Normal 15-37 [facility] Comment on above: Performed By: #### L 500.4050, L100.0100, L501.5200 ####[facility] [address] [place], [address] Bilirubin [Mass/Vol] 0.40 mg/dL Normal 0.20-1.00 [facility] Comment on above: Result Comment: For patients on eltrombopag therapy, use of Dimension [place] TBIL is not recommended. Performed By: #### L 500.4050, L100.0100, L501.5200 ####[facility] [address] [place], [address] BUN/CRE 17.3 RATIO Normal 10-20 [facility] Comment on above: Performed By: #### L 500.4050, L100.0100, L501.5200 ####[facility] [address] [place], [address] CA,Total 9.2 mg/dL Normal 8.5-10.1 [facility] Comment on above: Performed By: #### L 500.4050, L100.0100, L501.5200 ####[facility] [address] [place], [address] Chloride [Moles/Vol] 110 mmol/L High 98-107 [facility] Comment on above: Performed By: #### L 500.4050, L100.0100, L501.5200 ####[facility] [address] [place], [address] CO2 [Moles/Vol] 24.0 mmol/L Normal 21.0-32.0 [facility] Comment on above: Performed By: #### L 500.4050, L100.0100, L501.5200 ####[facility] [address] [place], [address] Creatinine [Mass/Vol] 0.87 mg/dL Normal 0.55-1.02 [facility] Comment on above: Result Comment: The validity of the calculated GFR GFRAA in patients over70 years has not been determined. Clinical correlation isessential. Performed By: #### L 500.4050, L100.0100, L501.5200 ####[facility] [address] [place], [address] ECRCL 74.25 ml/min Normal [facility] Comment on above: Performed By: #### L 500.4050, L100.0100, L501.5200 ####[facility] [address] [place], [address] EST GFR - AA 88 mL/min Normal >60 [facility] Comment on above: Result Comment: Afri can [place] GFR Calc Performed By: #### L 500.4050, L100.0100, L501.5200 ####[facility] [address] [place], [address] GAP 7 Normal 5-15 [facility] Comment on above: Performed By: #### L 500.4050, L100.0100, L501.5200 ####[facility] [address] [place], [address] GFR/1.73 sq M.predicted among non-blacks MDRD (S/P/Bld) [Vol rate/Area] 73 mL/min/{1.73_m2} Normal >60 [facility] Comment on above: Result Comment: Non- GFR Calc Performed By: #### L 500.4050, L100.0100, L501.5200 ####[facility] [address] [place], [address] Globulin (S) [Mass/Vol] 2.5 g/dL Normal 2.2-4.2 [facility] Comment on above: Performed By: #### L 500.4050, L100.0100, L501.5200 ####[facility] [address] [place], [address] Glucose [Mass/Vol] 186 mg/dL High 74-106 [facility] Comment on above: Result Comment: Fast ing Glucose result greater than or equal to 126 mg/dLsuggests DIABETES MELLITUS per A.D.A. criteria. Performed By: #### L 500.4050, L100.0100, L501.5200 ####[facility] [address] [place], [address] Potassium [Moles/Vol] 3.7 mmol/L Normal 3.5-5.1 [facility] Comment on above: Performed By: #### L 500.4050, L100.0100, L501.5200 ####[facility] [address] [place], [address] Sodium [Moles/Vol] 141 mmol/L Normal 136-145 [facility] Comment on above: Performed By: #### L 500.4050, L100.0100, L501.5200 ####[facility] [address] [place], [address] T PROT 6.1 g/dL Low 6.4-8.2 [facility] Comment on above: Performed By: #### L 500.4050, L100.0100, L501.5200 ####[facility] [address] [place], [address] Urea nitrogen [Mass/Vol] 15 mg/dL Normal 7-18 [facility] Comment on above: Performed By: #### L 500.4050, L100.0100, L501.5200 ####[facility] [address] [place], [address] Magnesiumon 02-05-2024 Magnesium [Mass/Vol] 1.6 mg/dL Normal 1.6-2.6 [facility] Comment on above: Performed By: #### L 500.4050, L100.0100, L501.5200 ####[facility] [address] [place], [address] Oncology Visit Reporton 12-0 Oncology Visit Report Normal [facility] CBC W/Diff, Automatedon 11-2 Absolute Lymph 1.84 X10 3/uL Normal 0.83-4.51 [facility] Comment on above: Performed By: #### L 500.4050, L501.5200, L100.0100, L501.2300, L504.2610 ####[facility] [address] [place], [address] Absolute Neut 3.9 X10 3/uL Normal 2.0-7.7 [facility] Comment on above: Performed By: #### L 500.4050, L501.5200, L100.0100, L501.2300, L504.2610 ####[facility] [address] [place], [address] Basophils/100 WBC (Bld) 0.6 % Normal 0-1 [facility] Comment on above: Performed By: #### L 500.4050, L501.5200, L100.0100, L501.2300, L504.2610 ####[facility] [address] [place], [address] Eosinophils/100 WBC (Bld) 0.2 % Normal 0-5 [facility] Comment on above: Performed By: #### L 500.4050, L501.5200, L100.0100, L501.2300, L504.2610 ####[facility] [address] [place], [address] Erythrocyte distribution width (RBC) [Ratio] 19.0 % High 11.6-14.6 [facility] Comment on above: Performed By: #### L 500.4050, L501.5200, L100.0100, L501.2300, L504.2610 ####[facility] [address] [place], [address] Hematocrit (Bld) [Volume fraction] 29.3 % Low 37-47 [facility] Comment on above: Performed By: #### L 500.4050, L501.5200, L100.0100, L501.2300, L504.2610 ####[facility] [address] [place], [address] Hemoglobin (Bld) [Mass/Vol] 9.9 g/dL Low 12.0-15.0 [facility] Comment on above: Performed By: #### L 500.4050, L501.5200, L100.0100, L501.2300, L504.2610 ####[facility] [address] [place], [address] IG% 1.400 High 0.0-0.9 [facility] Comment on above: Result Comment: IG% - Immature Granulocytes (promyelocytes, myelocytes andmetamyelocytes) > 1% indicates that a LEFT SHIFT is Present. Performed By: #### L 500.4050, L501.5200, L100.0100, L501.2300, L504.2610 ####[facility] [address] [place], [address] Lymphocytes/100 WBC (Bld) 28.9 % Normal 19-41 [facility] Comment on above: Performed By: #### L 500.4050, L501.5200, L100.0100, L501.2300, L504.2610 ####[facility] [address] [place], [address] MCH (RBC) [Entitic mass] 31.7 pg Normal 27.0-32.0 [facility] Comment on above: Performed By: #### L 500.4050, L501.5200, L100.0100, L501.2300, L504.2610 ####[facility] [address] [place], [address] MCHC (RBC) [Mass/Vol] 33.8 g/dL Normal 32-36 [facility] Comment on above: Performed By: #### L 500.4050, L501.5200, L100.0100, L501.2300, L504.2610 ####[facility] [address] [place], [address] MCV (RBC) [Entitic vol] 93.9 fL Normal 81-99 [facility] Comment on above: Performed By: #### L 500.4050, L501.5200, L100.0100, L501.2300, L504.2610 ####[facility] [address] [place], [address] Monocytes/100 WBC (Bld) 7.2 % Normal 0-10 [facility] Comment on above: Performed By: #### L 500.4050, L501.5200, L100.0100, L501.2300, L504.2610 ####[facility] [address] [place], [address] Neutrophils/100 WBC (Bld) 61.7 % Normal 47-70 [facility] [facility] Comment on above: Performed By: #### L 500.4050, L501.5200, L100.0100, L501.2300, L504.2610 ####[facility] [address] [place], [address] Nucleated RBC (Bld) [#/Vol] 0 10*3/uL Normal 0-5 [facility] Comment on above: Performed By: #### L 500.4050, L501.5200, L100.0100, L501.2300, L504.2610 ####[facility] [address] [place], [address] Platelet mean volume (Bld) [Entitic vol] 9.6 fL Normal 6.2-12.0 [facility] Comment on above: Performed By: #### L 500.4050, L501.5200, L100.0100, L501.2300, L504.2610 ####[facility] [address] [place], [address] Platelets (Bld) [#/Vol] 127 10*3/uL Low 150-450 [facility] Comment on above: Performed By: #### L 500.4050, L501.5200, L100.0100, L501.2300, L504.2610 ####[facility] [address] [place], [address] RBC (Bld) [#/Vol] 3.12 10*6/uL Low 4.2-5.4 [facility] Comment on above: Performed By: #### L 500.4050, L501.5200, L100.0100, L501.2300, L504.2610 ####[facility] [address] [place], [address] RDW SD 63.9 fl High 35.1-43.9 [facility] Comment on above: Performed By: #### L 500.4050, L501.5200, L100.0100, L501.2300, L504.2610 ####[facility] [address] [place], [address] WBC (Bld) [#/Vol] 6.4 10*3/uL Normal 4.4-11.0 [facility] Comment on above: Performed By: #### L 500.4050, L501.5200, L100.0100, L501.2300, L504.2610 ####[facility] [address] [place], [address] Comprehensive Metabolic Prof ilon 01-29-2024 Albumin [Mass/Vol] 3.5 g/dL Normal 3.2-5.0 [facility] Comment on above: Order Comment: 1 Performed By: #### L 500.4050, L501.5200, L100.0100, L501.2300, L504.2610 ####[facility] [address] [place], [address] Albumin/Globulin [Mass ratio] 1.3 {ratio} Normal 0.9-2.4 [facility] Comment on above: Order Comment: 1 Performed By: #### L 500.4050, L501.5200, L100.0100, L501.2300, L504.2610 ####[facility] [address] [place], [address] ALK P 75 U/L Normal 45-117 [facility] Comment on above: Order Comment: 1 Performed By: #### L 500.4050, L501.5200, L100.0100, L501.2300, L504.2610 ####[facility] [address] [place], [address] ALT [Catalytic activity/Vol] 31 U/L Normal 13-56 [facility] Comment on above: Order Comment: 1 Performed By: #### L 500.4050, L501.5200, L100.0100, L501.2300, L504.2610 ####[facility] [address] [place], [address] AST [Catalytic activity/Vol] 25 U/L Normal 15-37 [facility] Comment on above: Order Comment: 1 Performed By: #### L 500.4050, L501.5200, L100.0100, L501.2300, L504.2610 ####[facility] [address] [place], [address] Bilirubin [Mass/Vol] 0.50 mg/dL Normal 0.20-1.00 [facility] Comment on above: Order Comment: 1 Result Comment: For patients on eltrombopag therapy, use of Dimension [place] TBIL is not recommended. Performed By: #### L 500.4050, L501.5200, L100.0100, L501.2300, L504.2610 ####[facility] [address] [place], [address] BUN/CRE 10.0 RATIO Normal 10-20 [facility] Comment on above: Order Comment: 1 Performed By: #### L 500.4050, L501.5200, L100.0100, L501.2300, L504.2610 ####[facility] [address] [place], [address] CA,Total 8.9 mg/dL Normal 8.5-10.1 [facility] Comment on above: Order Comment: 1 Performed By: #### L 500.4050, L501.5200, L100.0100, L501.2300, L504.2610 ####[facility] [address] [place], [address] Chloride [Moles/Vol] 107 mmol/L Normal 98-107 [facility] Comment on above: Order Comment: 1 Performed By: #### L 500.4050, L501.5200, L100.0100, L501.2300, L504.2610 ####[facility] [address] [place], [address] CO2 [Moles/Vol] 26.0 mmol/L Normal 21.0-32.0 [facility] Comment on above: Order Comment: 1 Performed By: #### L 500.4050, L501.5200, L100.0100, L501.2300, L504.2610 ####[facility] [address] [place], [address] Creatinine [Mass/Vol] 0.90 mg/dL Normal 0.55-1.02 [facility] Comment on above: Order Comment: 1 Result Comment: The validity of the calculated GFR GFRAA in patients over70 years has not been determined. Clinical correlation isessential. Performed By: #### L 500.4050, L501.5200, L100.0100, L501.2300, L504.2610 ####[facility] [address] [place], [address] ECRCL 72.39 ml/min Normal [facility] Comment on above: Order Comment: 1 Performed By: #### L 500.4050, L501.5200, L100.0100, L501.2300, L504.2610 ####[facility] [address] [place], [address] EST GFR - AA 84 mL/min Normal >60 [facility] Comment on above: Order Comment: 1 Result Comment: Afri can Palauan GFR Calc Performed By: #### L 500.4050, L501.5200, L100.0100, L501.2300, L504.2610 ####[facility] [address] [place], [address] GAP 7 Normal 5-15 [facility] Comment on above: Order Comment: 1 Performed By: #### L 500.4050, L501.5200, L100.0100, L501.2300, L504.2610 ####[facility] [address] [place], [address] GFR/1.73 sq M.predicted among non-blacks MDRD (S/P/Bld) [Vol rate/Area] 70 mL/min/{1.73_m2} Normal >60 [facility] Comment on above: Order Comment: 1 Result Comment: Non- GFR Calc Performed By: #### L 500.4050, L501.5200, L100.0100, L501.2300, L504.2610 ####[facility] [address] [place], [address] Globulin (S) [Mass/Vol] 2.7 g/dL Normal 2.2-4.2 [facility] Comment on above: Order Comment: 1 Performed By: #### L 500.4050, L501.5200, L100.0100, L501.2300, L504.2610 ####[facility] [address] [place], [address] Glucose [Mass/Vol] 106 mg/dL Normal 74-106 [facility] Comment on above: Order Comment: 1 Result Comment: Fast ing Glucose result from 100 to 125 mg/dLsuggests IMPAIRED HOMEOSTASIS per A.D.A. criteria. Performed By: #### L 500.4050, L501.5200, L100.0100, L501.2300, L504.2610 ####[facility] [address] [place], [address] Potassium [Moles/Vol] 3.3 mmol/L Low 3.5-5.1 [facility] Comment on above: Order Comment: 1 Performed By: #### L 500.4050, L501.5200, L100.0100, L501.2300, L504.2610 ####[facility] [address] [place], [address] Sodium [Moles/Vol] 140 mmol/L Normal 136-145 [facility] Comment on above: Order Comment: 1 Performed By: #### L 500.4050, L501.5200, L100.0100, L501.2300, L504.2610 ####[facility] [address] [place], [address] T PROT 6.2 g/dL Low 6.4-8.2 [facility] Comment on above: Order Comment: 1 Performed By: #### L 500.4050, L501.5200, L100.0100, L501.2300, L504.2610 ####[facility] [address] [place], [address] Urea nitrogen [Mass/Vol] 9 mg/dL Normal 7-18 [facility] Comment on above: Order Comment: 1 Performed By: #### L 500.4050, L501.5200, L100.0100, L501.2300, L504.2610 ####[facility] [address] [place], [address] LDHon 01-29-2024 LDH 270 U/L High 84-246 [facility] Comment on above: Order Comment: 1 Performed By: #### L 500.4050, L501.5200, L100.0100, L501.2300, L504.2610 ####[facility] [address] [place], [address] Magnesiumon 01-29-2024 Magnesium [Mass/Vol] 1.7 mg/dL Normal 1.6-2.6 [facility] Comment on above: Order Comment: 1 Performed By: #### L 500.4050, L501.5200, L100.0100, L501.2300, L504.2610 ####[facility] [address] [place], [address] ONC Echo, Limited Studyon ONC Echo, Limited Study Normal [facility] Oncology Visit Reporton 01-04 Oncology Visit Report Normal [facility] Phosphoruson 01-29-2024 Phosphate [Mass/Vol] 2.6 mg/dL Normal 2.5-4.9 [facility] Comment on above: Order Comment: 1 Performed By: #### L 500.4050, L501.5200, L100.0100, L501.2300, L504.2610 ####[facility] [address] [place], [address] Phosphorus measurementOrdere d By: Jairon Rothman on 01-29-2024 Phosphorus Level 2.6 mg/dL 2.5-4.9 [facility] CBC W/Diff, Automatedon 01-03 Absolute Lymph 1.86 X10 3/uL Normal 0.83-4.51 [facility] Comment on above: Performed By: #### L 100.0100, L501.5200, L500.4050 ####[facility] [address] [place], [address] Absolute Neut 11.9 X10 3/uL High 2.0-7.7 [facility] Comment on above: Performed By: #### L 100.0100, L501.5200, L500.4050 ####[facility] [address] [place], [address] Basophils/100 WBC (Bld) 0.1 % Normal 0-1 [facility] Comment on above: Performed By: #### L 100.0100, L501.5200, L500.4050 ####[facility] [address] [place], [address] Eosinophils/100 WBC (Bld) 0.0 % Normal 0-5 [facility] Comment on above: Performed By: #### L 100.0100, L501.5200, L500.4050 ####[facility] [address] [place], [address] Erythrocyte distribution width (RBC) [Ratio] 19.8 % High 11.6-14.6 [facility] Comment on above: Performed By: #### L 100.0100, L501.5200, L500.4050 ####[facility] [address] [place], [address] Hematocrit (Bld) [Volume fraction] 27.8 % Low 37-47 [facility] Comment on above: Performed By: #### L 100.0100, L501.5200, L500.4050 ####[facility] [address] [place], [address] Hemoglobin (Bld) [Mass/Vol] 9.3 g/dL Low 12.0-15.0 [facility] Comment on above: Performed By: #### L 100.0100, L501.5200, L500.4050 ####[facility] [address] [place], [address] IG% 4.300 High 0.0-0.9 [facility] Comment on above: Result Comment: IG% - Immature Granulocytes (promyelocytes, myelocytes andmetamyelocytes) > 1% indicates that a LEFT SHIFT is Present. Performed By: #### L 100.0100, L501.5200, L500.4050 ####[facility] [address] [place], [address] Lymphocytes/100 WBC (Bld) 12.5 % Low 19-41 [facility] Comment on above: Performed By: #### L 100.0100, L501.5200, L500.4050 ####[facility] [address] [place], [address] MCH (RBC) [Entitic mass] 31.1 pg Normal 27.0-32.0 [facility] Comment on above: Performed By: #### L 100.0100, L501.5200, L500.4050 ####[facility] [address] [place], [address] MCHC (RBC) [Mass/Vol] 33.5 g/dL Normal 32-36 [facility] Comment on above: Performed By: #### L 100.0100, L501.5200, L500.4050 ####[facility] [address] [place], [address] MCV (RBC) [Entitic vol] 93.0 fL Normal 81-99 [facility] Comment on above: Performed By: #### L 100.0100, L501.5200, L500.4050 ####[facility] [address] [place], [address] Monocytes/100 WBC (Bld) 2.7 % Normal 0-10 [facility] Comment on above: Performed By: #### L 100.0100, L501.5200, L500.4050 ####[facility] [address] [place], [address] Neutrophils/100 WBC (Bld) 80.4 % High 47-70 [facility] Comment on above: Performed By: #### L 100.0100, L501.5200, L500.4050 ####[facility] [address] [place], [address] Nucleated RBC (Bld) [#/Vol] 0 10*3/uL Normal 0-5 [facility] Comment on above: Performed By: #### L 100.0100, L501.5200, L500.4050 ####[facility] [address] [place], [address] Platelet mean volume (Bld) [Entitic vol] 8.8 fL Normal 6.2-12.0 [facility] Comment on above: Performed By: #### L 100.0100, L501.5200, L500.4050 ####[facility] [address] [place], [address] Platelets (Bld) [#/Vol] 264 10*3/uL Normal 150-450 [facility] Comment on above: Performed By: #### L 100.0100, L501.5200, L500.4050 ####[facility] [address] [place], [address] RBC (Bld) [#/Vol] 2.99 10*6/uL Low 4.2-5.4 [facility] Comment on above: Performed By: #### L 100.0100, L501.5200, L500.4050 ####[facility] [address] [place], [address] RDW SD 64.5 fl High 35.1-43.9 [facility] Comment on above: Performed By: #### L 100.0100, L501.5200, L500.4050 ####[facility] [address] [place], [address] WBC (Bld) [#/Vol] 14.9 10*3/uL High 4.4-11.0 [facility] Comment on above: Performed By: #### L 100.0100, L501.5200, L500.4050 ####[facility] [address] [place], [address] Comprehensive Metabolic Prof ilon 01-15-2024 Albumin [Mass/Vol] 3.8 g/dL Normal 3.2-5.0 [facility] Comment on above: Performed By: #### L 100.0100, L501.5200, L500.4050 ####[facility] [address] [place], [address] Albumin/Globulin [Mass ratio] 1.4 {ratio} Normal 0.9-2.4 [facility] Comment on above: Performed By: #### L 100.0100, L501.5200, L500.4050 ####[facility] [address] [place], [address] ALK P 74 U/L Normal 45-117 [facility] Comment on above: Performed By: #### L 100.0100, L501.5200, L500.4050 ####[facility] [address] [place], [address] ALT [Catalytic activity/Vol] 33 U/L Normal 13-56 [facility] Comment on above: Performed By: #### L 100.0100, L501.5200, L500.4050 ####[facility] [address] [place], [address] AST [Catalytic activity/Vol] 16 U/L Normal 15-37 [facility] Comment on above: Performed By: #### L 100.0100, L501.5200, L500.4050 ####[facility] [address] [place], [address] Bilirubin [Mass/Vol] 0.20 mg/dL Normal 0.20-1.00 [facility] Comment on above: Result Comment: For patients on eltrombopag therapy, use of Dimension [place] TBIL is not recommended. Performed By: #### L 100.0100, L501.5200, L500.4050 ####[facility] [address] [place], [address] BUN/CRE 9.7 RATIO Low 10-20 [facility] Comment on above: Performed By: #### L 100.0100, L501.5200, L500.4050 ####[facility] [address] [place], [address] CA,Total 9.3 mg/dL Normal 8.5-10.1 [facility] Comment on above: Performed By: #### L 100.0100, L501.5200, L500.4050 ####[facility] [address] [place], [address] Chloride [Moles/Vol] 107 mmol/L Normal 98-107 [facility] Comment on above: Performed By: #### L 100.0100, L501.5200, L500.4050 ####[facility] [address] [place], [address] CO2 [Moles/Vol] 21.0 mmol/L Normal 21.0-32.0 [facility] Comment on above: Performed By: #### L 100.0100, L501.5200, L500.4050 ####[facility] [address] [place], [address] Creatinine [Mass/Vol] 1.13 mg/dL High 0.55-1.02 [facility] Comment on above: Result Comment: The validity of the calculated GFR GFRAA in patients over70 years has not been determined. Clinical correlation isessential. Performed By: #### L 100.0100, L501.5200, L500.4050 ####[facility] [address] [place], [address] ECRCL 57.81 ml/min Normal [facility] Comment on above: Performed By: #### L 100.0100, L501.5200, L500.4050 ####[facility] [address] [place], [address] EST GFR - AA 65 mL/min Normal >60 [facility] Comment on above: Result Comment: Afri can [place]auan GFR Calc Performed By: #### L 100.0100, L501.5200, L500.4050 ####[facility] [address] [place], [address] GAP 12 Normal 5-15 [facility] Comment on above: Performed By: #### L 100.0100, L501.5200, L500.4050 ####[facility] [address] [place], [address] GFR/1.73 sq M.predicted among non-blacks MDRD (S/P/Bld) [Vol rate/Area] 54 mL/min/{1.73_m2} Low >60 [facility] Comment on above: Result Comment: Non- GFR Calc Performed By: #### L 100.0100, L501.5200, L500.4050 ####[facility] [address] [place], [address] Globulin (S) [Mass/Vol] 2.7 g/dL Normal 2.2-4.2 [facility] Comment on above: Performed By: #### L 100.0100, L501.5200, L500.4050 ####[facility] [address] [place], [address] Glucose [Mass/Vol] 211 mg/dL High 74-106 [facility] Comment on above: Result Comment: Gluc ose result greater than or equal to 200 mg/dLsuggests DIABETES MELLITUS per A.D.A. criteria. Performed By: #### L 100.0100, L501.5200, L500.4050 ####[facility] [address] [place], [address] Potassium [Moles/Vol] 3.7 mmol/L Normal 3.5-5.1 [facility] Comment on above: Performed By: #### L 100.0100, L501.5200, L500.4050 ####[facility] [address] [place], [address] Sodium [Moles/Vol] 140 mmol/L Normal 136-145 [facility] Comment on above: Performed By: #### L 100.0100, L501.5200, L500.4050 ####[facility] [address] [place], [address] T PROT 6.5 g/dL Normal 6.4-8.2 [facility] Comment on above: Performed By: #### L 100.0100, L501.5200, L500.4050 ####[facility] [address] [place], [address] Urea nitrogen [Mass/Vol] 11 mg/dL Normal 7-18 [facility] Comment on above: Performed By: #### L 100.0100, L501.5200, L500.4050 ####[facility] [address] [place], [address] Magnesiumon 01-15-2024 Magnesium [Mass/Vol] 1.6 mg/dL Normal 1.6-2.6 [facility] Comment on above: Performed By: #### L 100.0100, L501.5200, L500.4050 ####[facility] [address] [place], [address] Oncology Visit Reporton 11-1 2-2023 Oncology Visit Report Normal [facility] CBC W/Diff, Automatedon 11-0 -2023 Absolute Lymph 1.70 X10 3/uL Normal 0.83-4.51 [facility] Comment on above: Performed By: #### L 500.4050, L100.0100, L506.0250, L503.6550, L503.6030, L503.0105, L504.2610 ####[facility] [address] [place], [address] Absolute Neut 5.2 X10 3/uL Normal 2.0-7.7 [facility] Comment on above: Performed By: #### L 500.4050, L100.0100, L506.0250, L503.6550, L503.6030, L503.0105, L504.2610 ####[facility] [address] [place], [address] Basophils/100 WBC (Bld) 0.5 % Normal 0-1 [facility] Comment on above: Performed By: #### L 500.4050, L100.0100, L506.0250, L503.6550, L503.6030, L503.0105, L504.2610 ####[facility] [address] [place], [address] Eosinophils/100 WBC (Bld) 0.3 % Normal 0-5 [facility] Comment on above: Performed By: #### L 500.4050, L100.0100, L506.0250, L503.6550, L503.6030, L503.0105, L504.2610 ####[facility] [address] [place], [address] Erythrocyte distribution width (RBC) [Ratio] 17.5 % High 11.6-14.6 [facility] Comment on above: Performed By: #### L 500.4050, L100.0100, L506.0250, L503.6550, L503.6030, L503.0105, L504.2610 ####[facility] [address] [place], [address] Hematocrit (Bld) [Volume fraction] 28.8 % Low 37-47 [facility] Comment on above: Performed By: #### L 500.4050, L100.0100, L506.0250, L503.6550, L503.6030, L503.0105, L504.2610 ####[facility] [address] [place], [address] Hemoglobin (Bld) [Mass/Vol] 9.6 g/dL Low 12.0-15.0 [facility] Comment on above: Performed By: #### L 500.4050, L100.0100, L506.0250, L503.6550, L503.6030, L503.0105, L504.2610 ####[facility] [address] [place], [address] IG% 3.300 High 0.0-0.9 [facility] Comment on above: Result Comment: IG% - Immature Granulocytes (promyelocytes, myelocytes andmetamyelocytes) > 1% indicates that a LEFT SHIFT is Present. Performed By: #### L 500.4050, L100.0100, L506.0250, L503.6550, L503.6030, L503.0105, L504.2610 ####[facility] [address] [place], [address] Lymphocytes/100 WBC (Bld) 22.4 % Normal 19-41 [facility] Comment on above: Performed By: #### L 500.4050, L100.0100, L506.0250, L503.6550, L503.6030, L503.0105, L504.2610 ####[facility] [facility] [address] [place], [address] MCH (RBC) [Entitic mass] 30.1 pg Normal 27.0-32.0 [facility] Comment on above: Performed By: #### L 500.4050, L100.0100, L506.0250, L503.6550, L503.6030, L503.0105, L504.2610 ####[facility] [address] [place], [address] MCHC (RBC) [Mass/Vol] 33.3 g/dL Normal 32-36 [facility] Comment on above: Performed By: #### L 500.4050, L100.0100, L506.0250, L503.6550, L503.6030, L503.0105, L504.2610 ####[facility] [address] [place], [address] MCV (RBC) [Entitic vol] 90.3 fL Normal 81-99 [facility] Comment on above: Performed By: #### L 500.4050, L100.0100, L506.0250, L503.6550, L503.6030, L503.0105, L504.2610 ####[facility] [address] [place], [address] Monocytes/100 WBC (Bld) 5.7 % Normal 0-10 [facility] Comment on above: Performed By: #### L 500.4050, L100.0100, L506.0250, L503.6550, L503.6030, L503.0105, L504.2610 ####[facility] [address] [place], [address] Neutrophils/100 WBC (Bld) 67.8 % Normal 47-70 [facility] Comment on above: Performed By: #### L 500.4050, L100.0100, L506.0250, L503.6550, L503.6030, L503.0105, L504.2610 ####[facility] [address] [place], [address] Nucleated RBC (Bld) [#/Vol] 0 10*3/uL Normal 0-5 [facility] Comment on above: Performed By: #### L 500.4050, L100.0100, L506.0250, L503.6550, L503.6030, L503.0105, L504.2610 ####[facility] [address] [place], [address] Platelet mean volume (Bld) [Entitic vol] 9.7 fL Normal 6.2-12.0 [facility] Comment on above: Performed By: #### L 500.4050, L100.0100, L506.0250, L503.6550, L503.6030, L503.0105, L504.2610 ####[facility] [address] [place], [address] Platelets (Bld) [#/Vol] 101 10*3/uL Low 150-450 [facility] Comment on above: Performed By: #### L 500.4050, L100.0100, L506.0250, L503.6550, L503.6030, L503.0105, L504.2610 ####[facility] [address] [place], [address] RBC (Bld) [#/Vol] 3.19 10*6/uL Low 4.2-5.4 [facility] Comment on above: Performed By: #### L 500.4050, L100.0100, L506.0250, L503.6550, L503.6030, L503.0105, L504.2610 ####[facility] [address] [place], [address] RDW SD 55.5 fl High 35.1-43.9 [facility] Comment on above: Performed By: #### L 500.4050, L100.0100, L506.0250, L503.6550, L503.6030, L503.0105, L504.2610 ####[facility] [address] [place], [address] WBC (Bld) [#/Vol] 7.6 10*3/uL Normal 4.4-11.0 [facility] Comment on above: Performed By: #### L 500.4050, L100.0100, L506.0250, L503.6550, L503.6030, L503.0105, L504.2610 ####[facility] [address] [place], [address] Comprehensive Metabolic Prof ilon 01-08-2024 Albumin [Mass/Vol] 3.4 g/dL Normal 3.2-5.0 [facility] Comment on above: Order Comment: 1N Performed By: #### L 500.4050, L100.0100, L506.0250, L503.6550, L503.6030, L503.0105, L504.2610 ####[facility] [address] [place], [address] Albumin/Globulin [Mass ratio] 1.3 {ratio} Normal 0.9-2.4 [facility] Comment on above: Order Comment: 1N Performed By: #### L 500.4050, L100.0100, L506.0250, L503.6550, L503.6030, L503.0105, L504.2610 ####[facility] [address] [place], [address] ALK P 92 U/L Normal 45-117 [facility] Comment on above: Order Comment: 1N Performed By: #### L 500.4050, L100.0100, L506.0250, L503.6550, L503.6030, L503.0105, L504.2610 ####[facility] [address] [place], [address] ALT [Catalytic activity/Vol] 28 U/L Normal 13-56 [facility] Comment on above: Order Comment: 1N Performed By: #### L 500.4050, L100.0100, L506.0250, L503.6550, L503.6030, L503.0105, L504.2610 ####[facility] [address] [place], [address] AST [Catalytic activity/Vol] 14 U/L Low 15-37 [facility] Comment on above: Order Comment: 1N Performed By: #### L 500.4050, L100.0100, L506.0250, L503.6550, L503.6030, L503.0105, L504.2610 ####[facility] [address] [place], [address] Bilirubin [Mass/Vol] 0.30 mg/dL Normal 0.20-1.00 [facility] Comment on above: Order Comment: 1N Result Comment: For patients on eltrombopag therapy, use of Dimension [place] TBIL is not recommended. Performed By: #### L 500.4050, L100.0100, L506.0250, L503.6550, L503.6030, L503.0105, L504.2610 ####[facility] [address] [place], [address] BUN/CRE 12.5 RATIO Normal 10-20 [facility] Comment on above: Order Comment: 1N Performed By: #### L 500.4050, L100.0100, L506.0250, L503.6550, L503.6030, L503.0105, L504.2610 ####[facility] [address] [place], [address] CA,Total 8.7 mg/dL Normal 8.5-10.1 [facility] Comment on above: Order Comment: 1N Performed By: #### L 500.4050, L100.0100, L506.0250, L503.6550, L503.6030, L503.0105, L504.2610 ####[facility] [address] [place], [address] Chloride [Moles/Vol] 107 mmol/L Normal 98-107 [facility] Comment on above: Order Comment: 1N Performed By: #### L 500.4050, L100.0100, L506.0250, L503.6550, L503.6030, L503.0105, L504.2610 ####[facility] [address] [place], [address] CO2 [Moles/Vol] 26.0 mmol/L Normal 21.0-32.0 [facility] Comment on above: Order Comment: 1N Performed By: #### L 500.4050, L100.0100, L506.0250, L503.6550, L503.6030, L503.0105, L504.2610 ####[facility] [address] [place], [address] Creatinine [Mass/Vol] 0.88 mg/dL Normal 0.55-1.02 [facility] Comment on above: Order Comment: 1N Result Comment: The validity of the calculated GFR GFRAA in patients over70 years has not been determined. Clinical correlation isessential. Performed By: #### L 500.4050, L100.0100, L506.0250, L503.6550, L503.6030, L503.0105, L504.2610 ####[facility] [address] [place], [address] ECRCL 74.24 ml/min Normal [facility] Comment on above: Order Comment: 1N Performed By: #### L 500.4050, L100.0100, L506.0250, L503.6550, L503.6030, L503.0105, L504.2610 ####[facility] [address] [place], [address] EST GFR - AA 86 mL/min Normal >60 [facility] Comment on above: Order Comment: 1N Result Comment: Afri can [place]auan GFR Calc Performed By: #### L 500.4050, L100.0100, L506.0250, L503.6550, L503.6030, L503.0105, L504.2610 ####[facility] [address] [place], [place], [id number]) GAP 9 Normal 5-15 [facility] Comment on above: Order Comment: 1N Performed By: #### L 500.4050, L100.0100, L506.0250, L503.6550, L503.6030, L503.0105, L504.2610 ####[facility] [address] [place], [address] GFR/1.73 sq M.predicted among non-blacks MDRD (S/P/Bld) [Vol rate/Area] 71 mL/min/{1.73_m2} Normal >60 [facility] Comment on above: Order Comment: 1N Result Comment: Non- GFR Calc Performed By: #### L 500.4050, L100.0100, L506.0250, L503.6550, L503.6030, L503.0105, L504.2610 ####[facility] [address] [place], [address] Globulin (S) [Mass/Vol] 2.7 g/dL Normal 2.2-4.2 [facility] Comment on above: Order Comment: 1N Performed By: #### L 500.4050, L100.0100, L506.0250, L503.6550, L503.6030, L503.0105, L504.2610 ####[facility] [address] [place], [address] Glucose [Mass/Vol] 109 mg/dL High 74-106 [facility] Comment on above: Order Comment: 1N Result Comment: Fast ing Glucose result from 100 to 125 mg/dLsuggests IMPAIRED HOMEOSTASIS per A.D.A. criteria. Performed By: #### L 500.4050, L100.0100, L506.0250, L503.6550, L503.6030, L503.0105, L504.2610 ####[facility] [address] [place], [address] Potassium [Moles/Vol] 3.5 mmol/L Normal 3.5-5.1 [facility] Comment on above: Order Comment: 1N Performed By: #### L 500.4050, L100.0100, L506.0250, L503.6550, L503.6030, L503.0105, L504.2610 ####[facility] [address] [place], [address] Sodium [Moles/Vol] 143 mmol/L Normal 136-145 [facility] Comment on above: Order Comment: 1N Performed By: #### L 500.4050, L100.0100, L506.0250, L503.6550, L503.6030, L503.0105, L504.2610 ####[facility] [address] [place], [address] T PROT 6.1 g/dL Low 6.4-8.2 [facility] Comment on above: Order Comment: 1N Performed By: #### L 500.4050, L100.0100, L506.0250, L503.6550, L503.6030, L503.0105, L504.2610 ####[facility] [address] [place], [address] Urea nitrogen [Mass/Vol] 11 mg/dL Normal 7-18 [facility] Comment on above: Order Comment: 1N Performed By: #### L 500.4050, L100.0100, L506.0250, L503.6550, L503.6030, L503.0105, L504.2610 ####[facility] [address] [place], [address] Ferritinon 01-08-2024 Ferritin [Mass/Vol] 157 ng/mL Normal 8-252 [facility] Comment on above: Order Comment: 1N Performed By: #### L 500.4050, L100.0100, L506.0250, L503.6550, L503.6030, L503.0105, L504.2610 ####[facility] [address] [place], [place], [id number] Folates, (Folic Acid)on FOLATES 21.10 ng/mL Normal 3.1-55.4 [facility] Comment on above: Order Comment: 1N Performed By: #### L 500.4050, L100.0100, L506.0250, L503.6550, L503.6030, L503.0105, L504.2610 ####[facility] [address] [place], [address] Iron+Iron Binding Capacityon 01-08-2024 Iron [Mass/Vol] 122 ug/dL Normal 50-170 [facility] Comment on above: Order Comment: 1N Performed By: #### L 500.4050, L100.0100, L506.0250, L503.6550, L503.6030, L503.0105, L504.2610 ####[facility] [address] [place], [place], [id number] IRON SATURATION 41.2 Normal 15.0-55.0 [facility] Comment on above: Order Comment: 1N Performed By: #### L 500.4050, L100.0100, L506.0250, L503.6550, L503.6030, L503.0105, L504.2610 ####[facility] [address] [place], [address] TIBC 296 ug/dL Normal 250-450 [facility] Comment on above: Order Comment: 1N Performed By: #### L 500.4050, L100.0100, L506.0250, L503.6550, L503.6030, L503.0105, L504.2610 ####[facility] [address] [place], [address] LDHon 01-08-2024 LDH 256 U/L High 84-246 [facility] Comment on above: Order Comment: 1N Performed By: #### L 500.4050, L100.0100, L506.0250, L503.6550, L503.6030, L503.0105, L504.2610 ####[facility] [address] [place], [address] Oncology Visit Reporton 0 Oncology Visit Report Normal [facility] Vitamin B12on 01-08-2024 Cobalamin (Vitamin B12) [Mass/Vol] pg/mL High 211-911 [facility] Comment on above: Performed By: #### L 500.4050, L100.0100, L506.0250, L503.6550, L503.6030, L503.0105, L504.2610 ####[facility] [address] [place], [address] CBC W/Diff, Automatedon 10-2 Absolute Lymph 1.66 X10 3/uL Normal 0.83-4.51 [facility] Comment on above: Performed By: #### L 501.5200, L500.4050, L100.0100 ####[facility] [address] [place], [address] Absolute Neut 11.8 X10 3/uL High 2.0-7.7 [facility] Comment on above: Performed By: #### L 501.5200, L500.4050, L100.0100 ####[facility] [address] [place], [address] Basophils/100 WBC (Bld) 0.1 % Normal 0-1 [facility] Comment on above: Performed By: #### L 501.5200, L500.4050, L100.0100 ####[facility] [address] [place], [address] Eosinophils/100 WBC (Bld) 0.0 % Normal 0-5 [facility] Comment on above: Performed By: #### L 501.5200, L500.4050, L100.0100 ####[facility] [address] [place], [address] Erythrocyte distribution width (RBC) [Ratio] 16.0 % High 11.6-14.6 [facility] Comment on above: Performed By: #### L 501.5200, L500.4050, L100.0100 ####[facility] [address] [place], [address] Hematocrit (Bld) [Volume fraction] 28.1 % Low 37-47 [facility] Comment on above: Performed By: #### L 501.5200, L500.4050, L100.0100 ####[facility] [address] [place], [address] Hemoglobin (Bld) [Mass/Vol] 9.5 g/dL Low 12.0-15.0 [facility] Comment on above: Performed By: #### L 501.5200, L500.4050, L100.0100 ####[facility] [address] [place], [address] IG% 3.400 High 0.0-0.9 [facility] Comment on above: Result Comment: IG% - Immature Granulocytes (promyelocytes, myelocytes andmetamyelocytes) > 1% indicates that a LEFT SHIFT is Present. Performed By: #### L 501.5200, L500.4050, L100.0100 ####[facility] [address] [place], [address] Lymphocytes/100 WBC (Bld) 11.3 % Low 19-41 [facility] Comment on above: Performed By: #### L 501.5200, L500.4050, L100.0100 ####[facility] [address] [place], [address] MCH (RBC) [Entitic mass] 30.0 pg Normal 27.0-32.0 [facility] Comment on above: Performed By: #### L 501.5200, L500.4050, L100.0100 ####[facility] [address] [place], [address] MCHC (RBC) [Mass/Vol] 33.8 g/dL Normal 32-36 [facility] Comment on above: Performed By: #### L 501.5200, L500.4050, L100.0100 ####[facility] [address] [place], [address] MCV (RBC) [Entitic vol] 88.6 fL Normal 81-99 [facility] Comment on above: Performed By: #### L 501.5200, L500.4050, L100.0100 ####[facility] [address] [place], [address] Monocytes/100 WBC (Bld) 4.8 % Normal 0-10 [facility] Comment on above: Performed By: #### L 501.5200, L500.4050, L100.0100 ####[facility] [address] [place], [address] Neutrophils/100 WBC (Bld) 80.4 % High 47-70 [facility] Comment on above: Performed By: #### L 501.5200, L500.4050, L100.0100 ####[facility] [address] [place], [address] Nucleated RBC (Bld) [#/Vol] 0 10*3/uL Normal 0-5 [facility] Comment on above: Performed By: #### L 501.5200, L500.4050, L100.0100 ####[facility] [address] [place], [address] Platelet mean volume (Bld) [Entitic vol] 8.8 fL Normal 6.2-12.0 [facility] Comment on above: Performed By: #### L 501.5200, L500.4050, L100.0100 ####[facility] [address] [place], [address] Platelets (Bld) [#/Vol] 285 10*3/uL Normal 150-450 [facility] Comment on above: Performed By: #### L 501.5200, L500.4050, L100.0100 ####[facility] [address] [place], [address] RBC (Bld) [#/Vol] 3.17 10*6/uL Low 4.2-5.4 [facility] Comment on above: Performed By: #### L 501.5200, L500.4050, L100.0100 ####[facility] [address] [place], [address] RDW SD 47.5 fl High 35.1-43.9 [facility] Comment on above: Performed By: #### L 501.5200, L500.4050, L100.0100 ####[facility] [address] [place], [address] WBC (Bld) [#/Vol] 14.7 10*3/uL High 4.4-11.0 [facility] Comment on above: Performed By: #### L 501.5200, L500.4050, L100.0100 ####[facility] [address] [place], [address] Comprehensive Metabolic Prof ilon 12-25-2023 Albumin [Mass/Vol] 3.6 g/dL Normal 3.2-5.0 [facility] Comment on above: Performed By: #### L 501.5200, L500.4050, L100.0100 ####[facility] [address] [place], [address] Albumin/Globulin [Mass ratio] 1.2 {ratio} Normal 0.9-2.4 [facility] Comment on above: Performed By: #### L 501.5200, L500.4050, L100.0100 ####[facility] [address] [place], [address] ALK P 75 U/L Normal 45-117 [facility] Comment on above: Performed By: #### L 501.5200, L500.4050, L100.0100 ####[facility] [address] [place], [address] ALT [Catalytic activity/Vol] 33 U/L Normal 13-56 [facility] Comment on above: Performed By: #### L 501.5200, L500.4050, L100.0100 ####[facility] [address] [place], [address] AST [Catalytic activity/Vol] 13 U/L Low 15-37 [facility] Comment on above: Performed By: #### L 501.5200, L500.4050, L100.0100 ####[facility] [address] [place], [address] Bilirubin [Mass/Vol] 0.30 mg/dL Normal 0.20-1.00 [facility] Comment on above: Result Comment: For patients on eltrombopag therapy, use of Dimension [place] TBIL is not recommended. Performed By: #### L 501.5200, L500.4050, L100.0100 ####[facility] [address] [place], [address] BUN/CRE 13.2 RATIO Normal 10-20 [facility] Comment on above: Performed By: #### L 501.5200, L500.4050, L100.0100 ####[facility] [address] [place], [address] CA,Total 9.4 mg/dL Normal 8.5-10.1 [facility] Comment on above: Performed By: #### L 501.5200, L500.4050, L100.0100 ####[facility] [address] [place], [address] Chloride [Moles/Vol] 110 mmol/L High 98-107 [facility] Comment on above: Performed By: #### L 501.5200, L500.4050, L100.0100 ####[facility] [address] [place], [address] CO2 [Moles/Vol] 22.0 mmol/L Normal 21.0-32.0 [facility] Comment on above: Performed By: #### L 501.5200, L500.4050, L100.0100 ####[facility] [address] [place], [address] Creatinine [Mass/Vol] 0.99 mg/dL Normal 0.55-1.02 [facility] Comment on above: Result Comment: The validity of the calculated GFR GFRAA in patients over70 years has not been determined. Clinical correlation isessential. Performed By: #### L 501.5200, L500.4050, L100.0100 ####[facility] [address] [place], [address] ECRCL 65.97 ml/min Normal [facility] Comment on above: Performed By: #### L 501.5200, L500.4050, L100.0100 ####[facility] [address] [place], [address] EST GFR - AA 76 mL/min Normal >60 [facility] Comment on above: Result Comment: Afri can [place] GFR Calc Performed By: #### L 501.5200, L500.4050, L100.0100 ####[facility] [address] [place], [address] GAP 8 Normal 5-15 [facility] Comment on above: Performed By: #### L 501.5200, L500.4050, L100.0100 ####[facility] [address] [place], [address] GFR/1.73 sq M.predicted among non-blacks MDRD (S/P/Bld) [Vol rate/Area] 63 mL/min/{1.73_m2} Normal >60 [facility] Comment on above: Result Comment: Non- GFR Calc Performed By: #### L 501.5200, L500.4050, L100.0100 ####[facility] [address] [place], [address] Globulin (S) [Mass/Vol] 3.0 g/dL Normal 2.2-4.2 [facility] Comment on above: Performed By: #### L 501.5200, L500.4050, L100.0100 ####[facility] [address] [place], [address] Glucose [Mass/Vol] 169 mg/dL High 74-106 [facility] Comment on above: Result Comment: Fast ing Glucose result greater than or equal to 126 mg/dLsuggests DIABETES MELLITUS per A.D.A. criteria. Performed By: #### L 501.5200, L500.4050, L100.0100 ####[facility] [address] [place], [address] Potassium [Moles/Vol] 4.0 mmol/L Normal 3.5-5.1 [facility] Comment on above: Performed By: #### L 501.5200, L500.4050, L100.0100 ####[facility] [address] [place], [address] Sodium [Moles/Vol] 140 mmol/L Normal 136-145 [facility] Comment on above: Performed By: #### L 501.5200, L500.4050, L100.0100 ####[facility] [address] [place], [address] T PROT 6.6 g/dL Normal 6.4-8.2 [facility] Comment on above: Performed By: #### L 501.5200, L500.4050, L100.0100 ####[facility] [address] [place], [address] Urea nitrogen [Mass/Vol] 13 mg/dL Normal 7-18 [facility] Comment on above: Performed By: #### L 501.5200, L500.4050, L100.0100 ####[facility] [address] [place], [address] Magnesiumon 12-25-2023 Magnesium [Mass/Vol] 1.9 mg/dL Normal 1.6-2.6 [facility] Comment on above: Performed By: #### L 501.5200, L500.4050, L100.0100 ####[facility] [address] [place], [address] Oncology Visit Reporton 12-04 Oncology Visit Report Normal [facility] CBC W/Diff, Automatedon 12-03 Absolute Lymph 1.63 X10 3/uL Normal 0.83-4.51 [facility] Comment on above: Performed By: #### L 100.0100, L500.4050 ####[facility] [address] [place], [address] Absolute Neut 4.4 X10 3/uL Normal 2.0-7.7 [facility] Comment on above: Performed By: #### L 100.0100, L500.4050 ####[facility] [address] [place], [address] Basophils/100 WBC (Bld) 0.8 % Normal 0-1 [facility] Comment on above: Performed By: #### L 100.0100, L500.4050 ####[facility] [address] [place], [address] Eosinophils/100 WBC (Bld) 0.5 % Normal 0-5 [facility] Comment on above: Performed By: #### L 100.0100, L500.4050 ####[facility] [address] [place], [address] Erythrocyte distribution width (RBC) [Ratio] 14.1 % Normal 11.6-14.6 [facility] Comment on above: Performed By: #### L 100.0100, L500.4050 ####[facility] [address] [place], [address] Hematocrit (Bld) [Volume fraction] 32.6 % Low 37-47 [facility] Comment on above: Performed By: #### L 100.0100, L500.4050 ####[facility] [address] [place], [address] Hemoglobin (Bld) [Mass/Vol] 10.9 g/dL Low 12.0-15.0 [facility] Comment on above: Performed By: #### L 100.0100, L500.4050 ####[facility] [address] [place], [address] IG% 1.100 High 0.0-0.9 [facility] Comment on above: Result Comment: IG% - Immature Granulocytes (promyelocytes, myelocytes andmetamyelocytes) > 1% indicates that a LEFT SHIFT is Present. Performed By: #### L 100.0100, L500.4050 ####[facility] [address] [place], [address] Lymphocytes/100 WBC (Bld) 25.3 % Normal 19-41 [facility] Comment on above: Performed By: #### L 100.0100, L500.4050 ####[facility] [address] [place], [address] MCH (RBC) [Entitic mass] 28.9 pg Normal 27.0-32.0 [facility] Comment on above: Performed By: #### L 100.0100, L500.4050 ####[facility] [address] [place], [address] MCHC (RBC) [Mass/Vol] 33.4 g/dL Normal 32-36 [facility] Comment on above: Performed By: #### L 100.0100, L500.4050 ####[facility] [address] [place], [address] MCV (RBC) [Entitic vol] 86.5 fL Normal 81-99 [facility] Comment on above: Performed By: #### L 100.0100, L500.4050 ####[facility] [address] [place], [address] Monocytes/100 WBC (Bld) 4.4 % Normal 0-10 [facility] Comment on above: Performed By: #### L 100.0100, L500.4050 ####[facility] [address] [place], [address] Neutrophils/100 WBC (Bld) 67.9 % Normal 47-70 [facility] Comment on above: Performed By: #### L 100.0100, L500.4050 ####[facility] [address] [place], [address] Nucleated RBC (Bld) [#/Vol] 0 10*3/uL Normal 0-5 [facility] Comment on above: Performed By: #### L 100.0100, L500.4050 ####[facility] [address] [place], [address] Platelet mean volume (Bld) [Entitic vol] 9.8 fL Normal 6.2-12.0 [facility] Comment on above: Performed By: #### L 100.0100, L500.4050 ####[facility] [address] [place], [address] Platelets (Bld) [#/Vol] 108 10*3/uL Low 150-450 [facility] Comment on above: Performed By: #### L 100.0100, L500.4050 ####[facility] [address] [place], [address] RBC (Bld) [#/Vol] 3.77 10*6/uL Low 4.2-5.4 [facility] Comment on above: Performed By: #### L 100.0100, L500.4050 ####[facility] [address] [place], [address] RDW SD 42.3 fl Normal 35.1-43.9 [facility] Comment on above: Performed By: #### L 100.0100, L500.4050 ####[facility] [address] [place], [address] WBC (Bld) [#/Vol] 6.4 10*3/uL Normal 4.4-11.0 [facility] Comment on above: Performed By: #### L 100.0100, L500.4050 ####[facility] [address] [place], [address] Comprehensive Metabolic Prof ilon 12-18-2023 Albumin [Mass/Vol] 3.5 g/dL Normal 3.2-5.0 [facility] Comment on above: Performed By: #### L 100.0100, L500.4050 ####[facility] [address] [place], [address] Albumin/Globulin [Mass ratio] 1.2 {ratio} Normal 0.9-2.4 [facility] Comment on above: Performed By: #### L 100.0100, L500.4050 ####[facility] [address] [place], [address] ALK P 100 U/L Normal 45-117 [facility] Comment on above: Performed By: #### L 100.0100, L500.4050 ####[facility] [address] [place], [address] ALT [Catalytic activity/Vol] 30 U/L Normal 13-56 [facility] Comment on above: Performed By: #### L 100.0100, L500.4050 ####[facility] [address] [place], [address] AST [Catalytic activity/Vol] 16 U/L Normal 15-37 [facility] Comment on above: Performed By: #### L 100.0100, L500.4050 ####[facility] [address] [place], [address] Bilirubin [Mass/Vol] 0.40 mg/dL Normal 0.20-1.00 [facility] Comment on above: Result Comment: For patients on eltrombopag therapy, use of Dimension [place] TBIL is not recommended. Performed By: #### L 100.0100, L500.4050 ####[facility] [address] [place], [address] BUN/CRE 10.0 RATIO Normal 10-20 [facility] Comment on above: Performed By: #### L 100.0100, L500.4050 ####[facility] [address] [place], [address] CA,Total 9.2 mg/dL Normal 8.5-10.1 [facility] Comment on above: Performed By: #### L 100.0100, L500.4050 ####[facility] [address] [place], [address] Chloride [Moles/Vol] 108 mmol/L High 98-107 [facility] Comment on above: Performed By: #### L 100.0100, L500.4050 ####[facility] [address] [place], [address] CO2 [Moles/Vol] 27.0 mmol/L Normal 21.0-32.0 [facility] Comment on above: Performed By: #### L 100.0100, L500.4050 ####[facility] [address] [place], [address] Creatinine [Mass/Vol] 0.90 mg/dL Normal 0.55-1.02 [facility] Comment on above: Result Comment: The validity of the calculated GFR GFRAA in patients over70 years has not been determined. Clinical correlation isessential. Performed By: #### L 100.0100, L500.4050 ####[facility] [address] [place], [address] ECRCL 72.81 ml/min Normal [facility] Comment on above: Performed By: #### L 100.0100, L500.4050 ####[facility] [address] [place], [address] EST GFR - AA 84 mL/min Normal >60 [facility] Comment on above: Result Comment: Afri can [place] GFR Calc Performed By: #### L 100.0100, L500.4050 ####[facility] [address] [place], [address] GAP 6 Normal 5-15 [facility] Comment on above: Performed By: #### L 100.0100, L500.4050 ####[facility] [address] [place], [address] GFR/1.73 sq M.predicted among non-blacks MDRD (S/P/Bld) [Vol rate/Area] 69 mL/min/{1.73_m2} Normal >60 [facility] Comment on above: Result Comment: Non- GFR Calc Performed By: #### L 100.0100, L500.4050 ####[facility] [address] [place], [address] Globulin (S) [Mass/Vol] 3.0 g/dL Normal 2.2-4.2 [facility] Comment on above: Performed By: #### L 100.0100, L500.4050 ####[facility] [address] [place], [address] Glucose [Mass/Vol] 113 mg/dL High 74-106 [facility] Comment on above: Result Comment: Fast ing Glucose result from 100 to 125 mg/dLsuggests IMPAIRED HOMEOSTASIS per A.D.A. criteria. Performed By: #### L 100.0100, L500.4050 ####[facility] [address] [place], [address] Potassium [Moles/Vol] 3.5 mmol/L Normal 3.5-5.1 [facility] Comment on above: Performed By: #### L 100.0100, L500.4050 ####[facility] [address] [place], [address] Sodium [Moles/Vol] 141 mmol/L Normal 136-145 [facility] Comment on above: Performed By: #### L 100.0100, L500.4050 ####[facility] [address] [place], [address] T PROT 6.5 g/dL Normal 6.4-8.2 [facility] Comment on above: Performed By: #### L 100.0100, L500.4050 ####[facility] [address] [place], [address] Urea nitrogen [Mass/Vol] 9 mg/dL Normal 7-18 [facility] Comment on above: Performed By: #### L 100.0100, L500.4050 ####[facility] [address] [place], [address] Oncology Visit Reporton 12-03 Oncology Visit Report Normal [facility] CBC W/Diff, Automatedon 10-0 Absolute Lymph 1.28 X10 3/uL Normal 0.83-4.51 [facility] Comment on above: Performed By: #### L 100.0100, L501.5200, L500.4050 ####[facility] [address] [place], [address] Absolute Neut 12.6 X10 3/uL High 2.0-7.7 [facility] Comment on above: Performed By: #### L 100.0100, L501.5200, L500.4050 ####[facility] [address] [place], [address] Basophils/100 WBC (Bld) 0.1 % Normal 0-1 [facility] Comment on above: Performed By: #### L 100.0100, L501.5200, L500.4050 ####[facility] [address] [place], [address] Eosinophils/100 WBC (Bld) 0.0 % Normal 0-5 [facility] Comment on above: Performed By: #### L 100.0100, L501.5200, L500.4050 ####[facility] [address] [place], [address] Erythrocyte distribution width (RBC) [Ratio] 13.2 % Normal 11.6-14.6 [facility] Comment on above: Performed By: #### L 100.0100, L501.5200, L500.4050 ####[facility] [address] [place], [address] Hematocrit (Bld) [Volume fraction] 32.1 % Low 37-47 [facility] Comment on above: Performed By: #### L 100.0100, L501.5200, L500.4050 ####[facility] [address] [place], [address] Hemoglobin (Bld) [Mass/Vol] 11.1 g/dL Low 12.0-15.0 [facility] Comment on above: Performed By: #### L 100.0100, L501.5200, L500.4050 ####[facility] [address] [place], [address] IG% 2.000 High 0.0-0.9 [facility] Comment on above: Result Comment: IG% - Immature Granulocytes (promyelocytes, myelocytes andmetamyelocytes) > 1% indicates that a LEFT SHIFT is Present. Performed By: #### L 100.0100, L501.5200, L500.4050 ####[facility] [address] [place], [address] Lymphocytes/100 WBC (Bld) 8.8 % Low 19-41 [facility] Comment on above: Performed By: #### L 100.0100, L501.5200, L500.4050 ####[facility] [address] [place], [address] MCH (RBC) [Entitic mass] 29.5 pg Normal 27.0-32.0 [facility] Comment on above: Performed By: #### L 100.0100, L501.5200, L500.4050 ####[facility] [address] [place], [address] MCHC (RBC) [Mass/Vol] 34.6 g/dL Normal 32-36 [facility] Comment on above: Performed By: #### L 100.0100, L501.5200, L500.4050 ####[facility] [address] [place], [address] MCV (RBC) [Entitic vol] 85.4 fL Normal 81-99 [facility] Comment on above: Performed By: #### L 100.0100, L501.5200, L500.4050 ####[facility] [address] [place], [address] Monocytes/100 WBC (Bld) 2.6 % Normal 0-10 [facility] Comment on above: Performed By: #### L 100.0100, L501.5200, L500.4050 ####[facility] [address] [place], [address] Neutrophils/100 WBC (Bld) 86.5 % High 47-70 [facility] Comment on above: Performed By: #### L 100.0100, L501.5200, L500.4050 ####[facility] [address] [place], [address] Nucleated RBC (Bld) [#/Vol] 0 10*3/uL Normal 0-5 [facility] Comment on above: Performed By: #### L 100.0100, L501.5200, L500.4050 ####[facility] [address] [place], [address] Platelet mean volume (Bld) [Entitic vol] 9.4 fL Normal 6.2-12.0 [facility] Comment on above: Performed By: #### L 100.0100, L501.5200, L500.4050 ####[facility] [address] [place], [address] Platelets (Bld) [#/Vol] 349 10*3/uL Normal 150-450 [facility] Comment on above: Performed By: #### L 100.0100, L501.5200, L500.4050 ####[facility] [address] [place], [address] RBC (Bld) [#/Vol] 3.76 10*6/uL Low 4.2-5.4 [facility] Comment on above: Performed By: #### L 100.0100, L501.5200, L500.4050 ####[facility] [address] [place], [address] RDW SD 39.1 fl Normal 35.1-43.9 [facility] Comment on above: Performed By: #### L 100.0100, L501.5200, L500.4050 ####[facility] [address] [place], [address] WBC (Bld) [#/Vol] 14.6 10*3/uL High 4.4-11.0 [facility] Comment on above: Performed By: #### L 100.0100, L501.5200, L500.4050 ####[facility] [address] [place], [address] Absolute Neut Normal 2.0-7.7 [facility] Comment on above: Result Comment: Canc elled via OM: Physician Authorized Performed By: #### L 100.0100 ####[facility] [address] [place], [address] HCT Normal 37-47 [facility] Comment on above: Result Comment: Canc elled via OM: Physician Authorized Performed By: #### L 100.0100 ####[facility] [address] [place], [address] HGB Normal 12.0-15.0 [facility] Comment on above: Result Comment: Canc elled via OM: Physician Authorized Performed By: #### L 100.0100 ####[facility] [address] [place], [address] MCH Normal 27.0-32.0 [facility] Comment on above: Result Comment: Canc elled via OM: Physician Authorized Performed By: #### L 100.0100 ####[facility] [address] [place], [address] MCHC Normal 32-36 [facility] Comment on above: Result Comment: Canc elled via OM: Physician Authorized Performed By: #### L 100.0100 ####[facility] [address] [place], [address] MCV Normal 81-99 [facility] Comment on above: Result Comment: Canc elled via OM: Physician Authorized Performed By: #### L 100.0100 ####[facility] [address] [place], [address] NEUT% Normal 47-70 [facility] Comment on above: Result Comment: Canc elled via OM: Physician Authorized Performed By: #### L 100.0100 ####[facility] [address] [place], [address] PLT Normal 150-450 [facility] Comment on above: Result Comment: Canc elled via OM: Physician Authorized Performed By: #### L 100.0100 ####[facility] [address] [place], [address] RBC Normal 4.2-5.4 [facility] Comment on above: Result Comment: Canc elled via OM: Physician Authorized Performed By: #### L 100.0100 ####[facility] [address] [place], [address] RDW CV Normal 11.6-14.6 [facility] Comment on above: Result Comment: Canc elled via OM: Physician Authorized Performed By: #### L 100.0100 ####[facility] [address] [place], [address] RDW SD Normal 35.1-43.9 [facility] Comment on above: Result Comment: Canc elled via OM: Physician Authorized Performed By: #### L 100.0100 ####[facility] [address] [place], [address] WBC Normal 4.4-11.0 [facility] Comment on above: Result Comment: Canc elled via OM: Physician Authorized Performed By: #### L 100.0100 ####[facility] [address] [place], [address] Comprehensive Metabolic Prof ncon 12-04-2023 Albumin [Mass/Vol] 3.7 g/dL Normal 3.2-5.0 [facility] Comment on above: Performed By: #### L 100.0100, L501.5200, L500.4050 ####[facility] [address] [place], [address] Albumin/Globulin [Mass ratio] 1.1 {ratio} Normal 0.9-2.4 [facility] Comment on above: Performed By: #### L 100.0100, L501.5200, L500.4050 ####[facility] [address] [place], [address] ALK P 84 U/L Normal 45-117 [facility] Comment on above: Performed By: #### L 100.0100, L501.5200, L500.4050 ####[facility] [address] [place], [address] ALT [Catalytic activity/Vol] 30 U/L Normal 13-56 [facility] Comment on above: Performed By: #### L 100.0100, L501.5200, L500.4050 ####[facility] [address] [place], [address] AST [Catalytic activity/Vol] 15 U/L Normal 15-37 [facility] Comment on above: Performed By: #### L 100.0100, L501.5200, L500.4050 ####[facility] [address] [place], [address] Bilirubin [Mass/Vol] 0.10 mg/dL Low 0.20-1.00 [facility] Comment on above: Result Comment: For patients on eltrombopag therapy, use of Dimension [place] TBIL is not recommended. Performed By: #### L 100.0100, L501.5200, L500.4050 ####[facility] [address] [place], [address] BUN/CRE 13.9 RATIO Normal 10-20 [facility] Comment on above: Performed By: #### L 100.0100, L501.5200, L500.4050 ####[facility] [address] [place], [address] CA,Total 9.5 mg/dL Normal 8.5-10.1 [facility] Comment on above: Performed By: #### L 100.0100, L501.5200, L500.4050 ####[facility] [address] [place], [address] Chloride [Moles/Vol] 109 mmol/L High 98-107 [facility] Comment on above: Performed By: #### L 100.0100, L501.5200, L500.4050 ####[facility] [address] [place], [address] CO2 [Moles/Vol] 22.0 mmol/L Normal 21.0-32.0 [facility] Comment on above: Performed By: #### L 100.0100, L501.5200, L500.4050 ####[facility] [address] [place], [address] Creatinine [Mass/Vol] 1.08 mg/dL High 0.55-1.02 [facility] Comment on above: Result Comment: The validity of the calculated GFR GFRAA in patients over70 years has not been determined. Clinical correlation isessential. Performed By: #### L 100.0100, L501.5200, L500.4050 ####[facility] [address] [place], [address] ECRCL 60.68 ml/min Normal [facility] Comment on above: Performed By: #### L 100.0100, L501.5200, L500.4050 ####[facility] [address] [place], [address] EST GFR - AA 68 mL/min Normal >60 [facility] Comment on above: Result Comment: Afri can [place] GFR Calc Performed By: #### L 100.0100, L501.5200, L500.4050 ####[facility] [address] [place], [address] GAP 8 Normal 5-15 [facility] Comment on above: Performed By: #### L 100.0100, L501.5200, L500.4050 ####[facility] [address] [place], [address] GFR/1.73 sq M.predicted among non-blacks MDRD (S/P/Bld) [Vol rate/Area] 56 mL/min/{1.73_m2} Low >60 [facility] Comment on above: Result Comment: Non- GFR Calc Performed By: #### L 100.0100, L501.5200, L500.4050 ####[facility] [address] [place], [address] Globulin (S) [Mass/Vol] 3.5 g/dL Normal 2.2-4.2 [facility] Comment on above: Performed By: #### L 100.0100, L501.5200, L500.4050 ####[facility] [address] [place], [address] Glucose [Mass/Vol] 205 mg/dL High 74-106 [facility] Comment on above: Result Comment: Gluc ose result greater than or equal to 200 mg/dLsuggests DIABETES MELLITUS per A.D.A. criteria. Performed By: #### L 100.0100, L501.5200, L500.4050 ####[facility] [address] [place], [address] Potassium [Moles/Vol] 3.8 mmol/L Normal 3.5-5.1 [facility] Comment on above: Performed By: #### L 100.0100, L501.5200, L500.4050 ####[facility] [address] [place], [address] Sodium [Moles/Vol] 139 mmol/L Normal 136-145 [facility] Comment on above: Performed By: #### L 100.0100, L501.5200, L500.4050 ####[facility] [address] [place], [address] T PROT 7.2 g/dL Normal 6.4-8.2 [facility] Comment on above: Performed By: #### L 100.0100, L501.5200, L500.4050 ####[facility] [address] [place], [address] Urea nitrogen [Mass/Vol] 15 mg/dL Normal 7-18 [facility] Comment on above: Performed By: #### L 100.0100, L501.5200, L500.4050 ####[facility] [address] [place], [address] Magnesiumon 12-04-2023 Magnesium [Mass/Vol] 1.8 mg/dL Normal 1.6-2.6 [facility] Comment on above: Performed By: #### L 100.0100, L501.5200, L500.4050 ####[facility] [address] [place], [address] Oncology Visit Reporton Oncology Visit Report Normal [facility] CBC W/Diff, Automatedon 11-04 PATH REV Reviewed Normal [facility] Comment on above: Result Comment: MILD Thrombocytopenia.Clinical correlation necessary.Will Cook M.D. 11/28/23 AMENDED REPORT 11/28/23 1504 PATH REV previously reported as: July Performed By: #### L 500.4050, L504.2610, L100.0100 ####[facility] [address] [place], [address] Blood band neutrophil count as percentage of total leukocytesOrdered By: Jairon Rothman on 11-27-2023 Band form neutrophils/100 WBC (Bld) 5 % 0-5 [facility] Blood eosinophils/100 leukoc ytesOrdered By: Jairon Rothman on 11-27-2023 Eosinophils/100 WBC (Bld) 1 % 0-5 [facility] Blood lymphocytes/100 leukoc ytesOrdered By: Jairon Rothman on 11-27-2023 Lymphocytes/100 WBC (Bld) 15 % Low 19-41 [facility] Blood metamyelocytes/100 willard kocytesOrdered By: Jairon Rothman on 11-27-2023 Metamyelocytes/100 WBC (Bld) 1 % 0-1 [facility] Blood monocytes/100 leukocyt esOrdered By: Jairon Lorna on 11-27-2023 Monocytes/100 WBC (Bld) 6 % 0-10 [facility] Blood segmented neutrophils/ 100 leukocytesOrdered By: Jairon Rothman on 11-27-2023 Segmented neutrophils/100 WBC (Bld) 72 % High 47-70 [facility] Cells counted Molgen (Bld/Ti ss) [#]Ordered By: Jairon Rothman on 11-27-2023 Differential Total Cells Counted 100 MANUAL DIFF [facility] Comprehensive Metabolic Prof ilon 11-27-2023 Albumin [Mass/Vol] 3.5 g/dL Normal 3.2-5.0 [facility] Comment on above: Order Comment: 1 Performed By: #### L 500.4050, L504.2610, L100.0100 ####[facility] [address] [place], [address] Albumin/Globulin [Mass ratio] 1.0 {ratio} Normal 0.9-2.4 [facility] Comment on above: Order Comment: 1 Performed By: #### L 500.4050, L504.2610, L100.0100 ####[facility] [address] [place], [address] ALK P 92 U/L Normal 45-117 [facility] Comment on above: Order Comment: 1 Performed By: #### L 500.4050, L504.2610, L100.0100 ####[facility] [address] [place], [address] ALT [Catalytic activity/Vol] 29 U/L Normal 13-56 [facility] Comment on above: Order Comment: 1 Performed By: #### L 500.4050, L504.2610, L100.0100 ####[facility] [address] [place], [address] AST [Catalytic activity/Vol] 14 U/L Low 15-37 [facility] Comment on above: Order Comment: 1 Performed By: #### L 500.4050, L504.2610, L100.0100 ####[facility] [address] [place], [address] Bilirubin [Mass/Vol] 0.20 mg/dL Normal 0.20-1.00 [facility] Comment on above: Order Comment: 1 Result Comment: For patients on eltrombopag therapy, use of Dimension [place] TBIL is not recommended. Performed By: #### L 500.4050, L504.2610, L100.0100 ####[facility] [address] [place], [address] BUN/CRE 14.9 RATIO Normal 10-20 [facility] Comment on above: Order Comment: 1 Performed By: #### L 500.4050, L504.2610, L100.0100 ####[facility] [address] [place], [address] CA,Total 9.2 mg/dL Normal 8.5-10.1 [facility] Comment on above: Order Comment: 1 Performed By: #### L 500.4050, L504.2610, L100.0100 ####[facility] [address] [place], [address] Chloride [Moles/Vol] 109 mmol/L High 98-107 [facility] Comment on above: Order Comment: 1 Performed By: #### L 500.4050, L504.2610, L100.0100 ####[facility] [address] [place], [address] CO2 [Moles/Vol] 26.0 mmol/L Normal 21.0-32.0 [facility] Comment on above: Order Comment: 1 Performed By: #### L 500.4050, L504.2610, L100.0100 ####[facility] [address] [place], [address] Creatinine [Mass/Vol] 0.87 mg/dL Normal 0.55-1.02 [facility] Comment on above: Order Comment: 1 Result Comment: The validity of the calculated GFR GFRAA in patients over70 years has not been determined. Clinical correlation isessential. Performed By: #### L 500.4050, L504.2610, L100.0100 ####[facility] [address] [place], [address] ECRCL 74.86 ml/min Normal [facility] Comment on above: Order Comment: 1 Performed By: #### L 500.4050, L504.2610, L100.0100 ####[facility] [address] [place], [address] EST GFR - AA 88 mL/min Normal >60 [facility] Comment on above: Order Comment: 1 Result Comment: Afri can Palauan GFR Calc Performed By: #### L 500.4050, L504.2610, L100.0100 ####[facility] [address] [place], [address] GAP 6 Normal 5-15 [facility] Comment on above: Order Comment: 1 Performed By: #### L 500.4050, L504.2610, L100.0100 ####[facility] [address] [place], [address] GFR/1.73 sq M.predicted among non-blacks MDRD (S/P/Bld) [Vol rate/Area] 72 mL/min/{1.73_m2} Normal >60 [facility] Comment on above: Order Comment: 1 Result Comment: Non- GFR Calc Performed By: #### L 500.4050, L504.2610, L100.0100 ####[facility] [address] [place], [address] Globulin (S) [Mass/Vol] 3.4 g/dL Normal 2.2-4.2 [facility] Comment on above: Order Comment: 1 Performed By: #### L 500.4050, L504.2610, L100.0100 ####[facility] [address] [place], [address] Glucose [Mass/Vol] 130 mg/dL High 74-106 [facility] Comment on above: Order Comment: 1 Result Comment: Fast ing Glucose result greater than or equal to 126 mg/dLsuggests DIABETES MELLITUS per A.D.A. criteria. Performed By: #### L 500.4050, L504.2610, L100.0100 ####[facility] [address] [place], [address] Potassium [Moles/Vol] 3.4 mmol/L Low 3.5-5.1 [facility] Comment on above: Order Comment: 1 Performed By: #### L 500.4050, L504.2610, L100.0100 ####[facility] [address] [place], [address] Sodium [Moles/Vol] 141 mmol/L Normal 136-145 [facility] Comment on above: Order Comment: 1 Performed By: #### L 500.4050, L504.2610, L100.0100 ####[facility] [address] [place], [address] T PROT 6.9 g/dL Normal 6.4-8.2 [facility] Comment on above: Order Comment: 1 Performed By: #### L 500.4050, L504.2610, L100.0100 ####[facility] [address] [place], [address] Urea nitrogen [Mass/Vol] 13 mg/dL Normal 7-18 [facility] Comment on above: Order Comment: 1 Performed By: #### L 500.4050, L504.2610, L100.0100 ####[facility] [address] [place], [address] Erythrocyte morphology asses smentOrdered By: Jairon Rothman on 11-27-2023 RBC morphology finding Nom (Bld) NORM C+C NORMAL NORM C&C [facility] LDHon 11-27-2023 LDH 248 U/L High 84-246 [facility] Comment on above: Order Comment: 1 Performed By: #### L 500.4050, L504.2610, L100.0100 ####[facility] [address] [place], [address] Oncology Visit Reporton 11-04 Oncology Visit Report Normal [facility] Pathologist review Sammy (Unsp spec) [Interp]Ordered By: Jairon Rothman on 11-27-2023 Differential Pathologist's Review Reviewed [facility] Comment on above: Previous reported re sult: Isaura vides Edited by: RILEY on 11/28/23:1504MILD Thrombocytopenia.Clinical correlation necessary.Will Cook M.D. 11/28/23 AMENDED REPORT 11/28/231503 PATH REV previously reported as: Isaura vides Platelet estimateOrdered By: Jairon Rothman on 11-27-2023 Platelets LM Ql (Bld) [facility] Platelets LM Ql (Bld)Ordered By: Jairon Rothman on 11-27-2023 Platelet Estimate SLT DEC [facility] RBC morphology finding Nom ( Bld)Ordered By: Jairon Rothman on 11-27-2023 Red Blood Cell Morphology NORM C+C NORMAL NORM C&C [facility] Review by pathologistOrdered By: Jairon Rothman on 11-27-2023 Pathologist review Sammy (Unsp spec) [Interp] Reviewed [facility] Comment on above: Previous reported re sult: May mahogany Edited by: RILEY on 11/28/23:1504MILD Thrombocytopenia.Clinical correlation necessary.Will Cook M.D. 11/28/23 AMENDED REPORT 11/28/23 150 PATH REV previously reported as: May foll Segmented neutrophils/100 WB C (Bld)Ordered By: Jairon Rothman on 11-27-2023 Neutrophils/100 WBC (Bld) 72 % High 47-70 [facility] Total cell countOrdered By: Jairon Rothman on 11-27-2023 Cells counted Molgen (Bld/Tiss) [#] 100 MANUAL DIFF [facility] Vital Signs Date Time Vital Sign Value Performing Clinician Faci lity 11-18-2024 10:20-0400 Body height 152.[address] Michael Ernst DO Work Phone: 9(713)870-225144 [place] [address] 11-18-2024 10:20-0400 Body mass index (BMI) [Ratio] 35.6 kg/m2 Dr. Michael Ernst DO Work Phone: 4(615)549-982544 [place] [address] 11-18-2024 10:20-0400 Body temperature 98.2 [degF] Dr. Michael Ernst DO Work Phone: 5(758)709-232144 [place] [address] 11-18-2024 10:20-0400 Body weight 82.[address] Michael Ernst DO Work Phone: 0(616)395-073644 [place] [address] 11-18-2024 10:20-0400 Diastolic blood pressure 84 mm[Hg] Dr. Michael Ernst DO Work Phone: 7(328)865-651744 [place] [address] 11-18-2024 10:20-0400 Heart rate 64 /min Dr. Michael Ernst DO Work Phone: 9(930)960-810644 [place] [address] 11-18-2024 10:20-0400 Respiratory rate 18 /min Dr. Michael Ernst DO Work Phone: 3(493)263-850144 [place] [address] 11-18-2024 10:20-0400 SaO2% (BldA) [Mass fraction] 98 % Dr. Michael Ernst DO Work Phone: 9(155)301-505544 [place] [address] 11-18-2024 10:20-0400 Systolic blood pressure 138 mm[Hg] Dr. Michael Ernst DO Work Phone: 8(179)042-709444 [place] [address] 10-28-2024 13:41-0400 Diastolic blood pressure 80 mm[Hg] Dr. Michael Ernst DO Work Phone: 7(999)695-737954 [address] 10-28-2024 13:41-0400 Heart rate 73 /min Dr. Michael Ernst DO Work Phone: 0(944)208-543554 [address] 10-28-2024 13:41-0400 Systolic blood pressure 141 mm[Hg] Dr. Michael Ernst DO Work Phone: 5(259)705-373554 [address] 10-28-2024 10:07-0400 Body height 152.[address] Michael Ernst DO Work Phone: 6(598)924-904254 [address] 10-28-2024 10:07-0400 Body mass index (BMI) [Ratio] 36 kg/m2 Dr. Michael Ernst DO Work Phone: 7(668)502-289744 [place] [address] 10-28-2024 10:07-0400 Body temperature 97.9 [degF] Dr. Michael Ernst DO Work Phone: 0(532)947-992044 [place] [address] 10-28-2024 10:07-0400 Body weight 83.[address] Michael Ernst DO Work Phone: 7(231)216-881544 [place] [address] 10-28-2024 10:07-0400 Diastolic blood pressure 81 mm[Hg] Dr. Michael Ernst DO Work Phone: 9(935)567-665044 [place] [address] 10-28-2024 10:07-0400 Heart rate 70 /min Dr. Michael Ernst DO Work Phone: 1(069)534-212954 [address] 10-28-2024 10:07-0400 Respiratory rate 18 /min Dr. Michael Ernst DO Work Phone: 2(963)304-501844 [place] [address] 10-28-2024 10:07-0400 SaO2% (BldA) [Mass fraction] 97 % Dr. Michael Ernst DO Work Phone: 1(709)196-334354 [address] 10-28-2024 10:07-0400 Systolic blood pressure 139 mm[Hg] Dr. Michael Ernst DO Work Phone: 3(285)907-567054 [address] 10-07-2024 13:35-0400 Body temperature 97 [degF] Dr. Michael Ernst DO Work Phone: 7(935)417-314954 [address] 10-07-2024 13:35-0400 Diastolic blood pressure 68 mm[Hg] Dr. Michael Ernst DO Work Phone: 1(552)216-633654 [address] 10-07-2024 13:35-0400 Heart rate 77 /min Dr. Michael Ernst DO Work Phone: 9(851)881-089254 [address] 10-07-2024 13:35-0400 Respiratory rate 16 /min Dr. Michael Ernst DO Work Phone: 2(132)350-467644 [place] [address] 10-07-2024 13:35-0400 SaO2% (BldA) [Mass fraction] 100 % Dr. Michael Ernts DO Work Phone: 1(473)617-729354 [address] 10-07-2024 13:35-0400 Systolic blood pressure 137 mm[Hg] Dr. Michael Ernst DO Work Phone: 0(671)741-457554 [address] 10-07-2024 10:05-0400 Body height 152.[address] Michael Ernst DO Work Phone: 9(862)906-981744 [place] [address] 10-07-2024 10:05-0400 Body mass index (BMI) [Ratio] 36.7 kg/m2 Dr. Michael Ernst DO Work Phone: 5(935)725-188854 [address] 10-07-2024 10:05-0400 Body temperature 97.8 [degF] Dr. Michael Ernst DO Work Phone: 9(711)699-736054 [address] 10-07-2024 10:05-0400 Body weight 85.[address] Michael Ernst DO Work Phone: 7(255)341-597744 [place] [address] 10-07-2024 10:05-0400 Diastolic blood pressure 81 mm[Hg] Dr. Michael Ernst DO Work Phone: 0(674)479-629654 [address] 10-07-2024 10:05-0400 Heart rate 74 /min Dr. Michael Ernst DO Work Phone: [facility] 10-07-2024 10:05-0400 Respiratory rate 18 /min Dr. Michael Ernst DO Work Phone: 9(681)144-282589 [place] [address] 10-07-2024 10:05-0400 SaO2% (BldA) [Mass fraction] 96 % Dr. Michael Ernst DO Work Phone: 6(343)251-516489 [place] [address] 10-07-2024 10:05-0400 Systolic blood pressure 129 mm[Hg] Dr. Michael Ernst DO Work Phone: 4(382)036-348744 [place] [address] 09-16-2024 13:05-0400 Diastolic blood pressure 70 mm[Hg] Dr. Michael Ernst DO Work Phone: 4(587)994-192444 [place] [address] 09-16-2024 13:05-0400 Heart rate 75 /min Dr. Michael Ernst DO Work Phone: 1(699)137-811944 [place] [address] 09-16-2024 13:05-0400 Systolic blood pressure 125 mm[Hg] Dr. Michael Ernst DO Work Phone: 4(536)067-113154 [address] 09-16-2024 10:04-0400 Body height 152.[address] Michael Ernst DO Work Phone: 2(090)062-266344 [place] [address] 09-16-2024 10:04-0400 Body mass index (BMI) [Ratio] 36.8 kg/m2 Dr. Michael Ernst DO Work Phone: 9(857)234-603054 [address] 09-16-2024 10:04-0400 Body temperature 98.2 [degF] Dr. Michael Ernst DO Work Phone: 6(986)687-382254 [address] 09-16-2024 10:04-0400 Body weight 85.[address] Michael Ernst DO Work Phone: 3(182)511-287944 [place] [address] 09-16-2024 10:04-0400 Diastolic blood pressure 76 mm[Hg] Dr. Michael Ernst DO Work Phone: 8(873)739-255354 [address] 09-16-2024 10:04-0400 Heart rate 84 /min Dr. Michael Ernst DO Work Phone: 4(166)999-702389 [place] [address] 09-16-2024 10:04-0400 Respiratory rate 18 /min Dr. Michael Ernst DO Work Phone: 6(805)698-507889 [place] [address] 09-16-2024 10:04-0400 SaO2% (BldA) [Mass fraction] 95 % Dr. Michael Ernst DO Work Phone: 1(521)315-454354 [address] 09-16-2024 10:04-0400 Systolic blood pressure 123 mm[Hg] Dr. Michael Ernst DO Work Phone: 3(124)445-855044 [place] [address] 08-26-2024 13:12-0400 Body temperature 96.3 [degF] Dr. Michael Ernst DO Work Phone: 1(443)535-658244 [place] [address] 08-26-2024 13:12-0400 Diastolic blood pressure 74 mm[Hg] Dr. Michael Ernst DO Work Phone: 2(764)309-481944 [place] [address] 08-26-2024 13:12-0400 Heart rate 80 /min Dr. Michael Ernst DO Work Phone: 7(499)456-981344 [place] [address] 08-26-2024 13:12-0400 Respiratory rate 16 /min Dr. Michael Ernst DO Work Phone: 7(820)018-483444 [place] [address] 08-26-2024 13:12-0400 SaO2% (BldA) [Mass fraction] 97 % Dr. Michael Ernst DO Work Phone: 7(400)655-450944 [place] [address] 08-26-2024 13:12-0400 Systolic blood pressure 124 mm[Hg] Dr. Michael Ernst DO Work Phone: 3(550)931-363744 [place] [address] 08-26-2024 09:36-0400 Body height 152.[address] Michael Ernst DO Work Phone: 0(933)826-011044 [place] [address] 08-26-2024 09:34-0400 Body mass index (BMI) [Ratio] 36.6 kg/m2 Dr. Michael Ernst DO Work Phone: [facility] 08-26-2024 09:34-0400 Body temperature 97.1 [degF] Dr. Michael Ernst DO Work Phone: [facility] 08-26-2024 09:34-0400 Body weight 84.[address] Michael Ernst DO Work Phone: 7(277)393-932254 [address] 08-26-2024 09:34-0400 Diastolic blood pressure 77 mm[Hg] Dr. Michael Ernst DO Work Phone: 5(419)468-409489 [place] [address] 08-26-2024 09:34-0400 Heart rate 77 /min Dr. Michael Ernst DO Work Phone: 7(356)399-915254 [address] 08-26-2024 09:34-0400 Respiratory rate 16 /min Dr. Michael Ernst DO Work Phone: 9(656)813-456854 [address] 08-26-2024 09:34-0400 SaO2% (BldA) [Mass fraction] 96 % Dr. Michael Ernst DO Work Phone: [facility] 08-26-2024 09:34-0400 Systolic blood pressure 127 mm[Hg] Dr. Michael Ernst DO Work Phone: 9(457)558-855589 [place] [address] 08-05-2024 13:59-0400 Diastolic blood pressure 77 mm[Hg] Dr. Michael Ernst DO Work Phone: 6(463)679-506389 [place] [address] 08-05-2024 13:59-0400 Heart rate 74 /min Dr. Michael Ernst DO Work Phone: 1(994)428-844989 [place] [address] 08-05-2024 13:59-0400 Systolic blood pressure 133 mm[Hg] Dr. Michael Ernst DO Work Phone: 5(393)454-503454 [address] 08-05-2024 11:27-0400 Body height 152.[address] Michael Ernst DO Work Phone: 3(964)530-261154 [address] 08-05-2024 11:27-0400 Body mass index (BMI) [Ratio] 36.9 kg/m2 Dr. Michael Ernst DO Work Phone: [facility] 08-05-2024 11:27-0400 Body temperature 98.3 [degF] Dr. Michael Ernst DO Work Phone: [facility] 08-05-2024 11:27-0400 Body weight 85.[address] Michael Ernst DO Work Phone: 0(500)431-915789 [place] [address] 08-05-2024 11:27-0400 Diastolic blood pressure 80 mm[Hg] Dr. Michael Ernst DO Work Phone: 9(220)885-499654 [address] 08-05-2024 11:27-0400 Heart rate 74 /min Dr. Michael Ernst DO Work Phone: 1(330)107-719154 [address] 08-05-2024 11:27-0400 Respiratory rate 18 /min Dr. Michael Ernst DO Work Phone: 6(234)664-615754 [address] 08-05-2024 11:27-0400 SaO2% (BldA) [Mass fraction] 95 % Dr. Michael Ernst DO Work Phone: 2(553)555-811354 [address] 08-05-2024 11:27-0400 Systolic blood pressure 128 mm[Hg] Dr. Michael Ernst DO Work Phone: 3(615)914-307054 [address] 08-05-2024 10:32-0400 Body height 152.[address] Michael Ernst DO Work Phone: 6(430)401-563854 [address] 08-05-2024 10:32-0400 Body mass index (BMI) [Ratio] 36.9 kg/m2 Dr. Michael Ernst DO Work Phone: 5(342)432-588944 [place] [address] 08-05-2024 10:32-0400 Body temperature 98.3 [degF] Dr. Michael Ernst DO Work Phone: 6(005)226-541354 [address] 08-05-2024 10:32-0400 Body weight 85.[address] Michael Ernst DO Work Phone: 7(782)688-469189 [place] [address] 08-05-2024 10:32-0400 Diastolic blood pressure 80 mm[Hg] Dr. Michael Ernst DO Work Phone: [facility] 08-05-2024 10:32-0400 Heart rate 74 /min Dr. Michael Ernst DO Work Phone: 6(901)854-344489 [place] [address] 08-05-2024 10:32-0400 Respiratory rate 18 /min Dr. Michael Ernst DO Work Phone: 2(623)146-609989 [place] [address] 08-05-2024 10:32-0400 SaO2% (BldA) [Mass fraction] 95 % Dr. Michael Ernst DO Work Phone: 9(523)576-614689 [place] [address] 08-05-2024 10:32-0400 Systolic blood pressure 128 mm[Hg] Dr. Michael Ernst DO Work Phone: 9(399)263-427744 [place] [address] 07-15-2024 12:59-0400 Body temperature 96.6 [degF] Dr. Michael Ernst DO Work Phone: 1(766)355-071544 [place] [address] 07-15-2024 12:59-0400 Diastolic blood pressure 74 mm[Hg] Dr. Michael Ernst DO Work Phone: 0(552)501-423354 [address] 07-15-2024 12:59-0400 Heart rate 86 /min Dr. Michael Ernst DO Work Phone: 5(866)466-818754 [address] 07-15-2024 12:59-0400 Respiratory rate 16 /min Dr. Michael Ernst DO Work Phone: 0(374)511-975244 [place] [address] 07-15-2024 12:59-0400 SaO2% (BldA) [Mass fraction] 97 % Dr. Michael Ernst DO Work Phone: 3(505)413-451589 [place] [address] 07-15-2024 12:59-0400 Systolic blood pressure 138 mm[Hg] Dr. Michael Ernst DO Work Phone: 5(098)604-881054 [address] 07-15-2024 09:33-0400 Body height 152.[address] Michael Ernst DO Work Phone: [facility] 07-15-2024 09:33-0400 Body mass index (BMI) [Ratio] 36.9 kg/m2 Dr. Michael Ernst DO Work Phone: 7(780)276-750589 [place] [address] 07-15-2024 09:33-0400 Body temperature 98.2 [degF] Dr. Michael Ernst DO Work Phone: 1(905)549-301789 [place] [address] 07-15-2024 09:33-0400 Body weight 85.[address] Michael Ernst DO Work Phone: 6(256)283-199054 [address] 07-15-2024 09:33-0400 Diastolic blood pressure 82 mm[Hg] Dr. Michael Ernst DO Work Phone: 2(222)594-539154 [address] 07-15-2024 09:33-0400 Heart rate 68 /min Dr. Michael Ernst DO Work Phone: 7(427)852-736054 [address] 07-15-2024 09:33-0400 Respiratory rate 18 /min Dr. Michael Ernst DO Work Phone: 6(703)750-449654 [address] [address] 07-15-2024 09:33-0400 SaO2% (BldA) [Mass fraction] 95 % Dr. Michael Ernst DO Work Phone: 6(312)680-603054 [address] 07-15-2024 09:33-0400 Systolic blood pressure 128 mm[Hg] Dr. Michael Ernst DO Work Phone: 0(644)727-446154 [address] 07-02-2024 10:57-0400 Body mass index (BMI) [Ratio] 36.7 kg/m2 Dr. Michael Ernst DO Work Phone: 8(545)266-888644 [place] [address] 07-02-2024 10:57-0400 Body temperature 97.1 [degF] Dr. Michael Ernst DO Work Phone: 0(425)920-602054 [address] 07-02-2024 10:57-0400 Body weight 85.[address] Michael Ernst DO Work Phone: 9(654)566-132989 [place] [address] 07-02-2024 10:57-0400 Diastolic blood pressure 85 mm[Hg] Dr. Michael Ernst DO Work Phone: [facility] 07-02-2024 10:57-0400 Heart rate 82 /min Dr. Michael Ernst DO Work Phone: [facility] 07-02-2024 10:57-0400 Respiratory rate 18 /min Dr. Michael Ernst DO Work Phone: [facility] 07-02-2024 10:57-0400 SaO2% (BldA) [Mass fraction] 96 % Dr. Michael Ernst DO Work Phone: [facility] 07-02-2024 10:57-0400 Systolic blood pressure 130 mm[Hg] Dr. Michael Ernst DO Work Phone: [facility] 06-26-2024 10:46-0400 Body mass index (BMI) [Ratio] 36.8 kg/m2 Dr. Michael Ernst DO Work Phone: [facility] 06-26-2024 10:46-0400 Body temperature 96.7 [degF] Dr. Michael Ernst DO Work Phone: [facility] 06-26-2024 10:46-0400 Body weight 85.[address] Michael Ernst DO Work Phone: [facility] 06-26-2024 10:46-0400 Diastolic blood pressure 85 mm[Hg] Dr. Michael Ernst DO Work Phone: [facility] 06-26-2024 10:46-0400 Heart rate 83 /min Dr. Michael Ernst DO Work Phone: [facility] 06-26-2024 10:46-0400 Respiratory rate 18 /min Dr. Michael Ernst DO Work Phone: [facility] 06-26-2024 10:46-0400 SaO2% (BldA) [Mass fraction] 97 % Dr. Michael Ernst DO Work Phone: 3(244)949-392489 [place] [address] 06-26-2024 10:46-0400 Systolic blood pressure 138 mm[Hg] Dr. Michael Ernst DO Work Phone: 1(960)189-541144 [place] [address] 06-24-2024 12:32-0400 Body temperature 97.1 [degF] Dr. Michael Ernst DO Work Phone: 1(333)518-175744 [place] [address] 06-24-2024 12:32-0400 Diastolic blood pressure 74 mm[Hg] Dr. Michael Ernst DO Work Phone: 1(732)571-729944 [place] [address] 06-24-2024 12:32-0400 Heart rate 85 /min Dr. Michael Ernst DO Work Phone: 0(158)627-591844 [place] [address] 06-24-2024 12:32-0400 Respiratory rate 16 /min Dr. Michael Ernst DO Work Phone: 8(354)353-681444 [place] [address] 06-24-2024 12:32-0400 SaO2% (BldA) [Mass fraction] 99 % Dr. Michael Ernst DO Work Phone: 4(214)423-115644 [place] [address] 06-24-2024 12:32-0400 Systolic blood pressure 138 mm[Hg] Dr. Michael Ernst DO Work Phone: 8(532)186-994444 [place] [address] 06-24-2024 09:23-0400 Body mass index (BMI) [Ratio] 36.9 kg/m2 Dr. Michael Ernst DO Work Phone: 7(259)162-834944 [place] [address] 06-24-2024 09:23-0400 Body temperature 98.2 [degF] Dr. Michael Ernst DO Work Phone: 1(626)442-490944 [place] [address] 06-24-2024 09:23-0400 Body weight 85.[address] Michael Ernst DO Work Phone: 7(083)784-982344 [place] [address] 06-24-2024 09:23-0400 Diastolic blood pressure 85 mm[Hg] Dr. Michael Ernst DO Work Phone: 8(415)306-078044 [place] [address] 06-24-2024 09:23-0400 Heart rate 80 /min Dr. Michael Ernst DO Work Phone: [facility] 06-24-2024 09:23-0400 Respiratory rate 18 /min Dr. Michael Ernst DO Work Phone: [facility] 06-24-2024 09:23-0400 SaO2% (BldA) [Mass fraction] 99 % Dr. Michael Ernst DO Work Phone: [facility] 06-24-2024 09:23-0400 Systolic blood pressure 134 mm[Hg] Dr. Michael Ernst DO Work Phone: 7(032)904-488354 [address] 06-18-2024 10:42-0400 Body mass index (BMI) [Ratio] 36.7 kg/m2 Dr. Michael Ernst DO Work Phone: 4(845)002-214754 [address] 06-18-2024 10:42-0400 Body temperature 96.8 [degF] Dr. Michael Ernst DO Work Phone: 9(203)822-440554 [address] 06-18-2024 10:42-0400 Body weight 85.[address] Michael Ernst DO Work Phone: 9(214)097-163754 [address] 06-18-2024 10:42-0400 Diastolic blood pressure 80 mm[Hg] Dr. Michael Ernst DO Work Phone: 0(396)390-207689 [place] [address] 06-18-2024 10:42-0400 Heart rate 85 /min Dr. Michael Ernst DO Work Phone: 1(290)195-675589 [place] [address] 06-18-2024 10:42-0400 Respiratory rate 18 /min Dr. Michael Ernst DO Work Phone: [facility] 06-18-2024 10:42-0400 SaO2% (BldA) [Mass fraction] 98 % Dr. Michael Ernst DO Work Phone: [facility] 06-18-2024 10:42-0400 Systolic blood pressure 142 mm[Hg] Dr. Michael Ernst DO Work Phone: [facility] 06-11-2024 10:58-0400 Body mass index (BMI) [Ratio] 36.7 kg/m2 Dr. Michael Ernst DO Work Phone: [facility] 06-11-2024 10:58-0400 Body temperature 97.1 [degF] Dr. Michael Ernst DO Work Phone: 4(299)368-088954 [address] 06-11-2024 10:58-0400 Body weight 85.[address] Michael Ernst DO Work Phone: 1(587)432-147154 [address] 06-11-2024 10:58-0400 Diastolic blood pressure 88 mm[Hg] Dr. Michael Ernst DO Work Phone: 6(383)505-339754 [address] 06-11-2024 10:58-0400 Heart rate 80 /min Dr. Michael Ernst DO Work Phone: 7(260)306-829154 [address] 06-11-2024 10:58-0400 Respiratory rate 16 /min Dr. Michael Ernst DO Work Phone: 7(254)356-052544 [place] [address] 06-11-2024 10:58-0400 SaO2% (BldA) [Mass fraction] 97 % Dr. Michael Ernst DO Work Phone: 3(234)661-761754 [address] 06-11-2024 10:58-0400 Systolic blood pressure 138 mm[Hg] Dr. Michael Ernst DO Work Phone: 8(912)539-140789 [place] [address] 06-04-2024 10:04-0400 Body mass index (BMI) [Ratio] 36.8 kg/m2 Dr. Michael Ernst DO Work Phone: 4(380)771-161244 [place] [address] 06-04-2024 10:04-0400 Body temperature 98.2 [degF] Dr. Michael Ernst DO Work Phone: 7(844)786-417789 [place] [address] 06-04-2024 10:04-0400 Body weight 85.[address] Michael Ernst DO Work Phone: 6(499)276-371789 [place] [address] 06-04-2024 10:04-0400 Diastolic blood pressure 88 mm[Hg] Dr. Michael Ernst DO Work Phone: 7(823)888-369189 [place] [address] 06-04-2024 10:04-0400 Heart rate 76 /min Dr. Michael Ernst DO Work Phone: 8(098)852-268389 [place] [address] 06-04-2024 10:04-0400 Respiratory rate 18 /min Dr. Michael Ernst DO Work Phone: 5(948)746-570189 [place] [address] 06-04-2024 10:04-0400 SaO2% (BldA) [Mass fraction] 97 % Dr. Michael Ernst DO Work Phone: 3(419)680-759589 [place] [address] 06-04-2024 10:04-0400 Systolic blood pressure 145 mm[Hg] Dr. Michael Ernst DO Work Phone: 8(129)615-041244 [place] [address] 06-03-2024 11:04-0400 Body mass index (BMI) [Ratio] 36.9 kg/m2 Dr. Michael Ernst DO Work Phone: 0(212)218-580989 [place] [address] 06-03-2024 11:04-0400 Body temperature 97 [degF] Dr. Michael Ernst DO Work Phone: 4(730)055-808089 [place] [address] 06-03-2024 11:04-0400 Body weight 85.[address] Michael Ernst DO Work Phone: 6(060)604-364789 [place] [address] 06-03-2024 11:04-0400 Diastolic blood pressure 79 mm[Hg] Dr. Michael Ernst DO Work Phone: 3(996)287-274254 [address] 06-03-2024 11:04-0400 Heart rate 70 /min Dr. Michael Ernst DO Work Phone: 9(455)689-510889 [place] [address] 06-03-2024 11:04-0400 Respiratory rate 16 /min Dr. Michael Ernst DO Work Phone: 1(120)055-752389 [place] [address] 06-03-2024 11:04-0400 SaO2% (BldA) [Mass fraction] 98 % Dr. Michael Sujata DO Work Phone: [facility] 06-03-2024 11:04-0400 Systolic blood pressure 147 mm[Hg] Dr. Michael Ernst DO Work Phone: 1(319)021-914489 [place] [address] 05-15-2024 13:19-0400 Body height 152.[address] Michael Ernst DO Work Phone: 4(756)926-911544 [place] [address] 05-15-2024 13:19-0400 Body mass index (BMI) [Ratio] 37 kg/m2 Dr. Michael Ernst DO Work Phone: 6(195)286-029844 [place] [address] 05-15-2024 13:19-0400 Body temperature 98.3 [degF] Dr. Michael Ernst DO Work Phone: 4(340)810-652244 [place] [address] 05-15-2024 13:19-0400 Body weight 86.[address] Michael Ernst DO Work Phone: 6(808)617-845644 [place] [address] 05-15-2024 13:19-0400 Diastolic blood pressure 81 mm[Hg] Dr. Michael Ernst DO Work Phone: 4(747)738-588044 [place] [address] 05-15-2024 13:19-0400 Heart rate 79 /min Dr. Michael Ernst DO Work Phone: 4(002)848-545944 [place] [address] 05-15-2024 13:19-0400 Respiratory rate 18 /min Dr. Michael Ernst DO Work Phone: 7(710)249-153644 [place] [address] 05-15-2024 13:19-0400 SaO2% (BldA) [Mass fraction] 97 % Dr. Michael Ernst DO Work Phone: 7(996)124-278844 [place] [address] 05-15-2024 13:19-0400 Systolic blood pressure 123 mm[Hg] Dr. Michael Ernst DO Work Phone: 1(148)428-086944 [place] [address] 05-15-2024 13:10-0400 Diastolic blood pressure 83 mm[Hg] Dr. Michael Ernst DO Work Phone: 8(453)528-506644 [place] [address] 05-15-2024 13:10-0400 Heart rate 78 /min Dr. Michael Ernst DO Work Phone: 4(889)986-824054 [address] 05-15-2024 13:10-0400 Systolic blood pressure 150 mm[Hg] Dr. Michael Ernst DO Work Phone: 9(120)796-721044 [place] [address] 05-15-2024 09:47-0400 Body mass index (BMI) [Ratio] 37 kg/m2 Dr. Michael Ernst DO Work Phone: 5(970)646-836844 [place] [address] 05-15-2024 09:47-0400 Body temperature 98.3 [degF] Dr. Michael Ernst DO Work Phone: 9(653)236-016644 [place] [address] 05-15-2024 09:47-0400 Body weight 86.[address] Michael Ernst DO Work Phone: 3(659)326-006944 [place] [address] 05-15-2024 09:47-0400 Diastolic blood pressure 81 mm[Hg] Dr. Michael Ernst DO Work Phone: 6(172)173-044944 [place] [address] 05-15-2024 09:47-0400 Heart rate 79 /min Dr. Michael Ernst DO Work Phone: 3(238)826-370444 [place] [address] 05-15-2024 09:47-0400 Respiratory rate 18 /min Dr. Michael Ernst DO Work Phone: 4(992)714-094444 [place] [address] 05-15-2024 09:47-0400 SaO2% (BldA) [Mass fraction] 97 % Dr. Michael Ernst DO Work Phone: 1(278)833-581744 [place] [address] 05-15-2024 09:47-0400 Systolic blood pressure 123 mm[Hg] Dr. Michael Ernst DO Work Phone: 6(871)055-887044 [place] [address] 05-08-2024 09:37-0500 Body mass index (BMI) [Ratio] 37.3 kg/m2 Dr. Michael Ernst DO Work Phone: 2(883)481-318444 [place] [address] 05-08-2024 09:37-0500 Body temperature 98.2 [degF] Dr. Michael Ernst DO Work Phone: [facility] 05-08-2024 09:37-0500 Body weight 86.[address] Michael Ernst DO Work Phone: [facility] 05-08-2024 09:37-0500 Diastolic blood pressure 79 mm[Hg] Dr. Michael Ernst DO Work Phone: 1(142)121-549889 [place] [address] 05-08-2024 09:37-0500 Heart rate 81 /min Dr. Michael Ernst DO Work Phone: 3(445)379-234889 [place] [address] 05-08-2024 09:37-0500 Respiratory rate 18 /min Dr. Michael Ernst DO Work Phone: 5(478)882-501354 [address] 05-08-2024 09:37-0500 SaO2% (BldA) [Mass fraction] 97 % Dr. Michael Ernst DO Work Phone: 5(439)937-373689 [place] [address] 05-08-2024 09:37-0500 Systolic blood pressure 134 mm[Hg] Dr. Michael Ernst DO Work Phone: [facility] 04-15-2024 16:56-0500 Body temperature 98.6 [degF] Dr. Michael Ernst DO Work Phone: [facility] 04-15-2024 16:56-0500 Diastolic blood pressure 87 mm[Hg] Dr. Michael Ernst DO Work Phone: 2(525)212-692989 [place] [address] 04-15-2024 16:56-0500 Heart rate 97 /min Dr. Michael Ernst DO Work Phone: 5(235)947-492889 [place] [address] 04-15-2024 16:56-0500 Respiratory rate 16 /min Dr. Michael Ernst DO Work Phone: 9(154)799-746889 [place] [address] 04-15-2024 16:56-0500 SaO2% (BldA) [Mass fraction] 97 % Dr. Michael Ernst DO Work Phone: [facility] 04-15-2024 16:56-0500 Systolic blood pressure 148 mm[Hg] Dr. Michael Ernst DO Work Phone: [facility] 04-15-2024 07:40-0500 Body mass index (BMI) [Ratio] 37.4 kg/m2 Dr. Michael Ernst DO Work Phone: [facility] 04-15-2024 07:40-0500 Body weight [address] Michael Ernst DO Work Phone: 1(448)440-959254 [address] 03-25-2024 13:05-0500 Body mass index (BMI) [Ratio] 38 kg/m2 Dr. Michael Ernst DO Work Phone: 2(800)706-134344 [place] [address] 03-25-2024 13:05-0500 Body temperature 97.6 [degF] Dr. Michael Ernst DO Work Phone: 2(135)082-804644 [place] [address] 03-25-2024 13:05-0500 Body weight 88.[address] Michael Ernst DO Work Phone: 7(217)334-317854 [address] 03-25-2024 13:05-0500 Diastolic blood pressure 79 mm[Hg] Dr. Michael Ernst DO Work Phone: 0(651)322-965444 [place] [address] 03-25-2024 13:05-0500 Heart rate 98 /min Dr. Michael Ernst DO Work Phone: 4(092)774-192244 [place] [address] 03-25-2024 13:05-0500 Respiratory rate 15 /min Dr. Michael Ernst DO Work Phone: 7(275)250-089044 [place] [address] 03-25-2024 13:05-0500 SaO2% (BldA) [Mass fraction] 100 % Dr. Michael Ernst DO Work Phone: 4(755)185-723044 [place] [address] 03-25-2024 13:05-0500 Systolic blood pressure 143 mm[Hg] Dr. Michael Ernst DO Work Phone: 0(356)384-923144 [place] [address] 03-25-2024 12:50-0500 Diastolic blood pressure 73 mm[Hg] Dr. Michael Ernst DO Work Phone: [facility] 03-25-2024 12:50-0500 Heart rate 85 /min Dr. Michael Ernst DO Work Phone: 9(319)160-727189 [place] [address] 03-25-2024 12:50-0500 Respiratory rate 18 /min Dr. Michael Ernst DO Work Phone: 4(070)435-542654 [address] 03-25-2024 12:50-0500 SaO2% (BldA) [Mass fraction] 94 % Dr. Michael Ernst DO Work Phone: 8(233)535-497954 [address] 03-25-2024 12:50-0500 Systolic blood pressure 146 mm[Hg] Dr. Michael Ernst DO Work Phone: 0(183)512-381544 [place] [address] 03-11-2024 09:36-0500 Body mass index (BMI) [Ratio] 37.9 kg/m2 Dr. Michael Ernst DO Work Phone: 9(962)848-944244 [place] [address] 03-11-2024 09:36-0500 Body temperature 97.6 [degF] Dr. Michael Ernst DO Work Phone: 2(957)966-922344 [place] [address] 03-11-2024 09:36-0500 Body weight 88.[address] Michael Ernst DO Work Phone: 7(834)157-140744 [place] [address] 03-11-2024 09:36-0500 Diastolic blood pressure 76 mm[Hg] Dr. Michael Ernst DO Work Phone: 5(150)053-250454 [address] 03-11-2024 09:36-0500 Heart rate 92 /min Dr. Michael Ernst DO Work Phone: 2(887)717-327144 [place] [address] 03-11-2024 09:36-0500 Respiratory rate 18 /min Dr. Michael Ernst DO Work Phone: 1(282)187-264344 [place] [address] 03-11-2024 09:36-0500 SaO2% (BldA) [Mass fraction] 97 % Dr. Michael Ernst DO Work Phone: 3(141)656-787489 [place] [address] 03-11-2024 09:36-0500 Systolic blood pressure 116 mm[Hg] Dr. Michael Ernst DO Work Phone: 5(193)115-170744 [place] [address] 02-25-2024 07:54-0500 Body mass index (BMI) [Ratio] 38.7 kg/m2 Dr. Michael Ernst DO Work Phone: 8(438)425-187144 [place] [address] 02-25-2024 07:54-0500 Body temperature 98.2 [degF] Dr. Michael Ernst DO Work Phone: 7(119)178-826944 [place] [address] 02-25-2024 07:54-0500 Body weight 89.[address] Michael Ernst DO Work Phone: 4(298)425-643144 [place] [address] 02-25-2024 07:54-0500 Diastolic blood pressure 77 mm[Hg] Dr. Michael Ernst DO Work Phone: 6(147)290-378844 [place] [address] 02-25-2024 07:54-0500 Heart rate 113 /min Dr. Michael Ernst DO Work Phone: 3(734)175-909444 [place] [address] 02-25-2024 07:54-0500 Respiratory rate 18 /min Dr. Michael Ernst DO Work Phone: 0(755)107-402644 [place] [address] 02-25-2024 07:54-0500 SaO2% (BldA) [Mass fraction] 97 % Dr. Michael Ernst DO Work Phone: 6(832)547-983044 [place] [address] 02-25-2024 07:54-0500 Systolic blood pressure 137 mm[Hg] Dr. Michael Ernst DO Work Phone: 1(472)802-150844 [place] [address] 02-21-2024 09:31-0500 Body mass index (BMI) [Ratio] 38.5 kg/m2 Dr. Michael Ernst DO Work Phone: 2(000)800-006544 [place] [address] 02-21-2024 09:31-0500 Body temperature 97.7 [degF] Dr. Michael Ernst DO Work Phone: 8(004)148-732844 [place] [address] 02-21-2024 09:31-0500 Body weight 89.[address] Michael Ernst DO Work Phone: [facility] 02-21-2024 09:31-0500 Diastolic blood pressure 75 mm[Hg] Dr. Michael Ernst DO Work Phone: 1(937)222-258489 [place] [address] 02-21-2024 09:31-0500 Heart rate 103 /min Dr. Michael Ernst DO Work Phone: 4(930)093-537754 [address] 02-21-2024 09:31-0500 Respiratory rate 18 /min Dr. Michael Ernst DO Work Phone: 4(355)912-802554 [address] 02-21-2024 09:31-0500 SaO2% (BldA) [Mass fraction] 96 % Dr. Michael Ernst DO Work Phone: 2(319)767-425154 [address] 02-21-2024 09:31-0500 Systolic blood pressure 107 mm[Hg] Dr. Michael Ernst DO Work Phone: 4(553)974-360854 [address] 02-19-2024 13:15-0500 Body temperature 96.4 [degF] Dr. Michael Ernst DO Work Phone: 4(711)366-902454 [address] 02-19-2024 13:15-0500 Respiratory rate 16 /min Dr. Michael Ernst DO Work Phone: 0(920)760-246344 [place] [address] 02-19-2024 13:15-0500 SaO2% (BldA) [Mass fraction] 98 % Dr. Michael Ernst DO Work Phone: 2(934)306-035954 [address] 02-19-2024 09:50-0500 Body mass index (BMI) [Ratio] 38 kg/m2 Dr. Michael Ernst DO Work Phone: 5(762)385-493754 [address] 02-19-2024 09:50-0500 Body temperature 97.5 [degF] Dr. Michael Ernst DO Work Phone: 7(134)247-939754 [address] 02-19-2024 09:50-0500 Body weight 88.[address] Michael Ernst DO Work Phone: 8(510)391-957954 [address] 02-19-2024 09:50-0500 Diastolic blood pressure 76 mm[Hg] Dr. Michael Ernst DO Work Phone: 9(900)568-659854 [address] 02-19-2024 09:50-0500 Heart rate 106 /min Dr. Michael Ernst DO Work Phone: 8(334)970-392544 [place] [address] 02-19-2024 09:50-0500 Respiratory rate 16 /min Dr. Michael Ernst DO Work Phone: 5(647)167-234044 [place] [address] 02-19-2024 09:50-0500 SaO2% (BldA) [Mass fraction] 97 % Dr. Michael Ernst DO Work Phone: 7(006)501-098344 [place] [address] 02-19-2024 09:50-0500 Systolic blood pressure 120 mm[Hg] Dr. Michael Ernst DO Work Phone: 9(883)607-626644 [place] [address] 02-05-2024 08:39-0500 Body mass index (BMI) [Ratio] 39.3 kg/m2 Dr. Michael Ernst DO Work Phone: 7(624)464-733644 [place] [address] 02-05-2024 08:39-0500 Body temperature 98.4 [degF] Dr. Michael Ernst DO Work Phone: 0(378)056-410044 [place] [address] 02-05-2024 08:39-0500 Body weight 91.[address] Michael Ernst DO Work Phone: 4(173)531-348244 [place] [address] 02-05-2024 08:39-0500 Diastolic blood pressure 76 mm[Hg] Dr. Michael Ernst DO Work Phone: 4(634)272-535644 [place] [address] 02-05-2024 08:39-0500 Heart rate 99 /min Dr. Michael Ernst DO Work Phone: 8(351)204-658744 [place] [address] 02-05-2024 08:39-0500 Respiratory rate 18 /min Dr. Michael Ernst DO Work Phone: 7(518)831-638444 [place] [address] 02-05-2024 08:39-0500 SaO2% (BldA) [Mass fraction] 98 % Dr. Michael Ernst DO Work Phone: [facility] 02-05-2024 08:39-0500 Systolic blood pressure 128 mm[Hg] Dr. Michael Ernst DO Work Phone: [facility] 01-29-2024 09:58-0500 Body mass index (BMI) [Ratio] 38.2 kg/m2 Dr. Michael Ernst DO Work Phone: [facility] 01-29-2024 09:58-0500 Body temperature 98.2 [degF] Dr. Michael Ernst DO Work Phone: [facility] 01-29-2024 09:58-0500 Body weight 88.[address] Michael Ernst DO Work Phone: [facility] 01-29-2024 09:58-0500 Diastolic blood pressure 74 mm[Hg] Dr. Michael Ernst DO Work Phone: [facility] 01-29-2024 09:58-0500 Heart rate 99 /min Dr. Michael Ernst DO Work Phone: [facility] 01-29-2024 09:58-0500 Respiratory rate 18 /min Dr. Michael Ernst DO Work Phone: [facility] 01-29-2024 09:58-0500 SaO2% (BldA) [Mass fraction] 98 % Dr. Michael Ernst DO Work Phone: [facility] 01-29-2024 09:58-0500 Systolic blood pressure 106 mm[Hg] Dr. Michael Ernst DO Work Phone: [facility] Encounters Encounter Date Encounter Type Care Provider Facility Start: 11-25-2024 ambulatory Michael Ernst Facility:[facility] Start: 11-18-2024 End: 11-18-2024 Patient encounter procedure Winifred SOLANO -[facility] Work Phone: Start: 11-18-2024 End: 11-18-2024 ambulatory DrDaphney Ernst DO Work Phone: [facility] Start: 11-18-[address] Jairon Rothman MD [facility] Start: 10-28-[address] Jairon Rothman MD [facility] Start: 10-28-2024 End: 10-28-[address] Jairon Rothman MD [facility] Work Phone: Start: 10-28-2024 End: 10-28-[address] Michael Ernst DO Work Phone: [facility] Start: 10-07-[address] Jairon Rothman MD [facility] Start: 10-07-2024 End: 10-07-[address] Jairon Rothman MD [facility] Work Phone: Start: 10-07-2024 End: 10-07-[address] Michael Ernst DO Work Phone: [facility] Start: 09-16-2024 End: 09-16-[address] Jairon Rothman MD [facility] Work Phone: Start: 09-16-2024 End: 09-16-[address] Michael Ernst DO Work Phone: [facility] Start: 09-16-[address] Jairon Rothman MD [facility] Start: 08-26-2024 End: 08-26-[address] Jairon Rothman MD [facility] Work Phone: Start: 08-26-2024 End: 08-26-[address] Michael Ernst DO Work Phone: [facility] Work Phone: Start: 08-26-[address] Jairon Rothman MD [facility] Start: 08-21-2024 Non-patient / Non-visit Dr. Sil DOWNS -[facility] Start: 08-21-2024 End: 08-21-[address] Michael Ernst DO Work Phone: -[facility] Start: 08-21-2024 End: 08-21-2024 Patient encounter procedure Winifredcasandra JonJose C DIRECTOR OF NEUROLOGY-C -[facility] Work Phone: Start: 08-21-2024 End: 08-21-2024 ambulatory Winifredcasandra JonJose C DIRECTOR OF NEUROLOGY Facility:[facility] Start: 08-05-2024 End: 08-05-2024 Patient encounter procedure Winifredcasandra JonJose C DIRECTOR OF NEUROLOGY-C -[facility] Work Phone: Start: 08-05-2024 End: 08-05-[address] Michael Ernst DO Work Phone: [facility] Work Phone: Start: 08-05-[address] Jairon Rothman MD -[facility] Start: 07-15-2024 End: 07-15-2024 Patient encounter procedure Winifred JonJose C DIRECTOR OF NEUROLOGY-C -[facility] Work Phone: Start: 07-15-2024 End: 07-15-[address] Michael Ernst DO Work Phone: [facility] Work Phone: Start: 07-15-[address] Jairon Rothman MD -[facility] Start: 07-04-2024 Non-patient / Non-visit Dr. Polo palacios [facility] Work Phone: Start: 07-04-2024 ambulatory Polo Morgan [place] [facility] Start: 07-02-2024 End: 07-02-[address] Polo Morgan [facility] Work Phone: Start: 07-02-2024 End: 07-02-2024 ambulatory Polo Morgan [place] Start: 06-26-2024 End: 06-26-[address] Polo Morgan [facility] Work Phone: Start: 06-26-2024 End: 06-26-[address] [facility] Start: 06-25-2024 End: 06-25-[address] Michael Ernst MD -Radiology, [facility] Work Phone: Start: 06-24-2024 End: 06-24-[address] Jairon Rothman MD -[facility] Work Phone: Start: 06-24-2024 End: 06-25-2024 ambulatory [facility] Facility:[facility] Start: 06-18-2024 End: 06-18-[address]o Morgan [facility] Work Phone: Start: 06-18-2024 End: 06-18-2024 ambulatory [facility] Start: 06-11-2024 End: 06-11-[address]o Morgan [facility] Work Phone: Start: 06-11-2024 End: 06-11-[address] [facility] Start: 06-04-2024 End: 06-04-[address] Jairon Rothman MD -[facility] Work Phone: Start: 06-04-2024 End: 06-04-2024 ambulatory [facility] Start: 06-03-2024 End: 06-03-[address]o Morgan [facility] Work Phone: Start: 06-03-2024 End: 06-03-[address] [facility] Start: 06-02-[address] [facility]: [facility] Start: 06-02-2024 Non-patient / Non-visit Dr. Polo palacios DO [facility] Start: 05-29-[address] [facility]: [facility] Start: 05-29-2024 Non-patient / Non-visit Dr. Polo palacios DO [facility] Start: 05-28-[address] [facility]: [facility] Start: 05-28-2024 Non-patient / Non-visit Dr. Polo palacios DO -[facility] Start: 05-27-2024 ambulatory Polo Morgan Facility: [facility] Start: 05-27-2024 Non-patient / Non-visit Dr. Polo palacios DO -[facility] Start: 05-22-2024 Registered Recurring Winifred Woodall NP-C -Occupational Therapy Work Phone: Start: 05-22-2024 End: 05-22-2024 ambulatory Winifred Woodall NP Facility:[facility] Start: 05-21-2024 Non-patient / Non-visit Dr. Polo palacios DO [facility] Start: 05-21-2024 ambulatory Polo [place]edeston Facility: [facility] Start: 05-21-[address] Jairon Rothman MD -Radiation Oncology Start: 05-19-2024 Encounter for other preprocedural examination [facility] Start: 05-15-2024 End: 05-15-[address] Polo Morgan DO -[facility] Work Phone: Start: 05-15-2024 End: 05-15-2024 ambulatory Michaelsahara Ernst [place] Start: 05-15-2024 End: 05-15-2024 ambulatory Michael Ernst [place] Start: 05-15-2024 End: 05-15-2024 Patient encounter procedure Winifred Woodall NP-C -[facility] Work Phone: Start: 05-12-2024 Non-patient / Non-visit Dr. Dot Choe MD -[facility] Start: 05-12-2024 End: 05-12-[address] Michael Ernst DO Work Phone: [facility] Work Phone: Start: 05-12-2024 End: 05-12-[address] Jairon Rothman MD -Cardiovascular Services Work Phone: Start: 05-12-2024 End: 05-12-2024 ambulatory Michael Sujata Facility:[facility] Start: 05-08-2024 End: 05-08-[address] Jairon Rothman MD -[facility] Work Phone: Start: 05-08-2024 End: 05-08-2024 ambulatory Michael Sujata Facility:[facility] Start: 04-29-2024 End: 04-29-[address] Griffin Sage MD -[facility] Work Phone: Start: 04-29-2024 End: 04-29-2024 ambulatory Michael Sujata Facility:[facility] Start: 04-15-2024 ambulatory Michael Sujata [facility] Start: 04-15-2024 Non-patient / Non-visit Dr. Griffin Sage MD -[facility] Start: 04-15-2024 Non-patient / Non-visit Dr. Alexys tijerina MD -[facility] Start: 04-15-2024 End: 04-15-2024 Admission to same day surgery center Dr. Griffin Sage MD -[facility] Start: 04-15-2024 End: 04-15-2024 ambulatory Michael Sujata Facility:[facility] Start: 04-08-2024 End: 04-08-2024 ambulatory Michael Sujata [facility] Start: 04-08-2024 End: 04-08-2024 Non-patient / Non-visit Dr. Erik Orr MD -[facility] Work Phone: Start: 04-07-2024 End: 04-07-[address] Griffin Sage MD -Outpatient Breast Imaging Work Phone: Start: 04-07-2024 End: 04-07-2024 ambulatory Michael Sujata Facility:[facility] Start: 04-01-2024 End: 04-01-[address] Griffin Sage MD -[facility] Work Phone: Start: 04-01-2024 End: 04-01-2024 ambulatory Michael Sujata [facility] Start: 03-25-2024 End: 03-25-2024 Emergency department patient visit Dr. Mk Jones MD -Emergency Department Work Phone: Start: 03-25-2024 End: 03-25-2024 Patient encounter procedure Winifred Palaciosach DIRECTOR OF NEUROLOGY-C -[facility] Work Phone: Start: 03-25-2024 End: 03-25-2024 ambulatory Michael Sujata Facility:[facility] Start: 03-11-2024 End: 03-11-2024 Patient encounter procedure Winifred Woodall DIRECTOR OF NEUROLOGY- -[facility] Work Phone: Start: 03-11-2024 End: 03-11-2024 ambulatory Michael Sujata [facility] Start: 02-25-2024 End: 02-25-2024 Patient encounter procedure Winifred Woodall NP- -[facility] Work Phone: Start: 02-25-2024 End: 02-25-2024 ambulatory Michael Sujata [facility] Start: 02-21-2024 End: 02-21-[address] Alexys Loredo MD -[facility] Work Phone: Start: 02-21-2024 End: 02-21-2024 ambulatory Michael Sujata [facility] Start: 02-19-2024 End: 02-19-2024 Patient encounter procedure [facility] Start: 02-19-2024 End: 02-19-2024 ambulatory Michael Sujata [facility] Start: 02-05-2024 End: 02-05-[address] Jairon Rothman MD -[facility] Work Phone: Start: 02-05-2024 End: 02-05-2024 ambulatory Michael Sujata [facility] Start: 01-29-2024 End: 01-29-2024 ambulatory Michael Sujata [facility] Start: 01-29-2024 Non-patient / Non-visit Dr. Kendall lopez MD -[facility] Start: 01-29-2024 End: 01-29-[address] Jairon Rothman MD -[facility] Work Phone: Start: 01-29-2024 End: 01-29-2024 ambulatory Michael Sujata Facility:[facility] Start: 01-15-2024 End: 01-15-2024 ambulatory Michael Sujata [facility] Start: 01-08-2024 End: 01-08-2024 ambulatory Michael Sujata [facility] Start: 12-25-2023 End: 12-25-2023 ambulatory Michael Sujata [facility] Start: 12-18-2023 End: 12-18-2023 ambulatory Michael Sujata [facility] Start: 12-04-2023 End: 12-04-2023 ambulatory Michael Sujata [facility] Start: 11-27-2023 End: 11-27-2023 ambulatory Michael Sujata [facility] Start: 09-10-2023 ambulatory MICHAEL ERNST [facility] Procedures Date Procedure Procedure Detail Performing Clinician Start: 11-18-[address] Michael Ernst DO Work Phone: Start: 11-18-[address] Michael Ernst DO Work Phone: Start: 10-28-[address] Michael Ernst DO Work Phone: Start: 10-07-[address] Michael Ernst DO Work Phone: Start: 09-16-[address] Michael Ernst DO Work Phone: Start: 08-26-[address] Michael Ernst DO Work Phone: Start: 08-05-[address] Michael Ernst DO Work Phone: Start: 07-15-[address] Michael Ernst DO Work Phone: Start: 06-25-2024 Plain X-ray of shoulder Dr. Michael Ernst DO Work Phone: Start: 05-15-[address] Michael Ernst DO Work Phone: Start: 04-15-2024 Needle Loc Each Additional Dr. Michael Ernst DO Work Phone: Start: 04-15-2024 End: 04-15-[address] Michael Ernst DO Work Phone: Start: 04-15-[address] Alireza Ernst DO Work Phone: Start: 04-15-2024 Radionuclide sentine l lymph node study Dr. Michael Ernst DO Work Phone: Start: 04-07-2024 Measurement of renal function Dr. Michael Ernst DO Work Phone: Comment on above: GFR Calc Start: 04-07-2024 Bilateral mammography D olivia Ernst DO Work Phone: Start: 03-25-2024 MRI of bilateral frank asts with contrast Dr. Michael Ernst DO Work Phone: Start: 03-11-2024 Measurement of renal function Dr. Michael Ernst DO Work Phone: Comment on above: GFR Calc Start: 02-25-[address] Michael Ernst DO Work Phone: Start: 02-25-2024 Total iron binding capacity measurement Dr. Michael Ernst DO Work Phone: Start: 02-25-[address] Michael Ernst DO Work Phone: Start: 01-29-2024 Assay of phosphorus inorganic Dr. Michael Ernst DO Work Phone: Start: 10-23-2023 Positron emission tomography with computed tomography Dr. Michael Ernst DO Work Phone: Plan of Treatment Date Care Activity Detail Author Start: 11-18-2024 [facility] Start: 10-28-2024 [facility] Start: 10-07-2024 Cancer Ag 125 [Units/volume] in Serum or Plasma [facility] Start: 10-07-2024 Cancer Ag 15-3 [Presence] in Serum or Plasma [facility] Start: 10-07-2024 Cancer Ag 27-29 [Presence] in Serum or Plasma [facility] Start: 10-07-2024 Carcinoembryonic Ag [Mass/volume] in Serum or Plasma [facility] Start: 10-07-2024 [facility] Start: 09-16-2024 [facility] Start: 08-26-2024 [facility] Start: 08-05-2024 [facility] Start: 05-15-2024 Patient referral [facility] Work Phone: Start: 05-08-2024 Patient referral [facility] Work Phone: Start: 04-15-2024 Patient discharge [facility] Start: 04-15-2024 Anes integ extremities ant trunk & perineum nos ANESTH SKIN EXT/PER/ATRUNK [facility] Start: 04-15-2024 Mastectomy partial w/axillary lymphadenectomy P-MASTECTOMY W/LN REMOVAL [facility] Start: 04-15-2024 Perq breast loc device placemt [address] [place] [address] gdnce PERQ DEV BREAST [address] [place] [address] Start: 04-15-2024 Perq sft tiss loc device plmt 1st les w/gdnce PLMT SFT TISS LOCLZJ DEV 1ST [facility] Start: 04-15-2024 Venous catheter care management [facility] Start: 03-25-2024 [facility] Start: 03-25-2024 Venous catheter care management [facility] Start: 11-13-2023 Venous catheter care management [facility] Cancer Ag 125 [Units /volume] in Serum or Plasma [facility] Cancer Ag 125 [Units /volume] in Serum or Plasma [facility] Cancer Ag 125 [Units /volume] in Serum or Plasma [facility] Cancer Ag 15-3 [Pres ence] in Serum or Plasma [facility] Cancer Ag 15-3 [Pres ence] in Serum or Plasma [facility] Cancer Ag 15-3 [Pres ence] in Serum or Plasma [facility] Cancer Ag 27-29 [Pre sence] in Serum or Plasma [facility] Cancer Ag 27-29 [Pre sence] in Serum or Plasma [facility] Cancer Ag 27-29 [Pre sence] in Serum or Plasma [facility] Carcinoembryonic Ag [Mass/volume] in Serum or Plasma [facility] Carcinoembryonic Ag [Mass/volume] in Serum or Plasma [facility] Carcinoembryonic Ag [Mass/volume] in Serum or Plasma [facility] CBC W Auto Different ial panel - Blood [facility] CBC W Auto Different ial panel - Blood [facility] CBC W Auto Different ial panel - Blood [facility] Comprehensive metabo lic 1999 panel - Serum or Plasma [facility] metab lic 1999 panel - Serum or Plasma [facility] metabo lic 1999 panel - Serum or Plasma [facility] Electrocardiographic procedure [facility] Lactate dehydrogenas e measurement [facility] Lactate dehydrogenas e measurement [facility] Patient Education ED ADVERSE PRESTON G REACTION Allergic ED General Allergic Reactions [facility] Work Phone: Patient referral [facility] Work Phone: [facility] Payers Date Payer Category Payer Self-pay [id number] 2023 Unknown [id number] 30bef [id number] Unknown [id number] 2.16.8 40.1.423779.3.579.2.462 Unknown [id number] 2.16.8 40.1.628923.3.579.2.462 Unknown [id number] 2.16.8 40.1.587376.3.579.2.462 Unknown [id number] 2.16.8 40.1.447094.3.579.2.462 Unknown [id number] 2.16.8 40.1.672224.3.579.2.462 Unknown [id number] 2.16.8 40.1.612398.3.579.2.462 Unknown [id number] 2.16.8 40.1.090834.3.579.2.462 Unknown [id number] 2.16.8 40.1.474183.3.579.2.462 Unknown [id number] 2.16.8 40.1.614455.3.579.2.462 Unknown [id number] 2.16.8 40.1.165862.3.579.2.462 Unknown [id number] 2.16.8 40.1.537567.3.579.2.462 Unknown [id number] 2.16.8 40.1.915307.3.579.2.462 Unknown [id number] 2.16.8 40.1.697141.3.579.2.462 Unknown [id number] 2.16.8 40.1.960421.3.579.2.462 Unknown [id number] 2.16.8 40.1.413044.3.579.2.462 Unknown [id number] 2.16.8 40.1.228720.3.579.2.462 Unknown [id number] 2.16.8 40.1.910926.3.579.2.462 Unknown [id number] 2.16.8 40.1.461413.3.579.2.462 Unknown [id number] 2.16.8 40.1.351765.3.579.2.462 Unknown [id number] 2.16.8 40.1.516494.3.579.2.462 Unknown [id number] 2.16.8 40.1.184609.3.579.2.462 Unknown [id number] 2.16.8 40.1.522879.3.579.2.462 Unknown [id number] 2.16.8 40.1.516363.3.579.2.462 Unknown [id number] 2.16.8 40.1.611453.3.579.2.462 Unknown [id number] 2.16.8 40.1.019604.3.579.2.462 Unknown [id number] 2.16.8 40.1.566113.3.579.2.462 Unknown [id number] 2.16.8 40.1.206857.3.579.2.462 Unknown [id number] 2.16.8 40.1.766547.3.579.2.462 Unknown [id number] 2.16.8 40.1.524640.3.579.2.462 Unknown [id number] 2.16.8 40.1.039199.3.579.2.462 Unknown [id number] 2.16.8 40.1.096886.3.579.2.462 Unknown [id number] 2.16.8 40.1.659376.3.579.2.462 Unknown [id number] 2.16.8 40.1.103850.3.579.2.462 Unknown [id number] 2.16.8 40.1.465496.3.579.2.462 Unknown [id number] 2.16.8 40.1.339599.3.579.2.462 Unknown [id number] 2.16.8 40.1.681971.3.579.2.462 Unknown [id number] 2.16.8 40.1.518418.3.579.2.462 Unknown [id number] 2.16.8 40.1.822237.3.579.2.462 Unknown [id number] 2.16.8 40.1.920911.3.579.2.462 Unknown [id number] 2.16.8 40.1.320298.3.579.2.462 Unknown [id number] 2.16.8 40.1.161486.3.579.2.462 Unknown [id number] 2.16.8 40.1.770655.3.579.2.462 Unknown [id number] 2.16.8 40.1.756249.3.579.2.462 Unknown [id number] 2.16.8 40.1.102976.3.579.2.462 Unknown [id number] 2.16.8 40.1.030900.3.579.2.462 Unknown [id number] 2.16.8 40.1.359242.3.579.2.462 Unknown [id number] 2.16.8 40.1.288638.3.579.2.462 Unknown [id number] 2.16.8 40.1.107953.3.579.2.462 Unknown [id number] 2.16.8 40.1.962076.3.579.2.462 Unknown [id number] 2.16.8 40.1.550310.3.579.2.462 Unknown [id number] 2.16.8 40.1.141898.3.579.2.462 Unknown [id number] 2.16.8 40.1.876225.3.579.2.462 Unknown [id number] 2.16.8 40.1.567053.3.579.2.462 Unknown [id number] 2.16.8 40.1.736621.3.579.2.462 Unknown [id number] 2.16.8 40.1.636516.3.579.2.462 Unknown [id number] 2.16.8 40.1.547213.3.579.2.462 Unknown [id number] 2.16.8 40.1.602238.3.579.2.462 Social History Date Type Detail Facility Start: 04-04-2024 Tobacco smoking stat [facility] Never smoked tobacco (finding) [facility] Start: 05-22-2024 Sex Female (finding) [facility] Start: 1970 Sex Assigned At Female [facility] Medical Equipment Procedure Code Equipment Code Equipment Origin al Text Equipment Identifier Dates Lumpectomy, breast, after needle localization, with sentinel lymph node excision and Ligation clip, metallic [id number] FDA Start: 04-15-2024 Lumpectomy, breast, after needle localization, with sentinel lymph node excision and Ligation clip, metallic ()[id number] FDA Start: 04-15-2024 Lumpectomy, breast, after needle localization, with sentinel lymph node excision and Ligation clip, metallic ()[id number] FDA Start: 04-15-2024 Lumpectomy, breast, after needle localization, with sentinel lymph node excision and Ligation clip, metallic ()[id number] FDA Start: 04-15-2024 Lumpectomy, breast, after needle localization, with sentinel lymph node excision and Ligation clip, metallic ()[id number] FDA Start: 04-15-2024 Insertion, vascular access port ([id number]) Vascular port/catheter ()[id number] FDA Start: 10-25-2023 Goals Date Patient Goal Desired Activity /State Mental Status Date Assessment Result Facility 04-15-2024 Cognitive function Voice/Name [facility] Work Phone: Clinical Notes 01-29-2024 to 10-28-2024 Note Date & Type Note Facility 10-28-2024 Progress note [facility] 10-28-2024 Progress note Note Date/Time October 28, 2024 10:42am [facility] [address] [place] [id number] OFFICE VISIT Date of Service: 10/28/24 1006 MR#: [id number] Acct: [id number] Name: CASSIDY CAPUTO Rep #: [id number] : 1970 From: Jairon Rothman MD Age/Sex: 54/F [place] [facility] [place]: Signed HPI Subjective Date of Service 10/28/24 Chief Complaint F/U for L breast cancer management. History of Present Illness 54-year-old woman had ultrasound of the left breast which showed 12 mm mass in 2o'clock position of the left breast. 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 MRI of the left breast on 09/21/2023 showed large clumped non-mass enhancement in the upper central portion of the left breast measuring 6.5 cm with normal lymph nodes in both axillae. 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 She was referred for neoadjuvant chemotherapy and monoclonal antibody therapy. PET/CT obtained 10-22 reported as negative examination, demonstrated facilitated uptake in the left axilla SUV 1.4 did not fulfill quantitative criteria for viable neoplasm, otherwise identified no definitive evidence of distant metastatic disease. R Port was placed on 10/25/2023. BRCA 1 and BRCA 2 negative (no other genes analyzed). Started neoadjuvant TCHP on 11/13/23. Got C4 on 01/15/2024. Cycle 5 given 02/05/2024. Got C6 on 02/25/2024. Underwent left breast lumpectomy and sentinel node biopsy on 04/15/2024?pathologyshowed focal ductal carcinoma in situ but no residual invasive carcinoma presentwithin the breast, 2 of 3 sentinel lymph nodes negative, 1 of 3 lymph nodes withmicrometastatic carcinoma. 05/12/2024 echocardiogram shows normal LV size and function, normal global longitudinal strain.EF 65 to 70%. Started adjuvant Perjeta and Herceptin analogue on 05/15/2024. Completed adjuvant radiation to left breast and regional lymph nodes consisting of 5000 cGy delivered in 25 fractions 06/02/24-07/04/24. Comes for C15. Feels well. [facility] Medical History Asthma History of echocardiogram Neuropathy Anemia Vaginal dryness Encounter for chemotherapy management Diarrhea due to drug Hypokalemia Encounter for education Wears contact lenses Wears glasses Cancer Migraine headache Shortness of breath on exertion Non-smoker Hypertension History of hypertension History of frequent headaches History of seasonal allergies Surgical History History of lumpectomy of left breast History of surgery History of delivery History of wisdom tooth extraction Family History Aunt Breast cancer, Onset Age: 60 Father Cancer Asthma Heart disease Hypertension Diabetes Aunt Lymphoma Social History Smoking Status: Never smoker alcohol intake: never substance use type: does not use additional social history: pt denies vaping, denies marijuana use denies edibles, uses ibuprofen as needed. used to take aspirin daily has stopped Intake Vital Signs 06/24/24 09:23 10/28/24 10:07 Height 5 ft 5 ft Weight: 83.716 kg BMI 36.0 BP 139/81 H Blood Pressure Location Rt brachial Position Sitting Respiration 18 Pulse 70 Pulse Source Monitor Temp 97.9 F Temperature Source Temporal Artery Pulse Oximetry (%) 97 Oxygen Delivery Method room air Intake Accompanied by: Is patient in pain?: No Allergies Gadolinium-MRI Contrast Medium Allergy (Intermediate, Verified 10/28/24 10:15) Rash Medications ?Medication ?Instructions ?Recorded ?Confirmed ?Type hydrochlorothiazide 12.5 mg capsule 12.5 mg PO DAILY 0 09/12/23 10/28/24 History lisinopril 2.5 mg tablet 2.5 mg PO DAILY 09/12/23 History amlodipine 5 mg tablet 5 mg PO DAILY 10/18/2310/28 History loratadine 10 mg tablet (Allergy 10 mg PO DAILY 10/28/24 History Relief (loratadine)) lidocaine-prilocaine 2.5 %-2.5 % 1 applic topical ONCE PRN port 11/08/23 10/28/24 Rx topical cream access 30 days #30 grams ondansetron 8 mg disintegrating 8 mg PO Q8H PRN nausea and 11/08/23 10/28/24 Rx tablet vomiting #30 tabs prochlorperazine maleate 10 mg 10 mg PO Q6H PRN nausea and 11/08/23 10/28/24 Rx tablet vomiting #30 tabs silver sulfadiazine 1 % topical 1 applic topical BID # 85 grams 07/10/24 10/28/24 Rx cream (Silvadene) Central Venous Access Central Venous Access: Yes Port/PICC: Port Exam Physical Exam Narrative ECOG 0 Const alert, oriented x3 and no apparent distress HEENT normocephalic and head/scalp atraumatic Head and Scalp: other Other Details: hair growing back Eyes General Eye: normal appearance of both eyes Neck no lymphadenopathy Lymph Lymphatic: no lymphadenopathy noted Chest Chest Narrative: Port R IC area. Chest: vascular access Resp normal respiratory effort and clear to auscultation bilaterally Cardio regular rate, regular rhythm, S1 normal heart sound and S2 normal heart sound GI normal to inspection, nondistended, normoactive bowel sounds, soft to palpation and non-tender Back/Spine no CVA tenderness and no thoracic nor lumbar tenderness Extremity no clubbing, cyanosis or edema Skin Skin Narrative: few papular rash L arm. 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 C50.912; C77.3 Laterality: left Encounter for monoclonal antibody treatment for malignancy Z51.12 Assessment and Plan Assessment and Plan (1) Breast cancer, left: Status: Chronic Qualifiers: Breast location: overlapping sites of breast Estrogen receptor status: negative Patient sex: female Qualified Code(s): C50.812 - Malignant neoplasm of overlapping sites of left female breast; Z17.1 - Estrogen receptor negative status [ER-] Comment: Left breast cancer with metastasis to left axillary lymph node, upper inner and outer quadrant with axillary node positive disease, ER negative, CT negative, HER2 3+. Started treatment with neoadjuvant chemotherapy and monoclonal antibody against HER2 began 11/13/23. Finished 6 cycles on 02/25/2024. Had surgery-left lumpectomy and axillary dissection on 04/15/2024. Pathology showed ypT0 ypN1. Started adjuvant Perjeta and Herceptin analogue on 05/15/2024. Echocardiogram on 08/21/2024 reviewed EF60%. Comes for C15. Counts reviewed, oK for therapy. Plan: To proceed with C15 adjuvant trastuzumab and pertuzumab today. (2) Breast cancer metastasized to axillary lymph node: Status: Chronic Qualifiers: Laterality: left Qualified Code(s): C50.912 - Malignant neoplasm of unspecified site of left female breast; C77.3 - Secondary and unspecified malignant neoplasm of axilla and upper limb lymph nodes Comment: Left breast cancer with metastasis to left axillary lymph node, upper inner and outer quadrant with axillary node positive disease, ER negative, CT negative, HER2 3+. Status post treatment with neoadjuvant chemotherapy carboplatin and Taxotere andmonoclonal antibody against HER2-Perjeta and Herceptin analogue x 6. Status post left breast lumpectomy and left axillary sentinel node biopsy. Pathology showed no residual left breast lesion, plus macrometastasis in 1 lymphnode. Pathologic stage ypT0 ypN1. On adjuvant therapy with monoclonal antibodies against HER2 for additional 6 months. Plan: To continue C15 adjuvant therapy with Perjeta and Herceptin analogue. (3) Encounter for monoclonal antibody treatment for malignancy: Status: Acute Plan: To proceed with C15 P/H analogue. Orders: Orders CBC W/Diff, Automated Today C50.912 - Malignant neoplasm of unspecified site ofleft female breast, C77.3 - Secondary and unspecified malignant neoplasm of axilla and upper limb lymph nodes Comprehensive Metabolic Profil Today C50.912 - Malignant neoplasm of unspecified site of left female breast, C77.3 - Secondary and unspecified malignant neoplasm of axilla and upper limb lymph nodes LDH Today C50.912 - Malignant neoplasm of unspecified site of left female breast, C77.3 - Secondary and unspecified malignant neoplasm of axilla and upperlimb lymph nodes Plan Details Follow Up: 3 Weeks 10/28/24 1042 <Electronically signed by Jairon Reilly> Date _ [facility] MD [facility] Signature: Date (if applicable) CC: Dr. Michael Ernst MD ~ [facility] Work Phone: [phone]) 233-423008-05-2025 [facility] [address] [place] [address] OFFICE VISIT Date of Service: 10/07/24 1004 MR#: [id number] Acct: [id number] Name: CASSIDY CAPUTO Rep #: [id number] : 1970 From: Jairon Rothman MD Age/Sex: 54/F [place] [facility] [place] Status: Signed HPI Subjective Date of Service 10/07/24 Chief Complaint F/U for L breast cancer management. History of Present Illness 54-year-old woman had ultrasound of the left breast which showed 12 mm mass in 2o'clock position ofthe left breast. 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 MRI of the left breast on 09/21/2023 showed large clumped non-mass enhancement in the upper central portion of the left breast measuring 6.5 cm with normal lymph nodes in both axillae. 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 She was referred for neoadjuvant chemotherapy and monoclonal antibody therapy. PET/CT obtained 10-22 reported as negative examination,demonstrated facilitated uptake in the left axilla SUV 1.4 did not fulfill quantitative criteria for viable neoplasm, otherwise identified no definitive evidence of distant metastatic disease. R Portwas placed on 10/25/2023. BRCA 1 and BRCA 2 negative (no other genes analyzed). Started neoadjuvant TCHP on 11/13/23. Got C4 on 01/15/2024. Cycle 5 given 02/05/2024. Got C6 on 02/25/2024. Underwent left breast lumpectomy and sentinel node biopsy on 04/15/2024?pathologyshowed focal ductalcarcinoma in situ but no residual invasive carcinoma presentwithin the breast, 2 of 3 sentinel lymph nodes negative, 1 of 3 lymph nodes withmicrometastatic carcinoma. 05/12/2024 echocardiogram shows normal LV size and function, normal global longitudinal strain.EF 65to 70%. Started adjuvant Perjeta and Herceptin analogue on 05/15/2024. Completed adjuvant radiation to left breast and regional lymph nodes consisting of 5000 cGy delivered in 25 fractions 06/02/24-07/04/24. Comes for C14. Feels well. [facility] Medical History Asthma History of echocardiogram Neuropathy Anemia Vaginal dryness Encounter for chemotherapy management Diarrhea due to drug Hypokalemia Encounter for education Wears contact lenses Wears glasses Cancer Migraine headache Shortness of breath on exertion Non-smoker Hypertension History of hypertension History of frequent headaches History of seasonal allergies Surgical History History of lumpectomy of left breast History of surgery History of delivery History of wisdom tooth extraction Family History Aunt Breast cancer, Onset Age: 60 Father Cancer Asthma Heart disease Hypertension Diabetes Aunt Lymphoma Social History Smoking Status: Never smoker alcohol intake: never substance use type: does not use additional social history: pt denies vaping, denies marijuana use denies edibles, uses ibuprofen as needed. used to take aspirin daily has stopped Intake Vital Signs 06/24/24 09:23 10/07/24 10:05 Height 5 ft 5 ft Weight: 85.332 kg BMI 36.7 BP 129/81 H Blood Pressure Location Rt brachial Position Sitting Respiration 18 Pulse 74 Pulse Source Monitor Temp 97.8 F Temperature Source Temporal Artery Pulse Oximetry (%) 96 Oxygen Delivery Method room air Intake Accompanied by: Is patient in pain?: No Allergies Gadolinium-MRI Contrast Medium Allergy (Intermediate, Verified 10/07/24 10:09) Rash Medications ?Medication ?Instructions ?Recorded ?Confirmed ?Type hydrochlorothiazide 12.5 mg capsule 12.5 mg PO DAILY 0 09/12/23 10/07/24 History lisinopril 2.5 mg tablet 2.5 mg PO DAILY 09/12/2307/27 History amlodipine 5 mg tablet 5 mg PO DAILY 10/18/2310/07 History loratadine 10 mg tablet (Allergy 10 mg PO DAILY 10/07/24 History Relief (loratadine)) lidocaine-prilocaine 2.5 %-2.5 % 1 applic topical ONCE PRN port 11/08/23 10/07/24 Rx topical cream access 30 days #30 grams ondansetron 8 mg disintegrating 8 mg PO Q8H PRN nausea and 11/08/23 10/07/24 Rx tablet vomiting #30 tabs prochlorperazine maleate 10 mg 10 mg PO Q6H PRN nausea and 11/08/23 10/07/24 Rx tablet vomiting #30 tabs silver sulfadiazine 1 % topical 1 applic topical BID # 85 grams 07/10/24 10/07/24 Rx cream (Silvadene) Central Venous Access Central Venous Access: Yes Port/PICC: Port Exam Physical Exam Narrative ECOG 0 Const alert, oriented x3 and no apparent distress HEENT normocephalic and head/scalp atraumatic Head and Scalp: other Other Details: hair growing back Eyes General Eye: normal appearance of both eyes Neck no lymphadenopathy Lymph Lymphatic: no lymphadenopathy noted Chest Chest Narrative: Port R IC area. Chest: vascular access Resp normal respiratory effort and clear to auscultation bilaterally Cardio regular rate, regular rhythm, S1 normal heart sound and S2 normal heart sound GI normal to inspection, nondistended, normoactive bowel sounds, soft to palpation and non-tender Back/Spine no CVA tenderness and no thoracic nor lumbar tenderness Extremity no clubbing, cyanosis or edema Skin Skin Narrative: few papular rash L arm. 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 C50.912; C77.3 Laterality: left Encounter for monoclonal antibody treatment for malignancy Z51.12 Assessment and Plan Assessment and Plan (1) Breast cancer, left: Status: Chronic Qualifiers: Breast location: overlapping sites of breast Estrogen receptor status: negative Patient sex: femaleQualified Code(s): C50.812 - Malignant neoplasm of overlapping sites of left female breast; Z17.1 -Estrogen receptor negative status [ER-] Comment: Left breast cancer with metastasis to left axillary lymph node, upper inner and outer quadrant withaxillary node positive disease, ER negative, CT negative, HER2 3+. Started treatment with neoadjuvant chemotherapy and monoclonal antibody against HER2 began 11/13/23.Finished 6 cycles on 02/25/2024. Had surgery-left lumpectomy and axillary dissection on 04/15/2024. Pathology showed ypT0 ypN1. Started adjuvant Perjeta and Herceptin analogue on 05/15/2024. Echocardiogram on 08/21/2024 reviewed EF60%. Comes for C14. Counts reviewed, oK for therapy. Plan: To proceed with C14 adjuvant trastuzumab and pertuzumab today. (2) Breast cancer metastasized to axillary lymph node: Status: Chronic Qualifiers: Laterality: left Qualified Code(s): C50.912 - Malignant neoplasm of unspecified site of left femalebreast; C77.3 - Secondary and unspecified malignant neoplasm of axilla and upper limb lymph nodes Comment: Left breast cancer with metastasis to left axillary lymph node, upper inner and outer quadrant withaxillary node positive disease, ER negative, CT negative, HER2 3+. Status post treatment with neoadjuvant chemotherapy carboplatin and Taxotere andmonoclonal antibodyagainst HER2-Perjeta and Herceptin analogue x 6. Status post left breast lumpectomy and left axillary sentinel node biopsy. Pathology showed no residual left breast lesion, plus macrometastasis in 1 lymphnode. Pathologic stage ypT0 ypN1. On adjuvant therapy with monoclonal antibodies against HER2 for additional 6 months. Plan: To continue C14 adjuvant therapy with Perjeta and Herceptin analogue. (3) Encounter for monoclonal antibody treatment for malignancy: Status: Acute Plan: To proceed with C14 P/H analogue. Plan Details Follow Up: 3 Weeks 10/07/24 1045 D> Date _ Jairon Rothman MD [employer] Signature: Date (if applicable) CC: Dr. Michael Ernst MD ~ [facility]08-05-2025 Progress note Author Jairon Rothman [facility] Note Date/Time October 07, 2024 10: 45am [facility] [place] [address] [address] [place] [address] OFFICE VISIT Date of Service: 10/07/24 1004 MR#: [id number] Acct: [id number] Name: CASSIDY CAPUTO Rep #: [id number] : 1970 From: Jairon Rothman MD Age/Sex: 54/F [place] [facility] [place] Status: Signed HPI Subjective Date of Service 10/07/24 Chief Complaint F/U for L breast cancer management. History of Present Illness 54-year-old woman had ultrasound of the left breast which showed 12 mm mass in 2o'clock position of the left breast. 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 MRI of the left breast on 09/21/2023 showed large clumped non-mass enhancement in the upper central portion of the left breast measuring 6.5 cm with normal lymph nodes in both axillae. 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 She was referred for neoadjuvant chemotherapy and monoclonal antibody therapy. PET/CT obtained reported as negative examination, demonstrated facilitated uptake in the left axilla SUV 1.4 did not fulfill quantitative criteria for viable neoplasm, otherwise identified no definitive evidence of distant metastatic disease. R Port was placed on 10/25/2023. BRCA 1 and BRCA 2 negative (no other genes analyzed). Started neoadjuvant TCHP on 11/13/23. Got C4 on 01/15/2024. Cycle 5 given 02/05/2024. Got C6 on 02/25/2024. Underwent left breast lumpectomy and sentinel node biopsy on 04/15/2024?pathologyshowed focal ductal carcinoma in situ but no residual invasive carcinoma presentwithin the breast, 2 of 3 sentinel lymph nodes negative, 1 of 3 lymph nodes withmicrometastatic carcinoma. 05/12/2024 echocardiogram shows normal LV size and function, normal global longitudinal strain.EF 65 to 70%. Started adjuvant Perjeta and Herceptin analogue on 05/15/2024. Completed adjuvant radiation to left breast and regional lymph nodes consisting of 5000 cGy delivered in 25 fractions 06/02/24-07/04/24. Comes for C14. Feels well. [facility] Medical History Asthma History of echocardiogram Neuropathy Anemia Vaginal dryness Encounter for chemotherapy management Diarrhea due to drug Hypokalemia Encounter for education Wears contact lenses Wears glasses Cancer Migraine headache Shortness of breath on exertion Non-smoker Hypertension History of hypertension History of frequent headaches History of seasonal allergies Surgical History History of lumpectomy of left breast History of surgery History of delivery History of wisdom tooth extraction Family History Aunt Breast cancer, Onset Age: 60 Father Cancer Asthma Heart disease Hypertension Diabetes Aunt Lymphoma Social History Smoking Status: Never smoker alcohol intake: never substance use type: does not use additional social history: pt denies vaping, denies marijuana use denies edibles, uses ibuprofen as needed. used to take aspirin daily has stopped Intake Vital Signs 06/24/24 09:23 10/07/24 10:05 Height 5 ft 5 ft Weight: 85.332 kg BMI 36.7 BP 129/81 H Blood Pressure Location Rt brachial Position Sitting Respiration 18 Pulse 74 Pulse Source Monitor Temp 97.8 F Temperature Source Temporal Artery Pulse Oximetry (%) 96 Oxygen Delivery Method room air Intake Accompanied by: Is patient in pain?: No Allergies Gadolinium-MRI Contrast Medium Allergy (Intermediate, Verified 10/07/24 10:09) Rash Medications ?Medication ?Instructions ?Recorded ?Confirmed ?Type hydrochlorothiazide 12.5 mg capsule 12.5 mg PO DAILY 0 09/12/23 10/07/24 History lisinopril 2.5 mg tablet 2.5 mg PO DAILY 09/12/2307/27 History amlodipine 5 mg tablet 5 mg PO DAILY 10/18/2310/07 History loratadine 10 mg tablet (Allergy 10 mg PO DAILY 10/07/24 History Relief (loratadine)) lidocaine-prilocaine 2.5 %-2.5 % 1 applic topical ONCE PRN port 11/08/23 10/07/24 Rx topical cream access 30 days #30 grams ondansetron 8 mg disintegrating 8 mg PO Q8H PRN nausea and 11/08/23 10/07/24 Rx tablet vomiting #30 tabs prochlorperazine maleate 10 mg 10 mg PO Q6H PRN nausea and 11/08/23 10/07/24 Rx tablet vomiting #30 tabs silver sulfadiazine 1 % topical 1 applic topical BID # 85 grams 07/10/24 10/07/24 Rx cream (Silvadene) Central Venous Access Central Venous Access: Yes Port/PICC: Port Exam Physical Exam Narrative ECOG 0 Const alert, oriented x3 and no apparent distress HEENT normocephalic and head/scalp atraumatic Head and Scalp: other Other Details: hair growing back Eyes General Eye: normal appearance of both eyes Neck no lymphadenopathy Lymph Lymphatic: no lymphadenopathy noted Chest Chest Narrative: Port R IC area. Chest: vascular access Resp normal respiratory effort and clear to auscultation bilaterally Cardio regular rate, regular rhythm, S1 normal heart sound and S2 normal heart sound GI normal to inspection, nondistended, normoactive bowel sounds, soft to palpation and non-tender Back/Spine no CVA tenderness and no thoracic nor lumbar tenderness Extremity no clubbing, cyanosis or edema Skin Skin Narrative: few papular rash L arm. 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 C50.912; C77.3 Laterality: left Encounter for monoclonal antibody treatment for malignancy Z51.12 Assessment and Plan Assessment and Plan (1) Breast cancer, left: Status: Chronic Qualifiers: Breast location: overlapping sites of breast Estrogen receptor status: negative Patient sex: female Qualified Code(s): C50.812 - Malignant neoplasm of overlapping sites of left female breast; Z17.1 - Estrogen receptor negative status [ER-] Comment: Left breast cancer with metastasis to left axillary lymph node, upper inner and outer quadrant with axillary node positive disease, ER negative, CT negative, HER2 3+. Started treatment with neoadjuvant chemotherapy and monoclonal antibody against HER2 began 11/13/23. Finished 6 cycles on 02/25/2024. Had surgery-left lumpectomy and axillary dissection on 04/15/2024. Pathology showed ypT0 ypN1. Started adjuvant Perjeta and Herceptin analogue on 05/15/2024. Echocardiogram on 08/21/2024 reviewed EF60%. Comes for C14. Counts reviewed, oK for therapy. Plan: To proceed with C14 adjuvant trastuzumab and pertuzumab today. (2) Breast cancer metastasized to axillary lymph node: Status: Chronic Qualifiers: Laterality: left Qualified Code(s): C50.912 - Malignant neoplasm of unspecified site of left female breast; C77.3 - Secondary and unspecified malignant neoplasm of axilla and upper limb lymph nodes Comment: Left breast cancer with metastasis to left axillary lymph node, upper inner and outer quadrant with axillary node positive disease, ER negative, CT negative, HER2 3+. Status post treatment with neoadjuvant chemotherapy carboplatin and Taxotere andmonoclonal antibody against HER2-Perjeta and Herceptin analogue x 6. Status post left breast lumpectomy and left axillary sentinel node biopsy. Pathology showed no residual left breast lesion, plus macrometastasis in 1 lymphnode. Pathologic stage ypT0 ypN1. On adjuvant therapy with monoclonal antibodies against HER2 for additional 6 months. Plan: To continue C14 adjuvant therapy with Perjeta and Herceptin analogue. (3) Encounter for monoclonal antibody treatment for malignancy: Status: Acute Plan: To proceed with C14 P/H analogue. Plan Details Follow Up: 3 Weeks 10/07/24 1045 <Electronically signed by Jairon Reilly> Date _ Jairon Rothman MD [employer] Signature: Date (if applicable) CC: Dr. Michael Ernst MD ~ [facility] Work Phone: 1(960) 583-950507-15-2025 [facility] [address] [place] [address] OFFICE VISIT Date of Service: 09/16/24 1003 MR#: [id number] Acct: [id number] Name: CASSIDY CAPUTO Rep #: [id number] : 1970 From: Jairon Rothman MD Age/Sex: 54/F [place] [facility] [place] Status: Signed HPI Subjective Date of Service 09/16/24 Chief Complaint F/U for L breast cancer management. History of Present Illness 54-year-old woman had ultrasound of the left breast which showed 12 mm mass in 2o'clock position ofthe left breast. 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 MRI of the left breast on 09/21/2023 showed large clumped non-mass enhancement in the upper central portion of the left breast measuring 6.5 cm with normal lymph nodes in both axillae. 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 She was referred for neoadjuvant chemotherapy and monoclonal antibody therapy. PET/CT obtained 10-22 reported as negative examination,demonstrated facilitated uptake in the left axilla SUV 1.4 did not fulfill quantitative criteria for viable neoplasm, otherwise identified no definitive evidence of distant metastatic disease. R Portwas placed on 10/25/2023. BRCA 1 and BRCA 2 negative (no other genes analyzed). Started neoadjuvant TCHP on 11/13/23. Got C4 on 01/15/2024. Cycle 5 given 02/05/2024. Got C6 on 02/25/2024. Underwent left breast lumpectomy and sentinel node biopsy on 04/15/2024?pathologyshowed focal ductalcarcinoma in situ but no residual invasive carcinoma presentwithin the breast, 2 of 3 sentinel lymph nodes negative, 1 of 3 lymph nodes withmicrometastatic carcinoma. 05/12/2024 echocardiogram shows normal LV size and function, normal global longitudinal strain.EF 65to 70%. Started adjuvant Perjeta and Herceptin analogue on 05/15/2024. Completed adjuvant radiation to left breast and regional lymph nodes consisting of 5000 cGy delivered in 25 fractions 06/02/24-07/04/24. Comes for C13. Feels well. [facility] Medical History Asthma History of echocardiogram Neuropathy Anemia Vaginal dryness Encounter for chemotherapy management Diarrhea due to drug Hypokalemia Encounter for education Wears contact lenses Wears glasses Cancer Migraine headache Shortness of breath on exertion Non-smoker Hypertension History of hypertension History of frequent headaches History of seasonal allergies Surgical History History of lumpectomy of left breast History of surgery History of delivery History of wisdom tooth extraction Family History Aunt Breast cancer, Onset Age: 60 Father Cancer Asthma Heart disease Hypertension Diabetes Aunt Lymphoma Social History Smoking Status: Never smoker alcohol intake: never substance use type: does not use additional social history: pt denies vaping, denies marijuana use denies edibles, uses ibuprofen as needed. used to take aspirin daily has stopped ROS Constitutional Constitutional: Reports systems reviewed and no addt'l complaints, except as documented Eyes Eyes: Reports systems reviewed and no addt'l complaints, except as documented ENT HEENT: Reports systems reviewed and no addt'l complaints, except as documented Cardiovascular Cardiovascular: Reports systems reviewed and no addt'l complaints, except as documented Respiratory/Chest Respiratory/Chest: Reports systems reviewed and no addt'l complaints, except as documented Gastrointestinal Gastrointestinal: Reports systems reviewed and no addt'l complaints, except as documented Genitourinary Genitourinary: Reports systems reviewed and no addt'l complaints, except as documented Musculoskeletal Musculoskeletal: Reports systems reviewed and no addt'l complaints, except as documented Integumentary Integumentary: Reports systems reviewed and no addt'l complaints, except as documented Neurologic Neurologic: Reports systems reviewed and no addt'l complaints, except as documented Psychiatric Psychiatric: Reports systems reviewed and no addt'l complaints, except as documented Endocrine Endocrinology: Reports systems reviewed and no addt'l complaints, except as documented Hematologic/Lymphatic Hematologic/Lymphatic: Reports systems reviewed and no addt'l complaints, exceptas documented Allergic/Immunologic Allergic/Immunologic: Reports systems reviewed and no addt'l complaints, except as documented Intake Vital Signs 06/24/24 09:23 08/26/24 09:36 09/16/24 10:04 Height 5 ft 5 ft 5 ft Weight: 85.417 kg BMI 36.8 BP 123/76 H Blood Pressure Location Rt brachial Position Sitting Respiration 18 Pulse 84 Pulse Source Monitor Temp 98.2 F Temperature Source Temporal Artery Pulse Oximetry (%) 95 Oxygen Delivery Method room air Intake Is patient in pain?: No Allergies Gadolinium-MRI Contrast Medium Allergy (Intermediate, Verified 09/16/24 10:08) Rash Medications ?Medication ?Instructions ?Recorded ?Confirmed ?Type hydrochlorothiazide 12.5 mg capsule 12.5 mg PO DAILY 0 09/12/23 09/16/24 History lisinopril 2.5 mg tablet 2.5 mg PO DAILY 09/12/23 History amlodipine 5 mg tablet 5 mg PO DAILY 10/18/2309/16 History loratadine 10 mg tablet (Allergy 10 mg PO DAILY 09/16/24 History Relief (loratadine)) lidocaine-prilocaine 2.5 %-2.5 % 1 applic topical ONCE PRN port 11/08/23 09/16/24 Rx topical cream access 30 days #30 grams ondansetron 8 mg disintegrating 8 mg PO Q8H PRN nausea and 11/08/23 09/16/24 Rx tablet vomiting #30 tabs prochlorperazine maleate 10 mg 10 mg PO Q6H PRN nausea and 11/08/23 09/16/24 Rx tablet vomiting #30 tabs silver sulfadiazine 1 % topical 1 applic topical BID # 85 grams 07/10/24 09/16/24 Rx cream (Silvadene) Central Venous Access Central Venous Access: Yes Port/PICC: Port Exam Physical Exam Narrative ECOG 0 Const alert, oriented x3 and no apparent distress HEENT normocephalic and head/scalp atraumatic Head and Scalp: other Other Details: hair growing back Eyes General Eye: normal appearance of both eyes Neck no lymphadenopathy Lymph Lymphatic: no lymphadenopathy noted Chest Chest Narrative: Port R IC area. Chest: vascular access Resp normal respiratory effort and clear to auscultation bilaterally Cardio regular rate, regular rhythm, S1 normal heart sound and S2 normal heart sound GI normal to inspection, nondistended, normoactive bowel sounds, soft to palpation and non-tender Back/Spine no CVA tenderness and no thoracic nor lumbar tenderness Extremity no clubbing, cyanosis or edema Skin Skin Narrative: few papular rash L arm. 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 C50.912; C77.3 Laterality: left Encounter for monoclonal antibody treatment for malignancy Z51.12 Assessment and Plan Assessment and Plan (1) Breast cancer, left: Status: Chronic Qualifiers: Breast location: overlapping sites of breast Estrogen receptor status: negative Patient sex: femaleQualified Code(s): C50.812 - Malignant neoplasm of overlapping sites of left female breast; Z17.1 -Estrogen receptor negative status [ER-] Comment: Left breast cancer with metastasis to left axillary lymph node, upper inner and outer quadrant withaxillary node positive disease, ER negative, CT negative, HER2 3+. Started treatment with neoadjuvant chemotherapy and monoclonal antibody against HER2 began 11/13/23.Finished 6 cycles on 02/25/2024. Had surgery-left lumpectomy and axillary dissection on 04/15/2024. Pathology showed ypT0 ypN1. Started adjuvant Perjeta and Herceptin analogue on 05/15/2024. Comes for C13. Echocardiogram on 08/21/2024 reviewed EF60%. Counts and chemistry reviewed, oK for therapy. Plan: To proceed with C13 adjuvant trastuzumab and pertuzumab today. (2) Breast cancer metastasized to axillary lymph node: Status: Chronic Qualifiers: Laterality: left Qualified Code(s): C50.912 - Malignant neoplasm of unspecified site of left femalebreast; C77.3 - Secondary and unspecified malignant neoplasm of axilla and upper limb lymph nodes Comment: Left breast cancer with metastasis to left axillary lymph node, upper inner and outer quadrant withaxillary node positive disease, ER negative, CT negative, HER2 3+. Status post treatment with neoadjuvant chemotherapy carboplatin and Taxotere andmonoclonal antibodyagainst HER2-Perjeta and Herceptin analogue x 6. Status post left breast lumpectomy and left axillary sentinel node biopsy. Pathology showed no residual left breast lesion, plus macrometastasis in 1 lymphnode. Pathologic stage ypT0 ypN1. On adjuvant therapy with monoclonal antibodies against HER2 for additional 6 months. Plan: To continue C13 adjuvant therapy with Perjeta and Herceptin analogue. (3) Encounter for monoclonal antibody treatment for malignancy: Status: Acute Plan: To proceed with C13 P/H analogue. Orders: Orders CBC W/Diff, Automated Today C50.812 - Malignant neoplasm of overlapping sites of left female breast, C50.912 - Malignant neoplasm of unspecified site of left female breast, C77.3 - Secondary and unspecified malignant neoplasm of axilla and upper limb lymph nodes, Z17.1 - Estrogen receptor negative status [ER-], Z79.899 - Other mcc (current) drug therapy Comprehensive Metabolic Profil Today C50.812 - Malignant neoplasm of overlapping sites of left female breast, C50.912 - Malignant neoplasm of unspecified site of left female breast, C77.3 - Secondaryand unspecified malignant neoplasm of axilla and upper limb lymph nodes, Z17.1 - Estrogen receptor negative status [ER-], Z79.899 - Other mcc (current) drug therapy LDH Today C50.812 - Malignant neoplasm of overlapping sites of left female breast, C50.912 - Malignant neoplasm of unspecified site of left female breast, C77.3 - Secondary and unspecified malignant neoplasm of axilla and upper limb lymph nodes, Z17.1 - Estrogen receptor negative status [ER-], Z79.899 - 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 Michael Ernst MD ~ [facility]07-15-2025 Progress note Author Jairon Rothman [facility] Note Date/Time September 16, 2024 10:3 4am [facility] [place] [place] [address] OFFICE VISIT Date of Service: 09/16/24 1003 MR#: [id number] Acct: [id number] Name: CASSIDY CAPUTO Rep #: [id number] : 1970 From: Jairon Rothman MD Age/Sex: 54/F [place] [facility] [place] Status: Signed HPI Subjective Date of Service 09/16/24 Chief Complaint F/U for L breast cancer management. History of Present Illness 54-year-old woman had ultrasound of the left breast which showed 12 mm mass in 2o'clock position of the left breast. 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 MRI of the left breast on 09/21/2023 showed large clumped non-mass enhancement in the upper central portion of the left breast measuring 6.5 cm with normal lymph nodes in both axillae. 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 She was referred for neoadjuvant chemotherapy and monoclonal antibody therapy. PET/CT obtained reported as negative examination, demonstrated facilitated uptake in the left axilla SUV 1.4 did not fulfill quantitative criteria for viable neoplasm, otherwise identified no definitive evidence of distant metastatic disease. R Port was placed on 10/25/2023. BRCA 1 and BRCA 2 negative (no other genes analyzed). Started neoadjuvant TCHP on 11/13/23. Got C4 on 01/15/2024. Cycle 5 given 02/05/2024. Got C6 on 02/25/2024. Underwent left breast lumpectomy and sentinel node biopsy on 04/15/2024?pathologyshowed focal ductal carcinoma in situ but no residual invasive carcinoma presentwithin the breast, 2 of 3 sentinel lymph nodes negative, 1 of 3 lymph nodes withmicrometastatic carcinoma. 05/12/2024 echocardiogram shows normal LV size and function, normal global longitudinal strain.EF 65 to 70%. Started adjuvant Perjeta and Herceptin analogue on 05/15/2024. Completed adjuvant radiation to left breast and regional lymph nodes consisting of 5000 cGy delivered in 25 fractions 06/02/24-07/04/24. Comes for C13. Feels well. [facility] Medical History Asthma History of echocardiogram Neuropathy Anemia Vaginal dryness Encounter for chemotherapy management Diarrhea due to drug Hypokalemia Encounter for education Wears contact lenses Wears glasses Cancer Migraine headache Shortness of breath on exertion Non-smoker Hypertension History of hypertension History of frequent headaches History of seasonal allergies Surgical History History of lumpectomy of left breast History of surgery History of delivery History of wisdom tooth extraction Family History Aunt Breast cancer, Onset Age: 60 Father Cancer Asthma Heart disease Hypertension Diabetes Aunt Lymphoma Social History Smoking Status: Never smoker alcohol intake: never substance use type: does not use additional social history: pt denies vaping, denies marijuana use denies edibles, uses ibuprofen as needed. used to take aspirin daily has stopped ROS Constitutional Constitutional: Reports systems reviewed and no addt'l complaints, except as documented Eyes Eyes: Reports systems reviewed and no addt'l complaints, except as documented ENT HEENT: Reports systems reviewed and no addt'l complaints, except as documented Cardiovascular Cardiovascular: Reports systems reviewed and no addt'l complaints, except as documented Respiratory/Chest Respiratory/Chest: Reports systems reviewed and no addt'l complaints, except as documented Gastrointestinal Gastrointestinal: Reports systems reviewed and no addt'l complaints, except as documented Genitourinary Genitourinary: Reports systems reviewed and no addt'l complaints, except as documented Musculoskeletal Musculoskeletal: Reports systems reviewed and no addt'l complaints, except as documented Integumentary Integumentary: Reports systems reviewed and no addt'l complaints, except as documented Neurologic Neurologic: Reports systems reviewed and no addt'l complaints, except as documented Psychiatric Psychiatric: Reports systems reviewed and no addt'l complaints, except as documented Endocrine Endocrinology: Reports systems reviewed and no addt'l complaints, except as documented Hematologic/Lymphatic Hematologic/Lymphatic: Reports systems reviewed and no addt'l complaints, exceptas documented Allergic/Immunologic Allergic/Immunologic: Reports systems reviewed and no addt'l complaints, except as documented Intake Vital Signs 06/24/24 09:23 08/26/24 09:36 09/16/24 10:04 Height 5 ft 5 ft 5 ft Weight: 85.417 kg BMI 36.8 BP 123/76 H Blood Pressure Location Rt brachial Position Sitting Respiration 18 Pulse 84 Pulse Source Monitor Temp 98.2 F Temperature Source Temporal Artery Pulse Oximetry (%) 95 Oxygen Delivery Method room air Intake Is patient in pain?: No Allergies Gadolinium-MRI Contrast Medium Allergy (Intermediate, Verified 09/16/24 10:08) Rash Medications ?Medication ?Instructions ?Recorded ?Confirmed ?Type hydrochlorothiazide 12.5 mg capsule 12.5 mg PO DAILY 0 09/12/23 09/16/24 History lisinopril 2.5 mg tablet 2.5 mg PO DAILY 09/12/23 History amlodipine 5 mg tablet 5 mg PO DAILY 10/18/2309/16 History loratadine 10 mg tablet (Allergy 10 mg PO DAILY 09/16/24 History Relief (loratadine)) lidocaine-prilocaine 2.5 %-2.5 % 1 applic topical ONCE PRN port 11/08/23 09/16/24 Rx topical cream access 30 days #30 grams ondansetron 8 mg disintegrating 8 mg PO Q8H PRN nausea and 11/08/23 09/16/24 Rx tablet vomiting #30 tabs prochlorperazine maleate 10 mg 10 mg PO Q6H PRN nausea and 11/08/23 09/16/24 Rx tablet vomiting #30 tabs silver sulfadiazine 1 % topical 1 applic topical BID # 85 grams 07/10/24 09/16/24 Rx cream (Silvadene) Central Venous Access Central Venous Access: Yes Port/PICC: Port Exam Physical Exam Narrative ECOG 0 Const alert, oriented x3 and no apparent distress HEENT normocephalic and head/scalp atraumatic Head and Scalp: other Other Details: hair growing back Eyes General Eye: normal appearance of both eyes Neck no lymphadenopathy Lymph Lymphatic: no lymphadenopathy noted Chest Chest Narrative: Port R IC area. Chest: vascular access Resp normal respiratory effort and clear to auscultation bilaterally Cardio regular rate, regular rhythm, S1 normal heart sound and S2 normal heart sound GI normal to inspection, nondistended, normoactive bowel sounds, soft to palpation and non-tender Back/Spine no CVA tenderness and no thoracic nor lumbar tenderness Extremity no clubbing, cyanosis or edema Skin Skin Narrative: few papular rash L arm. 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 C50.912; C77.3 Laterality: left Encounter for monoclonal antibody treatment for malignancy Z51.12 Assessment and Plan Assessment and Plan (1) Breast cancer, left: Status: Chronic Qualifiers: Breast location: overlapping sites of breast Estrogen receptor status: negative Patient sex: female Qualified Code(s): C50.812 - Malignant neoplasm of overlapping sites of left female breast; Z17.1 - Estrogen receptor negative status [ER-] Comment: Left breast cancer with metastasis to left axillary lymph node, upper inner and outer quadrant with axillary node positive disease, ER negative, CT negative, HER2 3+. Started treatment with neoadjuvant chemotherapy and monoclonal antibody against HER2 began 11/13/23. Finished 6 cycles on 02/25/2024. Had surgery-left lumpectomy and axillary dissection on 04/15/2024. Pathology showed ypT0 ypN1. Started adjuvant Perjeta and Herceptin analogue on 05/15/2024. Comes for C13. Echocardiogram on 08/21/2024 reviewed EF60%. Counts and chemistry reviewed, oK for therapy. Plan: To proceed with C13 adjuvant trastuzumab and pertuzumab today. (2) Breast cancer metastasized to axillary lymph node: Status: Chronic Qualifiers: Laterality: left Qualified Code(s): C50.912 - Malignant neoplasm of unspecified site of left female breast; C77.3 - Secondary and unspecified malignant neoplasm of axilla and upper limb lymph nodes Comment: Left breast cancer with metastasis to left axillary lymph node, upper inner and outer quadrant with axillary node positive disease, ER negative, CT negative, HER2 3+. Status post treatment with neoadjuvant chemotherapy carboplatin and Taxotere andmonoclonal antibody against HER2-Perjeta and Herceptin analogue x 6. Status post left breast lumpectomy and left axillary sentinel node biopsy. Pathology showed no residual left breast lesion, plus macrometastasis in 1 lymphnode. Pathologic stage ypT0 ypN1. On adjuvant therapy with monoclonal antibodies against HER2 for additional 6 months. Plan: To continue C13 adjuvant therapy with Perjeta and Herceptin analogue. (3) Encounter for monoclonal antibody treatment for malignancy: Status: Acute Plan: To proceed with C13 P/H analogue. Orders: Orders CBC W/Diff, Automated Today C50.812 - Malignant neoplasm of overlapping sites of left female breast, C50.912 - Malignant neoplasm of unspecified site of left female breast, C77.3 - Secondary and unspecified malignant neoplasm of axilla and upper limb lymph nodes, Z17.1 - Estrogen receptor negative status [ER-], Z79.899 - Other mcc (current) drug therapy Comprehensive Metabolic Profil Today C50.812 - Malignant neoplasm of overlapping sites of left female breast, C50.912 - Malignant neoplasm of unspecified site of left female breast, C77.3 - Secondary and unspecified malignant neoplasm of axilla and upper limb lymph nodes, Z17.1 - Estrogen receptor negative status [ER-], Z79.899 - Other mcc (current) drug therapy LDH Today C50.812 - Malignant neoplasm of overlapping sites of left female breast, C50.912 - Malignant neoplasm of unspecified site of left female breast, C77.3 - Secondary and unspecified malignant neoplasm of axilla and upper limb lymph nodes, Z17.1 - Estrogen receptor negative status [ER-], Z79.899 - Other mcc (current) drug therapy Plan Details Follow Up: 3 Weeks 09/16/24 1034 <Electronically signed by Jairon Reilly> Date _ Jairon Rothman MD [facility] Signature: Date (if applicable) CC: Dr. Michael Ernst MD ~ [facility] Work Phone: [phone]) [phone] Progress [facility] [address] [place] [address]. [place] [address] OFFICE VISIT Date of Service: 08/26/24 0933 MR#: [id number] Acct: [id number] Name: CASSIYD CAPUTO Rep #: [id number] : 1970 From: Jairon Rothman MD Age/Sex: 54/F [place] [facility] [place] Status: Signed HPI Subjective Date of Service 08/26/24 Chief Complaint F/U for L breast cancer management. History of Present Illness 54-year-old woman had ultrasound of the left breast which showed 12 mm mass in 2o'clock position ofthe left breast. 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 MRI of the left breast on 09/21/2023 showed large clumped non-mass enhancement in the upper central portion of the left breast measuring 6.5 cm with normal lymph nodes in both axillae. 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 She was referred for neoadjuvant chemotherapy and monoclonal antibody therapy. PET/CT obtained 10-22 reported as negative examination,demonstrated facilitated uptake in the left axilla SUV 1.4 did not fulfill quantitative criteria for viable neoplasm, otherwise identified no definitive evidence of distant metastatic disease. R Portwas placed on 10/25/2023. BRCA 1 and BRCA 2 negative (no other genes analyzed). Started neoadjuvant TCHP on 11/13/23. Got C4 on 01/15/2024. Cycle 5 given 02/05/2024. Got C6 on 02/25/2024. Underwent left breast lumpectomy and sentinel node biopsy on 04/15/2024?pathologyshowed focal ductalcarcinoma in situ but no residual invasive carcinoma presentwithin the breast, 2 of 3 sentinel lymph nodes negative, 1 of 3 lymph nodes withmicrometastatic carcinoma. 05/12/2024 echocardiogram shows normal LV size and function, normal global longitudinal strain.EF 65to 70%. Started adjuvant Perjeta and Herceptin analogue on 05/15/2024. Completed adjuvant radiation to left breast and regional lymph nodes consisting of 5000 cGy delivered in 25 fractions 06/02/24-07/04/24. Comes for C12. Feels well. [facility] Medical History Asthma History of echocardiogram Neuropathy Anemia Vaginal dryness Encounter for chemotherapy management Diarrhea due to drug Hypokalemia Encounter for education Wears contact lenses Wears glasses Cancer Migraine headache Shortness of breath on exertion Non-smoker Hypertension History of hypertension History of frequent headaches History of seasonal allergies Surgical History History of lumpectomy of left breast History of surgery History of delivery History of wisdom tooth extraction Family History Aunt Breast cancer, Onset Age: 60 Father Cancer Asthma Heart disease Hypertension Diabetes Aunt Lymphoma Social History Smoking Status: Never smoker alcohol intake: never substance use type: does not use additional social history: pt denies vaping, denies marijuana use denies edibles, uses ibuprofen as needed. used to take aspirin daily has stopped Intake Vital Signs 06/24/24 09:23 08/05/24 11:27 08/26/24 09:34 08/26/24 09:36 Height 5 ft 5 ft 5 ft 5 ft Weight: 84.935 kg BMI 36.6 BP 127/77 H Blood Pressure Location Rt brachial Position Sitting Respiration 16 Pulse 77 Pulse Source Monitor Temp 97.1 F L Temperature Source Temporal Artery Pulse Oximetry (%) 96 Oxygen Delivery Method room air Intake Accompanied by: [id number] Is patient in pain?: No Allergies Gadolinium-MRI Contrast Medium Allergy (Intermediate, Verified 08/26/24 09:35) Rash Medications ?Medication ?Instructions ?Recorded ?Confirmed ?Type hydrochlorothiazide 12.5 mg capsule 12.5 mg PO DAILY 0 09/12/23 08/26/24 History lisinopril 2.5 mg tablet 2.5 mg PO DAILY 09/12/23 History amlodipine 5 mg tablet 5 mg PO DAILY 10/18/2308/26 History loratadine 10 mg tablet (Allergy 10 mg PO DAILY 08/26/24 History Relief (loratadine)) lidocaine-prilocaine 2.5 %-2.5 % 1 applic topical ONCE PRN port 11/08/23 08/26/24 Rx topical cream access 30 days #30 grams ondansetron 8 mg disintegrating 8 mg PO Q8H PRN nausea and 11/08/23 08/26/24 Rx tablet vomiting #30 tabs prochlorperazine maleate 10 mg 10 mg PO Q6H PRN nausea and 11/08/23 08/26/24 Rx tablet vomiting #30 tabs silver sulfadiazine 1 % topical 1 applic topical BID # 85 grams 07/10/24 08/26/24 Rx cream (Silvadene) Have you fallen in the past year?: Yes Central Venous Access Central Venous Access: Yes Port/PICC: Port (right) Exam Physical Exam Narrative ECOG 0 Const alert, oriented x3 and no apparent distress HEENT normocephalic and head/scalp atraumatic Head and Scalp: other Other Details: hair growing back Eyes General Eye: normal appearance of both eyes Neck no lymphadenopathy Chest Chest Narrative: Port R IC area. Chest: vascular access Resp normal respiratory effort and clear to auscultation bilaterally Cardio regular rate, regular rhythm, S1 normal heart sound and S2 normal heart sound GI normal to inspection, nondistended, normoactive bowel sounds, soft to palpation and non-tender Back/Spine no CVA tenderness and no thoracic nor lumbar tenderness Extremity no clubbing, cyanosis or edema Skin Skin Narrative: few papular rash L arm. 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 C50.912; C77.3 Laterality: left Encounter for monoclonal antibody treatment for malignancy Z51.12 Assessment and Plan Assessment and Plan (1) Breast cancer, left: Status: Chronic Qualifiers: Breast location: overlapping sites of breast Estrogen receptor status: negative Patient sex: femaleQualified Code(s): C50.812 - Malignant neoplasm of overlapping sites of left female breast; Z17.1 -Estrogen receptor negative status [ER-] Comment: Left breast cancer with metastasis to left axillary lymph node, upper inner and outer quadrant withaxillary node positive disease, ER negative, CT negative, HER2 3+. Started treatment with neoadjuvant chemotherapy and monoclonal antibody against HER2 began 11/13/23.Finished 6 cycles on 02/25/2024. Had surgery-left lumpectomy and axillary dissection on 04/15/2024. Pathology showed ypT0 ypN1. Started adjuvant Perjeta and Herceptin analogue on 05/15/2024. Comes for C12. Echocardiogram on 08/21/2024 reviewed EF60%. Counts and chemistry reviewed, oK for therapy. Plan: To proceed with C12 adjuvant trastuzumab and pertuzumab today. (2) Breast cancer metastasized to axillary lymph node: Status: Chronic Qualifiers: Laterality: left Qualified Code(s): C50.912 - Malignant neoplasm of unspecified site of left femalebreast; C77.3 - Secondary and unspecified malignant neoplasm of axilla and upper limb lymph nodes Comment: Left breast cancer with metastasis to left axillary lymph node, upper inner and outer quadrant withaxillary node positive disease, ER negative, CT negative, HER2 3+. Status post treatment with neoadjuvant chemotherapy carboplatin and Taxotere andmonoclonal antibodyagainst HER2-Perjeta and Herceptin analogue x 6. Status post left breast lumpectomy and left axillary sentinel node biopsy. Pathology showed no residual left breast lesion, plus macrometastasis in 1 lymphnode. Pathologic stage ypT0 ypN1. On adjuvant therapy with monoclonal antibodies against HER2 for additional 6 months. Plan: To continue C12 adjuvant therapy with Perjeta and Herceptin analogue. (3) Encounter for monoclonal antibody treatment for malignancy: Status: Acute Plan: To proceed with C12 P/H analogue. Plan Details Follow Up: 3 Weeks Clinical Quality Measures Falls Risk Screening/Assistive Devices Have you fallen in the past year?: Yes 08/26/24 1019 D> Date _ Jairon Rothman MD Cosigner Signature: Date (if applicable) CC: Dr. Michael Ernst MD ~ [facility]06-24-2025 Progress note Author Jairon Rothman [facility] Note Date/Time August 26, 2024 10:1 9am [facility] [place] [facility] [address] [address] OFFICE VISIT Date of Service: 08/26/24 0933 MR#: [id number] Acct: [id number] Name: CASSIDY CAPUTO Rep #: [id number] : 1970 From: Jairon Rothman MD Age/Sex: 54/F [place] [facility] [place] Status: Signed HPI Subjective Date of Service 08/26/24 Chief Complaint F/U for L breast cancer management. History of Present Illness 54-year-old woman had ultrasound of the left breast which showed 12 mm mass in 2o'clock position of the left breast. 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 MRI of the left breast on 09/21/2023 showed large clumped non-mass enhancement in the upper central portion of the left breast measuring 6.5 cm with normal lymph nodes in both axillae. 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 She was referred for neoadjuvant chemotherapy and monoclonal antibody therapy. PET/CT obtained reported as negative examination, demonstrated facilitated uptake in the left axilla SUV 1.4 did not fulfill quantitative criteria for viable neoplasm, otherwise identified no definitive evidence of distant metastatic disease. R Port was placed on 10/25/2023. BRCA 1 and BRCA 2 negative (no other genes analyzed). Started neoadjuvant TCHP on 11/13/23. Got C4 on 01/15/2024. Cycle 5 given 02/05/2024. Got C6 on 02/25/2024. Underwent left breast lumpectomy and sentinel node biopsy on 04/15/2024?pathologyshowed focal ductal carcinoma in situ but no residual invasive carcinoma presentwithin the breast, 2 of 3 sentinel lymph nodes negative, 1 of 3 lymph nodes withmicrometastatic carcinoma. 05/12/2024 echocardiogram shows normal LV size and function, normal global longitudinal strain.EF 65 to 70%. Started adjuvant Perjeta and Herceptin analogue on 05/15/2024. Completed adjuvant radiation to left breast and regional lymph nodes consisting of 5000 cGy delivered in 25 fractions 06/02/24-07/04/24. Comes for C12. Feels well. PFSH Medical History Asthma History of echocardiogram Neuropathy Anemia Vaginal dryness Encounter for chemotherapy management Diarrhea due to drug Hypokalemia Encounter for education Wears contact lenses Wears glasses Cancer Migraine headache Shortness of breath on exertion Non-smoker Hypertension History of hypertension History of frequent headaches History of seasonal allergies Surgical History History of lumpectomy of left breast History of surgery History of delivery History of wisdom tooth extraction Family History Aunt Breast cancer, Onset Age: 60 Father Cancer Asthma Heart disease Hypertension Diabetes Aunt Lymphoma Social History Smoking Status: Never smoker alcohol intake: never substance use type: does not use additional social history: pt denies vaping, denies marijuana use denies edibles, uses ibuprofen as needed. used to take aspirin daily has stopped Intake Vital Signs 06/24/24 09:23 08/05/24 11:27 08/26/24 09:34 08/26/24 09:36 Height 5 ft 5 ft 5 ft 5 ft Weight: 84.935 kg BMI 36.6 BP 127/77 H Blood Pressure Location Rt brachial Position Sitting Respiration 16 Pulse 77 Pulse Source Monitor Temp 97.1 F L Temperature Source Temporal Artery Pulse Oximetry (%) 96 Oxygen Delivery Method room air Intake Accompanied by: Dbwaci-Nl-Fiv Is patient in pain?: No Allergies Gadolinium-MRI Contrast Medium Allergy (Intermediate, Verified 08/26/24 09:35) Rash Medications ?Medication ?Instructions ?Recorded ?Confirmed ?Type hydrochlorothiazide 12.5 mg capsule 12.5 mg PO DAILY 0 09/12/23 08/26/24 History lisinopril 2.5 mg tablet 2.5 mg PO DAILY 09/12/23 History amlodipine 5 mg tablet 5 mg PO DAILY 10/18/2308/26 History loratadine 10 mg tablet (Allergy 10 mg PO DAILY 08/26/24 History Relief (loratadine)) lidocaine-prilocaine 2.5 %-2.5 % 1 applic topical ONCE PRN port 11/08/23 08/26/24 Rx topical cream access 30 days #30 grams ondansetron 8 mg disintegrating 8 mg PO Q8H PRN nausea and 11/08/23 08/26/24 Rx tablet vomiting #30 tabs prochlorperazine maleate 10 mg 10 mg PO Q6H PRN nausea and 11/08/23 08/26/24 Rx tablet vomiting #30 tabs silver sulfadiazine 1 % topical 1 applic topical BID # 85 grams 07/10/24 08/26/24 Rx cream (Silvadene) Have you fallen in the past year?: Yes Central Venous Access Central Venous Access: Yes Port/PICC: Port (right) Exam Physical Exam Narrative ECOG 0 Const alert, oriented x3 and no apparent distress HEENT normocephalic and head/scalp atraumatic Head and Scalp: other Other Details: hair growing back Eyes General Eye: normal appearance of both eyes Neck no lymphadenopathy Chest Chest Narrative: Port R IC area. Chest: vascular access Resp normal respiratory effort and clear to auscultation bilaterally Cardio regular rate, regular rhythm, S1 normal heart sound and S2 normal heart sound GI normal to inspection, nondistended, normoactive bowel sounds, soft to palpation and non-tender Back/Spine no CVA tenderness and no thoracic nor lumbar tenderness Extremity no clubbing, cyanosis or edema Skin Skin Narrative: few papular rash L arm. 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 C50.912; C77.3 Laterality: left Encounter for monoclonal antibody treatment for malignancy Z51.12 Assessment and Plan Assessment and Plan (1) Breast cancer, left: Status: Chronic Qualifiers: Breast location: overlapping sites of breast Estrogen receptor status: negative Patient sex: female Qualified Code(s): C50.812 - Malignant neoplasm of overlapping sites of left female breast; Z17.1 - Estrogen receptor negative status [ER-] Comment: Left breast cancer with metastasis to left axillary lymph node, upper inner and outer quadrant with axillary node positive disease, ER negative, CT negative, HER2 3+. Started treatment with neoadjuvant chemotherapy and monoclonal antibody against HER2 began 11/13/23. Finished 6 cycles on 02/25/2024. Had surgery-left lumpectomy and axillary dissection on 04/15/2024. Pathology showed ypT0 ypN1. Started adjuvant Perjeta and Herceptin analogue on 05/15/2024. Comes for C12. Echocardiogram on 08/21/2024 reviewed EF60%. Counts and chemistry reviewed, oK for therapy. Plan: To proceed with C12 adjuvant trastuzumab and pertuzumab today. (2) Breast cancer metastasized to axillary lymph node: Status: Chronic Qualifiers: Laterality: left Qualified Code(s): C50.912 - Malignant neoplasm of unspecified site of left female breast; C77.3 - Secondary and unspecified malignant neoplasm of axilla and upper limb lymph nodes Comment: Left breast cancer with metastasis to left axillary lymph node, upper inner and outer quadrant with axillary node positive disease, ER negative, CT negative, HER2 3+. Status post treatment with neoadjuvant chemotherapy carboplatin and Taxotere andmonoclonal antibody against HER2-Perjeta and Herceptin analogue x 6. Status post left breast lumpectomy and left axillary sentinel node biopsy. Pathology showed no residual left breast lesion, plus macrometastasis in 1 lymphnode. Pathologic stage ypT0 ypN1. On adjuvant therapy with monoclonal antibodies against HER2 for additional 6 months. Plan: To continue C12 adjuvant therapy with Perjeta and Herceptin analogue. (3) Encounter for monoclonal antibody treatment for malignancy: Status: Acute Plan: To proceed with C12 P/H analogue. Plan Details Follow Up: 3 Weeks Clinical Quality Measures Falls Risk Screening/Assistive Devices Have you fallen in the past year?: Yes 08/26/24 1019 <Electronically signed by Jairon Reilly> Date _ Jairon Rothman MD Cosigner Signature: Date (if applicable) CC: Dr. Michael Ernst MD ~ [facility] Work Phone: 1(685) 143-380606-03-2025 Evaluation note* Diagnosis Onset Date Resolution Status Admit Date Encounter for monoclonal antibody treatment for malignancy acute August 05, 2024 9 :48am Breast cancer metastasized t o axillary lymph node chronic August 05 9:48am Breast cancer, left chronic August 05, 2024 9:48am Breast cancer, left chronic August 05, 2024 10:28am Encounter for monoclonal antibody treatment for malignancy acute August 26, 2024 8:51am Breast cancer metastasized t o axillary lymph node chronic August 26, 025 8:51am Breast cancer, left chronic August 26, 2024 8:51am Encounter for monoclonal antibody treatment for malignancy acute September 16, 2024 9:18am Breast cancer metastasized t o axillary lymph node chronic September 16, 025 9:18am Breast cancer, left chronic September 16, 2024 9:18am Encounter for monoclonal antibody treatment for malignancy acute October 07, 2024 9:09am Breast cancer metastasized t o axillary lymph node chronic October 07, 2024 9:09am Breast cancer, left chronic Augus 2024 9:09am Encounter for monoclonal antibody treatment for malignancy acute October 28 8:57am Breast cancer metastasized t o axillary lymph node chronic October 28, 2024 8:57am Breast cancer, left chronic Augus t 2024 8:57am [facility] Work Phone: [phone]) 774-572906-03-2025 [facility] [address] [place] [address] OFFICE VISIT Date of Service: 08/05/24 1032 MR#: [id number] Acct: [id number] Name: CASSIDY CAPUTO Rep #: [id number] : 1970 From: Winifred Dudley ch DIRECTOR OF NEUROLOGY DIRECTOR OF NEUROLOGY-C Age/Sex: 54/F [place] [facility] [place] Status: Signed HPI Subjective Date of Service 08/05/24 Chief Complaint F/U for L breast cancer management. History of Present Illness 54-year-old woman had ultrasound of the left breast which showed 12 mm mass in 2o'clock position ofthe left breast. 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 MRI of the left breast on 09/21/2023 showed large clumped non-mass enhancement in the upper central portion of the left breast measuring 6.5 cm with normal lymph nodes in both axillae. 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 She was referred for neoadjuvant chemotherapy and monoclonal antibody therapy. PET/CT obtained 10-22 reported as negative examination,demonstrated facilitated uptake in the left axilla SUV 1.4 did not fulfill quantitative criteria for viable neoplasm, otherwise identified no definitive evidence of distant metastatic disease. R Portwas placed on 10/25/2023. BRCA 1 and BRCA 2 negative (no other genes analyzed). Started neoadjuvant TCHP on 11/13/23. Got C4 on 01/15/2024. Cycle 5 given 02/05/2024. Got C6 on 02/25/2024. Underwent left breast lumpectomy and sentinel node biopsy on 04/15/2024?pathologyshowed focal ductalcarcinoma in situ but no residual invasive carcinoma presentwithin the breast, 2 of 3 sentinel lymph nodes negative, 1 of 3 lymph nodes withmicrometastatic carcinoma. 05/12/2024 echocardiogram shows normal LV size and function, normal global longitudinal strain.EF 65to 70%. Started adjuvant Perjeta and Herceptin analogue on 05/15/2024. Completed adjuvant radiation to left breast and regional lymph nodes consisting of 5000 cGy delivered in 25 fractions 06/02/24-07/04/24. Interval History The patient is presenting to clinic accompanied by spouse for an evaluation anticipating she will begin cycle 11 trastuzumab/pertuzumab. Concerns today include rash. 2 weeks ago she noticed individual small blisters initially on her upper left arm, lesions then developed on her left chest and left abd. Applied silvadene cream and they dried up. Concerns include diarrhea. Describes as intermittent, reports 1-2 episodes/24 hour period x 2 days last cycle. Rarely requires loperamide. Denies any recent atb use, fever/chills, abd pain, bloody- mucous-like stools. Specifically denies CP, palpitations, cough, SOB, swelling of her extremities. [facility] Medical History Asthma History of echocardiogram Neuropathy Anemia Vaginal dryness Encounter for chemotherapy management Diarrhea due to drug Hypokalemia Encounter for education Wears contact lenses Wears glasses Cancer Migraine headache Shortness of breath on exertion Non-smoker Hypertension History of hypertension History of frequent headaches History of seasonal allergies Surgical History History of lumpectomy of left breast History of surgery History of delivery History of wisdom tooth extraction Family History Aunt Breast cancer, Onset Age: 60 Father Cancer Asthma Heart disease Hypertension Diabetes Aunt Lymphoma Social History Smoking Status: Never smoker alcohol intake: never substance use type: does not use additional social history: pt denies vaping, denies marijuana use denies edibles, uses ibuprofen as needed. used to take aspirin daily has stopped ROS ROS Narrative Negative except as documented in the interval HPI Intake Vital Signs 06/24/24 09:23 07/15/24 09:33 08/05/24 10:32 Height 5 ft 5 ft 5 ft Weight: 189 lb BMI 36.9 BP 128/80 H Blood Pressure Location Lt brachial Position Sitting Respiration 18 Pulse 74 Pulse Source Monitor Temp 98.3 F Temperature Source Temporal Artery Pulse Oximetry (%) 95 Oxygen Delivery Method room air Intake Is patient in pain?: No Allergies Gadolinium-MRI Contrast Medium Allergy (Intermediate, Verified 08/05/24 10:37) Rash Medications ?Medication ?Instructions ?Recorded ?Confirmed ?Type hydrochlorothiazide 12.5 mg capsule 12.5 mg PO DAILY 0 09/12/23 08/05/24 History lisinopril 2.5 mg tablet 2.5 mg PO DAILY 09/12/2305/27 History amlodipine 5 mg tablet 5 mg PO DAILY 10/18/2308/05 History loratadine 10 mg tablet (Allergy 10 mg PO DAILY 08/05/24 History Relief (loratadine)) lidocaine-prilocaine 2.5 %-2.5 % 1 applic topical ONCE PRN port 11/08/23 08/05/24 Rx topical cream access 30 days #30 grams ondansetron 8 mg disintegrating 8 mg PO Q8H PRN nausea and 11/08/23 08/05/24 Rx tablet vomiting #30 tabs prochlorperazine maleate 10 mg 10 mg PO Q6H PRN nausea and 11/08/23 08/05/24 Rx tablet vomiting #30 tabs silver sulfadiazine 1 % topical 1 applic topical BID # 85 grams 07/10/24 08/05/24 Rx cream (Silvadene) Central Venous Access Central Venous Access: Yes Port/PICC: Port Laboratory Tests 08/05/24 09:55 WBC 4.1 L Hgb 11.5 L Hct 33.0 L Plt Count 206 Absolute Neuts (auto) 2.8 Exam Physical Exam Narrative ECOG 0 Const alert, oriented x3 and no apparent distress HEENT normocephalic and head/scalp atraumatic Head and Scalp: other Other Details: hair growing back Eyes General Eye: normal appearance of both eyes Neck no lymphadenopathy Chest Chest Narrative: Port R IC area. Chest: vascular access Resp normal respiratory effort and clear to auscultation bilaterally Cardio regular rate, regular rhythm, S1 normal heart sound and S2 normal heart sound GI normal to inspection, nondistended, normoactive bowel sounds, soft to palpation and non-tender Back/Spine no CVA tenderness and no thoracic nor lumbar tenderness Extremity no clubbing, cyanosis or edema Skin Skin Narrative: 4 raised lesions left upper arm; 1 raised erythematous lesion left upper outer chest and 1 raised erythematous lesion left side of abd 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 C50.912; C77.3 Laterality: left Encounter for monoclonal antibody treatment for malignancy Z51.12 Assessment and Plan Assessment and Plan (1) Breast cancer, left: Status: Chronic Qualifiers: Breast location: overlapping sites of breast Estrogen receptor status: negative Patient sex: femaleQualified Code(s): C50.812 - Malignant neoplasm of overlapping sites of left female breast; Z17.1 -Estrogen receptor negative status [ER-] Comment: Left breast cancer with metastasis to left axillary lymph node, upper inner and outer quadrant withaxillary node positive disease, ER negative, CT negative, HER2 3+. Started treatment with neoadjuvant chemotherapy and monoclonal antibody against HER2 began 11/13/23.Finished 6 cycles on 02/25/2024. Had surgery-left lumpectomy and axillary dissection on 04/15/2024. Pathology showed ypT0 ypN1. Started adjuvant Perjeta and Herceptin analogue on 05/15/2024. Plan: To proceed with c11 adjuvant trastuzumab and pertuzumab today. Repeat echocardiogram August 21. (2) Breast cancer metastasized to axillary lymph node: Status: Chronic Qualifiers: Laterality: left Qualified Code(s): C50.912 - Malignant neoplasm of unspecified site of left femalebreast; C77.3 - Secondary and unspecified malignant neoplasm of axilla and upper limb lymph nodes Comment: Left breast cancer with metastasis to left axillary lymph node, upper inner and outer quadrant withaxillary node positive disease, ER negative, CT negative, HER2 3+. Status post treatment with neoadjuvant chemotherapy carboplatin and Taxotere andmonoclonal antibodyagainst HER2-Perjeta and Herceptin analogue x 6. Status post left breast lumpectomy and left axillary sentinel node biopsy. Pathology showed no residual left breast lesion, plus macrometastasis in 1 lymphnode. Pathologic stage ypT0 ypN1. On adjuvant therapy with monoclonal antibodies against HER2 for additional 6 months. Plan: To continue c11 adjuvant therapy with Perjeta and Herceptin analogue. (3) Encounter for monoclonal antibody treatment for malignancy: Status: Acute Plan Return to office on 08/05/2024 for c11 trastuzumab pertuzumab infusion. 08/05/24 1110 h DIRECTOR OF NEUROLOGY DIRECTOR OF NEUROLOGY-C> Date _ Winifred Jose C DIRECTOR OF NEUROLOGY DIRECTOR OF NEUROLOGY-C Cosigner Signature: Date (if applicable) CC: ~ [facility]04-30-2025 Evaluation note* Diagnosis Onset Date Resolution Status Admit Date Breast cancer metastasized t o axillary lymph node chronic July 02, 2024 10:21am Breast cancer, left chronic July 02, 2024 10:21am Encounter for monoclonal antibody treatment for malignancy acute July 15, 2024 9 :14am Breast cancer metastasized t o axillary lymph node chronic July 15 9:14am Breast cancer, left chronic July 032024 9:14am Encounter for monoclonal antibody treatment for malignancy acute August 05, 2024 9 :48am Breast cancer metastasized t o axillary lymph node chronic August 05 9:48am Breast cancer, left chronic August 05, 2024 9:48am Breast cancer, left chronic August 05, 2024 10:28am Encounter for monoclonal antibody treatment for malignancy acute August 26, 2024 8:51am Breast cancer metastasized t o axillary lymph node chronic August 26, 025 8:51am Breast cancer, left chronic August 26, 2024 8:51am Encounter for monoclonal antibody treatment for malignancy acute September 16, 2024 9:18am Breast cancer metastasized t o axillary lymph node chronic September 16, 025 9:18am Breast cancer, left chronic September 16, 2024 9:18am Encounter for monoclonal antibody treatment for malignancy acute October 07, 2024 9:09am Breast cancer metastasized t o axillary lymph node chronic October 07, 2024 9:09am Breast cancer, left chronic Augus t 2024 9:09am Encounter for monoclonal antibody treatment for malignancy acute October 28 8:57am Breast cancer metastasized t o axillary lymph node chronic October 28, 2024 8:57am Breast cancer, left chronic Augus t 2024 8:57am [facility] Work Phone: [phone]) 967-639004-09-2025 Evaluation note* Diagnosis Onset Date Resolution Status Admit Date History of lumpectomy of lef t breast acute June 11, 2024 10:18am Breast cancer metastasized t o axillary lymph node chronic June 18, 2024 10:28am Breast cancer, left chronic June 18, 2024 10:28am Encounter for monoclonal antibody treatment for malignancy acute June 24, 2024 8:37am Breast cancer metastasized t o axillary lymph node chronic June 24, 2024 8:37am Breast cancer, left chronic June 24, 2024 8:37am Breast cancer metastasized t o axillary lymph node chronic June 26, 2024 10:15am Breast cancer, left chronic June 26, 2024 10:15am Breast cancer metastasized t o axillary lymph node chronic July 02, 2024 10:21am Breast cancer, left chronic July 02, 2024 10:21am Encounter for monoclonal antibody treatment for malignancy acute July 15, 2024 9 :14am Breast cancer metastasized t o axillary lymph node chronic July 15 9:14am Breast cancer, left chronic July 032024 9:14am Encounter for monoclonal antibody treatment for malignancy acute August 05, 2024 9 :48am Breast cancer metastasized t o axillary lymph node chronic August 05 9:48am Breast cancer, left chronic August 05, 2024 9:48am Breast cancer, left chronic August 05, 2024 10:28am Encounter for monoclonal antibody treatment for malignancy acute August 26, 2024 8:51am Breast cancer metastasized t o axillary lymph node chronic August 26, 2 025 8:51am Breast cancer, left chronic August 26, 2024 8:51am Encounter for monoclonal antibody treatment for malignancy acute September 16, 2024 9:18am Breast cancer metastasized t o axillary lymph node chronic September 16, 025 9:18am Breast cancer, left chronic September 16, 2024 9:18am [facility] Work Phone: [phone]) [phone] Evaluation note* Diagnosis Onset Date Resolution Status Admit Date History of lumpectomy of lef t breast acute June 11, 2024 10:18am Breast cancer metastasized t o axillary lymph node chronic June 18, 2024 10:28am Breast cancer, left chronic June 18, 2024 10:28am Encounter for monoclonal antibody treatment for malignancy acute June 24, 2024 8:37am Breast cancer metastasized t o axillary lymph node chronic June 24, 2024 8:37am Breast cancer, left chronic June 24, 2024 8:37am Breast cancer metastasized t o axillary lymph node chronic June 26, 2024 10:15am Breast cancer, left chronic June 26, 2024 10:15am Breast cancer metastasized t o axillary lymph node chronic July 02, 2024 10:21am Breast cancer, left chronic July 02, 2024 10:21am Encounter for monoclonal antibody treatment for malignancy acute July 15, 2024 9 :14am Breast cancer metastasized t o axillary lymph node chronic July 15 9:14am Breast cancer, left chronic July 032024 9:14am Encounter for monoclonal antibody treatment for malignancy acute August 05, 2024 9 :48am Breast cancer metastasized t o axillary lymph node chronic August 05 9:48am Breast cancer, left chronic August 05, 2024 9:48am Breast cancer, left chronic August 05, 2024 10:28am Encounter for monoclonal antibody treatment for malignancy acute August 26, 2024 8:51am Breast cancer metastasized t o axillary lymph node chronic August 26, 025 8:51am Breast cancer, left chronic August 26, 2024 8:51am Encounter for monoclonal antibody treatment for malignancy acute September 16, 2024 9:18am Breast cancer metastasized t o axillary lymph node chronic September 16, 2 025 9:18am Breast cancer, left chronic September 16, 2024 9:18am Encounter for monoclonal antibody treatment for malignancy acute October 07, 2024 9:09am Breast cancer metastasized t o axillary lymph node chronic October 07, 2024 9:09am Breast cancer, left chronic Augus 2024 9:09am [facility] Work Phone: 1(372) 745-778204-01-2025 Evaluation note* Diagnosis Onset Date Resolution Status Admit Date Breast cancer metastasized t o axillary lymph node chronic June 03 10:27am Breast cancer, left chronic June 03, 2024 10:27am Encounter for monoclonal antibody treatment for malignancy acute June 04, 2024 9:18am Breast cancer metastasized t o axillary lymph node chronic June 04 9:18am Breast cancer, left chronic June 04, 2024 9:18am History of lumpectomy of lef t breast acute June 11, 2024 10:18am Breast cancer metastasized t o axillary lymph node chronic June 18, 2024 10:28am Breast cancer, left chronic June 18, 2024 10:28am Encounter for monoclonal antibody treatment for malignancy acute June 24, 2024 8:37am Breast cancer metastasized t o axillary lymph node chronic June 24, 2024 8:37am Breast cancer, left chronic June 24, 2024 8:37am Breast cancer metastasized t o axillary lymph node chronic June 26, 2024 10:15am Breast cancer, left chronic June 26, 2024 10:15am Breast cancer metastasized t o axillary lymph node chronic July 02, 2024 10:21am Breast cancer, left chronic July 02, 2024 10:21am Encounter for monoclonal antibody treatment for malignancy acute July 15, 2024 9 :14am Breast cancer metastasized t o axillary lymph node chronic July 15 9:14am Breast cancer, left chronic July 032024 9:14am Encounter for monoclonal antibody treatment for malignancy acute August 05, 2024 9 :48am Breast cancer metastasized t o axillary lymph node chronic August 05 9:48am Breast cancer, left chronic August 05, 2024 9:48am Breast cancer, left chronic August 05, 2024 10:28am Encounter for monoclonal antibody treatment for malignancy acute August 26, 2024 8:51am Breast cancer metastasized t o axillary lymph node chronic August 26 8:51am Breast cancer, left chronic August 26, 2024 8:51am Encounter for monoclonal antibody treatment for malignancy acute September 16, 2024 9:18am Breast cancer metastasized t o axillary lymph node chronic September 16 9:18am Breast cancer, left chronic September 16, 2024 9:18am [facility] Work Phone: 1(479) 436-405803-06-2025 Evaluation note* Diagnosis Onset Date Resolution Status Admit Date Breast cancer metastasized t o axillary lymph node chronic May 08 8:50am Breast cancer, left chronic May 08, 2024 8:50am Encounter for monoclonal antibody treatment for malignancy acute May 15, 2024 8:50am Breast cancer metastasized t o axillary lymph node chronic May 15, 2024 8:50am Breast cancer, left chronic May 15, 2024 8:50am Breast cancer metastasized t o axillary lymph node chronic May 15, 2024 1:14pm Breast cancer, left chronic May 15, 2024 1:14pm Breast cancer metastasized t o axillary lymph node chronic June 03 10:27am Breast cancer, left chronic June 03, 2024 10:27am Encounter for monoclonal antibody treatment for malignancy acute June 04, 2024 9:18am Breast cancer metastasized t o axillary lymph node chronic June 04 9:18am Breast cancer, left chronic June 04, 2024 9:18am History of lumpectomy of lef t breast acute June 11, 2024 10:18am Breast cancer metastasized t o axillary lymph node chronic June 18, 2024 10:28am Breast cancer, left chronic June 18, 2024 10:28am Encounter for monoclonal antibody treatment for malignancy acute June 24, 2024 8:37am Breast cancer metastasized t o axillary lymph node chronic June 24, 2024 8:37am Breast cancer, left chronic June 24, 2024 8:37am Breast cancer metastasized t o axillary lymph node chronic June 26, 2024 10:15am Breast cancer, left chronic June 26, 2024 10:15am Breast cancer metastasized t o axillary lymph node chronic July 02, 2024 10:21am Breast cancer, left chronic July 02, 2024 10:21am Encounter for monoclonal antibody treatment for malignancy acute July 15, 2024 9 :14am Breast cancer metastasized t o axillary lymph node chronic July 15 9:14am Breast cancer, left chronic July 032024 9:14am Encounter for monoclonal antibody treatment for malignancy acute August 05, 2024 9 :48am Breast cancer metastasized t o axillary lymph node chronic August 05 9:48am Breast cancer, left chronic August 05, 2024 9:48am Breast cancer, left chronic August 05, 2024 10:28am Encounter for monoclonal antibody treatment for malignancy acute August 26, 2024 8:51am Breast cancer metastasized t o axillary lymph node chronic August 26, 025 8:51am Breast cancer, left chronic August 26, 2024 8:51am [facility] Work Phone: 1(491) 367-848002-25-2025 Evaluation note* Diagnosis Onset Date Resolution Status Admit Date Breast cancer metastasized t o axillary lymph node chronic April 2:56pm Breast cancer, left chronic Febru 2024 2:56pm Breast cancer metastasized t o axillary lymph node chronic May 08 8:50am Breast cancer, left chronic May 08, 2024 8:50am Encounter for monoclonal antibody treatment for malignancy acute May 15, 2024 8:50am Breast cancer metastasized t o axillary lymph node chronic May 15, 2024 8:50am Breast cancer, left chronic May 15, 2024 8:50am Breast cancer metastasized t o axillary lymph node chronic May 15, 2024 1:14pm Breast cancer, left chronic May 15, 2024 1:14pm Breast cancer metastasized t o axillary lymph node chronic June 03 10:27am Breast cancer, left chronic June 03, 2024 10:27am Encounter for monoclonal antibody treatment for malignancy acute June 04, 2024 9:18am Breast cancer metastasized t o axillary lymph node chronic June 04 025 9:18am Breast cancer, left chronic June 04, 2024 9:18am History of lumpectomy of lef t breast acute June 11, 2024 10:18am Breast cancer metastasized t o axillary lymph node chronic June 18, 2024 10:28am Breast cancer, left chronic June 18, 2024 10:28am Encounter for monoclonal antibody treatment for malignancy acute June 24, 2024 8:37am Breast cancer metastasized t o axillary lymph node chronic June 24, 2024 8:37am Breast cancer, left chronic June 24, 2024 8:37am Breast cancer metastasized t o axillary lymph node chronic June 26, 2024 10:15am Breast cancer, left chronic June 26, 2024 10:15am Breast cancer metastasized t o axillary lymph node chronic July 02, 2024 10:21am Breast cancer, left chronic July 02, 2024 10:21am Encounter for monoclonal antibody treatment for malignancy acute July 15, 2024 9 :14am Breast cancer metastasized t o axillary lymph node chronic July 15 9:14am Breast cancer, left chronic July 032024 9:14am Encounter for monoclonal antibody treatment for malignancy acute August 05, 2024 9 :48am Breast cancer metastasized t o axillary lymph node chronic August 05 9:48am Breast cancer, left chronic August 05, 2024 9:48am Breast cancer, left chronic August 05, 2024 10:28am Encounter for monoclonal antibody treatment for malignancy acute August 26, 2024 8:51am Breast cancer metastasized t o axillary lymph node chronic August 26 025 8:51am Breast cancer, left chronic August 26, 2024 8:51am [facility] Work Phone: [phone]) 537-5269352183-50-4741 [facility]02-11-2025 Evaluation note* Diagnosis Onset Date Resolution Status Admit Date Breast cancer metastasized t o axillary lymph node chronic April 7:11am Breast cancer metastasized t o axillary lymph node chronic April 2:56pm Breast cancer, left chronic 2024 2:56pm Breast cancer metastasized t o axillary lymph node chronic May 08 8:50am Breast cancer, left chronic May 08, 2024 8:50am Encounter for monoclonal antibody treatment for malignancy acute May 15, 2024 8:50am Breast cancer metastasized t o axillary lymph node chronic May 15, 2024 8:50am Breast cancer, left chronic May 15, 2024 8:50am Breast cancer metastasized t o axillary lymph node chronic May 15, 2024 1:14pm Breast cancer, left chronic May 15, 2024 1:14pm Breast cancer metastasized t o axillary lymph node chronic June 03 10:27am Breast cancer, left chronic June 03, 2024 10:27am Encounter for monoclonal antibody treatment for malignancy acute June 04, 2024 9:18am Breast cancer metastasized t o axillary lymph node chronic June 04 9:18am Breast cancer, left chronic June 04, 2024 9:18am History of lumpectomy of lef t breast acute June 11, 2024 10:18am Breast cancer metastasized t o axillary lymph node chronic June 18, 2024 10:28am Breast cancer, left chronic June 18, 2024 10:28am Encounter for monoclonal antibody treatment for malignancy acute June 24, 2024 8:37am Breast cancer metastasized t o axillary lymph node chronic June 24, 2024 8:37am Breast cancer, left chronic June 24, 2024 8:37am Breast cancer metastasized t o axillary lymph node chronic June 26, 2024 10:15am Breast cancer, left chronic June 26, 2024 10:15am Breast cancer metastasized t o axillary lymph node chronic July 02, 2024 10:21am Breast cancer, left chronic July 02, 2024 10:21am Encounter for monoclonal antibody treatment for malignancy acute July 15, 2024 9 :14am Breast cancer metastasized t o axillary lymph node chronic July 15 9:14am Breast cancer, left chronic July 032024 9:14am Encounter for monoclonal antibody treatment for malignancy acute August 05, 2024 9 :48am Breast cancer metastasized t o axillary lymph node chronic August 05 9:48am Breast cancer, left chronic August 05, 2024 9:48am [facility] Work Phone: 1(559) 727-838301-28-2025 Evaluation note* Diagnosis Onset Date Resolution Status Admit Date Breast cancer metastasized t o axillary lymph node chronic March 8:44am Breast cancer metastasized t o axillary lymph node chronic April 7:11am Breast cancer metastasized t o axillary lymph node chronic April 2:56pm Breast cancer, left chronic 2024 2:56pm Breast cancer metastasized t o axillary lymph node chronic May 08 8:50am Breast cancer, left chronic May 08, 2024 8:50am Encounter for monoclonal antibody treatment for malignancy acute May 15, 2024 8:50am Breast cancer metastasized t o axillary lymph node chronic May 15, 2024 8:50am Breast cancer, left chronic May 15, 2024 8:50am Breast cancer metastasized t o axillary lymph node chronic May 15, 2024 1:14pm Breast cancer, left chronic May 15, 2024 1:14pm Breast cancer metastasized t o axillary lymph node chronic June 03 10:27am Breast cancer, left chronic June 03, 2024 10:27am Encounter for monoclonal antibody treatment for malignancy acute June 04, 2024 9:18am Breast cancer metastasized t o axillary lymph node chronic June 04 9:18am Breast cancer, left chronic June 04, 2024 9:18am History of lumpectomy of lef t breast acute June 11, 2024 10:18am Breast cancer metastasized t o axillary lymph node chronic June 18, 2024 10:28am Breast cancer, left chronic June 18, 2024 10:28am Encounter for monoclonal antibody treatment for malignancy acute June 24, 2024 8:37am Breast cancer metastasized t o axillary lymph node chronic June 24, 2024 8:37am Breast cancer, left chronic June 24, 2024 8:37am Breast cancer metastasized t o axillary lymph node chronic June 26, 2024 10:15am Breast cancer, left chronic June 26, 2024 10:15am Breast cancer metastasized t o axillary lymph node chronic July 02, 2024 10:21am Breast cancer, left chronic July 02, 2024 10:21am Encounter for monoclonal antibody treatment for malignancy acute July 15, 2024 9 :14am Breast cancer metastasized t o axillary lymph node chronic July 15 9:14am Breast cancer, left chronic July 032024 9:14am [facility] Work Phone: 1([phone]) 621-977811-26-2024 Evaluation note* Diagnosis Onset Date Resolution Status Admit Date Chemotherapy follow-up examination acute January 28 8:43am Breast cancer, left chronic Novem 2023 8:43am Encounter for chemotherapy management acute February 04 7:51am Encounter for monoclonal antibody treatment for malignancy acute February 04 7:51am Breast cancer metastasized t o axillary lymph node chronic February 7:51am Breast cancer, left chronic Decem 2023 7:51am Diarrhea due to drug acute Dece mber 2023 9:18am Hypokalemia acute February 9:18am Neuropathy acute February 19, 2024 9:18am Breast cancer metastasized t o axillary lymph node chronic February 9:18am Breast cancer, left chronic Decem 2023 9:18am Abnormal mammogram acute Decemb er 2023 9:11am Abnormal ultrasound acute Decem pro 2023 9:11am Carcinoma metastatic to breast acute February 21, 2024 9:11am Enlarged lymph node acute Decem 2023 9:11am Left breast mass acute February 21, 2024 9:11am Breast cancer metastasized t o axillary lymph node chronic February 9:11am Breast cancer, left chronic Decem pro 2023 9:11am Anemia acute February 25, 2024 7:33am Diarrhea due to drug acute Dece mber 2023 7:33am Encounter for chemotherapy management acute February 24 7:33am Encounter for monoclonal antibody treatment for malignancy acute February 24 7:33am Hypokalemia acute February 7:33am Neuropathy acute February 25, 2024 7:33am Breast cancer metastasized t o axillary lymph node chronic February 7:33am Breast cancer, left chronic Decem 2023 7:33am Anemia acute March 11 9:13am Diarrhea due to drug acute Adiel caro 2024 9:13am Hypokalemia acute March 11, 2024 9:13am Neuropathy acute March 11 9:13am Breast cancer metastasized t o axillary lymph node chronic March 11, 2024 9:13am Breast cancer, left chronic Janua 2024 9:13am Breast cancer metastasized t o axillary lymph node chronic March 8:44am Breast cancer metastasized t o axillary lymph node chronic April 7:11am Breast cancer metastasized t o axillary lymph node chronic April 2:56pm Breast cancer, left chronic Febru caro 2024 2:56pm Breast cancer metastasized t o axillary lymph node chronic May 08 8:50am Breast cancer, left chronic May 08, 2024 8:50am Encounter for monoclonal antibody treatment for malignancy acute May 15, 2024 8:50am Breast cancer metastasized t o axillary lymph node chronic May 15, 2024 8:50am Breast cancer, left chronic May 15, 2024 8:50am Breast cancer metastasized t o axillary lymph node chronic May 15, 2024 1:14pm Breast cancer, left chronic May 15, 2024 1:14pm [facility] Work Phone: Hospital Discharge instructionsAmbulatory Orders* Cardiology Location: None Selected * PT Referral Location: None Selected [facility] Work Phone: Progress note Author Winifred Woodall [facility] Note Date/Time August 05, 2024 11:10 am [facility] [address] [address] OFFICE VISIT Date of Service: 08/05/24 1032 MR#: [id number] Acct: [id number] Name: CASSIDY CAPUTO Rep #: [id number] : 1970 From: Winifred Dudley ch DIRECTOR OF NEUROLOGY DIRECTOR OF NEUROLOGY-C Age/Sex: 54/F [place] [facility] [place] Status: Signed HPI Subjective Date of Service 08/05/24 Chief Complaint F/U for L breast cancer management. History of Present Illness 54-year-old woman had ultrasound of the left breast which showed 12 mm mass in 2o'clock position of the left breast. 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 MRI of the left breast on 09/21/2023 showed large clumped non-mass enhancement in the upper central portion of the left breast measuring 6.5 cm with normal lymph nodes in both axillae. 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 She was referred for neoadjuvant chemotherapy and monoclonal antibody therapy. PET/CT obtained reported as negative examination, demonstrated facilitated uptake in the left axilla SUV 1.4 did not fulfill quantitative criteria for viable neoplasm, otherwise identified no definitive evidence of distant metastatic disease. R Port was placed on 10/25/2023. BRCA 1 and BRCA 2 negative (no other genes analyzed). Started neoadjuvant TCHP on 11/13/23. Got C4 on 01/15/2024. Cycle 5 given 02/05/2024. Got C6 on 02/25/2024. Underwent left breast lumpectomy and sentinel node biopsy on 04/15/2024?pathologyshowed focal ductal carcinoma in situ but no residual invasive carcinoma presentwithin the breast, 2 of 3 sentinel lymph nodes negative, 1 of 3 lymph nodes withmicrometastatic carcinoma. 05/12/2024 echocardiogram shows normal LV size and function, normal global longitudinal strain.EF 65 to 70%. Started adjuvant Perjeta and Herceptin analogue on 05/15/2024. Completed adjuvant radiation to left breast and regional lymph nodes consisting of 5000 cGy delivered in 25 fractions 06/02/24-07/04/24. Interval History The patient is presenting to clinic accompanied by spouse for an evaluation anticipating she will begin cycle 11 trastuzumab/pertuzumab. Concerns today include rash. 2 weeks ago she noticed individual small blisters initially on her upper left arm, lesions then developed on her left chest and left abd. Applied silvadene cream and they dried up. Concerns include diarrhea. Describes as intermittent, reports 1-2 episodes/24 hour period x 2 days last cycle. Rarely requires loperamide. Denies any recent atb use, fever/chills, abd pain, bloody- mucous-like stools. Specifically denies CP, palpitations, cough, SOB, swelling of her extremities. [facility] Medical History Asthma History of echocardiogram Neuropathy Anemia Vaginal dryness Encounter for chemotherapy management Diarrhea due to drug Hypokalemia Encounter for education Wears contact lenses Wears glasses Cancer Migraine headache Shortness of breath on exertion Non-smoker Hypertension History of hypertension History of frequent headaches History of seasonal allergies Surgical History History of lumpectomy of left breast History of surgery History of delivery History of wisdom tooth extraction Family History Aunt Breast cancer, Onset Age: 60 Father Cancer Asthma Heart disease Hypertension Diabetes Aunt Lymphoma Social History Smoking Status: Never smoker alcohol intake: never substance use type: does not use additional social history: pt denies vaping, denies marijuana use denies edibles, uses ibuprofen as needed. used to take aspirin daily has stopped ROS ROS Narrative Negative except as documented in the interval HPI Intake Vital Signs 06/24/24 09:23 07/15/24 09:33 08/05/24 10:32 Height 5 ft 5 ft 5 ft Weight: 189 lb BMI 36.9 BP 128/80 H Blood Pressure Location Lt brachial Position Sitting Respiration 18 Pulse 74 Pulse Source Monitor Temp 98.3 F Temperature Source Temporal Artery Pulse Oximetry (%) 95 Oxygen Delivery Method room air Intake Is patient in pain?: No Allergies Gadolinium-MRI Contrast Medium Allergy (Intermediate, Verified 08/05/24 10:37) Rash Medications ?Medication ?Instructions ?Recorded ?Confirmed ?Type hydrochlorothiazide 12.5 mg capsule 12.5 mg PO DAILY 0 09/12/23 08/05/24 History lisinopril 2.5 mg tablet 2.5 mg PO DAILY 09/12/2305/27 History amlodipine 5 mg tablet 5 mg PO DAILY 10/18/2308/05 History loratadine 10 mg tablet (Allergy 10 mg PO DAILY 08/05/24 History Relief (loratadine)) lidocaine-prilocaine 2.5 %-2.5 % 1 applic topical ONCE PRN port 11/08/23 08/05/24 Rx topical cream access 30 days #30 grams ondansetron 8 mg disintegrating 8 mg PO Q8H PRN nausea and 11/08/23 08/05/24 Rx tablet vomiting #30 tabs prochlorperazine maleate 10 mg 10 mg PO Q6H PRN nausea and 11/08/23 08/05/24 Rx tablet vomiting #30 tabs silver sulfadiazine 1 % topical 1 applic topical BID # 85 grams 07/10/24 08/05/24 Rx cream (Silvadene) Central Venous Access Central Venous Access: Yes Port/PICC: Port Laboratory Tests 08/05/24 09:55 WBC 4.1 L Hgb 11.5 L Hct 33.0 L Plt Count 206 Absolute Neuts (auto) 2.8 Exam Physical Exam Narrative ECOG 0 Const alert, oriented x3 and no apparent distress HEENT normocephalic and head/scalp atraumatic Head and Scalp: other Other Details: hair growing back Eyes General Eye: normal appearance of both eyes Neck no lymphadenopathy Chest Chest Narrative: Port R IC area. Chest: vascular access Resp normal respiratory effort and clear to auscultation bilaterally Cardio regular rate, regular rhythm, S1 normal heart sound and S2 normal heart sound GI normal to inspection, nondistended, normoactive bowel sounds, soft to palpation and non-tender Back/Spine no CVA tenderness and no thoracic nor lumbar tenderness Extremity no clubbing, cyanosis or edema Skin Skin Narrative: 4 raised lesions left upper arm; 1 raised erythematous lesion left upper outer chest and 1 raised erythematous lesion left side of abd 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 C50.912; C77.3 Laterality: left Encounter for monoclonal antibody treatment for malignancy Z51.12 Assessment and Plan Assessment and Plan (1) Breast cancer, left: Status: Chronic Qualifiers: Breast location: overlapping sites of breast Estrogen receptor status: negative Patient sex: female Qualified Code(s): C50.812 - Malignant neoplasm of overlapping sites of left female breast; Z17.1 - Estrogen receptor negative status [ER-] Comment: Left breast cancer with metastasis to left axillary lymph node, upper inner and outer quadrant with axillary node positive disease, ER negative, CT negative, HER2 3+. Started treatment with neoadjuvant chemotherapy and monoclonal antibody against HER2 began 11/13/23. Finished 6 cycles on 02/25/2024. Had surgery-left lumpectomy and axillary dissection on 04/15/2024. Pathology showed ypT0 ypN1. Started adjuvant Perjeta and Herceptin analogue on 05/15/2024. Plan: To proceed with c11 adjuvant trastuzumab and pertuzumab today. Repeat echocardiogram August 21. (2) Breast cancer metastasized to axillary lymph node: Status: Chronic Qualifiers: Laterality: left Qualified Code(s): C50.912 - Malignant neoplasm of unspecified site of left female breast; C77.3 - Secondary and unspecified malignant neoplasm of axilla and upper limb lymph nodes Comment: Left breast cancer with metastasis to left axillary lymph node, upper inner and outer quadrant with axillary node positive disease, ER negative, CT negative, HER2 3+. Status post treatment with neoadjuvant chemotherapy carboplatin and Taxotere andmonoclonal antibody against HER2-Perjeta and Herceptin analogue x 6. Status post left breast lumpectomy and left axillary sentinel node biopsy. Pathology showed no residual left breast lesion, plus macrometastasis in 1 lymphnode. Pathologic stage ypT0 ypN1. On adjuvant therapy with monoclonal antibodies against HER2 for additional 6 months. Plan: To continue c11 adjuvant therapy with Perjeta and Herceptin analogue. (3) Encounter for monoclonal antibody treatment for malignancy: Status: Acute Plan Return to office on 08/05/2024 for c11 trastuzumab pertuzumab infusion. 08/05/24 1110 <Electronically signed by Winifred anderson NP DIRECTOR OF NEUROLOGY-C> Date _ Winifred Woodall NP DIRECTOR OF NEUROLOGY-C Cosigner Signature: Date (if applicable) CC: ~ [facility] Work Phone: Reason for referral (narrative)No reason for referral information availableBlValley [facility] Work Phone: Summary Purpose Family History No Family History Records Found Relationship Condition Age at Onset Recorded Date/T irvin aunt Malignant neoplasm of breast 60 father Malignant neoplasm Unknown Asthma Unknown Cardiac disease Unknown Hypertension Unknown Diabetes mellitus Unknown aunt Lymphoma Unknown Advance Directives No Advanced Directives Records Found Advance Directive Response Recorded Date/ Time Living Will No December 25 3:11pm Do you have a Healthcare Power of 4 H [employer]? No December 26, 2023 3:11pm Living Will No November 14, 2023 4:19pm Do you have a Healthcare Power of 4 H Youth Development Specialist? No November 14, 2023 4:19pm Living Will No December 03 9:13am Do you have a Healthcare Power of 4 H Youth Development Specialist? No December 04, 2023 9:13am Living Will No January 15, 2 024 4:12pm Do you have a Healthcare Power of 4 H Youth Development Specialist? No January 16, 2024 4:12pm Living Will No March 25 2:10pm Do you have a Healthcare Power of 4 H Youth Development Specialist? No March 25, 2024 2:10pm Living Will No April 04 5:54pm Do you have a Healthcare Power of 4 H Youth Development Specialist? No April 04, 2024 5:54pm Living Will No May 15, 2024 11:20am Do you have a Healthcare Power of 4 H Youth Development Specialist? No May 15, 2024 11:20am Advance Directives No May 15 025 11:20am Advance Directive Response Recorded Date/ Time Living Will No March 25 2:10pm Do you have a Healthcare Power of 4 H Youth Development Specialist? No March 25, 2024 2:10pm Living Will No April 04 5:54pm Do you have a Healthcare Power of 4 H Youth Development Specialist? No April 04, 2024 5:54pm Living Will No July 15, 2024 1 0:20am Do you have a Healthcare Power of 4 H Youth Development Specialist? No July 15, 2024 10:20am Advance Directives No July 15 10:20am Advance Directive Response Recorded Date/ Time Living Will No April 04 5:54pm Do you have a Healthcare Power of 4 H Youth Development Specialist? No April 04, 2024 5:54pm Living Will No August 05, 2024 1 1:21am Do you have a Healthcare Power of 4 H Youth Development Specialist? No August 05, 2024 11:21am Advance Directives No August 05 11:21am Advance Directive Response Recorded Date/ Time Living Will No August 05, 2024 1 1:21am Do you have a Healthcare Power of 4 H Youth Development Specialist? No August 05, 2024 11:21am Advance Directives No August 05 11:21am Advance Directive Response Recorded Date/ Time Living Will No August 26, 2024 10:51am Do you have a Healthcare Power of 4 H Youth Development Specialist? No August 26, 2024 10:51am Advance Directives No August 26 10:51am Advance Directive Response Recorded Date/ Time Living Will No September 16, 2024 10:47am Do you have a Healthcare Power of 4 H Youth Development Specialist? No September 16, 2024 10:47am Advance Directives No September 16 10:47am Advance Directive Response Recorded Date/ Time Living Will No October 07, 2024 10:52am Do you have a Healthcare Power of 4 H Youth Development Specialist? No October 07, 2024 10:52am Advance Directives No October 07 10:52am Advance Directive Response Recorded Date/ Time Living Will No October 28 11:00am Do you have a Healthcare Power of 4 H Youth Development Specialist? No October 28, 2024 11:00am Advance Directives No October 28, 2024 11:00am Chief Complaint and Reason for Visit Chief Complaint Admit Date HIGH RISK MED January 29, 2024 7:46am [facility] TOX CHECK January 29, 2024 8:43am [facility] [place] February 05, 2024 7 :51am [facility] TOX CHECK February 19, 2024 9:18am FOLLOW UP BREAST RECONSTRUCTION February 21, 2024 9:11am [facility] [place] February 25, 2024 7:33am 2 WEEK, LABS March 11, 2024 9: 13am ACCESS RESPONSE TO NEOADJUVANT March 062024 10:50am ALLERGIC REACTION March 25, 2024 1 :04pm REVIEW BREAST MRI April 01, 2024 8 :44am IDENTIFY CLIPS April 07, 2024 9 :11am PREOP April 08, 2024 9 :36am LT BREAST CANCER, ENLARGED LYMPH NODE [facility] 2024 7:11am LT BREAST CANCER, ENLARGED LYMPH NODE [facility] 2024 7:34am LT BREAST CANCER, ENLARGED LYMPH NODE [facility] 2024 9:41am LUMPECTOMY 2-April 29, 2024 2:56pm POST SURGERY LABS May 08, 2024 8:50 am HIGH RISK MEDS May 12, 2024 8:4 8am [facility] [place] May 15, 2024 8:5 0am BREAST CA May 15, 2024 1:1 4pm . May 21, 2024 2:0 0pm MAGLIGNANT NEOPLASM L BREAST. /LYMPH RX HERE May 22, 2024 11:02am Reason for Visit Admit Date Chemotherapy follow-up examination Novem 2023 8:43am Breast cancer, left January 29, 2024 8:43am Encounter for chemotherapy management De cember 2023 7:51am Encounter for monoclonal antibody treatm ent for malignancy February 05, 2024 7:51am Breast cancer metastasized to axillary l ymph node February 05, 2024 7:51am Breast cancer, left February 05, 2024 7 :51am Diarrhea due to drug February 19, 2024 9:18am Hypokalemia February 19, 2024 9:18am Neuropathy February 19, 2024 9:18am Breast cancer metastasized to axillary l ymph node February 19, 2024 9:18am Breast cancer, left February 19, 2024 9:18am Abnormal mammogram February 21, 2024 9:11am Abnormal ultrasound February 21, 2024 9:11am Carcinoma metastatic to breast February 21, 2024 9:11am Enlarged lymph node February 21, 2024 9:11am Left breast mass February 21, 2024 9:11am Breast cancer metastasized to axillary l ymph node February 21, 2024 9:11am Breast cancer, left February 21, 2024 9:11am Anemia February 25, 2024 7:33am Diarrhea due to drug February 25, 2024 7:33am Encounter for chemotherapy management De cember 2023 7:33am Encounter for monoclonal antibody treatm ent for malignancy February 25, 2024 7:33am Hypokalemia February 25, 2024 7:33am Neuropathy February 25, 2024 7:33am Breast cancer metastasized to axillary l ymph node February 25, 2024 7:33am Breast cancer, left February 25, 2024 7:33am Anemia March 11, 2024 9: 13am Diarrhea due to drug March 11, 2024 9 :13am Hypokalemia March 11, 2024 9: 13am Neuropathy March 11, 2024 9: 13am Breast cancer metastasized to axillary l ymph node March 11, 2024 9:13am Breast cancer, left March 11, 2024 9: 13am Breast cancer metastasized to axillary l ymph node April 01, 2024 8:44am Breast cancer metastasized to axillary l ymph node April 15, 2024 7:11am Breast cancer metastasized to axillary l ymph node April 29, 2024 2:56pm Breast cancer, left April 29, 2024 2:56pm Breast cancer metastasized to axillary l ymph node May 08, 2024 8:50am Breast cancer, left May 08, 2024 8:50 am Encounter for monoclonal antibody treatm ent for malignancy May 15, 2024 8:50am Breast cancer metastasized to axillary l ymph node May 15, 2024 8:50am Breast cancer, left May 15, 2024 8:5 0am Breast cancer metastasized to axillary l ymph node May 15, 2024 1:14pm Breast cancer, left May 15, 2024 1:1 4pm Chief Complaint Admit Date ACCESS RESPONSE TO NEOADJUVANT March 062024 10:50am ALLERGIC REACTION March 25, 2024 1 :04pm REVIEW BREAST MRI April 01, 2024 8 :44am IDENTIFY CLIPS April 07, 2024 9 :11am PREOP April 08, 2024 9 :36am LT BREAST CANCER, ENLARGED LYMPH NODE [facility] 2024 7:11am LT BREAST CANCER, ENLARGED LYMPH NODE [facility] 2024 7:34am LT BREAST CANCER, ENLARGED LYMPH NODE [facility] 2024 9:41am LUMPECTOMY 2-11 April 29, 2024 2:56pm POST SURGERY LABS May 08, 2024 8:50 am HIGH RISK MEDS May 12, 2024 8:4 8am [facility] [place] May 15, 2024 8:5 0am BREAST CA May 15, 2024 1:1 4pm MAGLIGNANT NEOPLASM L BREAST. /LYMPH RX HERE May 22, 2024 11:02am OTV June 03, 2024 10:2 7am [facility] [place] June 04, 2024 9:18 am OTV June 11, 2024 10:1 8am OTV June 18, 2024 10: 28am [facility] [place] June 24, 2024 8:3 7am OTV June 26, 2024 10: 15am OTV July 02, 2024 10: 21am Amb Documentation July 04, 2024 1:06pm . July 15, 2024 9:00a m [facility] [place] July 15, 2024 9:14a m Reason for Visit Admit Date Breast cancer metastasized to axillary l ymph node April 01, 2024 8:44am Breast cancer metastasized to axillary l ymph node April 15, 2024 7:11am Breast cancer metastasized to axillary l ymph node April 29, 2024 2:56pm Breast cancer, left April 29, 2024 2:56pm Breast cancer metastasized to axillary l ymph node May 08, 2024 8:50am Breast cancer, left May 08, 2024 8:50 am Encounter for monoclonal antibody treatm ent for malignancy May 15, 2024 8:50am Breast cancer metastasized to axillary l ymph node May 15, 2024 8:50am Breast cancer, left May 15, 2024 8:5 0am Breast cancer metastasized to axillary l ymph node May 15, 2024 1:14pm Breast cancer, left May 15, 2024 1:1 4pm Breast cancer metastasized to axillary l ymph node June 03, 2024 10:27am Breast cancer, left June 03, 2024 10:2 7am Encounter for monoclonal antibody treatm ent for malignancy June 04, 2024 9:18am Breast cancer metastasized to axillary l ymph node June 04, 2024 9:18am Breast cancer, left June 04, 2024 9:18 am History of lumpectomy of left breast Apr 2024 10:18am Breast cancer metastasized to axillary l ymph node June 18, 2024 10:28am Breast cancer, left June 18, 2024 10: 28am Encounter for monoclonal antibody treatm ent for malignancy June 24, 2024 8:37am Breast cancer metastasized to axillary l ymph node June 24, 2024 8:37am Breast cancer, left June 24, 2024 8:3 7am Breast cancer metastasized to axillary l ymph node June 26, 2024 10:15am Breast cancer, left June 26, 2024 10: 15am Breast cancer metastasized to axillary l ymph node July 02, 2024 10:21am Breast cancer, left July 02, 2024 10: 21am Encounter for monoclonal antibody treatm ent for malignancy July 15, 2024 9:14am Breast cancer metastasized to axillary l ymph node July 15, 2024 9:14am Breast cancer, left July 15, 2024 9:14a m Chief Complaint Admit Date IDENTIFY CLIPS April 07, 2024 9 :11am PREOP April 08, 2024 9 :36am LT BREAST CANCER, ENLARGED LYMPH NODE [facility] 2024 7:11am LT BREAST CANCER, ENLARGED LYMPH NODE [facility] 2024 7:34am LT BREAST CANCER, ENLARGED LYMPH NODE [facility] 2024 9:41am LUMPECTOMY -April 29, 2024 2:56pm POST SURGERY LABS May 08, 2024 8:50 am HIGH RISK MEDS May 12, 2024 8:4 8am [facility] [place] May 15, 2024 8:5 0am BREAST CA May 15, 2024 1:1 4pm MAGLIGNANT NEOPLASM L BREAST. /LYMPH RX HERE May 22, 2024 11:02am OTV June 03, 2024 10:2 7am [facility] [place] June 04, 2024 9:18 am OTV June 11, 2024 10:1 8am OTV June 18, 2024 10: 28am [facility] [place] June 24, 2024 8:3 7am OTV June 26, 2024 10: 15am OTV July 02, 2024 10: 21am Amb Documentation July 04, 2024 1:06pm [facility] [place] July 15, 2024 9:14a m . August 05, 2024 9:45a m [facility] [place] August 05, 2024 9:48a m 1 MONTH F/U POST RT August 05, 2024 10:28 am Reason for Visit Admit Date Breast cancer metastasized to axillary l ymph node April 15, 2024 7:11am Breast cancer metastasized to axillary l ymph node April 29, 2024 2:56pm Breast cancer, left April 29, 2024 2:56pm Breast cancer metastasized to axillary l ymph node May 08, 2024 8:50am Breast cancer, left May 08, 2024 8:50 am Encounter for monoclonal antibody treatm ent for malignancy May 15, 2024 8:50am Breast cancer metastasized to axillary l ymph node May 15, 2024 8:50am Breast cancer, left May 15, 2024 8:5 0am Breast cancer metastasized to axillary l ymph node May 15, 2024 1:14pm Breast cancer, left May 15, 2024 1:1 4pm Breast cancer metastasized to axillary l ymph node June 03, 2024 10:27am Breast cancer, left June 03, 2024 10:2 7am Encounter for monoclonal antibody treatm ent for malignancy June 04, 2024 9:18am Breast cancer metastasized to axillary l ymph node June 04, 2024 9:18am Breast cancer, left June 04, 2024 9:18 am History of lumpectomy of left breast Apr 2024 10:18am Breast cancer metastasized to axillary l ymph node June 18, 2024 10:28am Breast cancer, left June 18, 2024 10: 28am Encounter for monoclonal antibody treatm ent for malignancy June 24, 2024 8:37am Breast cancer metastasized to axillary l ymph node June 24, 2024 8:37am Breast cancer, left June 24, 2024 8:3 7am Breast cancer metastasized to axillary l ymph node June 26, 2024 10:15am Breast cancer, left June 26, 2024 10: 15am Breast cancer metastasized to axillary l ymph node July 02, 2024 10:21am Breast cancer, left July 02, 2024 10: 21am Encounter for monoclonal antibody treatm ent for malignancy July 15, 2024 9:14am Breast cancer metastasized to axillary l ymph node July 15, 2024 9:14am Breast cancer, left July 15, 2024 9:14a m Encounter for monoclonal antibody treatm ent for malignancy August 05, 2024 9:48am Breast cancer metastasized to axillary l ymph node August 05, 2024 9:48am Breast cancer, left August 05, 2024 9:48a m Chief Complaint Admit Date LUMPECTOMY -April 29, 2024 2:56pm POST SURGERY LABS May 08, 2024 8:50 am HIGH RISK MEDS May 12, 2024 8:4 8am [facility] [place] May 15, 2024 8:5 0am BREAST CA May 15, 2024 1:1 4pm MAGLIGNANT NEOPLASM L BREAST. /LYMPH RX HERE May 22, 2024 11:02am OTV June 03, 2024 10:2 7am [facility] [place] June 04, 2024 9:18 am OTV June 11, 2024 10:1 8am OTV June 18, 2024 10: 28am [facility] [place] June 24, 2024 8:3 7am OTV June 26, 2024 10: 15am OTV July 02, 2024 10: 21am Amb Documentation July 04, 2024 1:06pm [facility] [place] July 15, 2024 9:14a m [facility] [place] August 05, 2024 9:48a m 1 MONTH F/U POST RT August 05, 2024 10:28 am Encounter for therapeutic drug level mon itoring August 21, 2024 10:49am . August 26, 2024 8:00 am [facility] [place] August 26, 2024 8:51 am Reason for Visit Admit Date Breast cancer metastasized to axillary l ymph node April 29, 2024 2:56pm Breast cancer, left April 29, 2024 2:56pm Breast cancer metastasized to axillary l ymph node May 08, 2024 8:50am Breast cancer, left May 08, 2024 8:50 am Encounter for monoclonal antibody treatm ent for malignancy May 15, 2024 8:50am Breast cancer metastasized to axillary l ymph node May 15, 2024 8:50am Breast cancer, left May 15, 2024 8:5 0am Breast cancer metastasized to axillary l ymph node May 15, 2024 1:14pm Breast cancer, left May 15, 2024 1:1 4pm Breast cancer metastasized to axillary l ymph node June 03, 2024 10:27am Breast cancer, left June 03, 2024 10:2 7am Encounter for monoclonal antibody treatm ent for malignancy June 04, 2024 9:18am Breast cancer metastasized to axillary l ymph node June 04, 2024 9:18am Breast cancer, left June 04, 2024 9:18 am History of lumpectomy of left breast Apr [place] 2024 10:18am Breast cancer metastasized to axillary l ymph node June 18, 2024 10:28am Breast cancer, left June 18, 2024 10: 28am Encounter for monoclonal antibody treatm ent for malignancy June 24, 2024 8:37am Breast cancer metastasized to axillary l ymph node June 24, 2024 8:37am Breast cancer, left June 24, 2024 8:3 7am Breast cancer metastasized to axillary l ymph node June 26, 2024 10:15am Breast cancer, left June 26, 2024 10: 15am Breast cancer metastasized to axillary l ymph node July 02, 2024 10:21am Breast cancer, left July 02, 2024 10: 21am Encounter for monoclonal antibody treatm ent for malignancy July 15, 2024 9:14am Breast cancer metastasized to axillary l ymph node July 15, 2024 9:14am Breast cancer, left July 15, 2024 9:14a m Encounter for monoclonal antibody treatm ent for malignancy August 05, 2024 9:48am Breast cancer metastasized to axillary l ymph node August 05, 2024 9:48am Breast cancer, left August 05, 2024 9:48a m Breast cancer, left August 05, 2024 10:28 am Encounter for monoclonal antibody treatm ent for malignancy August 26, 2024 8:51am Breast cancer metastasized to axillary l ymph node August 26, 2024 8:51am Breast cancer, left August 26, 2024 8:51 am Chief Complaint Admit Date POST SURGERY LABS May 08, 2024 8:50 am HIGH RISK MEDS May 12, 2024 8:4 8am [facility] [place] May 15, 2024 8:5 0am BREAST CA May 15, 2024 1:1 4pm MAGLIGNANT NEOPLASM L BREAST. /LYMPH RX HERE May 22, 2024 11:02am OTV June 03, 2024 10:2 7am [facility] [place] June 04, 2024 9:18 am OTV June 11, 2024 10:1 8am OTV June 18, 2024 10: 28am [facility] [place] June 24, 2024 8:3 7am OTV June 26, 2024 10: 15am OTV July 02, 2024 10: 21am Amb Documentation July 04, 2024 1:06pm [facility] [place] July 15, 2024 9:14a m [facility] [place] August 05, 2024 9:48a m 1 MONTH F/U POST RT August 05, 2024 10:28 am Encounter for therapeutic drug level mon itoring August 21, 2024 10:49am . August 26, 2024 8:00 am [facility] [place] August 26, 2024 8:51 am Reason for Visit Admit Date Breast cancer metastasized to axillary l ymph node May 08, 2024 8:50am Breast cancer, left May 08, 2024 8:50 am Encounter for monoclonal antibody treatm ent for malignancy May 15, 2024 8:50am Breast cancer metastasized to axillary l ymph node May 15, 2024 8:50am Breast cancer, left May 15, 2024 8:5 0am Breast cancer metastasized to axillary l ymph node May 15, 2024 1:14pm Breast cancer, left May 15, 2024 1:1 4pm Breast cancer metastasized to axillary l ymph node June 03, 2024 10:27am Breast cancer, left June 03, 2024 10:2 7am Encounter for monoclonal antibody treatm ent for malignancy June 04, 2024 9:18am Breast cancer metastasized to axillary l ymph node June 04, 2024 9:18am Breast cancer, left June 04, 2024 9:18 am History of lumpectomy of left breast Jun 10:18am Breast cancer metastasized to axillary l ymph node June 18, 2024 10:28am Breast cancer, left June 18, 2024 10: 28am Encounter for monoclonal antibody treatm ent for malignancy June 24, 2024 8:37am Breast cancer metastasized to axillary l ymph node June 24, 2024 8:37am Breast cancer, left June 24, 2024 8:3 7am Breast cancer metastasized to axillary l ymph node June 26, 2024 10:15am Breast cancer, left June 26, 2024 10: 15am Breast cancer metastasized to axillary l ymph node July 02, 2024 10:21am Breast cancer, left July 02, 2024 10: 21am Encounter for monoclonal antibody treatm ent for malignancy July 15, 2024 9:14am Breast cancer metastasized to axillary l ymph node July 15, 2024 9:14am Breast cancer, left July 15, 2024 9:14a m Encounter for monoclonal antibody treatm ent for malignancy August 05, 2024 9:48am Breast cancer metastasized to axillary l ymph node August 05, 2024 9:48am Breast cancer, left August 05, 2024 9:48a m Breast cancer, left August 05, 2024 10:28 am Encounter for monoclonal antibody treatm ent for malignancy August 26, 2024 8:51am Breast cancer metastasized to axillary l ymph node August 26, 2024 8:51am Breast cancer, left August 26, 2024 8:51 am Chief Complaint Admit Date MAGLIGNANT NEOPLASM L BREAST. /LYMPH RX HERE May 22, 2024 11:02am OTV June 03, 2024 10:2 7am [facility] [place] June 04, 2024 9:18 am OTV June 11, 2024 10:1 8am OTV June 18, 2024 10: 28am [facility] [place] June 24, 2024 8:3 7am OTV June 26, 2024 10: 15am OTV July 02, 2024 10: 21am Amb Documentation July 04, 2024 1:06pm [facility] [place] July 15, 2024 9:14a m [facility] [place] August 05, 2024 9:48a m 1 MONTH F/U POST RT August 05, 2024 10:28 am Encounter for therapeutic drug level mon itoring August 21, 2024 10:49am [facility] [place] August 26, 2024 8:51 am . September 16, 2024 9:15 am [facility] [place] September 16, 2024 9:18 am Reason for Visit Admit Date Breast cancer metastasized to axillary l ymph node June 03, 2024 10:27am Breast cancer, left June 03, 2024 10:2 7am Encounter for monoclonal antibody treatm ent for malignancy June 04, 2024 9:18am Breast cancer metastasized to axillary l ymph node June 04, 2024 9:18am Breast cancer, left June 04, 2024 9:18 am History of lumpectomy of left breast Apr 2024 10:18am Breast cancer metastasized to axillary l ymph node June 18, 2024 10:28am Breast cancer, left June 18, 2024 10: 28am Encounter for monoclonal antibody treatm ent for malignancy June 24, 2024 8:37am Breast cancer metastasized to axillary l ymph node June 24, 2024 8:37am Breast cancer, left June 24, 2024 8:3 7am Breast cancer metastasized to axillary l ymph node June 26, 2024 10:15am Breast cancer, left June 26, 2024 10: 15am Breast cancer metastasized to axillary l ymph node July 02, 2024 10:21am Breast cancer, left July 02, 2024 10: 21am Encounter for monoclonal antibody treatm ent for malignancy July 15, 2024 9:14am Breast cancer metastasized to axillary l ymph node July 15, 2024 9:14am Breast cancer, left July 15, 2024 9:14a m Encounter for monoclonal antibody treatm ent for malignancy August 05, 2024 9:48am Breast cancer metastasized to axillary l ymph node August 05, 2024 9:48am Breast cancer, left August 05, 2024 9:48a m Breast cancer, left August 05, 2024 10:28 am Encounter for monoclonal antibody treatm ent for malignancy August 26, 2024 8:51am Breast cancer metastasized to axillary l ymph node August 26, 2024 8:51am Breast cancer, left August 26, 2024 8:51 am Encounter for monoclonal antibody treatm ent for malignancy September 16, 2024 9:18am Breast cancer metastasized to axillary l ymph node September 16, 2024 9:18am Breast cancer, left September 16, 2024 9:18 am Chief Complaint Admit Date OTV June 11, 2024 10:1 8am OTV June 18, 2024 10: 28am [facility] [place] June 24, 2024 8:3 7am OTV June 26, 2024 10: 15am OTV July 02, 2024 10: 21am Amb Documentation July 04, 2024 1:06pm [facility] [place] May 13th, 2025 9:14a m [facility] [place] August 05, 2024 9:48a m 1 MONTH F/U POST RT August 05, 2024 10:28 am Encounter for therapeutic drug level mon itoring August 21, 2024 10:49am [facility] [place] August 26, 2024 8:51 am . September 16, 2024 9:15 am [facility] [place] September 16, 2024 9:18 am Reason for Visit Admit Date History of lumpectomy of left breast Apr 2024 10:18am Breast cancer metastasized to axillary l ymph node June 18, 2024 10:28am Breast cancer, left June 18, 2024 10: 28am Encounter for monoclonal antibody treatm ent for malignancy June 24, 2024 8:37am Breast cancer metastasized to axillary l ymph node June 24, 2024 8:37am Breast cancer, left June 24, 2024 8:3 7am Breast cancer metastasized to axillary l ymph node June 26, 2024 10:15am Breast cancer, left June 26, 2024 10: 15am Breast cancer metastasized to axillary l ymph node July 02, 2024 10:21am Breast cancer, left July 02, 2024 10: 21am Encounter for monoclonal antibody treatm ent for malignancy July 15, 2024 9:14am Breast cancer metastasized to axillary l ymph node July 15, 2024 9:14am Breast cancer, left July 15, 2024 9:14a m Encounter for monoclonal antibody treatm ent for malignancy August 05, 2024 9:48am Breast cancer metastasized to axillary l ymph node August 05, 2024 9:48am Breast cancer, left August 05, 2024 9:48a m Breast cancer, left August 05, 2024 10:28 am Encounter for monoclonal antibody treatm ent for malignancy August 26, 2024 8:51am Breast cancer metastasized to axillary l ymph node August 26, 2024 8:51am Breast cancer, left August 26, 2024 8:51 am Encounter for monoclonal antibody treatm ent for malignancy September 16, 2024 9:18am Breast cancer metastasized to axillary l ymph node September 16, 2024 9:18am Breast cancer, left September 16, 2024 9:18 am Chief Complaint Admit Date OTV June 11, 2024 10:1 8am OTV June 18, 2024 10: 28am [facility] [place] June 24, 2024 8:3 7am OTV June 26, 2024 10: 15am OTV July 02, 2024 10: 21am Amb Documentation July 04, 2024 1:06pm [facility] [place] July 15, 2024 9:14a m [facility] [place] August 05, 2024 9:48a m 1 MONTH F/U POST RT August 05, 2024 10:28 am Encounter for therapeutic drug level mon itoring August 21, 2024 10:49am [facility] [place] August 26, 2024 8:51 am [facility] [place] September 16, 2024 9:18 am [facility] [place] October 07, 2024 9:0 9am . October 07, 2024 9:1 5am Reason for Visit Admit Date History of lumpectomy of left breast Apr 2024 10:18am Breast cancer metastasized to axillary l ymph node June 18, 2024 10:28am Breast cancer, left June 18, 2024 10: 28am Encounter for monoclonal antibody treatm ent for malignancy June 24, 2024 8:37am Breast cancer metastasized to axillary l ymph node June 24, 2024 8:37am Breast cancer, left June 24, 2024 8:3 7am Breast cancer metastasized to axillary l ymph node June 26, 2024 10:15am Breast cancer, left June 26, 2024 10: 15am Breast cancer metastasized to axillary l ymph node July 02, 2024 10:21am Breast cancer, left July 02, 2024 10: 21am Encounter for monoclonal antibody treatm ent for malignancy July 15, 2024 9:14am Breast cancer metastasized to axillary l ymph node July 15, 2024 9:14am Breast cancer, left July 15, 2024 9:14a m Encounter for monoclonal antibody treatm ent for malignancy August 05, 2024 9:48am Breast cancer metastasized to axillary l ymph node August 05, 2024 9:48am Breast cancer, left August 05, 2024 9:48a m Breast cancer, left August 05, 2024 10:28 am Encounter for monoclonal antibody treatm ent for malignancy August 26, 2024 8:51am Breast cancer metastasized to axillary l ymph node August 26, 2024 8:51am Breast cancer, left August 26, 2024 8:51 am Encounter for monoclonal antibody treatm ent for malignancy September 16, 2024 9:18am Breast cancer metastasized to axillary l ymph node September 16, 2024 9:18am Breast cancer, left September 16, 2024 9:18 am Encounter for monoclonal antibody treatm ent for malignancy October 07, 2024 9:09am Breast cancer metastasized to axillary l ymph node October 07, 2024 9:09am Breast cancer, left October 07, 2024 9:0 9am Chief Complaint Admit Date OTV July 02, 2024 10: 21am Amb Documentation July 04, 2024 1:06pm [facility] [place] July 15, 2024 9:14a m [facility] [place] August 05, 2024 9:48a m 1 MONTH F/U POST RT August 05, 2024 10:28 am Encounter for therapeutic drug level mon itoring August 21, 2024 10:49am [facility] [place] August 26, 2024 8:51 am [facility] [place] September 16, 2024 9:18 am [facility] [place] October 07, 2024 9:0 9am [facility] [place] October 28, 2024 8: 57am . October 28, 2024 9: 15am Reason for Visit Admit Date Breast cancer metastasized to axillary l ymph node July 02, 2024 10:21am Breast cancer, left July 02, 2024 10: 21am Encounter for monoclonal antibody treatm ent for malignancy July 15, 2024 9:14am Breast cancer metastasized to axillary l ymph node July 15, 2024 9:14am Breast cancer, left July 15, 2024 9:14a m Encounter for monoclonal antibody treatm ent for malignancy August 05, 2024 9:48am Breast cancer metastasized to axillary l ymph node August 05, 2024 9:48am Breast cancer, left August 05, 2024 9:48a m Breast cancer, left August 05, 2024 10:28 am Encounter for monoclonal antibody treatm ent for malignancy August 26, 2024 8:51am Breast cancer metastasized to axillary l ymph node August 26, 2024 8:51am Breast cancer, left August 26, 2024 8:51 am Encounter for monoclonal antibody treatm ent for malignancy September 16, 2024 9:18am Breast cancer metastasized to axillary l ymph node September 16, 2024 9:18am Breast cancer, left September 16, 2024 9:18 am Encounter for monoclonal antibody treatm ent for malignancy October 07, 2024 9:09am Breast cancer metastasized to axillary l ymph node October 07, 2024 9:09am Breast cancer, left October 07, 2024 9:0 9am Encounter for monoclonal antibody treatm ent for malignancy October 28, 2024 8:57am Breast cancer metastasized to axillary l ymph node October 28, 2024 8:57am Breast cancer, left October 28, 2024 8: 57am Chief Complaint Admit Date [facility] [place] August 05, 2024 9:48a m 1 MONTH F/U POST RT August 05, 2024 10:28 am Encounter for therapeutic drug level mon itoring August 21, 2024 10:49am [facility] [place] August 26, 2024 8:51 am [facility] [place] September 16, 2024 9:18 am [facility] [place] October 07, 2024 9:0 9am [facility] October 28, 2024 8: 57am . November 18, 2024 9:15am [facility] November 18, 2024 9:55am Reason for Visit Admit Date Encounter for monoclonal antibody treatm ent for malignancy August 05, 2024 9:48am Breast cancer metastasized to axillary l ymph node August 05, 2024 9:48am Breast cancer, left August 05, 2024 9:48a m Breast cancer, left August 05, 2024 10:28 am Encounter for monoclonal antibody treatm ent for malignancy August 26, 2024 8:51am Breast cancer metastasized to axillary l ymph node August 26, 2024 8:51am Breast cancer, left August 26, 2024 8:51 am Encounter for monoclonal antibody treatm ent for malignancy September 16, 2024 9:18am Breast cancer metastasized to axillary l ymph node September 16, 2024 9:18am Breast cancer, left September 16, 2024 9:18 am Encounter for monoclonal antibody treatm ent for malignancy October 07, 2024 9:09am Breast cancer metastasized to axillary l ymph node October 07, 2024 9:09am Breast cancer, left October 07, 2024 9:0 9am Encounter for monoclonal antibody treatm ent for malignancy October 28, 2024 8:57am Breast cancer metastasized to axillary l ymph node October 28, 2024 8:57am Breast cancer, left October 28, 2024 8: 57am Additional Source Comments INFORMATION SOURCE (unrecogn ized section and content) DATE CREATED AUTHOR 09/10/2023 [facility] DATE CREATED AUTHOR AUTHOR'S ORGANIZ ATION 11/24/2024 [facility] Care Teams (unrecognized sec tion and content) Team Status: Active Member Role Status Dates Dr. Michael Ernst DO Primary Care Provider Active Team Status: Inactive Member Role Status Dates Dr. Michael Ernst DO Primary Care Provider Active Start: January 29, 2024 End: January 29, 2024 Dr. Jairon Rothman MD Attending Provider Active S tart: January 29, 2024 End: January 29, 2024 Dr. Jairon Rothman MD Referring Provider Active S tart: January 29, 2024 End: January 29, 2024 Team Status: Active Member Role Status Dates Dr. Michael Ernst DO Primary Care Provider Active Start: January 29, 2024 Dr. Kendall Bob MD Attending Provider Active Start: January 29, 2024 Team Status: Inactive Member Role Status Dates Dr. Michael Ernst DO Primary Care Provider Active Start: January 29, 2024 End: January 29, 2024 Dr. Michael Ernst DO Referring Provider Active Start: January 29, 2024 End: January 29, 2024 Dr. Jairon Rothman MD Attending Provider Active S tart: January 29, 2024 End: January 29, 2024 Team Status: Inactive Member Role Status Dates Dr. Michael Ernst DO Primary Care Provider Active Start: February 05, 2024 End: February 05, 2024 Dr. Michael Ernst DO Referring Provider Active Start: February 05, 2024 End: February 05, 2024 Dr. Jairon Rothman MD Attending Provider Active S tart: February 05, 2024 End: February 05, 2024 Team Status: Inactive Member Role Status Dates Dr. Michael Ernst DO Primary Care Provider Active Start: February 19, 2024 End: February 19, 2024 Dr. Michael Ernst DO Referring Provider Active Start: February 19, 2024 End: February 19, 2024 Winifred Jose C DIRECTOR OF NEUROLOGY, DIRECTOR OF NEUROLOGY-C Attending Provider Active Start: February 19, 2024 End: February 19, 2024 Team Status: Inactive Member Role Status Dates Dr. Michael Ernst DO Primary Care Provider Active Start: February 21, 2024 End: February 21, 2024 Dr. Michael Ernst DO Referring Provider Active Start: February 21, 2024 End: February 21, 2024 Dr. Alexys Loredo MD Attending Provider Active Start: February 21, 2024 End: February 21, 2024 Team Status: Inactive Member Role Status Dates Dr. Michael Ernst DO Primary Care Provider Active Start: February 25, 2024 End: February 25, 2024 Dr. Michael Ernst DO Referring Provider Active Start: February 25, 2024 End: February 25, 2024 Winifred Jose C DIRECTOR OF NEUROLOGY, DIRECTOR OF NEUROLOGY-C Attending Provider Active Start: February 25, 2024 End: February 25, 2024 Team Status: Inactive Member Role Status Dates Dr. Michael Ernst DO Primary Care Provider Active Start: March 11, 2024 End: March 11, 2024 Dr. Michael Ernst DO Referring Provider Active Start: March 11, 2024 End: March 11, 2024 Winifred Jose C DIRECTOR OF NEUROLOGY, DIRECTOR OF NEUROLOGY-C Attending Provider Active Start: March 11, 2024 End: March 11, 2024 Team Status: Inactive Member Role Status Dates Dr. Michael Ernst DO Primary Care Provider Active Start: March 25, 2024 End: March 25, 2024 Winifred Jose C DIRECTOR OF NEUROLOGY, DIRECTOR OF NEUROLOGY-C Attending Provider Active Start: March 25, 2024 End: March 25, 2024 Winifred Jose C DIRECTOR OF NEUROLOGY, DIRECTOR OF NEUROLOGY-C Referring Provider Active Start: March 25, 2024 End: March 25, 2024 Team Status: Inactive Member Role Status Dates Dr. Michael Ernst DO Primary Care Provider Active Start: March 25, 2024 End: March 25, 2024 Mk Jones MD Attending Provider Active Star t: March 25, 2024 End: March 25, 2024 Mk Jones MD Emergency Provider Active Star t: March 25, 2024 End: March 25, 2024 Team Status: Inactive Member Role Status Dates Dr. Michael Ernst DO Primary Care Provider Active Start: April 01, 2024 End: April 01, 2024 Dr. Michael Ernst DO Referring Provider Active Start: April 01, 2024 End: April 01, 2024 Dr. Griffin Sage MD Attending Provider Active Start: April 01, 2024 End: April 01, 2024 Team Status: Inactive Member Role Status Dates Dr. Michael Ernst DO Primary Care Provider Active Start: April 07, 2024 End: April 07, 2024 Dr. Griffin Sage MD Attending Provider Active Start: April 07, 2024 End: April 07, 2024 Dr. Griffin Sage MD Referring Provider Active Start: April 07, 2024 End: April 07, 2024 Team Status: Active Member Role Status Dates Dr. Michael Ernst DO Primary Care Provider Active Start: April 08, 2024 End: April 08, 2024 Dr. Erik Orr MD Attending Provider Active S tart: April 08, 2024 End: April 08, 2024 Dr. Griffin Sage MD Referring Provider Active Start: April 08, 2024 End: April 08, 2024 Team Status: Inactive Member Role Status Dates Dr. Michael Ernst DO Primary Care Provider Active Start: April 15, 2024 End: April 15, 2024 Dr. Griffin Sage MD Attending Provider Active Start: April 15, 2024 End: April 15, 2024 Dr. Griffin Sage MD Referring Provider Active Start: April 15, 2024 End: April 15, 2024 Dr. Jairon Rothman MD Other Provider Active Start : April 15, 2024 End: April 15, 2024 Dr. Alexys Loredo MD Other Provider Active Star t: April 15, 2024 End: April 15, 2024 Team Status: Active Member Role Status Dates Dr. Michael Ernst DO Primary Care Provider Active Start: April 15, 2024 Dr. Griffin Sage MD Referring Provider Active Start: April 15, 2024 Dr. Griffin Sage MD Other Provider Active Sta rt: April 15, 2024 Dr. Jairon Rothman MD Other Provider Active Start : April 15, 2024 Dr. Alexys Loredo MD Attending Provider Active Start: April 15, 2024 Dr. Alexys Loredo MD Other Provider Active Star t: April 15, 2024 Team Status: Active Member Role Status Dates Dr. Michael Ernst DO Primary Care Provider Active Start: April 15, 2024 Dr. Griffin Sage MD Attending Provider Active Start: April 15, 2024 Dr. Griffin Sage MD Referring Provider Active Start: April 15, 2024 Dr. Griffin Sage MD Other Provider Active Sta rt: April 15, 2024 Dr. Jairon Rothman MD Other Provider Active Start : April 15, 2024 Dr. Alexys Loredo MD Other Provider Active Star t: April 15, 2024 Team Status: Inactive Member Role Status Dates Dr. Michael Ernst DO Primary Care Provider Active Start: April 29, 2024 End: April 29, 2024 Dr. Michael Ernst DO Referring Provider Active Start: April 29, 2024 End: April 29, 2024 Dr. Griffin Sage MD Attending Provider Active Start: April 29, 2024 End: April 29, 2024 Team Status: Inactive Member Role Status Dates Dr. Michael Ernst DO Primary Care Provider Active Start: May 08, 2024 End: May 08, 2024 Dr. Michael Ernst DO Referring Provider Active Start: May 08, 2024 End: May 08, 2024 Dr. Jairon Rothman MD Attending Provider Active S tart: May 08, 2024 End: May 08, 2024 Team Status: Inactive Member Role Status Dates Dr. Michael Ernst DO Primary Care Provider Active Start: May 12, 2024 End: May 12, 2024 Dr. Jairon Rothman MD Attending Provider Active S tart: May 12, 2024 End: May 12, 2024 Dr. Jairon Rothman MD Referring Provider Active S tart: May 12, 2024 End: May 12, 2024 Team Status: Active Member Role Status Dates Dr. Michael Ernst DO Primary Care Provider Active Start: May 12, 2024 Dr. Vandana Choe MD Attending Provider Activ e Start: May 12, 2024 Team Status: Inactive Member Role Status Dates Dr. Michael Ernst DO Primary Care Provider Active Start: May 15, 2024 End: May 15, 2024 Dr. Michael Ernst DO Referring Provider Active Start: May 15, 2024 End: May 15, 2024 Winifred Woodall DIRECTOR OF NEUROLOGY, DIRECTOR OF NEUROLOGY-C Attending Provider Active Start: May 15, 2024 End: May 15, 2024 Team Status: Inactive Member Role Status Dates Dr. Michael Ernst DO Primary Care Provider Active Start: May 15, 2024 End: May 15, 2024 Dr. Polo Morgan DO Attending Provider Active Start: May 15, 2024 End: May 15, 2024 Dr. Jairon Rothman MD Referring Provider Active S tart: May 15, 2024 End: May 15, 2024 Team Status: Active Member Role Status Dates Dr. Michael Ernst DO Primary Care Provider Active Start: May 21, 2024 Dr. Jairon Rothman MD Attending Provider Active S tart: May 21, 2024 Dr. Jairon Rothman MD Referring Provider Active S tart: May 21, 2024 Team Status: Active Member Role Status Dates Dr. Michael Ernst DO Primary Care Provider Active Start: May 21, 2024 Dr. Polo Morgan DO Attending Provider Active Start: May 21, 2024 Team Status: Active Member Role Status Dates Dr. Michael Ernst DO Primary Care Provider Active Start: May 22, 2024 Winifred Jose C DIRECTOR OF NEUROLOGY, DIRECTOR OF NEUROLOGY-C Attending Provider Active Start: May 22, 2024 Winifred Jose C DIRECTOR OF NEUROLOGY, DIRECTOR OF NEUROLOGY-C Referring Provider Active Start: May 22, 2024 Team Status: Inactive Member Role Status Dates Dr. Michael Ernst DO Primary Care Provider Active Start: May 15, 2024 End: May 15, 2024 Dr. Michael Ernst DO Referring Provider Active Start: May 15, 2024 End: May 15, 2024 Dr. Polo Morgan DO Attending Provider Active Start: May 15, 2024 End: May 15, 2024 Team Status: Active Member Role Status Dates Dr. Michael Ernst DO Primary Care Provider Active Start: May 21, 2024 Dr. Polo Morgan DO Attending Provider Active Start: May 21, 2024 Dr. Polo Morgan DO Referring Provider Active Start: May 21, 2024 Team Status: Active Member Role Status Dates Dr. Michael Ernst DO Primary Care Provider Active Start: May 27, 2024 Dr. Polo Morgan DO Attending Provider Active Start: May 27, 2024 Dr. Polo Morgan DO Referring Provider Active Start: May 27, 2024 Team Status: Active Member Role Status Dates Dr. Michael Ernst DO Primary Care Provider Active Start: May 28, 2024 Dr. Polo Morgan DO Attending Provider Active Start: May 28, 2024 Dr. Polo Morgan DO Referring Provider Active Start: May 28, 2024 Team Status: Active Member Role Status Dates Dr. Michael Ernst DO Primary Care Provider Active Start: May 29, 2024 Dr. Polo Morgan DO Attending Provider Active Start: May 29, 2024 Dr. Polo Morgan DO Referring Provider Active Start: May 29, 2024 Team Status: Active Member Role Status Dates Dr. Michael Ernst DO Primary Care Provider Active Start: June 02, 2024 Dr. Polo Morgan DO Attending Provider Active Start: June 02, 2024 Dr. Polo Morgan DO Referring Provider Active Start: June 02, 2024 Team Status: Inactive Member Role Status Dates Dr. Michael Ernst DO Primary Care Provider Active Start: June 03, 2024 End: June 03, 2024 Dr. Polo Morgan DO Attending Provider Active Start: June 03, 2024 End: June 03, 2024 Dr. Polo Morgan DO Referring Provider Active Start: June 03, 2024 End: June 03, 2024 Team Status: Inactive Member Role Status Dates Dr. Michael Ernst DO Primary Care Provider Active Start: June 04, 2024 End: June 04, 2024 Dr. Michael Ernst DO Referring Provider Active Start: June 04, 2024 End: June 04, 2024 Dr. Jairon Rothman MD Attending Provider Active S tart: June 04, 2024 End: June 04, 2024 Team Status: Inactive Member Role Status Dates Dr. Michael Ernst DO Primary Care Provider Active Start: June 11, 2024 End: June 11, 2024 Dr. Polo Morgan DO Attending Provider Active Start: June 11, 2024 End: June 11, 2024 Dr. Polo Morgan DO Referring Provider Active Start: June 11, 2024 End: June 11, 2024 Team Status: Inactive Member Role Status Dates Dr. Michael Ernst DO Primary Care Provider Active Start: June 18, 2024 End: June 18, 2024 Dr. Michael Ernst DO Referring Provider Active Start: June 18, 2024 End: June 18, 2024 Dr. Polo Morgan DO Attending Provider Active Start: June 18, 2024 End: June 18, 2024 Team Status: Inactive Member Role Status Dates Dr. Michael Ernst DO Primary Care Provider Active Start: June 24, 2024 End: June 24, 2024 Dr. Michael Ernst DO Referring Provider Active Start: June 24, 2024 End: June 24, 2024 Dr. Jairon Rothman MD Attending Provider Active S tart: June 24, 2024 End: June 24, 2024 Team Status: Inactive Member Role Status Dates Dr. Michael Ernst DO Primary Care Provider Active Start: June 25, 2024 End: June 25, 2024 Dr. Michael Ernst DO Attending Provider Active Start: June 25, 2024 End: June 25, 2024 Dr. Michael Ernst DO Referring Provider Active Start: June 25, 2024 End: June 25, 2024 Team Status: Inactive Member Role Status Dates Dr. Michael Ernst DO Primary Care Provider Active Start: June 26, 2024 End: June 26, 2024 Dr. Michael Ernst DO Referring Provider Active Start: June 26, 2024 End: June 26, 2024 Dr. Polo Morgan DO Attending Provider Active Start: June 26, 2024 End: June 26, 2024 Team Status: Inactive Member Role Status Dates Dr. Michael Ernst DO Primary Care Provider Active Start: July 02, 2024 End: July 02, 2024 Dr. Michael Ernst DO Referring Provider Active Start: July 02, 2024 End: July 02, 2024 Dr. Polo Morgan DO Attending Provider Active Start: July 02, 2024 End: July 02, 2024 Team Status: Active Member Role Status Dates Dr. Michael Ernst DO Primary Care Provider Active Start: July 04, 2024 Dr. Polo Morgan DO Attending Provider Active Start: July 04, 2024 Team Status: Active Member Role Status Dates Dr. Michael Ernst DO Primary Care Provider Active Start: July 15, 2024 Dr. Jairon Rothman MD Attending Provider Active S tart: July 15, 2024 Dr. Jairon Rothman MD Referring Provider Active S tart: July 15, 2024 Team Status: Inactive Member Role Status Dates Dr. Michael Ernst DO Primary Care Provider Active Start: July 15, 2024 End: July 15, 2024 Dr. Michael Ernst DO Referring Provider Active Start: July 15, 2024 End: July 15, 2024 Winifred Woodall DIRECTOR OF NEUROLOGY, DIRECTOR OF NEUROLOGY-C Attending Provider Active Start: July 15, 2024 End: July 15, 2024 Team Status: Inactive Member Role Status Dates Dr. Michael Ernst DO Primary Care Provider Active Start: June 26, 2024 End: June 26, 2024 Dr. Polo Morgan DO Attending Provider Active Start: June 26, 2024 End: June 26, 2024 Dr. Polo Morgan DO Referring Provider Active Start: June 26, 2024 End: June 26, 2024 Team Status: Inactive Member Role Status Dates Dr. Michael Ernst DO Primary Care Provider Active Start: July 02, 2024 End: July 02, 2024 Dr. Polo Morgan DO Attending Provider Active Start: July 02, 2024 End: July 02, 2024 Dr. Polo Morgan DO Referring Provider Active Start: July 02, 2024 End: July 02, 2024 Team Status: Active Member Role Status Dates Dr. Michael Ernst DO Primary Care Provider Active Start: August 05, 2024 Dr. Jairon Rothman MD Attending Provider Active S tart: August 05, 2024 Dr. Jairon Rothman MD Referring Provider Active S tart: August 05, 2024 Team Status: Inactive Member Role Status Dates Dr. Michael Ernst DO Primary Care Provider Active Start: August 05, 2024 End: August 05, 2024 Dr. Michael Ernst DO Referring Provider Active Start: August 05, 2024 End: August 05, 2024 Winifred Jose C DIRECTOR OF NEUROLOGY, DIRECTOR OF NEUROLOGY-C Attending Provider Active Start: August 05, 2024 End: August 05, 2024 Team Status: Active Member Role Status Dates Dr. Michael Ernst DO Primary Care Provider Active Start: August 05, 2024 Dr. Michael Ernst DO Referring Provider Active Start: August 05, 2024 Dr. Polo Morgan DO Attending Provider Active Start: August 05, 2024 Team Status: Inactive Member Role Status Dates Dr. Michael Ernts DO Primary Care Provider Active Start: August 05, 2024 End: August 05, 2024 Dr. Michael Ernst DO Referring Provider Active Start: August 05, 2024 End: August 05, 2024 Dr. Polo Morgan DO Attending Provider Active Start: August 05, 2024 End: August 05, 2024 Team Status: Active Member Role Status Dates Dr. Michael Ernst DO Primary Care Provider Active Start: August 21, 2024 Winifred Jose C DIRECTOR OF NEUROLOGY, DIRECTOR OF NEUROLOGY-C Attending Provider Active Start: August 21, 2024 Winifred Jose C DIRECTOR OF NEUROLOGY, DIRECTOR OF NEUROLOGY-C Referring Provider Active Start: August 21, 2024 Team Status: Active Member Role Status Dates Dr. Michael Ernst DO Primary Care Provider Active Start: August 21, 2024 Dr. Erik Orr MD Attending Provider Active S tart: August 21, 2024 Team Status: Active Member Role Status Dates Dr. Michael Ernst DO Primary Care Provider Active Start: August 26, 2024 Dr. Jairon Rothman MD Attending Provider Active S tart: August 26, 2024 Dr. Jairon Rothman MD Referring Provider Active S tart: August 26, 2024 Team Status: Inactive Member Role Status Dates Dr. Michael Ernst DO Primary Care Provider Active Start: August 26, 2024 End: August 26, 2024 Dr. Michael Ernst DO Referring Provider Active Start: August 26, 2024 End: August 26, 2024 Dr. Jairon Rothman MD Attending Provider Active S tart: August 26, 2024 End: August 26, 2024 Team Status: Active Member Role/Relationship Status Dates Dr. Michael Ernst DO Primary Care Provider Active Team Status: Inactive Member Role/Relationship Status Dates Dr. Michael Ernst DO Primary Care Provider Active Start: May 08, 2024 End: May 08, 2024 Dr. Michael Ernst DO Referring Provider Active Start: May 08, 2024 End: May 08, 2024 Dr. Jairon Rothman MD Attending Provider Active S tart: May 08, 2024 End: May 08, 2024 Team Status: Inactive Member Role/Relationship Status Dates Dr. Michael Ernst DO Primary Care Provider Active Start: May 12, 2024 End: May 12, 2024 Dr. Jairon Rothman MD Attending Provider Active S tart: May 12, 2024 End: May 12, 2024 Dr. Jairon Rothman MD Referring Provider Active S tart: May 12, 2024 End: May 12, 2024 Team Status: Active Member Role/Relationship Status Dates Dr. Michael Ernst DO Primary Care Provider Active Start: May 12, 2024 Dr. Vandana Choe MD Attending Provider Activ e Start: May 12, 2024 Team Status: Inactive Member Role/Relationship Status Dates Dr. Michael Ernst DO Primary Care Provider Active Start: May 15, 2024 End: May 15, 2024 Dr. Michael Ernst DO Referring Provider Active Start: May 15, 2024 End: May 15, 2024 Winifred Woodall NP, DIRECTOR OF NEUROLOGY-C Attending Provider Active Start: May 15, 2024 End: May 15, 2024 Team Status: Inactive Member Role/Relationship Status Dates Dr. Michael Ernst DO Primary Care Provider Active Start: May 15, 2024 End: May 15, 2024 Dr. Michael Ernst DO Referring Provider Active Start: May 15, 2024 End: May 15, 2024 Dr. Polo Morgan DO Attending Provider Active Start: May 15, 2024 End: May 15, 2024 Team Status: Active Member Role/Relationship Status Dates Dr. Michael Ernst DO Primary Care Provider Active Start: May 21, 2024 Dr. Polo Morgan DO Attending Provider Active Start: May 21, 2024 Dr. Polo Morgan DO Referring Provider Active Start: May 21, 2024 Team Status: Active Member Role/Relationship Status Dates Dr. Michael Ernst DO Primary Care Provider Active Start: May 22, 2024 Winifred Woodall DIRECTOR OF NEUROLOGY, DIRECTOR OF NEUROLOGY-C Attending Provider Active Start: May 22, 2024 Winifredcasandra Woodall DIRECTOR OF NEUROLOGY, DIRECTOR OF NEUROLOGY-C Referring Provider Active Start: May 22, 2024 Team Status: Active Member Role/Relationship Status Dates Dr. Michael Ernst DO Primary Care Provider Active Start: May 27, 2024 Dr. Polo Morgan DO Attending Provider Active Start: May 27, 2024 Dr. Polo Morgan DO Referring Provider Active Start: May 27, 2024 Team Status: Active Member Role/Relationship Status Dates Dr. Michael Ernst DO Primary Care Provider Active Start: May 28, 2024 Dr. Polo Morgan DO Attending Provider Active Start: May 28, 2024 Dr. Polo Morgan DO Referring Provider Active Start: May 28, 2024 Team Status: Active Member Role/Relationship Status Dates Dr. Michael Ernst DO Primary Care Provider Active Start: May 29, 2024 Dr. Polo Morgan DO Attending Provider Active Start: May 29, 2024 Dr. Polo Morgan DO Referring Provider Active Start: May 29, 2024 Team Status: Active Member Role/Relationship Status Dates Dr. Michael Ernst DO Primary Care Provider Active Start: June 02, 2024 Dr. Polo Morgan DO Attending Provider Active Start: June 02, 2024 Dr. Polo Morgan DO Referring Provider Active Start: June 02, 2024 Team Status: Inactive Member Role/Relationship Status Dates Dr. Michael Ernst DO Primary Care Provider Active Start: June 03, 2024 End: June 03, 2024 Dr. Polo Morgan DO Attending Provider Active Start: June 03, 2024 End: June 03, 2024 Dr. Polo Morgan DO Referring Provider Active Start: June 03, 2024 End: June 03, 2024 Team Status: Inactive Member Role/Relationship Status Dates Dr. Michael Ernst DO Primary Care Provider Active Start: June 04, 2024 End: June 04, 2024 Dr. Michael Ernst DO Referring Provider Active Start: June 04, 2024 End: June 04, 2024 Dr. Jairon Rothman MD Attending Provider Active S tart: June 04, 2024 End: June 04, 2024 Team Status: Inactive Member Role/Relationship Status Dates Dr. Michael Ernst DO Primary Care Provider Active Start: June 11, 2024 End: June 11, 2024 Dr. Polo Morgan DO Attending Provider Active Start: June 11, 2024 End: June 11, 2024 Dr. Polo Morgan DO Referring Provider Active Start: June 11, 2024 End: June 11, 2024 Team Status: Inactive Member Role/Relationship Status Dates Dr. Michael Ernst DO Primary Care Provider Active Start: June 18, 2024 End: June 18, 2024 Dr. Michael Ernst DO Referring Provider Active Start: June 18, 2024 End: June 18, 2024 Dr. Polo Morgan DO Attending Provider Active Start: June 18, 2024 End: June 18, 2024 Team Status: Inactive Member Role/Relationship Status Dates Dr. Michael Ernst DO Primary Care Provider Active Start: June 24, 2024 End: June 24, 2024 Dr. Michael Ernst DO Referring Provider Active Start: June 24, 2024 End: June 24, 2024 Dr. Jairon Rothman MD Attending Provider Active S tart: June 24, 2024 End: June 24, 2024 Team Status: Inactive Member Role/Relationship Status Dates Dr. Michael Ernst DO Primary Care Provider Active Start: June 25, 2024 End: June 25, 2024 Dr. Michael Ernst DO Attending Provider Active Start: June 25, 2024 End: June 25, 2024 Dr. Michael Ernst DO Referring Provider Active Start: June 25, 2024 End: June 25, 2024 Team Status: Inactive Member Role/Relationship Status Dates Dr. Michael Ernst DO Primary Care Provider Active Start: June 26, 2024 End: June 26, 2024 Dr. oPlo Morgan DO Attending Provider Active Start: June 26, 2024 End: June 26, 2024 Dr. Polo Morgan DO Referring Provider Active Start: June 26, 2024 End: June 26, 2024 Team Status: Inactive Member Role/Relationship Status Dates Dr. Michael Ernst DO Primary Care Provider Active Start: July 02, 2024 End: July 02, 2024 Dr. Polo Morgan DO Attending Provider Active Start: July 02, 2024 End: July 02, 2024 Dr. Polo Morgan DO Referring Provider Active Start: July 02, 2024 End: July 02, 2024 Team Status: Active Member Role/Relationship Status Dates Dr. Michael Ernst DO Primary Care Provider Active Start: July 04, 2024 Dr. Polo Morgan DO Attending Provider Active Start: July 04, 2024 Team Status: Inactive Member Role/Relationship Status Dates Dr. Michael Ernst DO Primary Care Provider Active Start: July 15, 2024 End: July 15, 2024 Dr. Michael Ernst DO Referring Provider Active Start: July 15, 2024 End: July 15, 2024 Winifred Jose C DIRECTOR OF NEUROLOGY, DIRECTOR OF NEUROLOGY-C Attending Provider Active Start: July 15, 2024 End: July 15, 2024 Team Status: Inactive Member Role/Relationship Status Dates Dr. Michael Ernst DO Primary Care Provider Active Start: August 05, 2024 End: August 05, 2024 Dr. Michael Ernst DO Referring Provider Active Start: August 05, 2024 End: August 05, 2024 Winifred Jose C DIRECTOR OF NEUROLOGY, DIRECTOR OF NEUROLOGY-C Attending Provider Active Start: August 05, 2024 End: August 05, 2024 Team Status: Inactive Member Role/Relationship Status Dates Dr. Michael Ernst DO Primary Care Provider Active Start: August 05, 2024 End: August 05, 2024 Dr. Michael Ernst DO Referring Provider Active Start: August 05, 2024 End: August 05, 2024 Dr. Polo Morgan DO Attending Provider Active Start: August 05, 2024 End: August 05, 2024 Team Status: Inactive Member Role/Relationship Status Dates Dr. Michael Ernst DO Primary Care Provider Active Start: August 21, 2024 End: August 21, 2024 Winifred Jose C DIRECTOR OF NEUROLOGY, DIRECTOR OF NEUROLOGY-C Attending Provider Active Start: August 21, 2024 End: August 21, 2024 Winifred Jose C DIRECTOR OF NEUROLOGY, DIRECTOR OF NEUROLOGY-C Referring Provider Active Start: August 21, 2024 End: August 21, 2024 Team Status: Active Member Role/Relationship Status Dates Dr. Michael Ernst DO Primary Care Provider Active Start: August 21, 2024 Dr. Erik Orr MD Attending Provider Active S tart: August 21, 2024 Team Status: Active Member Role/Relationship Status Dates Dr. Michael Ernst DO Primary Care Provider Active Start: August 26, 2024 Dr. Jairon Rothman MD Attending Provider Active S tart: August 26, 2024 Dr. Jairon Rothman MD Referring Provider Active S tart: August 26, 2024 Team Status: Inactive Member Role/Relationship Status Dates Dr. Michael Ernst DO Primary Care Provider Active Start: August 26, 2024 End: August 26, 2024 Dr. Michael Ernst DO Referring Provider Active Start: August 26, 2024 End: August 26, 2024 Dr. Jairon Rothman MD Attending Provider Active S tart: August 26, 2024 End: August 26, 2024 Team Status: Active Member Role/Relationship Status Dates Dr. Michael Ernst DO Primary Care Provider Active Start: May 21, 2024 Dr. Polo Morgan DO Attending Provider Active Start: May 21, 2024 Dr. Polo Morgan DO Referring Provider Active Start: May 21, 2024 Team Status: Active Member Role/Relationship Status Dates Dr. Michael Ernst DO Primary Care Provider Active Start: May 22, 2024 Winifred Woodall DIRECTOR OF NEUROLOGY, DIRECTOR OF NEUROLOGY-C Attending Provider Active Start: May 22, 2024 Winifredcasandra Woodall DIRECTOR OF NEUROLOGY, DIRECTOR OF NEUROLOGY-C Referring Provider Active Start: May 22, 2024 Team Status: Active Member Role/Relationship Status Dates Dr. Michael Ernst DO Primary Care Provider Active Start: May 27, 2024 Dr. Polo Morgan DO Attending Provider Active Start: May 27, 2024 Dr. Polo Morgan DO Referring Provider Active Start: May 27, 2024 Team Status: Active Member Role/Relationship Status Dates Dr. Michael Ernst DO Primary Care Provider Active Start: May 28, 2024 Dr. Polo Morgan DO Attending Provider Active Start: May 28, 2024 Dr. Polo Morgan DO Referring Provider Active Start: May 28, 2024 Team Status: Active Member Role/Relationship Status Dates Dr. Michael Ernst DO Primary Care Provider Active Start: May 29, 2024 Dr. Polo Morgan DO Attending Provider Active Start: May 29, 2024 Dr. Polo Morgan DO Referring Provider Active Start: May 29, 2024 Team Status: Active Member Role/Relationship Status Dates Dr. Michael Ernst DO Primary Care Provider Active Start: June 02, 2024 Dr. Polo Morgan DO Attending Provider Active Start: June 02, 2024 Dr. Polo Morgan DO Referring Provider Active Start: June 02, 2024 Team Status: Inactive Member Role/Relationship Status Dates Dr. Michael Ernst DO Primary Care Provider Active Start: June 03, 2024 End: June 03, 2024 Dr. Polo Morgan DO Attending Provider Active Start: June 03, 2024 End: June 03, 2024 Dr. Polo Morgan DO Referring Provider Active Start: June 03, 2024 End: June 03, 2024 Team Status: Inactive Member Role/Relationship Status Dates Dr. Michael Ernst DO Primary Care Provider Active Start: June 04, 2024 End: June 04, 2024 Dr. Michael Ernst DO Referring Provider Active Start: June 04, 2024 End: June 04, 2024 Dr. Jairon Rothman MD Attending Provider Active S tart: June 04, 2024 End: June 04, 2024 Team Status: Inactive Member Role/Relationship Status Dates Dr. Michael Ernst DO Primary Care Provider Active Start: June 11, 2024 End: June 11, 2024 Dr. Polo Morgan DO Attending Provider Active Start: June 11, 2024 End: June 11, 2024 Dr. Polo Morgan DO Referring Provider Active Start: June 11, 2024 End: June 11, 2024 Team Status: Inactive Member Role/Relationship Status Dates Dr. Michael Ernst DO Primary Care Provider Active Start: June 18, 2024 End: June 18, 2024 Dr. Michael Ernst DO Referring Provider Active Start: June 18, 2024 End: June 18, 2024 Dr. Polo Morgan DO Attending Provider Active Start: June 18, 2024 End: June 18, 2024 Team Status: Inactive Member Role/Relationship Status Dates Dr. Michael Ernst DO Primary Care Provider Active Start: June 24, 2024 End: June 24, 2024 Dr. Michael Ernst DO Referring Provider Active Start: June 24, 2024 End: June 24, 2024 Dr. Jairon Rothman MD Attending Provider Active S tart: June 24, 2024 End: June 24, 2024 Team Status: Inactive Member Role/Relationship Status Dates Dr. Michael Ernst DO Primary Care Provider Active Start: June 25, 2024 End: June 25, 2024 Dr. Michael Ernst DO Attending Provider Active Start: June 25, 2024 End: June 25, 2024 Dr. Michael Ernst DO Referring Provider Active Start: June 25, 2024 End: June 25, 2024 Team Status: Inactive Member Role/Relationship Status Dates Dr. Michael Ernst DO Primary Care Provider Active Start: June 26, 2024 End: June 26, 2024 Dr. Polo Morgan DO Attending Provider Active Start: June 26, 2024 End: June 26, 2024 Dr. Polo Morgan DO Referring Provider Active Start: June 26, 2024 End: June 26, 2024 Team Status: Inactive Member Role/Relationship Status Dates Dr. Michael Ernst DO Primary Care Provider Active Start: July 02, 2024 End: July 02, 2024 Dr. Polo Morgan DO Attending Provider Active Start: July 02, 2024 End: July 02, 2024 Dr. Polo Morgan DO Referring Provider Active Start: July 02, 2024 End: July 02, 2024 Team Status: Active Member Role/Relationship Status Dates Dr. Michael Ernst DO Primary Care Provider Active Start: July 04, 2024 Dr. Polo Morgan DO Attending Provider Active Start: July 04, 2024 Team Status: Inactive Member Role/Relationship Status Dates Dr. Michael Ernst DO Primary Care Provider Active Start: July 15, 2024 End: July 15, 2024 Dr. Michael Ernst DO Referring Provider Active Start: July 15, 2024 End: July 15, 2024 Winifred Jose C DIRECTOR OF NEUROLOGY, DIRECTOR OF NEUROLOGY-C Attending Provider Active Start: July 15, 2024 End: July 15, 2024 Team Status: Inactive Member Role/Relationship Status Dates Dr. Michael Ernst DO Primary Care Provider Active Start: August 05, 2024 End: August 05, 2024 Dr. Michael Ernst DO Referring Provider Active Start: August 05, 2024 End: August 05, 2024 Winifred Jose C DIRECTOR OF NEUROLOGY, DIRECTOR OF NEUROLOGY-C Attending Provider Active Start: August 05, 2024 End: August 05, 2024 Team Status: Inactive Member Role/Relationship Status Dates Dr. Michael Ernst DO Primary Care Provider Active Start: August 05, 2024 End: August 05, 2024 Dr. Michael Ernst DO Referring Provider Active Start: August 05, 2024 End: August 05, 2024 Dr. Polo Morgan DO Attending Provider Active Start: August 05, 2024 End: August 05, 2024 Team Status: Inactive Member Role/Relationship Status Dates Dr. Michael Ernst DO Primary Care Provider Active Start: August 21, 2024 End: August 21, 2024 Winifred Jose C DIRECTOR OF NEUROLOGY, DIRECTOR OF NEUROLOGY-C Attending Provider Active Start: August 21, 2024 End: August 21, 2024 Winifred Jose C DIRECTOR OF NEUROLOGY, DIRECTOR OF NEUROLOGY-C Referring Provider Active Start: August 21, 2024 End: August 21, 2024 Team Status: Active Member Role/Relationship Status Dates Dr. Michael Ernst DO Primary Care Provider Active Start: August 21, 2024 Dr. Erik Orr MD Attending Provider Active S tart: August 21, 2024 Team Status: Inactive Member Role/Relationship Status Dates Dr. Michael Ernst DO Primary Care Provider Active Start: August 26, 2024 End: August 26, 2024 Dr. Michael Ernst DO Referring Provider Active Start: August 26, 2024 End: August 26, 2024 Dr. Jarion Rothman MD Attending Provider Active S tart: August 26, 2024 End: August 26, 2024 Team Status: Active Member Role/Relationship Status Dates Dr. Michael Ernst DO Primary Care Provider Active Start: September 16, 2024 Dr. Jairon Rothman MD Attending Provider Active S tart: September 16, 2024 Dr. Jairon Rothman MD Referring Provider Active S tart: September 16, 2024 Team Status: Inactive Member Role/Relationship Status Dates Dr. Michael Ernst DO Primary Care Provider Active Start: September 16, 2024 End: September 16, 2024 Dr. Michael Ernst DO Referring Provider Active Start: September 16, 2024 End: September 16, 2024 Dr. aJiron Rothman MD Attending Provider Active S tart: September 16, 2024 End: September 16, 2024 Team Status: Inactive Member Role/Relationship Status Dates Dr. Michael Ernst DO Primary Care Provider Active Start: June 11, 2024 End: June 11, 2024 Dr. Polo Morgan DO Attending Provider Active Start: June 11, 2024 End: June 11, 2024 Dr. Polo Morgan DO Referring Provider Active Start: June 11, 2024 End: June 11, 2024 Team Status: Inactive Member Role/Relationship Status Dates Dr. Michael Ernst DO Primary Care Provider Active Start: June 18, 2024 End: June 18, 2024 Dr. Michael Ernst DO Referring Provider Active Start: June 18, 2024 End: June 18, 2024 Dr. Polo Morgan DO Attending Provider Active Start: June 18, 2024 End: June 18, 2024 Team Status: Inactive Member Role/Relationship Status Dates Dr. Michael Ernst DO Primary Care Provider Active Start: June 24, 2024 End: June 24, 2024 Dr. Michael Ernst DO Referring Provider Active Start: June 24, 2024 End: June 24, 2024 Dr. Jairon Rothman MD Attending Provider Active S tart: June 24, 2024 End: June 24, 2024 Team Status: Inactive Member Role/Relationship Status Dates Dr. Michael Ernst DO Primary Care Provider Active Start: June 25, 2024 End: June 25, 2024 Dr. Michael Ernst DO Attending Provider Active Start: June 25, 2024 End: June 25, 2024 Dr. Michael Ernst DO Referring Provider Active Start: June 25, 2024 End: June 25, 2024 Team Status: Inactive Member Role/Relationship Status Dates Dr. Michael Ernst DO Primary Care Provider Active Start: June 26, 2024 End: June 26, 2024 Dr. Polo Morgan DO Attending Provider Active Start: June 26, 2024 End: June 26, 2024 Dr. Polo Morgan DO Referring Provider Active Start: June 26, 2024 End: June 26, 2024 Team Status: Inactive Member Role/Relationship Status Dates Dr. Michael Ernst DO Primary Care Provider Active Start: July 02, 2024 End: July 02, 2024 Dr. Polo Morgan DO Attending Provider Active Start: July 02, 2024 End: July 02, 2024 Dr. Polo Morgan DO Referring Provider Active Start: July 02, 2024 End: July 02, 2024 Team Status: Active Member Role/Relationship Status Dates Dr. Michael Ernst DO Primary Care Provider Active Start: July 04, 2024 Dr. Polo Morgan DO Attending Provider Active Start: July 04, 2024 Team Status: Inactive Member Role/Relationship Status Dates Dr. Michael Ernst DO Primary Care Provider Active Start: July 15, 2024 End: July 15, 2024 Dr. Michael Ernst DO Referring Provider Active Start: July 15, 2024 End: July 15, 2024 Winifred Woodall DIRECTOR OF NEUROLOGY, DIRECTOR OF NEUROLOGY-C Attending Provider Active Start: July 15, 2024 End: July 15, 2024 Team Status: Inactive Member Role/Relationship Status Dates Dr. Michael Ernst DO Primary Care Provider Active Start: August 05, 2024 End: August 05, 2024 Dr. Michael Ernst DO Referring Provider Active Start: August 05, 2024 End: August 05, 2024 Winifred Jose C DIRECTOR OF NEUROLOGY, DIRECTOR OF NEUROLOGY-C Attending Provider Active Start: August 05, 2024 End: August 05, 2024 Team Status: Inactive Member Role/Relationship Status Dates Dr. Michael Ernst DO Primary Care Provider Active Start: August 05, 2024 End: August 05, 2024 Dr. Michael Ernst DO Referring Provider Active Start: August 05, 2024 End: August 05, 2024 Dr. Polo Morgan DO Attending Provider Active Start: August 05, 2024 End: August 05, 2024 Team Status: Inactive Member Role/Relationship Status Dates Dr. Michael Ernst DO Primary Care Provider Active Start: August 21, 2024 End: August 21, 2024 Winifred Woodall DIRECTOR OF NEUROLOGY, DIRECTOR OF NEUROLOGY-C Attending Provider Active Start: August 21, 2024 End: August 21, 2024 Winifred Woodall DIRECTOR OF NEUROLOGY, DIRECTOR OF NEUROLOGY-C Referring Provider Active Start: August 21, 2024 End: August 21, 2024 Team Status: Active Member Role/Relationship Status Dates Dr. Michael Ernst DO Primary Care Provider Active Start: August 21, 2024 Dr. Erik Orr MD Attending Provider Active S tart: August 21, 2024 Team Status: Inactive Member Role/Relationship Status Dates Dr. Michael Ernst DO Primary Care Provider Active Start: August 26, 2024 End: August 26, 2024 Dr. Michael Ernst DO Referring Provider Active Start: August 26, 2024 End: August 26, 2024 Dr. Jairon Rothmna MD Attending Provider Active S tart: August 26, 2024 End: August 26, 2024 Team Status: Active Member Role/Relationship Status Dates Dr. Michael Ernst DO Primary Care Provider Active Start: September 16, 2024 Dr. Jairon Rothman MD Attending Provider Active S tart: September 16, 2024 Dr. Jairon Rothman MD Referring Provider Active S tart: September 16, 2024 Team Status: Inactive Member Role/Relationship Status Dates Dr. Michael Ernst DO Primary Care Provider Active Start: September 16, 2024 End: September 16, 2024 Dr. Michael Ernst DO Referring Provider Active Start: September 16, 2024 End: September 16, 2024 Dr. Jairon Rothman MD Attending Provider Active S tart: September 16, 2024 End: September 16, 2024 Team Status: Inactive Member Role/Relationship Status Dates Dr. Michael Ernst DO Primary Care Provider Active Start: September 16, 2024 End: September 16, 2024 Dr. Michael Ernst DO Referring Provider Active Start: September 16, 2024 End: September 16, 2024 Dr. Jairon Rothman MD Attending Provider Active S tart: September 16, 2024 End: September 16, 2024 Team Status: Inactive Member Role/Relationship Status Dates Dr. Michael Ernst DO Primary Care Provider Active Start: October 07, 2024 End: October 07, 2024 Dr. Michael Ernst DO Referring Provider Active Start: October 07, 2024 End: October 07, 2024 Dr. Jairon Rothman MD Attending Provider Active S tart: October 07, 2024 End: October 07, 2024 Team Status: Active Member Role/Relationship Status Dates Dr. Michael Ernst DO Primary Care Provider Active Start: October 07, 2024 Dr. Jairon Rothman MD Attending Provider Active S tart: October 07, 2024 Dr. Jairon Rothman MD Referring Provider Active S tart: October 07, 2024 Team Status: Inactive Member Role/Relationship Status Dates Dr. Michael Ernst DO Primary Care Provider Active Start: July 02, 2024 End: July 02, 2024 Dr. Polo Morgan DO Attending Provider Active Start: July 02, 2024 End: July 02, 2024 Dr. Polo Morgan DO Referring Provider Active Start: July 02, 2024 End: July 02, 2024 Team Status: Active Member Role/Relationship Status Dates Dr. Michael Ernst DO Primary Care Provider Active Start: July 04, 2024 Dr. Polo Morgan DO Attending Provider Active Start: July 04, 2024 Team Status: Inactive Member Role/Relationship Status Dates Dr. Michael Ernst DO Primary Care Provider Active Start: July 15, 2024 End: July 15, 2024 Dr. Michael Ernst DO Referring Provider Active Start: July 15, 2024 End: July 15, 2024 Winifred Woodall DIRECTOR OF NEUROLOGY, DIRECTOR OF NEUROLOGY-C Attending Provider Active Start: July 15, 2024 End: July 15, 2024 Team Status: Inactive Member Role/Relationship Status Dates Dr. Michael Ernst DO Primary Care Provider Active Start: August 05, 2024 End: August 05, 2024 Dr. Michael Ernst DO Referring Provider Active Start: August 05, 2024 End: August 05, 2024 Winifred Woodall DIRECTOR OF NEUROLOGY, DIRECTOR OF NEUROLOGY-C Attending Provider Active Start: August 05, 2024 End: August 05, 2024 Team Status: Inactive Member Role/Relationship Status Dates Dr. Michael Ernst DO Primary Care Provider Active Start: August 05, 2024 End: August 05, 2024 Dr. Michael Ernst DO Referring Provider Active Start: August 05, 2024 End: August 05, 2024 Dr. Polo Morgan DO Attending Provider Active Start: August 05, 2024 End: August 05, 2024 Team Status: Inactive Member Role/Relationship Status Dates Dr. Michael Ernst DO Primary Care Provider Active Start: August 21, 2024 End: August 21, 2024 Winifredcasandra Woodall DIRECTOR OF NEUROLOGY, DIRECTOR OF NEUROLOGY-C Attending Provider Active Start: August 21, 2024 End: August 21, 2024 Winifred Jose C DIRECTOR OF NEUROLOGY, DIRECTOR OF NEUROLOGY-C Referring Provider Active Start: August 21, 2024 End: August 21, 2024 Team Status: Active Member Role/Relationship Status Dates Dr. Michael Ernst DO Primary Care Provider Active Start: August 21, 2024 Dr. Erik Orr MD Attending Provider Active S tart: August 21, 2024 Team Status: Inactive Member Role/Relationship Status Dates Dr. Michael Ernst DO Primary Care Provider Active Start: August 26, 2024 End: August 26, 2024 Dr. Michael Ernst DO Referring Provider Active Start: August 26, 2024 End: August 26, 2024 Dr. Jairon Rothman MD Attending Provider Active S tart: August 26, 2024 End: August 26, 2024 Team Status: Inactive Member Role/Relationship Status Dates Dr. Michael Ernst DO Primary Care Provider Active Start: September 16, 2024 End: September 16, 2024 Dr. Michael Ernst DO Referring Provider Active Start: September 16, 2024 End: September 16, 2024 Dr. Jairon Rothman MD Attending Provider Active S tart: September 16, 2024 End: September 16, 2024 Team Status: Inactive Member Role/Relationship Status Dates Dr. Michael Ernst DO Primary Care Provider Active Start: October 07, 2024 End: October 07, 2024 Dr. Michael Ernst DO Referring Provider Active Start: October 07, 2024 End: October 07, 2024 Dr. Jairon Rothman MD Attending Provider Active S tart: October 07, 2024 End: October 07, 2024 Team Status: Inactive Member Role/Relationship Status Dates Dr. Michael Ernst DO Primary Care Provider Active Start: October 28, 2024 End: October 28, 2024 Dr. Michael Ernst DO Referring Provider Active Start: October 28, 2024 End: October 28, 2024 Dr. Jairon Rothman MD Attending Provider Active S tart: October 28, 2024 End: October 28, 2024 Team Status: Active Member Role/Relationship Status Dates Dr. Michael Ernst DO Primary Care Provider Active Start: October 28, 2024 Dr. Jairon Rothman MD Attending Provider Active S tart: October 28, 2024 Dr. Jairon Rothman MD Referring Provider Active S tart: October 28, 2024 Team Status: Inactive Member Role/Relationship Status Dates Dr. Michael Ernst DO Primary Care Provider Active Start: August 05, 2024 End: August 05, 2024 Dr. Michael Ernst DO Referring Provider Active Start: August 05, 2024 End: August 05, 2024 Winifred Jose C DIRECTOR OF NEUROLOGY, DIRECTOR OF NEUROLOGY-C Attending Provider Active Start: August 05, 2024 End: August 05, 2024 Team Status: Inactive Member Role/Relationship Status Dates Dr. Michael Ernst DO Primary Care Provider Active Start: August 05, 2024 End: August 05, 2024 Dr. Michael Ernst DO Referring Provider Active Start: August 05, 2024 End: August 05, 2024 Dr. Polo Morgan DO Attending Provider Active Start: August 05, 2024 End: August 05, 2024 Team Status: Inactive Member Role/Relationship Status Dates Dr. Michael Ernst DO Primary Care Provider Active Start: August 21, 2024 End: August 21, 2024 Winifred Jose C DIRECTOR OF NEUROLOGY, DIRECTOR OF NEUROLOGY-C Attending Provider Active Start: August 21, 2024 End: August 21, 2024 Winifred Jose C DIRECTOR OF NEUROLOGY, DIRECTOR OF NEUROLOGY-C Referring Provider Active Start: August 21, 2024 End: August 21, 2024 Team Status: Active Member Role/Relationship Status Dates Dr. Michael Ernst DO Primary Care Provider Active Start: August 21, 2024 Dr. Erik Orr MD Attending Provider Active S tart: August 21, 2024 Team Status: Inactive Member Role/Relationship Status Dates Dr. Michael Ernst DO Primary Care Provider Active Start: August 26, 2024 End: August 26, 2024 Dr. Michael Ernst DO Referring Provider Active Start: August 26, 2024 End: August 26, 2024 Dr. Jairon Rothman MD Attending Provider Active S tart: August 26, 2024 End: August 26, 2024 Team Status: Inactive Member Role/Relationship Status Dates Dr. Michael Ernst DO Primary Care Provider Active Start: September 16, 2024 End: September 16, 2024 Dr. Michael Ernst DO Referring Provider Active Start: September 16, 2024 End: September 16, 2024 Dr. Jairon Rothman MD Attending Provider Active S tart: September 16, 2024 End: September 16, 2024 Team Status: Inactive Member Role/Relationship Status Dates Dr. Michael Ernst DO Primary Care Provider Active Start: October 07, 2024 End: October 07, 2024 Dr. Michael Ernst DO Referring Provider Active Start: October 07, 2024 End: October 07, 2024 Dr. Jairon Rothman MD Attending Provider Active S tart: October 07, 2024 End: October 07, 2024 Team Status: Inactive Member Role/Relationship Status Dates Dr. Michael Ernst DO Primary Care Provider Active Start: October 28, 2024 End: October 28, 2024 Dr. Michael Ernst DO Referring Provider Active Start: October 28, 2024 End: October 28, 2024 Dr. Jairon Rothman MD Attending Provider Active S tart: October 28, 2024 End: October 28, 2024 Team Status: Active Member Role/Relationship Status Dates Dr. Michael Ernst DO Primary Care Provider Active Start: November 18, 2024 Dr. Jairon Rothman MD Attending Provider Active S tart: November 18, 2024 Dr. Jairon Rothman MD Referring Provider Active S tart: November 18, 2024 Team Status: Inactive Member Role/Relationship Status Dates Dr. Michael Ernst DO Primary Care Provider Active Start: November 18, 2024 End: November 18, 2024 Dr. Michael Ernst DO Referring Provider Active Start: November 18, 2024 End: November 18, 2024 Winifred Woodall NP, DIRECTOR OF NEUROLOGY-C Attending Provider Active Start: November 18, 2024 End: November 18, 2024 Goals (unrecognized section and content) Goals may be documented in a n alternate sectionGoals may be documented in an alternate sectionGoals may be documented in an alternate sectionGoals may be documented in an alternate sectionGoals may be documented in an alternate sectionGoals may be documented in an alternate sectionGoals may be documented in an alternate section FOR RECORDS PERTAINING TO PATIENTS WHO ARE OR HAVE BEEN ENROLLED IN A CHEMICAL DEPENDENCY/SUBSTANCEABUSE PROGRAM, SOME INFORMATION MAY BE OMITTED. This clinical summary was aggregated from multiple sources. Caution should be exercised in using it in the provision of clinical care. This summary normalizes information from multiple sources, and as a consequence, information in this document may materially change the coding, format and clinical context of patient data. In addition, data may be omitted in some cases. CLINICAL DECISIONS SHOULD BE BASED ON THE PRIMARY CLINICAL RECORDS. [employer] [facility]. provides no warranty or guarantee of the accuracy or completeness of information in this document.
== END | disposition home or self-care (01) ==
PROVIDERS: PCP Family Medicine; Referring Provider Nurse Practitioner Family; Visit Provider Nurse Practitioner Family
DX: C50.812 Malignant neoplasm of overlapping sites of left female breast (principal); Z51.81 Encounter for therapeutic drug level monitoring; Z17.1 Estrogen receptor negative status [ER-]; Z79.899 Other long term (current) drug therapy
CPT/HCPCS: 93306; 93356